=== PATIENT | female | born 1950 | race Caucasian/White ===

== ENCOUNTER 2019-09-20 13:28 | Outpatient (CLI) | payer MEDICARE, SELFPAY ==
--- NOTE | ~2019-09-20 | CT_ITS ---
EXAMINATION: CT knee LT wo con DATE: 09/20/2019 13:58 INDICATION: Left knee pain. TECHNIQUE: Computed tomography (CT) of the left knee was performed without intravenous contrast. Auto mated exposure control and iterative reconstruction technique were employed. The dose-length product was 355.77 mGy-cm. COMPARISON: None FINDINGS: There is a total left knee arthroplasty with patellar resurfacing in near-anatomic alignmen t. There is osteolysis abutting the cement of the tibial component anterolaterally in an area measuri ng 7 x 15 x 4 mm with breech of the anterolateral tibial cortex. There is a small knee joint effusion . IMPRESSION: 1. Total left knee arthroplasty in near-anatomic alignment. 2. 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 3. Small knee joint effusion. Reviewed, dictated and finalized at location A. SPLANT WORKER IMPRESSION: 1. Total left knee arthroplasty in near-anatomic alignment. 2. 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 3. Small knee joint effusion.
== END 2019-09-20 13:29 | disposition home or self-care (01) ==
PROVIDERS: PCP Physician Assistant; Visit Provider Orthopaedic Surgery
DX: Z96.652 Presence of left artificial knee joint (principal); M25.462 Effusion, left knee; M89.562 Osteolysis, left lower leg
CPT/HCPCS: 73700

== ENCOUNTER 2020-04-16 13:50 | Outpatient (CLI) | payer MEDICARE, SELFPAY ==
--- NOTE | ~2020-04-16 | DEXA_ITS ---
Bone Density Report Name: Carline Aj Age: 69 Sex: Female Ethnicity: White Date of : 1950 Indication: postmenopausal; height loss; inflammatory bowel disease; Referring Provider: PHYSICIAN NOT ON STAFF Study: Bone densitometry was performed. Exam Date: April 16, 2020 Accession number: [id number] Bone Density: Region BMD T-score Z-score Classification AP Spine (L1, L3, L4) 1.008 -0.4 1.8 Normal Femoral Neck (Left) 0.765 -0.8 1.1 Normal Total Hip (Left) 0.934 -0.1 1.5 Normal Total Hip Bilateral Avg 0.954 0.1 1.7 Normal Femoral Neck (Right) 0.759 -0.8 1.1 Normal Total Hip (Right) 0.972 0.2 1.8 Normal World Health Organization criteria for BMD impression classify patients as: Normal (T-score at or above -1.0), Osteopenia (T-score between -1.0 and -2.5), or Osteoporosis (T-score at or below -2.5). 10-year Fracture Risk: FRAX not reported because: All T-scores for Spine Total, Hip Total, Femoral Neck at or above -1.0 Clinical Information Provided by Patient: Has used the following medications: Vitamin D Has the following medical conditions: Inflammatory bowel diseases Patient maximum height was 63 Menopause Age: 27 No regular weight bearing exercise Drinks caffeinated beverages Onset of menses at age 9 Number of children 3 Impression: The patient has normal bone mass. Discussion: BONE DENSITY IS ABOVE THE MINIMUM DESIRABLE LEVEL AT ALL SKELETAL SITES TESTED. This patient?s bone mineral density is above the minimum desirable level (T-score -1.0 or better) at all sites measured. The patient should follow a healthful lifestyle (good nutrition with adequate calcium and vitamin D, and appropriate weight-bearing exercise). Follow-Up: Consider repeating this study in 5 years or sooner if there is some new clinical indication. Reported by: [facility] on 04/16/2020 2:20:00 PM. Reviewed, dictated and finalized at location AEvan TRINIDAD
== END 2020-04-16 13:51 | disposition home or self-care (01) ==
LOC: ANHIMG 13:57
PROVIDERS: PCP Physician Assistant
DX: M81.0 Age-related osteoporosis without current pathological fracture (principal)
CPT/HCPCS: 77080

== ENCOUNTER 2020-06-29 08:31 | Outpatient (CLI) | payer MEDICARE, SELFPAY ==
--- NOTE | ~2020-06-29 | US_ITS ---
EXAMINATION: US right upper quadrant EXAM DATE: 06/29/2020 09:55 INDICATION: Diarrhea. TECHNIQUE: Multiple grayscale and Doppler images of the abdomen right upper quadrant were obtained (b y a technologist who performed the scan) and subsequently reviewed. Comparison is made to prior exami nation from 01/17/2018. FINDINGS: The pancreatic head and body are normal in appearance. The pancreatic tail is not visualized. The l iver has normal echogenicity and contour. There are no focal liver lesions identified. There is no evidence of intrahepatic biliary duct dilation. Portal venous flow was seen in the hepatopedal, nor mal direction and has normal Doppler waveform. No right-sided hydronephrosis. Common bile duct measures 3 mm, which is normal. The gallbladder wall is normal in thickness, with ex pected amount of distention. No sonographic evidence of pericholecystic fluid. There is no cholelit hiases. Technologist performing exam reports patient did not demonstrate sonographic Flowers's sign. Please note that this sign is less reliable in patients who have received pain medication. IMPRESSION: 1. Unremarkable abdominal ultrasound exam. Reviewed, dictated and finalized at location A. NUE CYCLE SPECIALIST
--- NOTE | ~2020-06-29 | NM_ITS ---
EXAMINATION: NM hepatobiliary w pharm DATE: 06/29/2020 12:13 INDICATION: Diarrhea COMPARISON: None. TECHNIQUE: 4.7 mCi Tc-99m mebrofenin (Choletec) was administered intravenously. Scintigraphic images of the abdomen were obtained for one hour. 1.8 mcg sincalide (Kinevac) was administered by slow intr avenous infusion, and imaging was continued for 30 minutes. Gallbladder ejection fraction was calcula marnie by the technologist. FINDINGS: There is normal clearance of radiotracer from the blood pool. There is homogeneous tracer uptake by t he liver. Activity progresses to the gallbladder and bowel. There is continued increase in gallbladd er activity from the first 17.5 minutes following sincalide injection. The gallbladder ejection fract ion (GBEF) is <30% between 17.5 minutes and 30 minutes, with 0% GBEF over the 30 minutes following in jection (normal 10-90%, but most patient with gallbladder dysfunction have GBEF < 35% which does over lap with the normal range). IMPRESSION: 1. Decreased gallbladder ejection fraction consistent with gallbladder dysfunction or chronic cholec ystitis in the appropriate clinical setting. Reviewed, dictated and finalized at location A. NSTITCH SEWING MACHINE OPERATOR IMPRESSION: 1. Decreased gallbladder ejection fraction consistent with gallbladder dysfunc tion or chronic cholecystitis in the appropriate clinical setting.
== END 2020-06-29 08:32 | disposition home or self-care (01) ==
PROVIDERS: PCP Physician Assistant; Visit Provider Physician Assistant
DX: R19.7 Diarrhea, unspecified (principal)
CPT/HCPCS: 76705; 78227; A9537; J2805

== ENCOUNTER 2020-07-28 12:52 | Outpatient (CLI) | payer MEDICARE, SELFPAY ==
--- NOTE | 2020-07-28 12:55 | ECG_ITS ---
Measurements Intervals [place] Rate: 50 P: [place]: 0 QRS: -7 QRSD: 91 T: 29 QT: 481 QTc: 439 Interpretive Statements SINUS RHYTHM WITH FIRST DEGREE AV BLOCK CONSIDER INFERIOR INFARCT, AGE INDETERMINATE BORDERLINE T WAVE ABNORMALITY- ANTERIOR LEADS BASELINE ARTIFACT- I, II, III, AVR, AVL ABNORMAL ECG Electronically Signed On 07-28-2020 14:39:42 BRAKE OPERATOR by Kobe Ocampo D.O.
[2020-07-28 13:39] LABS: Basophils Percent Auto 0.4 % (0.2-1.2); Eosinophils Absolute Auto 0.2 K/mm3 (0-0.3); Eosinophils Percent Auto 2.7 % (0-4.4); Hematocrit 37.7 % (37.0-47.0); Hemoglobin 12.3 g/dL (12.0-15.0); Immature Granulocyte Absolute 0.03 K/mm3 (0.00-0.031); Immature Granulocyte Percent A 0.3 % (0-0.5); Lymphocytes Absolute Auto 2.95 K/mm3 (0.9-3.2); Lymphocytes Percent Auto 32.7 % (18.3-44.2); Mean Corpuscular HGB Conc 32.6 g/dl (32-36); Mean Corpuscular Hemoglobin 29.3 pg (26-34); Mean Corpuscular Volume 89.8 fl (80-100); Mean Platelet Volume 9.5 fl (7.4-10.4); Monocytes Absolute Auto 0.8 K/mm3 (0.1-0.6); Monocytes Percent Auto 8.4 % (2.6-8.5); Neutrophils Percent Auto 55.5 % (45.5-73.1); Platelet Count Result 285 k/mm3 (150-375); Red Cell Distribution Width 13.2 % (11.5-14.5)
[2020-07-28 13:51] LABS: Alanine Aminotransferase 17 U/L (4-35); Albumin Level 4.3 g/dL (3.5-5.1); Alkaline Phosphatase 109 U/L (38-126); Amylase 58 U/L (30-110); Anion Gap 8 mmol/L (8-16); Aspartate Amino Transferase 23 U/L (14-36); Bilirubin,Total 0.4 mg/dL (0.2-1.3); Blood Urea Nitrogen 13 mg/dL (7-17); Carbon Dioxide 34 mmol/L (22-30); Chloride 98 mmol/L (98-107); Estimated Glomerular Filt Rate > 60; Glucose 135 mg/dL (65-105); Lipase 169 U/L (23-300); Potassium 4.1 mmol/L (3.4-5.0); Sodium 140 mmol/L (137-145)
== END 2020-07-28 12:53 | disposition home or self-care (01) ==
LOC: ANHSURGERY 12:55
PROVIDERS: PCP Physician Assistant; Visit Provider Surgery
DX: Z01.818 Encounter for other preprocedural examination (principal); E11.9 Type 2 diabetes mellitus without complications; I44.0 Atrioventricular block, first degree
CPT/HCPCS: 36415; 80053; 82150; 82248; 83690; 85025; 93005

== ENCOUNTER 2020-07-31 02:09 | Outpatient (CLI) | payer MEDICARE, SELFPAY ==
[2020-07-31 18:46] LABS: SARS-CoV-2 RNA PCR Negative
== END 2020-07-31 02:10 | disposition home or self-care (01) ==
LOC: ANHCOVIDDT 02:09
PROVIDERS: PCP Physician Assistant; Visit Provider Surgery
DX: Z01.818 Encounter for other preprocedural examination (principal); Z20.828 Contact with and (suspected) exposure to other viral communicable diseases
CPT/HCPCS: 87635; C9803; U0003

== ENCOUNTER 2020-08-03 01:06 | Day surgery (SDC) | payer MEDICARE, SELFPAY ==
[2020-07-24 15:39] VITALS: BMI 33.5
[2020-08-03] VITALS (8 sets, daily range): BP systolic 127–169; BP diastolic 57–77; PULSE 52–77; RESP 12–17; TEMP 36.2–36.7; O2SAT 92–98
--- NOTE | 2020-08-03 08:28 | WPDANESEPPF ---
Anes - Initial Pre Proc Eval Procedure: Operation Date: 08/03/20 12:00 Proposed Procedures p Laparoscopic Cholecystectomy, Possible Intraoperative Cholangiogram, Possible Open - Carlos Cruz MD Date/Time: 08/03/20 08:28 Surgeon: Carlos Cruz MD Pre Op Diagnosis: biliary dyskensia Patient Data Age: 69 Gender: F Height: 1.57 m Weight: 83.18 kg Allergies Allergy/AdvReac Type Severity Reaction Status Date / Time Sulfa (Sulfonamide Allergy Unknown Rash Verified 08/03/20 10:00 Antibiotics) Home Medications Medication Instructions Recorded Confirmed Type amlodipine 5 mg tablet 5 mg PO DAILY 02/03/20 08/03/20 History atorvastatin 40 mg tablet 40 mg PO HS 02/03/20 08/03/20 History carvedilol 25 mg tablet 25 mg PO Q12H 02/03/20 08/03/20 History clonidine HCl 0.2 mg tablet 0.2 mg PO DAILY 02/03/20 08/03/20 History lisinopril 10 mg tablet 10 mg PO DAILY 02/03/20 08/03/20 History trazodone 50 mg tablet 50 mg PO HS PRN 02/03/20 08/03/20 History diclofenac sodium 75 mg 75 mg PO BID 07/20/20 08/03/20 History tablet,delayed release duloxetine 60 mg capsule,delayed 60 mg PO DAILY 07/20/20 08/03/20 History release levothyroxine 125 mcg tablet 125 mcg PO DAILY 07/20/20 08/03/20 History metformin 500 mg tablet 500 mg PO BID 07/20/20 08/03/20 History Patient hx anesthesia problems: none Family hx anesthesia problems: none [facility] Past Medical History Medical History (Updated 08/03/20 @ 08:29 by Louis Crocker DO) Depression Diabetes GERD (gastroesophageal reflux disease) High cholesterol History of heart attack 2017 History of hepatitis B Hypertension Hypothyroidism Surgical History Surgical History History of colon surgery tumor removal from colon History of hand surgery LEDY History of hysterectomy History of knee replacement left knee x2 History of shoulder surgery left shoulder History of thyroid surgery Hx of cataract surgery LEDY Family History Family History Sibling Family history of chronic obstructive pulmonary disease Family history of emphysema Mother , age 35 Multiple sclerosis Social History Social History Smoking status: Never smoker Second hand tobacco smoke exposure: No Alcohol intake: never Substance use: never Living arrangements: alone Spiritual care concerns: No Anes - Eval Final PreProcedure Day of Procedure 08/03/20 08:28 Patient weight: obese Heart: regular rate and rhythm Lungs: clear to auscultation and normal air movement Airway: Mallampati scale class 1 Neurological: alert and oriented Last oral intake: >/= 8 hours ASA classification: III Emergent: no Anesthetic plan: proceed Anesthesia type and monitoring: general ETT and standard monitoring Informed Consent: The patient's anesthetic plan and its attendant risks and benefits were discussed with the patient/family/POA. Questions were solicited and answers provided to the satisfaction of the patient/family/POA.
[2020-08-03] MEDS: ACETAMINOPHEN 500 MG TABLET 1000 MG PO (10:34)
[2020-08-03] MEDS: LACTATED RINGERS 1,000 ML 30 ML IV CONT ×2 (10:34→13:35)
[2020-08-03] MEDS: KETOROLAC 15 MG/ML VIAL (*BKC) IV PUSH (10:35)
--- NOTE | 2020-08-03 11:30 | WPDHPUPDATE1 ---
History and Physical Update Update Date/Time: 08/03/20 11:30 History and Physical has been reviewed, including an updated exam of the patient. There are NO changes in the patient's condition. Risks, benefits, and alternatives have been discussed and questions answered. Patient agrees to proceed with procedure.
--- NOTE | 2020-08-03 11:51 | SUR.PREOP ---
Up to bathroom.
[2020-08-03] MEDS: ceFAZolin 2 GM/D5W 50 ML 2 GM/50 ML BAG IVPB (12:15)
[2020-08-03] MEDS: BUPIVACAINE/EPINEPHRINE 0.25% 10 ML VIAL 30 ML INFILTRATE (12:36)
[2020-08-03 13:42] LABS: Glucose Point of Care 192 (65-105)
--- NOTE | 2020-08-03 13:42 | PM.PROC ---
Procedure Note - Detailed Date of procedure: 08/03/20 Pre-op diagnosis: biliary dyskensia Chronic Cholecystitis with Biliary dyskinesia Post-op diagnosis: same Procedure performed: Laparoscopic Cholecystectomy Description of procedure: Patient was seen preoperatively in the holding area and risks, benefits and alternatives confirmed. Patient was taken to the operating room and general anesthesia was induced. A time out was then preformed with the surgery team confirming patient and site of surgery. The abdomen was prepped and draped in the usual sterile fashion. Incision was made just below the umbilicus with an 11 blade knife. I placed 2 stay sutures of O- Vicryl on either side of the mid-line fascia beneath the umbilicus and was then able to slide in the Lux cannula through the fascial defect into the peritoneum. First under low flow and then under high flow the abdomen was insufflated with carbon dioxide never exceeding a pressure of 14. Three 5 mm trocars were then introduced under direct vision. The following trocars were introduced under direct vision: a 5 mm in the epigastrium and two 5 mm trocars along the right costal margin laterally in the subcostal area. There were no significant adhesions to the gallbladder. There were significant he has is of the omentum to the underside of the abdominal wall at the level of the umbilicus and somewhat to the right of the umbilicus. After placing all the ports we carefully placed a 0 degree 5 mm scope through the upper midline port and using the 2 lateral ports I took down the adhesions near the umbilicus which inhibited us from seen and moving the scope enter now by the umbilicus and also the right mid abdomen. These were omental adhesions and there was hardly any bleeding from these. I then carefully used the L-shaped cautery and the [place] dissector to dissect out the triangle of [place]. I then was able to dissect out both the cystic duct and cystic artery and identify a window of safety. The gall bladder was grasped and the cystic duct and artery were dissected free and clipped with an 5 mm endo-clip wearing apparel presser. The cystic duct and artery were clipped with use of 2 clips on the patient's side 1 on the gallbladder side utilizing a 5 mm endoclip-wearing apparel presser. The cystic duct was then transected. The cystic artery was also transected at this point. The gall bladder was removed using electrocautery and then removed from the abdomen using an endobag. The trocars were removed visualizing hemostasis and the remaining gas evacuated. The large trocar site at the umbilicus was closed with use of the 2 stay sutures of 0 Vicryl mentioned above and also a figure of 8 O-Vicryl suture. The 2 stay sutures mentioned above on either side of the fascia were also tied together to help approximate this midline fascia. Further local anesthetic was placed into each incision for postop pain control. The skin incisions were closed with subcuticular suture of 4-0 Monocryl. Surgical glue then was applied to all the incisions. Patient tolerated the procedure well was taken to the recovery room in good condition. Implants: none Anesthesia: TRACEE Surgeon: Carlos Cruz MD Automotive Fuel Injection Servicer: RYLEY Pisano, OR radiology physician assistant. Estimated blood loss (mL): 20 Drains: No Packing: No Pathology: yes (Gallbladder) Complications: No immediate complications Condition: stable Disposition: PACU Findings: Some adhesions under the umbilicus and along the right anterior abdominal wall. No palpable stones in the gallbladder.
== END 2020-08-03 15:40 | disposition home or self-care (01) ==
PROVIDERS: PCP Physician Assistant; Visit Provider Surgery
PROC: 0FT44ZZ Resection of Gallbladder, Percutaneous Endoscopic Approach (ICD-10-PCS; CPT 47562; principal; 2020-08-03 12:00)
DX: K81.1 Chronic cholecystitis (principal); I10 Essential (primary) hypertension; E78.00 Pure hypercholesterolemia, unspecified; I25.2 Old myocardial infarction; K21.9 Gastro-esophageal reflux disease without esophagitis; F32.9 Major depressive disorder, single episode, unspecified; E11.9 Type 2 diabetes mellitus without complications; Z79.84 Long term (current) use of oral hypoglycemic drugs; Z86.19 Personal history of other infectious and parasitic diseases; E66.9 Obesity, unspecified; Z68.33 Body mass index [BMI] 33.0-33.9, adult
CPT/HCPCS: 47562; 88304; A9270; J0461; J0690; J1100; J1885; J2405; J2704; J2710; J3010; J7120

== ENCOUNTER 2020-09-03 15:55 | Outpatient (CLI) | payer MEDICARE, SELFPAY ==
--- NOTE | ~2020-09-03 | MM_ITS ---
EXAMINATION: MM screening [facility] BI w petros HISTORY: Screening TECHNIQUE: Craniocaudal and mediolateral oblique 3-D tomosynthesis images were obtained and synthetic 2-D images were generated. CAD analysis was submitted and interpreted. COMPARISON: Comparison to multiple prior studies sequentially, with oldest reviewed study dated 10/2017. BREAST PARENCHYMAL COMPOSITION: There are scattered areas of fibroglandular density. FINDINGS: Stable benign-appearing 3 mm mass lower inner quadrant of the right breast. There is no rogelio dence of suspicious mass, calcification, or architectural distortion to suggest malignancy in either breast. There has been no suspicious interval change. IMPRESSION: 1. No mammographic evidence of malignancy. 2. Recommend routine screening mammography in one year. BI-RADS CATEGORY 2 - BENIGN FINDINGS Reviewed, dictated and finalized at location A. MING POOL SERVICER
== END 2020-09-03 15:56 | disposition home or self-care (01) ==
PROVIDERS: PCP Physician Assistant; Visit Provider Physician Assistant
DX: Z12.31 Encounter for screening mammogram for malignant neoplasm of breast (principal)
CPT/HCPCS: 77063; 77067

== ENCOUNTER 2020-09-26 09:51 | Observation (INO) | payer MEDICARE, SELFPAY ==
[2020-09-26] VITALS (24 sets, daily range): BP systolic 133–184; BP diastolic 50–90; PULSE 49–71; RESP 11–22; TEMP 36.2–36.4; O2SAT 96–99; BMI 34.0
--- NOTE | ~2020-09-26 | US_ITS ---
EXAMINATION: US carotid duplex BI DATE: 09/27/2020 08:32 INDICATION: Cerebellar infarcts. Transient ischemic attack. TECHNIQUE: Grayscale, color Doppler, and pulsed Doppler images of the cervical carotid arteries were obtained. The degree of vessel stenosis is placed in one of the following categories: normal, <50%, 5 0-69%, >=70% but less than near-occlusion, near-occlusion, or total occlusion. Note that percent sten osis relative to normal distal artery lumen diameter is indirectly measured from velocity measurement s as described by Simon, et al. Radiology 2003; 229:340-346. COMPARISON: None. FINDINGS: RIGHT: The right common carotid artery (CCA) peak systolic velocity (PSV) is 63 cm/s. The right internal car otid artery (ICA) PSV is 71 cm/s. The right ICA end-diastolic velocity (EDV) is 23 cm/s. The right IC A/CCA PSV ratio is 1.1. Grayscale and color Doppler images yield an estimate of <50% diameter reducti on from plaque in the ICA. There is antegrade flow in the right vertebral artery. LEFT: The left CCA PSV is 64 cm/s. The left ICA PSV is 84 cm/s. The left ICA EDV is 23 cm/s. The left ICA/C CA PSV ratio is 1.3. Grayscale and color Doppler images yield an estimate of <50% diameter reduction from plaque in the ICA. There is antegrade flow in the left vertebral artery. IMPRESSION: 1. <50% stenosis in the right internal carotid artery. 2. <50% stenosis in the left internal carotid artery. Reviewed, dictated and finalized at location A. RY SHEAR WORKER HELPER
--- NOTE | ~2020-09-26 | CT_ITS ---
EXAMINATION: CT brain wo con DATE: 09/26/2020 10:13 INDICATION: Aphasia. TECHNIQUE: Computed tomography (CT) of the head was performed without intravenous contrast. The mA wa s adjusted according to patient size. Iterative reconstruction technique was employed. The dose-lengt h product was 605.33 mGy-cm. COMPARISON: None FINDINGS: There is no intracranial hemorrhage, acute infarction, or abnormal intracranial mass lesion . The ventricles are normal in size. There are likely changes of ocular lens replacement surgeries. T here is mild mucosal thickening in the ethmoid sinuses. The mastoid air cells are normal. IMPRESSION: 1. Normal brain. Reviewed, dictated and finalized at location A. AGENT IMPRESSION: 1. Normal brain.
--- NOTE | ~2020-09-26 | XR_ITS ---
EXAMINATION: XR chest 1V portable DATE: 09/26/2020 10:06 INDICATION: Aphasia. TECHNIQUE: A single frontal view of the chest was obtained. COMPARISON: None. FINDINGS: The chest demonstrates clear lungs without pneumonia, pleural effusion, or pneumothorax. Th e heart size is normal. There is a prominent left paracardial fat pad. IMPRESSION: 1. No acute cardiopulmonary disease. Reviewed, dictated and finalized at location A. ITORY COUNSELOR
--- NOTE | ~2020-09-26 | MR_ITS ---
EXAMINATION: MR brain/brain stem wo/w con DATE: 09/27/2020 07:58 INDICATION: Transient ischemic attack. TECHNIQUE: Magnetic resonance imaging (MRI) of the brain and brainstem was performed without and with 16 mL MultiHance intravenous contrast. Sequences included sagittal and axial T1-weighted FSE, axial diffusion-weighted FS EPI, axial T2*-weighted GRE, axial T2-weighted FLAIR Propeller, and axial T2-we ighted Propeller. Postcontrast sequences included axial and coronal T1-weighted FSE. Apparent diffusi on coefficient (ADC) maps were created. COMPARISON: Head CT 09/26/2020 FINDINGS: There are scattered areas of nonspecific increased T2-weighted signal intensity in the cere bral white matter, which is within normal limits for the patient's age. There are small old infarcts in the cerebellum bilaterally. There is no intracranial hemorrhage, acute infarction, or abnormal int racranial mass lesion. The ventricles are normal in size. There are likely changes of ocular lens rep lacement surgeries. The mastoid air cells are normal. IMPRESSION: 1. Small old infarcts in the cerebellum. Reviewed, dictated and finalized at location A. ER GAS TUNGSTEN ARC
--- NOTE | 2020-09-26 09:59 | ECG_ITS ---
Measurements Intervals [place] Rate: 53 P: 41 MO: 201 QRS: -19 QRSD: 91 T: 16 QT: 450 QTc: 423 Interpretive Statements SINUS BRADYCARDIA BORDERLINE R WAVE PROGRESSION, ANTERIOR LEADS INFERIOR INFARCT, AGE INDETERMINATE BASELINE ARTIFACT- I, III, V4-V6 ABNORMAL ECG Electronically Signed On 09-26-2020 11:05:51 PIANOS [employer] ORGANS SALESPERSON by Kobe Ocampo D.O.
[2020-09-26 10:04] LABS: Glucose Point of Care 159 (65-105)
[2020-09-26 10:28] LABS: Basophils Absolute Auto 0.1 K/mm3 (0.0-0.1); Basophils Percent Auto 0.8 % (0.2-1.2); Eosinophils Absolute Auto 0.1 K/mm3 (0-0.3); Eosinophils Percent Auto 2.3 % (0-4.4); Hematocrit 41.5 % (37.0-47.0); Hemoglobin 13.4 g/dL (12.0-15.0); Immature Granulocyte Absolute 0.01 K/mm3 (0.00-0.031); Immature Granulocyte Percent A 0.2 % (0-0.5); Lymphocytes Absolute Auto 2.08 K/mm3 (0.9-3.2); Lymphocytes Percent Auto 33.9 % (18.3-44.2); Mean Corpuscular HGB Conc 32.3 g/dl (32-36); Mean Corpuscular Hemoglobin 28.8 pg (26-34); Mean Corpuscular Volume 89.2 fl (80-100); Mean Platelet Volume 9.6 fl (7.4-10.4); Monocytes Absolute Auto 0.5 K/mm3 (0.1-0.6); Monocytes Percent Auto 8.1 % (2.6-8.5); Neutrophils Absolute Auto 3.4 K/mm3 (1.3-6.7); Neutrophils Percent Auto 54.7 % (45.5-73.1); Platelet Count Result 263 k/mm3 (150-375); Red Blood Count 4.65 M/mm3 (4.2-5.4); Red Cell Distribution Width 12.8 % (11.5-14.5); White Blood Count 6.1 K/mm3 (4.5-10.0)
[2020-09-26 10:39] LABS: INR 0.9; Prothrombin Time 12.5 Seconds (11.1-14.7)
[2020-09-26 10:40] LABS: Partial Thromboplastin Time 32.2 SECONDS (22.3-36.8)
[2020-09-26 10:41] LABS: Anion Gap 6 mmol/L (8-16); Blood Urea Nitrogen 13 mg/dL (7-17); Carbon Dioxide 31 mmol/L (22-30); Chloride 103 mmol/L (98-107); Estimated CRCL calculation 72 ml/min; Estimated Glomerular Filt Rate > 60; Glucose 156 mg/dL (65-105); Potassium 4.4 mmol/L (3.4-5.0); Sodium 140 mmol/L (137-145)
[2020-09-26 10:53] LABS: Troponin I < 0.012 ng/mL (0.000-0.034)
--- NOTE | 2020-09-26 10:53 | ED.WEAKNESS ---
HPI - Weakness General Chief complaint: Weakness <Jeri Linn PA-C - Last Filed: 09/26/20 12:43> Stated complaint: weakness <JOSHUA Hughes Last Filed: 09/26/20 12:43> Time Seen by Provider: 09/26/20 10:14 <JOSHUA Hughes Last Filed: 09/26/20 12:43> Source: patient <JOSHUA Hughes Last Filed: 09/26/20 12:43> Mode of arrival: EMS <JOSHUA Hughes Last Filed: 09/26/20 12:43> Limitations: no limitations <JOSHUA Hughes Last Filed: 09/26/20 12:43> History of Present Illness HPI Narrative: This is a 69 year old female that presents to the ER for episode of confusion this morning. Reports around 8:30AM she was on the phone. Reports she was being asked questions and could not get out the answers. Reports this lasted for around 8 minutes and then resolved. Now reports she just does not feel right. Denies fever, cough, chest pain, shortness of breath, vision changes, abdominal pain, vomiting, dysuria, weakness, or numbness. <Jeri Linn PA-C - Last Filed: 09/26/20 12:43> Related Data Home medications: Home Medications Medication Instructions Recorded Confirmed amlodipine 5 mg tablet 5 mg PO DAILY 02/03/20 09/26/20 atorvastatin 40 mg tablet 40 mg PO HS 02/03/20 09/26/20 carvedilol 25 mg tablet 25 mg PO Q12H 02/03/20 09/26/20 clonidine HCl 0.2 mg tablet 0.2 mg PO BID 02/03/20 09/26/20 lisinopril 10 mg tablet 10 mg PO DAILY 02/03/20 09/26/20 trazodone 50 mg tablet 50 mg PO HS PRN 02/03/20 09/26/20 duloxetine 60 mg capsule,delayed 60 mg PO DAILY 07/20/20 09/26/20 release levothyroxine 125 mcg tablet 125 mcg PO DAILY 07/20/20 09/26/20 metformin 500 mg tablet 500 mg PO BID 07/20/20 09/26/20 <Jeri Linn PA-C - Last Filed: 09/26/20 12:43> Allergies/Adverse reactions: Allergies Allergy/AdvReac Type Severity Reaction Status Date / Time Sulfa (Sulfonamide Allergy Unknown Rash Verified 09/26/20 09:52 Antibiotics) <Jeri Linn PA-C - Last Filed: 09/26/20 12:43> Review of Systems Review of Systems: Narrative: CONSTITUTIONAL: Denies fever EYES: Denies visual changes CARDIOVASCULAR: Denies chest pain RESPIRATORY: Denies dyspnea. GASTROINTESTINAL: Denies abdominal pain, nausea, vomiting GENITOURINARY: Denies dysuria NEUROLOGIC: Denies headache, numbness, or weakness. <Jeri Linn PA-C - Last Filed: 09/26/20 12:43> All systems reviewed & are unremarkable except as noted in HPI and below <Jeri Linn PA-C - Last Filed: 09/26/20 12:43> [facility] Past Medical History Medical History: Medical History (Updated 09/27/20 @ 10:20 by Magali Magana PA-C) Depression Gastroesophageal reflux disease High cholesterol History of hepatitis B Hypertension Hypothyroidism Non-STEMI (non-ST elevated myocardial infarction) (~2016) In the setting of takotsubo cardiomyopathy. Pre-diabetes Takotsubo cardiomyopathy (~2016) <Jeri Linn PA-C - Last Filed: 09/26/20 12:43> Surgical History Surgical History: Surgical History (Updated 09/26/20 @ 21:48 by Susan Baldwin PA-C) History of arthroscopy of left shoulder History of bilateral cataract extraction History of colon surgery Benign mass removed from colon. History of hand surgery As treatment for basilar thumb arthritis bilaterally. History of hysterectomy History of knee replacement Left knee x2. History of laparoscopic cholecystectomy (~06/2020) History of thyroidectomy As treatment of multinodular goiter. <Jeri Linn PA-C - Last Filed: 09/26/20 12:43> Family History Family History: Family History (Updated 09/26/20 @ 21:49 by Susan Baldwin PA-C) Sibling Heart disease Mother , age 35 Multiple sclerosis Ovarian cancer Son Hodgkin lymphoma <Jeri Linn PA-C - Last Filed: 09/26/20 12:43> Social History Social History: Social History (Updated 09/26/20 @ 21:53 by Susan Lira Sumit
[2020-09-26 11:06] LABS: Add Urine Microscopic? YES; Appearance Urine Clear (Clear); Bacteria Urine Trace /hpf; Bilirubin Urine Negative (Negative); Blood Urine Negative (Negative); Color Urine Yellow (Yellow); Glucose Urine UA Negative (Negative); Ketones Urine Negative (Negative); Leukocyte Esterase Ur 3+ LEU/UL (Negative); Mucus Urine Rare /lpf; Nitrate Urine Negative (Negative); Protein Urine Negative (Negative); RBC Urine 0-2 /hpf (0-2); Squamous Epithelial Cell Urine Occasional /hpf (Few); Urobilinogen Urine Negative mg/dL (<2.0); WBC Urine 31-50 /hpf
[2020-09-26] MEDS: ASPIRIN 325 MG TABLET PO (12:49)
--- NOTE | 2020-09-26 14:29 | PC.NURSE ---
This patient, Carline Aj, was admitted to Medical Room 252-01. Patient/family oriented to hospital policies and general routines including ID bracelet, bed and alarms, visiting hours, pain management, procedures, bathroom and other care routines, personal items, smoking policy, room service/diet, and visiting hours. Information on how to activate the Rapid Response Team has been discussed. Patient/Family are encouraged to report perceived risks to care and to ask questions if they do not understand what they are told or what they should do.
--- NOTE | 2020-09-26 14:30 | PM.IMHP ---
H&P: HPI History of Present Illness Date/Time: 09/26/20 14:30 Chief Complaint: Difficulty speaking for several minutes. Narrative: This is a very pleasant 69-year-old female with hypertension, dyslipidemia, pre diabetes, hypothyroidism, and history of Takotsubo's cardiomyopathy in 2017 who presented to the emergency department earlier today via EMS from home with reports of difficulty speaking for short period of time earlier today. She was in her usual state of health when she woke this morning and at around 08:30, while speaking on the telephone to a friend, she suddenly had difficulty speaking and seemed to be ?babbling? for approximately 8 minutes before complete resolution. She has never had similar symptoms and has not had a recurrence of such. She denies associated auditory and visual changes, vertigo, ataxia, focal weakness, paresthesias, and dysphagia. No known history of cardiac dysrhythmia however perhaps every other month she will have fleeting episodes of fluttering, almost like ?butterflies? in her chest lasting less than a couple of minutes without associated symptoms. She has no known history of stroke, TIA, or carotid artery disease. Review of Systems Review of Systems: Narrative: Twelve systems were reviewed with pertinent positives and negatives as per HPI. No fever, chills, or sweats. No recent cold or flu symptoms. She denies exertional chest pain shortness of breath. No orthopnea, PND, or lower extremity edema. She denies nausea, vomiting, diarrhea. No dysuria, urinary urgency, hesitancy, incontinence, or malodorous urine. Except as documented, all other systems were reviewed and are negative. [facility] Past Medical History Medical History (Updated 09/26/20 @ 21:56 by Susan Baldwin PA-C) Depression Gastroesophageal reflux disease High cholesterol History of hepatitis B Hypertension Hypothyroidism Non-STEMI (non-ST elevated myocardial infarction) (~2016) In the setting of takotsubo cardiomyopathy. Pre-diabetes Takotsubo cardiomyopathy (~2016) Surgical History Surgical History (Updated 09/26/20 @ 21:48 by Susan Baldwin PA-C) History of arthroscopy of left shoulder History of bilateral cataract extraction History of colon surgery Benign mass removed from colon. History of hand surgery As treatment for basilar thumb arthritis bilaterally. History of hysterectomy History of knee replacement Left knee x2. History of laparoscopic cholecystectomy (~06/2020) History of thyroidectomy As treatment of multinodular goiter. Family History Family History (Updated 09/26/20 @ 21:49 by Susan Baldwin PA-C) Sibling Heart disease Mother , age 35 Multiple sclerosis Ovarian cancer Son Hodgkin lymphoma Social History Social History (Updated 09/26/20 @ 21:53 by Susan Baldwin PA-C) Social History: Surrogate decision maker: Mariposa Charles, daughter. Code status: Full code. Smoking status: Never smoker Second hand tobacco smoke exposure: No Alcohol intake: never Substance use: never Additional living arrangements comments: The patient is and lives in her own home in [place]. Additional occupation/education comments: Retired. Gender identity (if verbalized by the patient): Female Sexual Orientation (if Verbalized by the Patient): Straight or Heterosexual Spiritual care concerns: No Meds Home Medications and Allergies Home Medications Medication Instructions Recorded Confirmed Type amlodipine 5 mg tablet 5 mg PO DAILY 02/03/20 09/26/20 History atorvastatin 40 mg tablet 40 mg PO HS 02/03/20 09/26/20 History carvedilol 25 mg tablet 25 mg PO Q12H 02/03/20 09/26/20 History clonidine HCl 0.2 mg tablet 0.2 mg PO BID 02/03/20 09/26/20 History lisinopril 10 mg tablet 10 mg PO DAILY 02/03/20 09/26/20 History trazodone 50 mg tablet 50 mg PO HS PRN 02/03/20 09/26/20 History duloxetine 60 mg capsule,delayed 60 mg PO DAILY 07/20/20 09/26/20 Histo
--- NOTE | 2020-09-26 14:55 | WPDNEURCNPN ---
Assessment and Plan Assessment and plan (1) TIA (transient ischemic attack): Code(s): G45.9 - Transient cerebral ischemic attack, unspecified Status: Acute Additional Plan TIA receiving aspirin Consult date: 09/28/20 Time Seen: 14:55 HPI: Carline Aj is a 69 year old femaleAdmitted to the hospital through the emergency room for the complaints of confusion reportedly she was being asked questions she could not answer for [id number] subsequently completely resolved patient has been taking multiple medication as outlined . Does have ongoing history of diabetes mellitus hyperlipidemia depression hypertension and hypothyroidism in addition to the history of hepatitis B. Evaluation up until now revealed normal CBC normal BM abnormal UA COVID-19 negative , did CT scan of the brain Review of Systems Review of Systems: All systems reviewed & are unremarkable except as noted in HPI and below PMFSH Past Medical History Medical History Depression Gastroesophageal reflux disease High cholesterol History of hepatitis B Hypertension Hypothyroidism Non-STEMI (non-ST elevated myocardial infarction) (~2016) In the setting of takotsubo cardiomyopathy. Pre-diabetes Takotsubo cardiomyopathy (~2016) Surgical History Surgical History History of arthroscopy of left shoulder History of bilateral cataract extraction History of colon surgery Benign mass removed from colon. History of hand surgery As treatment for basilar thumb arthritis bilaterally. History of hysterectomy History of knee replacement Left knee x2. History of laparoscopic cholecystectomy (~06/2020) History of thyroidectomy As treatment of multinodular goiter. Family History Family History Sibling Heart disease Mother , age 35 Multiple sclerosis Ovarian cancer Son Hodgkin lymphoma Social History Social History Social History: Surrogate decision maker: Mariposa Charles, daughter. Code status: Full code. Smoking status: Never smoker Second hand tobacco smoke exposure: No Alcohol intake: never Substance use: never Additional living arrangements comments: The patient is and lives in her own home in [place]. Additional occupation/education comments: Retired. Gender identity (if verbalized by the patient): Female Sexual Orientation (if Verbalized by the Patient): Straight or Heterosexual Spiritual care concerns: No Meds Home Medications and Allergies Home Medications Medication Instructions Recorded Confirmed Type amlodipine 5 mg tablet 5 mg PO DAILY 02/03/20 09/26/20 History atorvastatin 40 mg tablet 40 mg PO HS 02/03/20 09/26/20 History carvedilol 25 mg tablet 25 mg PO Q12H 02/03/20 09/26/20 History clonidine HCl 0.2 mg tablet 0.2 mg PO BID 02/03/20 09/26/20 History lisinopril 10 mg tablet 10 mg PO DAILY 02/03/20 09/26/20 History trazodone 50 mg tablet 50 mg PO HS PRN 02/03/20 09/26/20 History duloxetine 60 mg capsule,delayed 60 mg PO DAILY 07/20/20 09/26/20 History release levothyroxine 125 mcg tablet 125 mcg PO DAILY 07/20/20 09/26/20 History metformin 500 mg tablet 500 mg PO BID 07/20/20 09/26/20 History Allergies Allergy/AdvReac Type Severity Reaction Status Date / Time Sulfa (Sulfonamide Allergy Unknown Rash Verified 09/26/20 09:52 Antibiotics) Vital Signs Vital Signs - 24 hr 09/26/20 09:48 09/26/20 09:54 09/26/20 09:58 Temperature 36.3 C L Pulse Rate 54 L 55 L 54 L Respiratory Rate 20 17 Blood Pressure 184/90 H Pulse Oximetry 99 99 09/26/20 10:00 09/26/20 10:01 09/26/20 10:04 Temperature Pulse Rate 52 L 53 L 57 L Respiratory Rate 15 19 22 H Blood Pressure 171/77 H 171/77 H Pulse Oximetry 99 99 99 09/26/20 10:17 09/26/20 10:39 09/26/20
[2020-09-26] MEDS: ACETAMINOPHEN 325 MG TABLET 650 MG PO (17:42)
[2020-09-26 21:54] LABS: Glucose Point of Care 104 (65-105)
[2020-09-26 22:03] LABS: Glucose Point of Care 137 (65-105)
[2020-09-26] MEDS: carvediloL 25 MG TABLET PO (22:30)
[2020-09-26] MEDS: cloNIDine HCL 0.2 MG TABLET PO (22:30)
[2020-09-26] MEDS: traZODone HCL 50 MG TABLET PO (22:31)
[2020-09-26] MEDS: ATORVASTATIN 40 MG TABLET PO (22:31)
[2020-09-27] VITALS (10 sets, daily range): BP systolic 105–114; BP diastolic 56–69; PULSE 49–86; RESP 16–18; TEMP 36.2–36.8; O2SAT 95–99
[2020-09-27 06:03] LABS: Alanine Aminotransferase 14 U/L (4-35); Albumin Level 3.8 g/dL (3.5-5.1); Alkaline Phosphatase 89 U/L (38-126); Anion Gap 5 mmol/L (8-16); Aspartate Amino Transferase 23 U/L (14-36); Bilirubin,Total 0.4 mg/dL (0.2-1.3); Blood Urea Nitrogen 13 mg/dL (7-17); Calcium 8.7 mg/dL (8.4-10.2); Carbon Dioxide 33 mmol/L (22-30); Chloride 102 mmol/L (98-107); Estimated CRCL calculation 64 ml/min; Estimated Glomerular Filt Rate > 60; Glucose 134 mg/dL (65-105); Magnesium 1.9 mg/dL (1.6-2.3); Sodium 140 mmol/L (137-145)
[2020-09-27] MEDS: LEVOTHYROXINE SODIUM 125 MCG TABLET PO (06:24)
[2020-09-27 06:56] LABS: Thyroid Stimulating Hormone Reflex 0.126 uIU/mL (0.465-4.68)
[2020-09-27 07:14] LABS: Hemoglobin A1C 5.8 % (<5.7)
[2020-09-27] MEDS: metFORMIN HCL 500 MG TABLET PO ×2 (09:01→17:00)
[2020-09-27] MEDS: DULoxetine HCL 60 MG CAPSULE.DR PO (09:01)
[2020-09-27] MEDS: carvediloL 25 MG TABLET PO ×2 (09:02→21:18)
[2020-09-27] MEDS: cloNIDine HCL 0.2 MG TABLET PO ×2 (09:02→17:00)
[2020-09-27] MEDS: lisinopriL 10 MG TABLET PO (09:02)
[2020-09-27] MEDS: amLODIPine BESYLATE 5 MG TABLET PO (09:02)
[2020-09-27] MEDS: ASPIRIN 325 MG TABLET PO (09:02)
[2020-09-27 09:40] LABS: Glucose Point of Care 172 (65-105)
--- NOTE | 2020-09-27 09:52 | ECG_ITS ---
Measurements Intervals [place] Rate: 52 P: 29 NM: 202 QRS: -21 QRSD: 98 T: 11 QT: 470 QTc: 439 Interpretive Statements SINUS BRADYCARDIA BORDERLINE AV CONDUCTION DELAY DELAYED PRECORDIAL R/S TRANSITION INFERIOR INFARCT, AGE INDETERMINATE BORDERLINE T WAVE ABNORMALITY- ANTERIOR LEADS ABNORMAL ECG Electronically Signed On 09-27-2020 11:29:31 FUR REPAIRER by Kobe Ocampo D.O.
--- NOTE | 2020-09-27 10:05 | PM.IMPN ---
Progress Note: A&P Assessment and Plan (1) Dysarthria: Code(s): R47.1 - Dysarthria and anarthria Status: Acute Assessment and Plan: Likely due to TIA due to history of previous stroke and possible arrhythmia -will continue daily aspirin -carotid Dopplers negative for significant disease -will do echo tomorrow morning -will likely need 28 day Holter monitor (2) Hypertension: Code(s): I10 - Essential (primary) hypertension Status: Acute Assessment and Plan: Last blood pressure 105/65 but was much higher on admission 184/90 likely due to stress and possible TIA -at this time, I am going to hold her home medications and do p.r.n. hydralazine although she really got her amlodipine and lisinopril today (3) High cholesterol: Code(s): E78.00 - Pure hypercholesterolemia, unspecified Status: Inactive Assessment and Plan: Continue atorvastatin (4) Pre-diabetes: Code(s): R73.03 - Prediabetes Status: Inactive Assessment and Plan: Patient is aware of this and follows with her primary care physician (5) Hypothyroidism: Code(s): E03.9 - Hypothyroidism, unspecified Status: Inactive Assessment and Plan: TSH low -await T4 and adjust medications as necessary -she has a history of thyroid resection (6) Abnormal urinalysis: Code(s): R82.90 - Unspecified abnormal findings in urine Status: Acute Assessment and Plan: Does not seem suspicious for UTI at this time, no antibiotics indicated at this time (7) TIA (transient ischemic attack): Code(s): G45.9 - Transient cerebral ischemic attack, unspecified Status: Acute Assessment and Plan: As above (8) NSVT (nonsustained ventricular tachycardia): Code(s): I47.2 - Ventricular tachycardia Status: Acute Assessment and Plan: Patient felt these palpitations during my exam but had no pain -will check magnesium stat although is normal yesterday -stat EKG does not show any arrhythmia -continue telemetry -Echo ordered -consult cardiology since the patient has arrhythmia, Need for AFib eval and my need a monitor outpt (due to chronic stroke recent TIA), and has a cardiac history (9) Sinus bradycardia: Code(s): R00.1 - Bradycardia, unspecified Status: Acute Assessment and Plan: Longstanding -patient does not have a history of passing out or weakness -no home medications appear to be the cause Time Spent With Patient Time with patient: 25 - 35 minutes Subjective Date/time seen: 09/27/20 10:05 Interval history: Pt is a 69-year-old female here for dysarthria who was seen today. Patient states she has not had any recurring symptoms. She denies numbness, tingling, weakness, dropping items, problems with gait, or problems with speaking/swallowing. She states that every once in a while she does feel like her heart flutters but does not have any pain. She states she has always had bradycardia and used to see a superintendent building up in [place] but wants to change [facility]. She says this fluttering happens every once in a while and cannot give me any time frames. She has no dizziness, arm pain, or passing out in the past. She did have a catheterization I believe about 4 years ago and was diagnosed with Takotsubo's. She has ever had a stroke in the past and is very surprised by the MRI findings. She does not Take aspirin routinely. She has not had any history of gait and balance or coordination. Patient states she has had her thyroid removed and takes levothyroxine. She just had her TSH checked outpatient but did not get the results yet Review of Systems Review of Systems: All systems reviewed & are unremarkable except as noted in HPI and below Exam Narrative: Exam Narrative: General: Well developed well nourished patient in NAD HEENT: normocephalic Neck: supple Ne
[2020-09-27 12:09] LABS: Glucose Point of Care 112 (65-105)
--- NOTE | 2020-09-27 13:22 | PM.CNCAR ---
Assessment and Plan Additional Plan TIA, MRI with evidence of old stroke, paroxysmal AF, NSVT, plan TTE, start oral anticoagulation Apixaban History of Present Illness History of Present Illness Consult date/time: 09/27/20 13:22 Consult reason: Other (arrhythmia) Reason For Visit: TIA Narrative: patient presented with acute episode of loss of speech that lasted for hours and resolved completely, no precipitating or relieving factors. No prior similar episodes. She was admitted to hospital for TIA work up. This showed small bilateral infarctions and monitor showed NSVT and AF. She has been complaining of fluttering sensation in chest and palpitations intermittently for years but never had this investigated. Review of Systems Review of Systems: All systems reviewed & are unremarkable except as noted in HPI and below PMFSH Past Medical History Medical History (Updated 09/27/20 @ 10:20 by Magali Magana PA-C) Depression Gastroesophageal reflux disease High cholesterol History of hepatitis B Hypertension Hypothyroidism Non-STEMI (non-ST elevated myocardial infarction) (~2016) In the setting of takotsubo cardiomyopathy. Pre-diabetes Takotsubo cardiomyopathy (~2017) Surgical History Surgical History (Updated 09/26/20 @ 21:48 by Susan Baldwin PA-C) History of arthroscopy of left shoulder History of bilateral cataract extraction History of colon surgery Benign mass removed from colon. History of hand surgery As treatment for basilar thumb arthritis bilaterally. History of hysterectomy History of knee replacement Left knee x2. History of laparoscopic cholecystectomy (~06/2020) History of thyroidectomy As treatment of multinodular goiter. Family History Family History (Updated 09/26/20 @ 21:49 by Susan Baldwin PA-C) Sibling Heart disease Mother , age 35 Multiple sclerosis Ovarian cancer Son Hodgkin lymphoma Social History Social History (Updated 09/26/20 @ 21:53 by Susan Baldwin PA-C) Social History: Surrogate decision maker: Mariposa Charles, daughter. Code status: Full code. Smoking status: Never smoker Second hand tobacco smoke exposure: No Alcohol intake: never Substance use: never Additional living arrangements comments: The patient is and lives in her own home in [place]. Additional occupation/education comments: Retired. Gender identity (if verbalized by the patient): Female Sexual Orientation (if Verbalized by the Patient): Straight or Heterosexual Spiritual care concerns: No Meds Home Medications and Allergies Home Medications Medication Instructions Recorded Confirmed Type amlodipine 5 mg tablet 5 mg PO DAILY 02/03/20 09/26/20 History atorvastatin 40 mg tablet 40 mg PO HS 02/03/20 09/26/20 History carvedilol 25 mg tablet 25 mg PO Q12H 02/03/20 09/26/20 History clonidine HCl 0.2 mg tablet 0.2 mg PO BID 02/03/20 09/26/20 History lisinopril 10 mg tablet 10 mg PO DAILY 02/03/20 09/26/20 History trazodone 50 mg tablet 50 mg PO HS PRN 02/03/20 09/26/20 History duloxetine 60 mg capsule,delayed 60 mg PO DAILY 07/20/20 09/26/20 History release levothyroxine 125 mcg tablet 125 mcg PO DAILY 07/20/20 09/26/20 History metformin 500 mg tablet 500 mg PO BID 07/20/20 09/26/20 History Allergies Allergy/AdvReac Type Severity Reaction Status Date / Time Sulfa (Sulfonamide Allergy Unknown Rash Verified 09/26/20 09:52 Antibiotics) Vital Signs Vital Signs - 24 hr 09/26/20 14:41 09/26/20 16:00 09/26/20 20:00 Temperature 36.4 C L Pulse Rate 57 L 56 L 59 L Respiratory Rate 18 Blood Pressure 161/80 H Pulse Oximetry 99 09/26/20 21:41 09/26/20 22:30 09/27/20 00:00 Temperature 36.2 C L Pulse Rate 56 L 71 51 L Respiratory Rate 16 Blood Pressure 142/66 H Pulse Oximetry 96 09/27/20 04:00 09/27/20 05:09 09/27/20 09:02 Temperature 36.8 C Pulse Rate 49 L 60 86 Respiratory Rate 16 Blood Pr
[2020-09-27 13:34] LABS: Free T4 Free Thyroxine Reflex 1.47 ng/dL (0.78-2.19)
[2020-09-27 14:22] LABS: Total Triiodothyronine (T3) 1.31 NG/ML (0.97-1.69)
[2020-09-27 17:22] LABS: Glucose Point of Care 105 (65-105)
[2020-09-27 21:04] LABS: Glucose Point of Care 112 (65-105)
[2020-09-27] MEDS: ATORVASTATIN 40 MG TABLET PO (21:19)
[2020-09-28] VITALS (7 sets, daily range): BP systolic 113–120; BP diastolic 62–63; PULSE 47–62; RESP 16–18; TEMP 36.3–36.9; O2SAT 94–98
--- NOTE | 2020-09-28 06:00 | ECHO_ITS ---
Patient Info Name: Carline Aj Age: 69 years : 1950 Gender: Female Ht: 62 in Wt: 182 lbs BSA: 1.94 m2 HR: 57 bpm BP: 120 / 62 mmHg Heart Rhythm: Sinus Rhythm Technical Quality: Good Exam Date: 09/28/2020 9:53 AM Exam Location: [facility] Pulmonary Patient Status: Outpatient Admit Date: 09/26/2020 Staff Ordering Physician: Jeri Linn PA-C Lighting Designer: Maxi Flowers, LIZ, RT Attending Provider: aMgali Magana PA-C Referring Physician: Kaveh RAMIRES; Exam Type: CA echo doppler color flow Study Info Indications G45.9 - Transient cerebral ischemic attack, unspecified Complete two-dimensional, color flow and Doppler transthoracic echocardiogram is performed. Strain analysis performed. Summary 1. Complete two-dimensional, color flow and Doppler transthoracic echocardiogram is performed. 2. Left ventricular systolic function is normal, estimated at 60-65%. 3. The left ventricular diastolic function is grade I diastolic dysfunction. 4. Left atrial chamber dimension is moderately enlarged. 5. Small amount of pulmonic and tricuspid valve regurgitation. 6. Aortic valve is sclerotic but not stenotic in appearance. Left Ventricle Left ventricular chamber dimension is normal. Left ventricular systolic function is normal, estimated at 60-65%. The left ventricular diastolic function is grade I diastolic dysfunction. Right Ventricle Right ventricular chamber dimension is normal. Left Atria Left atrial chamber dimension is moderately enlarged. Right Atria Right atrial chamber dimension is normal. Aortic Valve The aortic valve is trileaflet. There is mild aortic valve sclerosis. Pulmonic Valve The pulmonic valve is normal. There is mild pulmonic regurgitation. Mitral Valve The mitral valve has normal leaflets. Tricuspid Valve The tricuspid valve leaflets are normal. There is mild tricuspid valve regurgitation. Pericardium/Pleural The pericardium appears normal. Aorta The aortic root size at the sinus of Valsalva is normal. Left Ventricular Outflow Tract Name Value Normal LVOT 2D LVOT Diameter 2.0 cm LVOT Doppler LVOT Peak Gradient 5 mmHg LVOT Mean Gradient 3 mmHg LVOT VTI 28 cm LVOT VTI/AV VTI Ratio 0.7 LVOT Stroke Volume 86 ml LVOT CO 4.6 l/min LVOT CI 2.4 l/min/m2 Mitral Valve Name Value Normal MV Doppler MV Decel Brooks 440 cm/s2 MV PHT 77 ms MV Area (PHT) 2.9 cm2 4.0-5.0 MV Diastolic Function MV E Peak Velocity 117 cm/
[2020-09-28] MEDS: LEVOTHYROXINE SODIUM 125 MCG TABLET PO (06:29)
[2020-09-28] MEDS: metFORMIN HCL 500 MG TABLET PO (07:43)
[2020-09-28] MEDS: cloNIDine HCL 0.2 MG TABLET PO (08:01)
[2020-09-28] MEDS: ASPIRIN 81 MG ENTERIC TABLET PO (08:01)
[2020-09-28] MEDS: DULoxetine HCL 60 MG CAPSULE.DR PO (08:01)
[2020-09-28] MEDS: carvediloL 25 MG TABLET PO (08:02)
[2020-09-28] MEDS: APIXABAN 5 MG TABLET PO (08:02)
[2020-09-28 10:09] LABS: Glucose Point of Care 132 (65-105)
[2020-09-28 12:36] LABS: Glucose Point of Care 143 (65-105)
--- NOTE | 2020-09-28 14:13 | PM.PNCARD ---
Progress Note: A&P Additional Plan 69-year-old woman with: Episode of TIA likely cardioembolic with recognized paroxysmal atrial fib on telemetry. When in sinus rhythm she is tending to be bradycardic with heart rates in the 40s and 50s. She has been appropriately anticoagulated with apixaban. Echocardiogram/Doppler done this morning I have not been upstairs to read this study yet. She is asymptomatic and doing well. I believe cardiac-terrazas she can be discharged to home I will ensure that my office contact her for follow-up in the office downstairs regarding her paroxysmal AFib. Her episodes of AFib are very brief and self-limited and at this point I would not recommend specific antiarrhythmic therapy. Jhonatan Gunter MD [facility] Subjective Date/time seen: Date of service: 09/28/20 14:13 Interval history: Follow-up visit in the 69-year-old woman with: Episode of transient cerebral ischemia marked by expressive aphasia which was self-limited lasted 5-10 minutes. Following admission telemetry shows evidence of brief episodes of paroxysmal atrial fibrillation. She was seen yesterday in appropriately recommended for anticoagulation with apixaban. Exam Const: General: comfortable and no acute distress HENMT: Mouth: Yes moist mucous membranes Eyes: Sclera: sclerae normal Pupils: Equal, round and reactive pupils present Neck: Neck: supple and no JVD Thyroid: thyroid normal Resp: Effort & Inspection: normal respiratory effort Auscultation: clear to auscultation bilaterally Cardio: Rate: regular rate Rhythm: regular rhythm Other: No murmur no gallop GI: GI Palp: Yes Soft to palpation Auscultation: normal bowel sounds Skin: General skin exam: normal color Neuro: Cognition (Neuro): normal cognition Extrem: General: normal to inspection Objective Data Vital Signs Vital Signs: Vital Signs - 24 hr 09/27/20 16:00 09/27/20 20:00 09/27/20 21:18 Temperature Pulse Rate 70 53 L 56 L Respiratory Rate Blood Pressure Pulse Oximetry 09/27/20 22:00 09/28/20 00:00 09/28/20 04:00 Temperature 36.2 C L Pulse Rate 58 L 49 L 55 L Respiratory Rate 18 Blood Pressure 114/56 L Pulse Oximetry 96 09/28/20 06:00 09/28/20 08:00 09/28/20 08:02 Temperature 36.9 C Pulse Rate 60 62 60 Respiratory Rate 16 Blood Pressure 120/62 Pulse Oximetry 94 09/28/20 12:00 Temperature Pulse Rate 50 L Respiratory Rate Blood Pressure Pulse Oximetry Intake/Output Intake/Output: Intake & Output 09/25/20 09/26/20 09/27/20 09/28/20 23:59 23:59 23:59 23:59 Intake Total 450 1460 440 Output Total 400 600 Balance 450 1060 -160 Meds/Results Medications: Active Medications Generic Name Dose Route Start Last Admin Trade Name Freq PRN Reason Stop Dose Admin Acetaminophen 650 mg 09/26/20 16:08 09/26/20 17:42 Acetaminophen 325 Mg Tablet PO 650 mg Q6H PRN Administration Mild Pain (1-3) or Fever Amlodipine Besylate 5 mg 09/27/20 09:00 09/27/20 09:02 Amlodipine Besylate 5 Mg Tablet PO 5 mg DAILY JAIDA Administration Apixaban 5 mg 09/28/20 09:00 09/28/20 08:02 Apixaban 5 Mg Tablet PO 5 mg Q12HR JAIDA Administration Aspirin 81 mg 09/28/20 09:00 09/28/20 08:01 Aspirin 81 Mg Enteric Tablet PO 81 mg QAM JAIDA Administration Atorvastatin Calcium 40 mg 09/26/20 22:10 09/27/20 21:19 Atorvastatin 40 Mg Tablet PO 40 mg HS JAIDA Administration Carvedilol 25 mg 09/26/20 22:10 09/28/20 08:02 Carvedilol 25 Mg Tablet PO 25 mg Q12HR JAIDA Administration Clonidine HCl 0.2 mg 09/26/20 22:10 09/28/20 08:01 Clonidine Hcl 0.2 Mg Tablet PO 0.2 mg BID JAIDA Administration Dextrose 12.5 gm 09/26/20 22:00 Dextrose 50% 25 Gm/50 Ml Syringe IV PUSH PRN PRN Hypoglycemia Protocol Duloxetine HCl 60 mg 09/27/20 09:00 09/28/20 08:01 Duloxetine Hcl 60 Mg Capsule.Dr PO 60 mg DAILY JAIDA Administration Glucagon 1
--- NOTE | 2020-09-28 14:34 | PM.DS ---
DS: Admitting Diagnosis Admitting Diagnosis Admitting Diagnosis: TIA DS: Discharge Diagnosis Discharge Diagnosis (1) Dysarthria: Code(s): R47.1 - Dysarthria and anarthria Status: Acute Assessment and Plan: Likely due to TIA due to history of previous stroke and new onset AFib -will continue daily aspirin and apixaban -carotid Dopplers negative for significant disease -echo pending but she will follow-up with cardiology for these results (2) Hypertension: Code(s): I10 - Essential (primary) hypertension Status: Acute Assessment and Plan: Last blood pressure 113/63 -continue home medications at discharge (3) High cholesterol: Code(s): E78.00 - Pure hypercholesterolemia, unspecified Status: Inactive Assessment and Plan: Continue atorvastatin (4) Pre-diabetes: Code(s): R73.03 - Prediabetes Status: Inactive Assessment and Plan: Patient is aware of this and follows with her primary care physician -continue metformin (5) Hypothyroidism: Code(s): E03.9 - Hypothyroidism, unspecified Status: Inactive Assessment and Plan: TSH low but T4 and T3 high. Follow-up outpatient as she just had this drawn as an outpatient and has an appointment to follow-up with her primary care physician (6) Abnormal urinalysis: Code(s): R82.90 - Unspecified abnormal findings in urine Status: Acute Assessment and Plan: No infection suspected (7) TIA (transient ischemic attack): Code(s): G45.9 - Transient cerebral ischemic attack, unspecified Status: Acute Assessment and Plan: As above (8) NSVT (nonsustained ventricular tachycardia): Code(s): I47.2 - Ventricular tachycardia Status: Acute Assessment and Plan: Noted occasionally on telemetry -magnesium and potassium are normal -cardiology consulted and did not recommend any changes -patient has no pain with these -continue Coreg -follow-up for echo results outpatient (9) Sinus bradycardia: Code(s): R00.1 - Bradycardia, unspecified Status: Acute Assessment and Plan: Longstanding asymptomatic. does not recommend any changes at this time. DS: Summary Hospital Course Hospital Course: Patient is 69-year-old female with history of hypertension, Takotsubo's, pre diabetes and high cholesterol who presented emergency room for dysarthria lasting around 8-10 minutes. The patient states she was talking on the phone and was unable to find the correct words and was slurring her speech. She came to the emergency room for evaluation. Head CT was negative for acute pathology. Lab work was unrevealing. She was admitted to the hospitalist service under observation. She had no further symptoms. MRI revealed old chronic strokes but nothing acute. Carotid u/s showed no significant disease. While she was on telemetry, it was noted that she was in atrial fibrillation for short periods of time as well as nonsustained V-tach. This is likely the cause of her TIA and she was started on Eliquis and 81 mg of aspirin. Cardiology was consulted and did not make any other recommendations and obtained an echo which will be finalized and reviewed with the patient on follow-up outpatient. Overall, the patient had improvement and was ready for discharge. She was educated about the worrisome signs and symptoms to come back to emergency room for was discharged in stable condition. She is to follow-up with cardiology outpatient. Status at Discharge Functional status at discharge: independent ambulation Overall status at discharge: patient is back to baseline Time Spent with Patient Time attestation: Total time spent providing and/or coordinating discharge services: Time spent: Greater than 30 minutes Exam Narrative: Exam Narrative: General: Well developed well nourished patient in NAD HEENT:
== END 2020-09-28 15:25 | disposition home or self-care (01) ==
LOC: ANHED 12:43 → ANH2MED 13:48
PROVIDERS: Physician Assistant; Admitting Provider Internal Medicine; Emergency Provider Emergency Medicine; PCP Physician Assistant; Visit Provider Physician Assistant
DX: G45.9 Transient cerebral ischemic attack, unspecified (principal); R47.1 Dysarthria and anarthria; R82.90 Unspecified abnormal findings in urine; I48.0 Paroxysmal atrial fibrillation; R53.1 Weakness; I47.2 Ventricular tachycardia; R00.1 Bradycardia, unspecified; I10 Essential (primary) hypertension; I25.2 Old myocardial infarction; E89.0 Postprocedural hypothyroidism; E78.00 Pure hypercholesterolemia, unspecified; K21.9 Gastro-esophageal reflux disease without esophagitis; F32.9 Major depressive disorder, single episode, unspecified; R73.03 Prediabetes; E78.5 Hyperlipidemia, unspecified; Z79.84 Long term (current) use of oral hypoglycemic drugs; Z86.19 Personal history of other infectious and parasitic diseases
CPT/HCPCS: 36415; 70450; 70553; 71045; 80048; 80053; 81001; 82948; 83036; 83735; 84439; 84443; 84480; 84484; 85025; 85610; 85730; 87086; 93005; 93306; 93880; 96374; 99285; A9270; A9577; G0378; J0696

== ENCOUNTER 2020-12-22 14:35 | Emergency (ER) | payer MEDICARE, SELFPAY ==
[2020-12-22 14:36] VITALS: BP 177/87; PULSE 64; RESP 14; TEMP 36.9; O2SAT 99
--- NOTE | 2020-12-22 14:45 | ECG_ITS ---
Measurements Intervals [place] Rate: 53 P: 46 FL: 226 QRS: -9 QRSD: 97 T: 34 QT: 454 QTc: 429 Interpretive Statements SINUS BRADYCARDIA WITH SINUS ARRHYTHMIA WITH FIRST DEGREE AV BLOCK INFERIOR INFARCT, AGE INDETERMINATE BORDERLINE ST-T WAVE ABNORMALITY- ANT/HIGH LAT LEADS BASELINE ARTIFACT- II, III, AVR, AVL, AVF, V1 ABNORMAL ECG Electronically Signed On 12-22-2020 14:48:49 CDT by Kobe Ocampo D.O.
[2020-12-22 14:50] VITALS: BP 152/64; PULSE 50
[2020-12-22 14:54] VITALS: BP 140/89; PULSE 50
[2020-12-22 14:56] VITALS: BP 146/83; PULSE 54
[2020-12-22] MEDS: MECLIZINE HCL 25 MG TABLET PO (15:06)
[2020-12-22] MEDS: SODIUM CHLORIDE 0.9% IV 500 ML 999 ML IV CONT (15:06)
[2020-12-22 16:08] LABS: Basophils Percent Auto 0.6 % (0.2-1.2); Eosinophils Absolute Auto 0.2 K/mm3 (0-0.3); Eosinophils Percent Auto 2.9 % (0-4.4); Hematocrit 39.8 % (37.0-47.0); Hemoglobin 12.7 g/dL (12.0-15.0); Immature Granulocyte Absolute 0.02 K/mm3 (0.00-0.031); Immature Granulocyte Percent A 0.3 % (0-0.5); Lymphocytes Absolute Auto 2.32 K/mm3 (0.9-3.2); Lymphocytes Percent Auto 33.5 % (18.3-44.2); Mean Corpuscular HGB Conc 31.9 g/dl (32-36); Mean Corpuscular Volume 90.9 fl (80-100); Mean Platelet Volume 9.2 fl (7.4-10.4); Monocytes Absolute Auto 0.6 K/mm3 (0.1-0.6); Monocytes Percent Auto 9.1 % (2.6-8.5); Neutrophils Absolute Auto 3.7 K/mm3 (1.3-6.7); Neutrophils Percent Auto 53.6 % (45.5-73.1); Platelet Count Result 234 k/mm3 (150-375); Red Blood Count 4.38 M/mm3 (4.2-5.4); Red Cell Distribution Width 13.6 % (11.5-14.5); White Blood Count 6.9 K/mm3 (4.5-10.0)
[2020-12-22 16:20] LABS: Anion Gap 7 mmol/L (8-16); Blood Urea Nitrogen 12 mg/dL (7-17); Calcium 8.8 mg/dL (8.4-10.2); Carbon Dioxide 33 mmol/L (22-30); Chloride 101 mmol/L (98-107); Estimated CRCL calculation 69 ml/min; Estimated Glomerular Filt Rate > 60; Glucose 114 mg/dL (65-105); Potassium 3.9 mmol/L (3.4-5.0); Sodium 141 mmol/L (137-145)
--- NOTE | 2020-12-22 16:29 | ED.DIZZY ---
HPI - Dizziness General Chief Complaint: Dizziness Stated Complaint: DIZZINESS Time Seen by Provider: 12/22/20 14:35 History of Present Illness HPI Narrative: Patient is a 70-year-old female who presents ER with dizziness. Sudden onset this morning. Reports she cannot get her balance in her shower and was falling all over the place. When she look at the ground everything would be spinning. No nausea or vomiting. Symptoms are worse with turning her head and positional changes. No fevers or chills or sweats. Denies focal weakness or numbness in arm or leg. She is without facial droop or slurred speech. Has not had similar symptoms previously. Cannot find alleviating factors. Related Data Home Medications Medication Instructions Recorded Confirmed amlodipine 5 mg tablet 5 mg PO DAILY 02/03/20 09/26/20 atorvastatin 40 mg tablet 40 mg PO HS 02/03/20 09/26/20 carvedilol 25 mg tablet 25 mg PO Q12H 02/03/20 09/26/20 clonidine HCl 0.2 mg tablet 0.2 mg PO BID 02/03/20 09/26/20 lisinopril 10 mg tablet 10 mg PO DAILY 02/03/20 09/26/20 trazodone 50 mg tablet 50 mg PO HS PRN 02/03/20 09/26/20 duloxetine 60 mg capsule,delayed 60 mg PO DAILY 07/20/20 09/26/20 release levothyroxine 125 mcg tablet 125 mcg PO DAILY 07/20/20 09/26/20 metformin 500 mg tablet 500 mg PO BID 07/20/20 09/26/20 Allergies Allergy/AdvReac Type Severity Reaction Status Date / Time Sulfa (Sulfonamide Allergy Unknown Rash Verified 12/22/20 14:45 Antibiotics) Review of Systems Review of Systems: All systems reviewed & are unremarkable except as noted in HPI and below Constitutional: Constitutional: Denies chills, Denies fever(s) and Denies weakness ENT: Denies nasal congestion and Denies sore throat Cardiovascular: Cardiovascular: Denies chest pain, Denies rapid heart rate and Denies radiating jaw, neck or arm pain Neurologic: Reports dizziness, Denies headache(s), Denies focal weakness and Denies numbness PMF Past Medical History Medical History Depression Gastroesophageal reflux disease High cholesterol History of hepatitis B Hypertension Hypothyroidism Non-STEMI (non-ST elevated myocardial infarction) (~2016) In the setting of takotsubo cardiomyopathy. Pre-diabetes Takotsubo cardiomyopathy (~2017) Surgical History Surgical History History of arthroscopy of left shoulder History of bilateral cataract extraction History of colon surgery Benign mass removed from colon. History of hand surgery As treatment for basilar thumb arthritis bilaterally. History of hysterectomy History of knee replacement Left knee x2. History of laparoscopic cholecystectomy (~06/2020) History of thyroidectomy As treatment of multinodular goiter. Family History Family History Sibling Heart disease Mother , age 35 Multiple sclerosis Ovarian cancer Son Hodgkin lymphoma Social History Social History Social History: Surrogate decision maker: Mariposa Charles, daughter. Code status: Full code. Smoking status: Never smoker Second hand tobacco smoke exposure: No Alcohol intake: never Substance use: never Additional living arrangements comments: The patient is and lives in her own home in [place]. Additional occupation/education comments: Retired. Gender identity (if verbalized by the patient): Female Spiritual care concerns: No Exam Narrative: Exam Narrative: GENERAL: Well-appearing, well-nourished, and in no acute distress. HEAD: Normocephalic, atraumatic. EYES: PERRLA and EOMI. ENT: Mucous membranes moist. TMs normal bilaterally. CHEST: Clear to auscultation. No respiratory distress. HEART: Regular rate and rhythm. Normal peripheral pulses. ABDOMEN: Soft, nontender, nondistended. EXTREMITIES: Nor
[2020-12-22 16:35] LABS: Add Urine Microscopic? YES; Appearance Urine Clear (Clear); Bacteria Urine Trace /hpf; Bilirubin Urine Negative (Negative); Blood Urine Negative (Negative); Budding Yeast Urine Present /hpf; Color Urine Yellow (Yellow); Glucose Urine UA Negative (Negative); Ketones Urine Negative (Negative); Leukocyte Esterase Ur 3+ LEU/UL (Negative); Mucus Urine Rare /lpf; Nitrate Urine Negative (Negative); Protein Urine Negative (Negative); RBC Urine 0-2 /hpf (0-2); Transitional Epi Cells Urine Rare /hpf (None Seen); Urobilinogen Urine Negative mg/dL (<2.0); WBC Urine 51-75 /hpf
[2020-12-22 16:59] VITALS: BP 118/75; PULSE 73; RESP 16; O2SAT 100
== END 2020-12-22 17:00 | disposition home or self-care (01) ==
PROVIDERS: Emergency Provider Emergency Medicine; PCP Physician Assistant
DX: R42 Dizziness and giddiness (principal); N39.0 Urinary tract infection, site not specified; F32.9 Major depressive disorder, single episode, unspecified; K21.9 Gastro-esophageal reflux disease without esophagitis; E78.5 Hyperlipidemia, unspecified; I10 Essential (primary) hypertension; E03.9 Hypothyroidism, unspecified; I25.2 Old myocardial infarction
CPT/HCPCS: 36415; 80048; 81001; 85025; 87077; 87086; 87088; 87186; 93005; 99283; A9270; J7040

== ENCOUNTER 2021-04-02 09:20 | Outpatient (CLI) | payer MEDICARE, SELFPAY ==
--- NOTE | ~2021-04-02 | NM_ITS ---
EXAMINATION: NM bone 3 phase DATE: 04/02/2021 13:28 INDICATION: Left total knee arthroplasty TECHNIQUE: 22.7 mCi Tc-99m HDP by intravenous route. Scintigrams of the bilateral knees were obtaine d in angiographic, blood pool, and delayed phases. COMPARISON: CT dated 09/20/2019 FINDINGS: Normal symmetric distribution of soft tissue activity on the angiographic phase images. Photopenic de fect at the left knee corresponding to a total knee arthroplasty. There is mild asymmetric increased uptake on the immediate blood pool phase images at the medial metaphyseal region underlying the tibia l component which significantly increases on the delayed phase images. Normal degree of mild uptake a bout the femoral and patellar components. Mild increased uptake at the superior pole of the right pat pradeep likely related to quadriceps enthesophytes as can be seen at the upper pole of the left patella on the prior CT images. IMPRESSION: 1. Symmetric increased uptake underlying the medial tray of the tibial component of a left total kne e arthroplasty raising suspicion for loosening. Infection or acute fracture of the less likely given the absence of appreciable associated hyperemia on the angiographic phase images. Recommend obtaining left knee radiographs for correlation. Any prior outside imaging for comparison would also be helpfu l to assess for any interval change. Reviewed, dictated and finalized at location A. IMPRESSION: 1. Symmetric increased uptake underlying the medial tray of the tibial compone nt of a left total knee arthroplasty raising suspicion for loosening. Infection or acute fracture of the less likely given the absence of appreciable associat ed hyperemia on the angiographic phase images. Recommend obtaining left knee ra diographs for correlation. Any prior outside imaging for comparison would also be helpful to assess for any interval change.
== END 2021-04-02 09:21 | disposition home or self-care (01) ==
LOC: ANHIMG 09:21
PROVIDERS: PCP Physician Assistant
DX: M25.562 Pain in left knee (principal); Z96.652 Presence of left artificial knee joint
CPT/HCPCS: 78315; A9561

== ENCOUNTER 2021-04-22 07:30 | Outpatient (CLI) | payer MEDICARE, SELFPAY ==
--- NOTE | ~2021-04-22 | CT_ITS ---
EXAMINATION: CT knee LT wo con DATE: 04/22/2021 07:53 INDICATION: Revision left total knee arthroplasty. TECHNIQUE: High resolution computed tomography (CT) of the left knee was performed without intravenou s contrast. Additional sagittal and coronal reconstructions were performed. Automated exposure contro l and iterative reconstruction technique were employed. The dose-length product was 586.98 mGy-cm. COMPARISON: CT dated 09/20/2019 and bone scan dated 04/02/2021 FINDINGS: Since the prior CT there has been interval revision of the tibial component of the left total knee ar throplasty. The femoral and patellar components appear unchanged with no evident periprosthetic lucen cy to suggest loosening or infection. There is small amount of lucency at the bone cement interface u nderlying the medial aspect of the tibial tray which measures approximately 1 mm in thickness, nowher e greater than 2 mm which is within normal limits. There is some residual cement from the prior arthr oplasty at the anterior and medial sides the metaphyseal region. There is a healed periprosthetic fra cture at the posterior and medial metaphyseal regions which accounts for the pattern of increased upt daquan on immediate and delayed but not on the angiographic images on the prior bone scan. Alignment is near-anatomic. No acute fracture. Soft tissues are unremarkable with no knee joint effusion. IMPRESSION: 1. Left total knee arthroplasty with patellar resurfacing and healed periprosthetic fracture at the m etaphyseal region of the tibia along side a revised tibial component which appears to remain well sea marnie. Reviewed, dictated and finalized at location A. IMPRESSION: 1. Left total knee arthroplasty with patellar resurfacing and healed periprosth etic fracture at the metaphyseal region of the tibia along side a revised tibia l component which appears to remain well seated.
== END 2021-04-22 07:31 | disposition home or self-care (01) ==
LOC: ANHIMG 07:33
PROVIDERS: PCP Physician Assistant
DX: Z96.652 Presence of left artificial knee joint (principal)
CPT/HCPCS: 73700

== ENCOUNTER 2021-09-21 13:28 | Emergency (ER) | payer MEDICARE, SELFPAY ==
--- NOTE | ~2021-09-21 | XR_ITS ---
EXAMINATION: XR chest 2V DATE: 09/21/2021 13:59 INDICATION: Left rib pain. Shortness of breath. TECHNIQUE: Frontal and lateral views of the chest were obtained. COMPARISON: Chest single view 09/26/20 FINDINGS: There is mild scarring at the lung apices. No pleural effusion or pneumothorax. The heart s ize is normal. Surgical clips in the right upper quadrant are likely from cholecystectomy. There is m ild chronic anterior wedging of multiple midthoracic vertebral bodies. IMPRESSION: 1. Mild scarring at the lung apices. Reviewed, dictated and finalized at location A. UNT ENGINEER
[2021-09-21 13:42] VITALS: BP 160/69; PULSE 64; RESP 16; TEMP 36.5; O2SAT 98
--- NOTE | 2021-09-21 14:04 | ED.GENADULT ---
HPI - General Adult General Chief complaint: Upper Respiratory Infection Stated complaint: rt flank pain Time Seen by Provider: 09/21/21 14:04 Source: patient, RN notes reviewed and old records reviewed Mode of arrival: ambulatory Limitations: no limitations History of Present Illness HPI narrative: 70 year old female who presents to express care with complaints of pain to her right upper rib area for the past 2-3 weeks associated with cough. Patient denies any fevers chills or sweats or any body aches, reports that she had negative COVID test yesterday. Patient reports that she has been trying to get into her doctor unsuccessfully and stopped by the office today and was told to come to urgent care to get chest x-ray. Patient reports that she has had some shortness of breath with her cough also and pain seems to be worse when she is lying down. Patient denies any sinus congestion or drainage, no sore throat or any ear pain or sinus pain. Patient reports that she had her gall bladder removed last year. Related Data Home Medications Medication Instructions Recorded Confirmed amlodipine 5 mg tablet 5 mg PO DAILY 02/03/20 09/21/21 atorvastatin 40 mg tablet 40 mg PO HS 02/03/20 09/21/21 carvedilol 25 mg tablet 25 mg PO Q12H 02/03/20 09/21/21 clonidine HCl 0.2 mg tablet 0.2 mg PO BID 02/03/20 09/21/21 lisinopril 10 mg tablet 10 mg PO DAILY 02/03/20 09/21/21 trazodone 50 mg tablet 50 mg PO HS PRN 02/03/20 09/21/21 duloxetine 60 mg capsule,delayed 60 mg PO DAILY 07/20/20 09/21/21 release levothyroxine 125 mcg tablet 125 mcg PO DAILY 07/20/20 09/21/21 metformin 500 mg tablet 500 mg PO BID 07/20/20 09/21/21 glimepiride [Amaryl] 1 mg PO DAILY 09/21/21 09/21/21 Allergies Allergy/AdvReac Type Severity Reaction Status Date / Time Sulfa (Sulfonamide Allergy Unknown Rash Verified 09/21/21 13:53 Antibiotics) Review of Systems Review of Systems: CONSTITUTIONAL: Denies fever, chills, or sweats. EYES: Denies visual changes, redness, or discharge. ENT: Denies rhinorrhea, congestion, sore throat, or otalgia. CARDIOVASCULAR: Positive for anterior right rib pain, no palpitations, or edema. RESPIRATORY: Positive for cough reports some dyspnea especially with cough no noted wheezing. GASTROINTESTINAL: Denies abdominal pain, nausea, vomiting, or diarrhea. GENITOURINARY: Denies dysuria or hematuria. SKIN: Denies rash or itching. MUSCULOSKELETAL: Chronic back pain, joint pain, or myalgia. NEUROLOGIC: Denies headache, numbness, or weakness. PSYCHIATRIC: Positive for history of anxiety or depression. All systems reviewed & are unremarkable except as noted in HPI and below PMFSH Past Medical History Medical History Depression Gastroesophageal reflux disease High cholesterol History of hepatitis B Hypertension Hypothyroidism Non-STEMI (non-ST elevated myocardial infarction) (~2016) In the setting of takotsubo cardiomyopathy. Pre-diabetes Takotsubo cardiomyopathy (~2017) Surgical History Surgical History History of arthroscopy of left shoulder History of bilateral cataract extraction History of colon surgery Benign mass removed from colon. History of hand surgery As treatment for basilar thumb arthritis bilaterally. History of hysterectomy History of knee replacement Left knee x2. History of laparoscopic cholecystectomy (~06/2020) History of thyroidectomy As treatment of multinodular goiter. Family History Family History Sibling Heart disease Mother , age 35 Multiple sclerosis Ovarian cancer Son Hodgkin lymphoma Social History Social History Social History: Surrogate decision maker: Mariposa Charles, daughter. Code status: Full code. Smoking status: Never smoker Second hand tobacco smoke exposu
--- NOTE | 2021-09-21 14:50 | PC.NURSE ---
Pt. told me left side rib pain, she told the nurses right and showed them right side pain.
== END 2021-09-21 14:44 | disposition home or self-care (01) ==
PROVIDERS: Emergency Provider Registered Nurse; PCP Physician Assistant
DX: R07.81 Pleurodynia (principal); R05.9 Cough, unspecified; K21.9 Gastro-esophageal reflux disease without esophagitis; E78.00 Pure hypercholesterolemia, unspecified; I25.2 Old myocardial infarction; R73.03 Prediabetes; Z98.42 Cataract extraction status, left eye; Z98.41 Cataract extraction status, right eye; Z96.652 Presence of left artificial knee joint; E89.0 Postprocedural hypothyroidism; F32.A Depression, unspecified
CPT/HCPCS: 71046; 99213; G0463

== ENCOUNTER 2021-10-04 07:49 | Outpatient (CLI) | payer MEDICARE, SELFPAY ==
--- NOTE | ~2021-10-04 | MM_ITS ---
EXAMINATION: MM screening lux BI w petros HISTORY: Screening TECHNIQUE: Craniocaudal and mediolateral oblique 3-D tomosynthesis images were obtained and synthetic 2-D images were generated. CAD analysis was submitted and interpreted. COMPARISON: Comparison to multiple prior studies sequentially, with oldest reviewed study dated 10/2017. BREAST PARENCHYMAL COMPOSITION: There are scattered areas of fibroglandular density. FINDINGS: There is no evidence of suspicious mass, calcification, or architectural distortion to sugg est malignancy in either breast. There has been no suspicious interval change. IMPRESSION: 1. No mammographic evidence of malignancy. 2. Recommend routine screening mammography in one year. BI-RADS Category 1: Negative Reviewed, dictated and finalized at location A. BAG STITCHER
== END 2021-10-04 07:50 | disposition home or self-care (01) ==
LOC: ANHIMG 07:51
PROVIDERS: PCP Physician Assistant; Visit Provider Physician Assistant
DX: Z12.31 Encounter for screening mammogram for malignant neoplasm of breast (principal)
CPT/HCPCS: 77063; 77067

== ENCOUNTER 2021-12-02 10:10 | Emergency (ER) | payer MEDICARE, SELFPAY ==
--- NOTE | 2021-12-02 10:31 | ED.LOWEXIN ---
HPI - Extremity Injury (Lower) General Chief Complaint: Wound/Laceration Stated Complaint: knot on lt leg Time Seen by Provider: 12/02/21 10:31 Source: patient Mode of arrival: ambulatory Limitations: no limitations History of Present Illness HPI Narrative: Ms. Aj is a 71-year-old female patient presenting to the clinic today with complaints of a bruise and not to the left lower extremity. She reports that she noticed a bruise last night. 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 She is currently taking Eliquis for history of stroke and A. fib. She takes the Eliquis religiously as it as directed. States she woke up this morning and noticed a knot to the area of bruising to the posterior left leg. Denies any tenderness or pain. Is concerned about a blood clot. Related Data Home Medications Medication Instructions Recorded Confirmed amlodipine 5 mg tablet 5 mg PO DAILY 02/03/20 09/21/21 atorvastatin 40 mg tablet 40 mg PO HS 02/03/20 09/21/21 carvedilol 25 mg tablet 25 mg PO Q12H 02/03/20 09/21/21 clonidine HCl 0.2 mg tablet 0.2 mg PO BID 02/03/20 09/21/21 lisinopril 10 mg tablet 10 mg PO DAILY 02/03/20 09/21/21 trazodone 50 mg tablet 50 mg PO HS PRN 02/03/20 09/21/21 duloxetine 60 mg capsule,delayed 60 mg PO DAILY 07/20/20 09/21/21 release levothyroxine 125 mcg tablet 125 mcg PO DAILY 07/20/20 09/21/21 metformin 500 mg tablet 500 mg PO BID 07/20/20 09/21/21 glimepiride [Amaryl] 1 mg PO DAILY 09/21/21 09/21/21 Allergies Allergy/AdvReac Type Severity Reaction Status Date / Time Sulfa (Sulfonamide Allergy Unknown Rash Verified 09/28/21 07:58 Antibiotics) Review of Systems Review of Systems: Pertinent positives per HPI. Patient denies any fever, chills, rash, headache, visual changes, dizziness, cough, runny nose, sore throat, shortness of breath, chest pain, palpitations, nausea, vomiting, diarrhea, constipation, abdominal pain, or any urinary issues. PMFSH Past Medical History Medical History (Updated 12/02/21 @ 10:53 by Anderson Serna APRN) Depression Gastroesophageal reflux disease High cholesterol History of hepatitis B Hypertension Hypothyroidism Non-STEMI (non-ST elevated myocardial infarction) (~2016) In the setting of takotsubo cardiomyopathy. Pre-diabetes Takotsubo cardiomyopathy (~2017) Surgical History Surgical History History of arthroscopy of left shoulder History of bilateral cataract extraction History of colon surgery Benign mass removed from colon. History of hand surgery As treatment for basilar thumb arthritis bilaterally. History of hysterectomy History of knee replacement Left knee x2. History of laparoscopic cholecystectomy (~06/2020) History of thyroidectomy As treatment of multinodular goiter. Family History Family History Sibling Heart disease Mother , age 35 Multiple sclerosis Ovarian cancer Son Hodgkin lymphoma Social History Social History Social History: Surrogate decision maker: Mariposa Charles, daughter. Code status: Full code. Smoking status: Never smoker Second hand tobacco smoke exposure: No Alcohol intake: never Substance use: never Additional living arrangements comments: The patient is and lives in her own home in [place]. Additional occupation/education comments: Retired. Gender identity (if verbalized by the patient): Female Sexual Orientation (if Verbalized by the Patient): Straight or Heterosexual Spiritual care concerns: No Comments At the time of my signature, I reviewed and agree with the nursing past medical, surgical, social, and family history. There is no relevant family history pertinent to the patient complaint. Exam Narr
[2021-12-02 10:42] VITALS: BP 140/60; PULSE 53; RESP 18; TEMP 36.3; O2SAT 100
== END 2021-12-02 10:54 | disposition home or self-care (01) ==
PROVIDERS: Emergency Provider Nurse Practitioner Family; PCP Physician Assistant
DX: S80.12XA Contusion of left lower leg, initial encounter (principal); X58.XXXA Exposure to other specified factors, initial encounter; Z79.01 Long term (current) use of anticoagulants; K21.9 Gastro-esophageal reflux disease without esophagitis; E78.00 Pure hypercholesterolemia, unspecified; I10 Essential (primary) hypertension; E03.9 Hypothyroidism, unspecified; I25.2 Old myocardial infarction; R73.03 Prediabetes; Z98.42 Cataract extraction status, left eye; Z98.41 Cataract extraction status, right eye; Z96.652 Presence of left artificial knee joint; F32.A Depression, unspecified
CPT/HCPCS: 99212; G0463

== ENCOUNTER 2022-06-04 10:54 | Emergency (ER) | payer MEDICARE, SELFPAY ==
--- NOTE | 2022-06-04 11:02 | ED.URI ---
HPI - URI/Sore Throat General Chief Complaint: Upper Respiratory Infection Stated Complaint: flu like symptoms Time Seen by Provider: 06/04/22 11:08 Source: patient, RN notes reviewed and old records reviewed Mode of arrival: ambulatory Limitations: no limitations History of Present Illness HPI Narrative: 71 year old female who [facility] with complaints of experiencing chills last night with a scratchy throat, fatigue, nausea with some cough and runny nose.Patient reports that her boyfriend tested positive on Monday for COVID.Patient reports that she has been Flu and Covid vaccinated. Patient has been taking Coricidin brand cold medication for her symptoms, denies any fevers. MD elicited complaint: cough and sore throat Onset (ago): day(s) (last evening) Able to tolerate fluids by mouth: Yes Treatments prior to arrival: other (coricidin) Related Data Home Medications Medication Instructions Recorded Confirmed amlodipine 5 mg tablet 5 mg PO DAILY 02/03/20 06/04/22 atorvastatin 40 mg tablet 40 mg PO HS 02/03/20 06/04/22 carvedilol 25 mg tablet 25 mg PO Q12H 02/03/20 06/04/22 clonidine HCl 0.2 mg tablet 0.2 mg PO BID 02/03/20 06/04/22 (Catapres) lisinopril 10 mg tablet 10 mg PO DAILY 02/03/20 06/04/22 trazodone 50 mg tablet 50 mg PO HS PRN Sleep 02/03/20 06/04/22 duloxetine 60 mg capsule,delayed 60 mg PO DAILY 07/20/20 06/04/22 release (Cymbalta) metformin 500 mg tablet 500 mg PO BID 07/20/20 06/04/22 levothyroxine 112 mcg tablet 112 mcg PO DAILY 06/04/22 06/04/22 sotalol 80 mg tablet 80 mg PO BID 06/04/22 06/04/22 Allergies Allergy/AdvReac Type Severity Reaction Status Date / Time Sulfa (Sulfonamide Allergy Unknown Rash Verified 06/04/22 11:15 Antibiotics) Review of Systems Review of Systems: CONSTITUTIONAL: reports malaise, chills, sweats, no known fever.. EYES: Denies visual changes, redness, or discharge. ENT: Reports rhinorrhea, congestion, sinus pain, otalgia and scratchy throat. CARDIOVASCULAR: Denies chest pain, palpitations, or edema. RESPIRATORY: Reports cough.? Denies dyspnea. GASTROINTESTINAL: Denies abdominal pain, states nausea,no vomiting, diarrhea SKIN: Denies rash or itching. MUSCULOSKELETAL: Denies myalgia. NEUROLOGIC: Denies headache. All systems reviewed & are unremarkable except as noted in HPI and below PMFSH Past Medical History Medical History (Updated 06/04/22 @ 11:30 by Jessica Aragon NP) Depression Gastroesophageal reflux disease High cholesterol History of hepatitis B Hypertension Hypothyroidism Non-STEMI (non-ST elevated myocardial infarction) (~2016) In the setting of takotsubo cardiomyopathy. Pre-diabetes Takotsubo cardiomyopathy (~2017) Surgical History Surgical History History of arthroscopy of left shoulder History of bilateral cataract extraction History of colon surgery Benign mass removed from colon. History of hand surgery As treatment for basilar thumb arthritis bilaterally. History of hysterectomy History of knee replacement Left knee x2. History of laparoscopic cholecystectomy (~06/2020) History of thyroidectomy As treatment of multinodular goiter. Family History Family History Sibling Heart disease Mother , age 35 Multiple sclerosis Ovarian cancer Son Hodgkin lymphoma Social History Social History Social History: Surrogate decision maker: Mariposa Charles, daughter. Code status: Full code. Smoking status: Never smoker Second hand tobacco smoke exposure: No Alcohol intake: never Substance use: never Additional living arrangements comments: The patient is and lives in her own home in [place]. Additional occupation/education comments: Retired. Gender identity (if verbalized by the patient): Female Sexual
[2022-06-04 11:08] VITALS: BP 157/63; PULSE 53; RESP 18; TEMP 36.4; O2SAT 97
== END 2022-06-04 11:50 | disposition home or self-care (01) ==
PROVIDERS: Emergency Provider Registered Nurse; PCP Physician Assistant
DX: U07.1 COVID-19 (principal); K21.9 Gastro-esophageal reflux disease without esophagitis; E78.00 Pure hypercholesterolemia, unspecified; I10 Essential (primary) hypertension; E03.9 Hypothyroidism, unspecified; R73.03 Prediabetes; I25.2 Old myocardial infarction; F32.A Depression, unspecified; Z98.42 Cataract extraction status, left eye; Z98.41 Cataract extraction status, right eye
CPT/HCPCS: 87426; 99213; C9803; G0463

== ENCOUNTER 2022-08-31 14:12 | Outpatient (CLI) | payer MEDICARE, SELFPAY ==
--- NOTE | ~2022-08-31 | XR_ITS ---
EXAM: XR lumbar spine 2-3V DATE: 08/31/2022 14:42 HISTORY: LBP X 2 WKS WITHOUT RADICULOPATHY . COMPARISON: None available. FINDINGS: Cholecystectomy clips. Minimal lumbar scoliosis. 5 nonrib-bearing lumbar-type vertebral bod ies. Pedicles intact. Normal vertebral body alignment. Vertebral body heights preserved. Mild concave endplate deformities as can be seen with osteoporosis. Multilevel disc space narrowing and marginal osteophytosis, severe at L5-S1. Multilevel mild facet hypertrophy and sclerosis. No fracture or dislo cation. IMPRESSION: Osteoporosis. Multilevel degenerative disc disease, severe at L5-S1. Mild multilevel face t arthropathy. Reviewed, dictated and finalized at location K. ANT PRINT OPERATOR IMPRESSION: Osteoporosis. Multilevel degenerative disc disease, severe at L5-S1 . Mild multilevel facet arthropathy.
== END 2022-08-31 14:13 | disposition home or self-care (01) ==
LOC: ANHIMG 14:14
PROVIDERS: PCP Physician Assistant; Visit Provider Physician Assistant
DX: M81.0 Age-related osteoporosis without current pathological fracture (principal); M51.37 Other intervertebral disc degeneration, lumbosacral region
CPT/HCPCS: 72100

== ENCOUNTER 2022-11-10 15:14 | Outpatient (CLI) | payer MEDICARE, SELFPAY ==
--- NOTE | ~2022-11-10 | MM_ITS ---
EXAMINATION: MM screening [facility] BI w petros HISTORY: Screening TECHNIQUE: Craniocaudal and mediolateral oblique 3-D tomosynthesis images were obtained and synthetic 2-D images were generated. CAD analysis was submitted and interpreted. COMPARISON: Comparison to multiple prior studies sequentially, with oldest reviewed study dated 10/2017. BREAST PARENCHYMAL COMPOSITION: There are scattered areas of fibroglandular density. FINDINGS: There is no evidence of suspicious mass, calcification, or architectural distortion to sugg est malignancy in either breast. There has been no suspicious interval change. IMPRESSION: 1. No mammographic evidence of malignancy. 2. Recommend routine screening mammography in one year. BI-RADS Category 1: Negative Reviewed, dictated and finalized at location A.
== END 2022-11-10 15:15 | disposition home or self-care (01) ==
LOC: ANHIMG 15:16
PROVIDERS: PCP Physician Assistant; Visit Provider Physician Assistant
DX: Z12.31 Encounter for screening mammogram for malignant neoplasm of breast (principal)
CPT/HCPCS: 77063; 77067

== ENCOUNTER 2023-01-19 14:46 | Outpatient (CLI) | payer MEDICARE, SELFPAY ==
--- NOTE | ~2023-01-19 | DEXA_ITS ---
Bone Density Report Name: DALIA LOZANO Age: 72 Sex: Female Ethnicity: White Date of : 1950 Indication: postmenopausal; screening for osteoporosis; hysterectomy; Referring Provider: DOMINIK, COLIN Study: Bone densitometry was performed. Exam Date: January 19, 2023 Accession number: [id number] Bone Density: Region BMD T-score Z-score Classification AP Spine(L1, L3, L4) 0.983 -0.6 1.8 Normal Femoral Neck (Left) 0.664 -1.7 0.4 Osteopenia Total Hip (Left) 0.830 -0.9 0.8 Normal Femoral Neck (Right) 0.672 -1.6 0.4 Osteopenia Total Hip (Right) 0.828 -0.9 0.8 Normal Total Hip Mean 0.829 -0.9 0.8 Normal World Health Organization criteria for BMD impression classify patients as: Normal (T-score at or above -1.0), Osteopenia (T-score between -1.0 and -2.5), or Osteoporosis (T-score at or below -2.5). 10-year Fracture Risk(1): Major Osteoporotic Fracture 11% Hip Fracture 2.2% Reported Risk Factors: [place] (), Neck BMD=0.664, BMI=29.1 (1) FRAX(R) Version 3.08. Fracture probability calculated for an untreated patient. Fracture probability may be lower if the patient has received treatment. Previous Exams: Region Exam Age BMD T-score BMD Change BMD Change Date g/cm2 vs Baseline vs Previous AP Spine (L1,L3-L4) 01/19/2023 72 0.983 -0.6 -0.026 (-2.5%) -0.026 (-2.5%) 04/16/2020 69 1.008 -0.4 Total Hip(Left) 01/19/2023 72 0.830 -0.9 -0.104 (-11.1% -0.104 (-11.1% 04/16/2020 69 0.934 -0.1 Total Hip(Right) 01/19/2023 72 0.828 -0.9 -0.144 (-14.9% -0.144 (-14.9% 04/16/2020 69 0.972 0.2 *Denotes significance at 95% confidence level, LSC for AP Spine = 0.022 g/cm2, LSC for Total Hip = 0.027 g/cm2 # Denotes dissimilar scan types or analysis methods Clinical Information Provided by Patient: Has the following medical conditions: Hysterectomy Patient maximum height was 62 Menopause Age: 27 Drinks caffeinated beverages Onset of menses at age 9 Number of children 3 Impression: The patient has low bone mass, based on the Left Femoral Neck T-score. The patient has an estimated ten-year risk of hip fracture of 2.2% and an estimated ten-year risk of major fracture of 11%, based on the WHO FRAX algorithm. No significant bone loss was observed. Discussion: BONE DENSITY IS LOW AT ONE OR MORE SKELETAL SITES. This patient's lowest T-score is low at one or more skeletal sites. It meets the World Health Organi
== END 2023-01-19 14:47 | disposition home or self-care (01) ==
PROVIDERS: PCP Physician Assistant; Visit Provider Physician Assistant
DX: M81.0 Age-related osteoporosis without current pathological fracture (principal); M85.852 Other specified disorders of bone density and structure, left thigh; M85.851 Other specified disorders of bone density and structure, right thigh
CPT/HCPCS: 77080

== ENCOUNTER → 2023-05-16 09:29 | Outpatient (CLI) | payer MEDICARE, SELFPAY ==
--- NOTE | ~2023-05-16 | MR_ITS ---
EXAMINATION: MR lumbar spine wo con DATE: 05/16/2023 10:00 INDICATION: Radiculopathy, lumbar region. TECHNIQUE: Magnetic resonance imaging (MRI) of the lumbar spine was performed without intravenous con trast. Sequences included sagittal T2-weighted FSE, sagittal T2-weighted FS FSE, sagittal T1-weighted FSE, and axial T2-weighted FSE. COMPARISON: Lumbar spine radiographs 08/31/2022 FINDINGS: There is 10 degrees dextroscoliosis of thoracolumbar spine. Vertebral body heights are norm al. There is mildly decreased disc height at L1-L2 and L2-L3, moderately decreased disc height at L3- L4 and L4-L5, and severely decreased disc height at L5-S1 with endplate remodeling. The distal spinal cord signal intensity is normal. The conus medullaris is at L2. The following disc levels are specif ically discussed: L1-L2: The disc is bulging. There is moderate bilateral facet joint osteoarthritis. There is mild lef t neural foraminal stenosis. There is mild central canal stenosis. L2-L3: The disc is bulging and has an annular fissure. There is moderate bilateral facet joint osteoa rthritis. There is mild bilateral neural foraminal stenosis. There is mild central canal stenosis. L3-L4: The disc is bulging with superimposed central extrusion. There is moderate bilateral facet gael nt osteoarthritis. There is mild bilateral neural foraminal stenosis. There is mild central canal baylee nosis. L4-L5: The disc is bulging with superimposed left central extrusion. There is severe bilateral facet joint osteoarthritis. There is mild bilateral neural foraminal stenosis. There is mild central canal stenosis. L5-S1: The disc is bulging and has an annular fissure. There is moderate bilateral facet joint osteoa rthritis. There is moderate bilateral neural foraminal stenosis. There is mild central canal stenosis . IMPRESSION: 1. Severe lumbar spondylosis. Reviewed, dictated and finalized at location A.
== END ==
DX: M47.26 Other spondylosis with radiculopathy, lumbar region (principal)
CPT/HCPCS: 72148

== ENCOUNTER 2024-01-25 19:09 | Emergency (ER) | payer MEDICARE, SELFPAY ==
--- NOTE | ~2024-01-25 | XR_ITS ---
XR chest 2V Ordering provider: Brittanie Ceron MD History: 73 years Female with . chest pain . Comparison: September 21, 2021 FINDINGS: MEDIASTINUM: The cardiac silhouette is not enlarged. LUNGS: No infiltrates, effusions or pneumothorax. OTHER: Degenerative the spine. No free air under the diaphragm. IMPRESSION: No acute cardiopulmonary pathology. Reviewed, dictated and finalized at location A.
--- NOTE | 2024-01-25 19:11 | ECG_ITS ---
[facility] [address] Test Date: 2024-01-25 Pat Name: Carline Aj Department: Room: Gender: F Preparation Center Coordinator: : 1950 Requested By: Brittanie Lira Order Number: [id number] Sundar MD: Jhonatan Gunter M.D. Measurements Intervals [place] Rate: 63 P: 33 [place]: 200 QRS: -18 QRSD: 94 T: 14 QT: 440 QTc: 453 Interpretive Statements SINUS RHYTHM LOW QRS VOLTAGE IN PRECORDIAL LEADS [QRS DEFLECTION < 1.0 mV IN CHEST LEADS] POOR R-WAVE PROGRESSION BORDERLINE ECG No previous ECG available for comparison Electronically Signed On 01-26-2024 09:01:41 CDT by Jhonatan Gunter M.D.
[2024-01-25 19:12] VITALS: BP 176/72; PULSE 68; RESP 16; TEMP 36.7; O2SAT 98
[2024-01-25 19:36] LABS: Basophils Percent Auto 0.5 % (0.2-1.2); Eosinophils Absolute Auto 0.3 K/mm3 (0-0.3); Eosinophils Percent Auto 3.7 % (0-4.4); Hematocrit 38.3 % (37.0-47.0); Hemoglobin 12.7 g/dL (12.0-15.0); Immature Granulocyte Absolute 0.02 K/mm3 (0.00-0.031); Immature Granulocyte Percent A 0.3 % (0-0.5); Lymphocytes Percent Auto 34.2 % (18.3-44.2); Mean Corpuscular HGB Conc 33.2 g/dl (32-36); Mean Corpuscular Hemoglobin 29.4 pg (26-34); Mean Corpuscular Volume 88.7 fl (80-100); Mean Platelet Volume 9.5 fl (7.4-10.4); Monocytes Absolute Auto 0.9 K/mm3 (0.1-0.6); Monocytes Percent Auto 12.4 % (2.6-8.5); Neutrophils Absolute Auto 3.6 K/mm3 (1.3-6.7); Neutrophils Percent Auto 48.9 % (45.5-73.1); Platelet Count Result 280 k/mm3 (150-375); Red Blood Count 4.32 M/mm3 (4.2-5.4); Red Cell Distribution Width 13.2 % (11.5-14.5); White Blood Count 7.3 K/mm3 (4.5-10.0)
[2024-01-25 19:47] LABS: Alanine Aminotransferase 25 U/L (6-35); Albumin Level 4.7 g/dL (3.5-5.1); Alkaline Phosphatase 101 U/L (38-126); Anion Gap 7 mmol/L (4-12); Aspartate Amino Transferase 32 U/L (14-36); Bilirubin,Total 0.5 mg/dL (0.2-1.3); Blood Urea Nitrogen 14 mg/dL (7-17); Calcium 8.9 mg/dL (8.4-10.2); Carbon Dioxide 26 mmol/L (22-30); Chloride 105 mmol/L (98-107); Estimated CRCL calculation 68 ml/min; Estimated Glomerular Filt Rate > 60; Glucose 112 mg/dL (65-110); Lipase 234 U/L (23-300); Potassium 4.7 mmol/L (3.4-5.0); Sodium 138 mmol/L (137-145)
[2024-01-25 19:48] LABS: INR 2.3; Prothrombin Time 25.6 Seconds (11.1-14.7)
[2024-01-25 19:49] LABS: Partial Thromboplastin Time 43.1 Seconds (22.3-36.8)
[2024-01-25 19:57] LABS: Troponin I < 0.012 ng/mL (0.000-0.034)
[2024-01-25 20:31] VITALS: PULSE 57
[2024-01-25 20:32] VITALS: O2SAT 98
[2024-01-25 20:33] VITALS: BP 164/90; PULSE 60; RESP 14; O2SAT 98
--- NOTE | 2024-01-25 21:24 | ED.CHESTPAIN ---
HPI - Chest Pain General Chief Complaint: Chest Pain Stated Complaint: chest pain Time Seen by Provider: 01/25/24 21:04 History of Present Illness HPI narrative: Patient is a 73-year-old female who presents to the emergency department this evening complaining of chest pain which started yesterday evening. Patient states that she has a history of takotsubo cardiomyopathy 7 years ago and when she felt the chest pain he yesterday it felt similar. Patient states that she just wanted to make sure that the pain she is feeling is not from her heart. She does see a cancer genetic counselor regularly, Dr. Gunter and has an upcoming appointment with him within the next 10 days. She is currently denying any sharp stabbing chest pain, any shortness of breath, any nausea or vomiting and denies any additional symptoms or concerns at this time. Related Data Home Medications Medication Instructions Recorded Confirmed amlodipine 5 mg tablet 5 mg PO DAILY 02/03/20 02/02/23 atorvastatin 40 mg tablet 40 mg PO HS 02/03/20 02/02/23 carvedilol 25 mg tablet 25 mg PO Q12H 02/03/20 02/02/23 clonidine HCl 0.2 mg tablet 0.2 mg PO BID 02/03/20 02/02/23 (Catapres) lisinopril 10 mg tablet 10 mg PO DAILY 02/03/20 02/02/23 trazodone 50 mg tablet 50 mg PO HS PRN Sleep 02/03/20 02/02/23 duloxetine 60 mg capsule,delayed 60 mg PO DAILY 07/20/20 02/02/23 release (Cymbalta) metformin 500 mg tablet 500 mg PO BID 07/20/20 02/02/23 levothyroxine 112 mcg tablet 112 mcg PO DAILY 06/04/22 02/02/23 sotalol 80 mg tablet 80 mg PO BID 06/04/22 02/02/23 Allergies Allergy/AdvReac Type Severity Reaction Status Date / Time Sulfa (Sulfonamide Allergy Unknown Rash Verified 01/25/24 20:34 Antibiotics) Review of Systems Review of Systems: All systems are reviewed and are negative unless stated otherwise in the HPI. COUNTS INCLUDE 234 BEDS AT THE [facility] Past Medical History Medical History Depression Diarrhea Gastroesophageal reflux disease High cholesterol History of hepatitis B Hypertension Hypothyroidism Non-STEMI (non-ST elevated myocardial infarction) (~2016) In the setting of takotsubo cardiomyopathy. Pre-diabetes Takotsubo cardiomyopathy (~2017) Surgical History Surgical History History of arthroscopy of left shoulder History of bilateral cataract extraction History of colon surgery Benign mass removed from colon. History of hand surgery As treatment for basilar thumb arthritis bilaterally. History of hysterectomy History of knee replacement Left knee x2. History of laparoscopic cholecystectomy (~06/2020) History of thyroidectomy As treatment of multinodular goiter. Family History Family History Sibling Heart disease Mother , age 35 Multiple sclerosis Ovarian cancer Son Hodgkin lymphoma Social History Social History Social History: Surrogate decision maker: Mariposa Charles, daughter. Code status: Full code. Smoking status: Never smoker Second hand tobacco smoke exposure: No Alcohol intake: never Substance use: never Living arrangements: alone Additional living arrangements comments: The patient is and lives in her own home in [place]. Occupation/Education: retired Additional occupation/education comments: Retired. Gender identity (if verbalized by the patient): Female Sexual Orientation (if Verbalized by the Patient): Straight or Heterosexual Spiritual care concerns: No Exam Narrative: General: Alert, awake, afebrile, in no acute distress. HEENT: PERRL, no rhinorrhea, no post nasal drip, oropharynx clear. Cardiovascular: Regular rate and rhythm, no murmurs, rubs or gallops, no peripheral edema. Respiratory: Clear to auscultation bilaterally, no tachypnea, no wheezing, no rhonchi, no rubs, no resp
--- NOTE | 2024-01-25 21:30 | PC.NURSE ---
No dose of ASA required per EDP Ellollyshbelinda.
--- NOTE | 2024-01-25 21:55 | ECG_ITS ---
[facility] [address] Test Date: 2024-01-25 Pat Name: Carline Aj Department: Room: Gender: F Disbursement Clerk: : 1950 Requested By: Bri Moreira Order Number: [id number] Sundar MD: Jhonatan Gunter M.D. Measurements Intervals [place] Rate: 60 P: 55 [place]: 211 QRS: -15 QRSD: 96 T: 4 QT: 475 QTc: 475 Interpretive Statements SINUS RHYTHM WITH SINUS ARRHYTHMIA AND OCCASIONAL PVC NONSPECIFIC T-WAVE ABNORMALITY ABNORMAL ECG Compared to ECG 01/25/2024 19:20:33 PVC IS NOTED, NO OTHER SIGNIFICANT CHANGE Electronically Signed On 01-26-2024 09:07:04 CDT by Jhonatan Gunter M.D.
[2024-01-25 22:45] LABS: Troponin I < 0.012 ng/mL (0.000-0.034)
[2024-01-25 23:15] VITALS: BP 171/80; PULSE 61; RESP 20; O2SAT 98
== END 2024-01-25 23:15 | disposition home or self-care (01) ==
PROVIDERS: Student in an Organized Health Care Education/Training Program; Emergency Provider Emergency Medicine; PCP Physician Assistant
DX: R07.89 Other chest pain (principal); I25.2 Old myocardial infarction; I10 Essential (primary) hypertension; E89.0 Postprocedural hypothyroidism; E78.00 Pure hypercholesterolemia, unspecified; R73.03 Prediabetes; K21.9 Gastro-esophageal reflux disease without esophagitis; F32.A Depression, unspecified; Z86.19 Personal history of other infectious and parasitic diseases; Z79.899 Other long term (current) drug therapy; Z79.84 Long term (current) use of oral hypoglycemic drugs; Z98.42 Cataract extraction status, left eye; Z98.41 Cataract extraction status, right eye; Z90.710 Acquired absence of both cervix and uterus; Z96.652 Presence of left artificial knee joint; R94.31 Abnormal electrocardiogram [ECG] [EKG]; I49.3 Ventricular premature depolarization
CPT/HCPCS: 36415; 71046; 80053; 83690; 84484; 85025; 85610; 85730; 93005; 99284

== ENCOUNTER 2024-09-04 16:40 | Emergency (ER) | payer MEDICARE, SELFPAY ==
[2024-09-04 16:50] VITALS: BP 142/64; PULSE 71; RESP 16; TEMP 36.8; O2SAT 98
[2024-09-04 17:16] LABS: EDSTREPNEGPOS1 Negative (Negative)
--- NOTE | 2024-09-04 17:46 | ED_ITS ---
HPI - General Adult General Chief complaint: Upper Respiratory Infection Stated complaint: sinus drainage and sore throat Source: patient Mode of arrival: ambulatory Limitations: no limitations History of Present Illness HPI narrative: Patient presents for evaluation of sore throat since yesterday. She also has some postnasal drainage and a mild cough 2/2 postnasal drainage. No fever, chills nausea, vomiting, diarrhea. No recent sick contacts to her knowledge. She called her primary care provider and they told her to take OTC agents. She is on coumadin for a fib. It sounds like her last INR was subtherapeutic. She is taking coricidin for her symptoms. She deos not smoke. Related Data Home Medications ?Medication ?Instructions ?Recorded ?Confirmed ?Last Taken ?Type amlodipine 5 mg tablet 5 mg PO DAILY 02/03/20 02/02/23 12/22/20 History atorvastatin 40 mg tablet 40 mg PO HS 02/03/20 02/02/23 12/22/20 History carvedilol 25 mg tablet 25 mg PO Q12H 02/03/20 02/02/23 12/22/20 History clonidine HCl 0.2 mg tablet 0.2 mg PO BID 02/03/20 02/02/23 12/22/20 History (Catapres) lisinopril 10 mg tablet 10 mg PO DAILY 02/03/20 02/02/23 12/22/20 History trazodone 50 mg tablet 50 mg PO HS PRN Sleep 02/03/20 02/02/23 12/22/20 History duloxetine 60 mg capsule,delayed 60 mg PO DAILY 07/20/20 02/02/23 12/22/20 History release (Cymbalta) metformin 500 mg tablet 500 mg PO BID 07/20/20 02/02/23 12/22/20 History levothyroxine 112 mcg tablet 112 mcg PO DAILY 06/04/22 02/02/23 Unknown History sotalol 80 mg tablet 80 mg PO BID 06/04/22 02/02/23 Unknown History Allergies Allergy/AdvReac Type Severity Reaction Status Date / Time Sulfa (Sulfonamide Allergy Mild Rash Verified 09/04/24 16:47 Antibiotics) Review of Systems Review of Systems: CONSTITUTIONAL: Denies fever, chills, or sweats. EYES: Denies visual changes, redness, or discharge. ENT: Reports postnasal drainage and sore throat. CARDIOVASCULAR: Denies chest pain, palpitations, or edema. RESPIRATORY: Reports mild cough. Denies dyspnea. GASTROINTESTINAL: Denies abdominal pain, nausea, vomiting, or diarrhea. GENITOURINARY: Denies dysuria or hematuria. SKIN: Denies rash or itching. MUSCULOSKELETAL: Denies back pain, joint pain, or myalgia. NEUROLOGIC: Denies headache, numbness, dizziness, or weakness. PSYCHIATRIC: Denies anxiety or depression. [facility] Past Medical History Medical History Diarrhea Takotsubo cardiomyopathy (~2017) Pre-diabetes Non-STEMI (non-ST elevated myocardial infarction) (~2017) In the setting of takotsubo cardiomyopathy. Gastroesophageal reflux disease Depression Hypothyroidism High cholesterol History of hepatitis B Hypertension Surgical History Surgical History History of thyroidectomy As treatment of multinodular goiter. History of bilateral cataract extraction History of laparoscopic cholecystectomy (~06/2020) History of arthroscopy of left shoulder History of hysterectomy History of colon surgery Benign mass removed from colon. History of hand surgery As treatment for basilar thumb arthritis bilaterally. History of knee replacement Left knee x2. Family History Family History Sibling Heart disease Mother , age 35 Multiple sclerosis Ovarian cancer Son Hodgkin lymphoma Social History Social History Social History: Surrogate decision maker: Mariposa Charles, daughter. Code status: Full code. Smoking status: Never smoker Second hand tobacco smoke exposure: No Alcohol intake: never Substance use: never Living arrangements: alone Additional living arrangements comments: The patient is and lives in [facility] own home in [place]. Occupation/Education: retired Additional occupation/education comments: Retired. Gender identity (if verbalized by the patient): Female Sexual Orientation (if Verbalized by the Patient): Straight or Heterosexual Spiritual care concerns: No Exam Narrative: GENERAL: Well-appearing, well-nourished, and in no acute distress. HEAD: Normocephalic, atraumatic. EYES: PERRLA and EOMI. ENT: Nares clear, no rhinorrhea or epistaxis. Mucous membranes moist. Mild posterior pharyngeal erythema. Uvula is midline. Bilateral TMs pearly sharpe nonbulging NECK: Supple. No adenopathy or masses. No carotid bruits or JVD CHEST: Clear to auscultation. No respiratory distress. No wheezes rales or rhonchi HEART: Regular rate and rhythm. No murmur heard. Normal peripheral pulses. ABDOMEN: Soft, nontender, nondistended, normal active bowel sounds. EXTREMITIES: Normal range of motion. No edema. SKIN: Warm, dry, no rash. NEURO: No focal deficits. Alert and oriented x3. PSYCH: Normal mood and affect. Course Course Emergency Course: This is a 73-year-old female who presented for postnasal drainage and sore throat. Strep negative. Will send throat culture. Exam consistent with viral pharyngitis. OTC agents for symptom management. Follow up with primary provider. Go to the ER for worsening symptoms. Pt in agreement with plan of care. Level of Care: Express Care Visit Vital Signs Vital signs: Vital Signs Temperature 36.8 C 09/04/24 16:50 Pulse Rate 71 09/04/24 16:50 Respiratory Rate 16 09/04/24 16:50 Blood Pressure 142/64 H 09/04/24 16:50 Pulse Oximetry 98 09/04/24 16:50 Oxygen Delivery Room Air 09/04/24 16:50 Temperature 36.8 C 09/04/24 16:50 Pulse Rate 71 09/04/24 16:50 Respiratory Rate 16 09/04/24 16:50 Blood Pressure 142/64 H 09/04/24 16:50 Pulse Oximetry 98 09/04/24 16:50 Oxygen Delivery Room Air 09/04/24 16:50 Medical Decision Making Vital Signs Vital Signs: Vital Signs Temperature 36.8 C 09/04/24 16:50 Pulse Rate 71 09/04/24 16:50 Respiratory Rate 16 09/04/24 16:50 Blood Pressure 142/64 H 09/04/24 16:50 Pulse Oximetry 98 09/04/24 16:50 Oxygen Delivery Room Air 09/04/24 16:50 Temperature 36.8 C 09/04/24 16:50 Pulse Rate 71 09/04/24 16:50 Respiratory Rate 16 09/04/24 16:50 Blood Pressure 142/64 H 09/04/24 16:50 Pulse Oximetry 98 09/04/24 16:50 Oxygen Delivery Room Air 09/04/24 16:50 Lab Data Labs: Lab Results 09/04/24 Range/Units 17:14 POC Grp A Strep Screen Negative (Negative) Discharge Plan Discharge Clinical Impression: Pharyngitis Patient Disposition: Home, Self-Care Condition: Stable Instructions: Antibiotic Form, Pharyngitis (ED) Patient Language: Macedonian Prescriptions: No Action sotalol 80 mg Tablet 80 mg PO BID levothyroxine 112 mcg Tablet 112 mcg PO DAILY carvedilol 25 mg tablet 25 mg PO Q12H Rx Instructions: must administer with a meal/food lisinopril 10 mg tablet 10 mg PO DAILY clonidine HCl [Catapres] 0.2 mg tablet 0.2 mg PO BID amlodipine 5 mg tablet 5 mg PO DAILY trazodone 50 mg tablet 50 mg PO HS PRN (Reason: Sleep) atorvastatin 40 mg tablet 40 mg PO HS duloxetine [Cymbalta] 60 mg capsule,delayed release(DR/EC) 60 mg PO DAILY metformin 500 mg tablet 500 mg PO BID aspirin 81 mg Tablet,Delayed Release (Dr/Ec) 81 mg PO QAM Qty: 30 0RF Eliquis 5 mg Tablet 5 mg PO Q12HR Qty: 60 0RF colestipol 1 gram tablet See Rx Instructions .ROUTE .COMPLEX Qty: 60 5RF Dose Instruction: Take 1 tablet by mouth twice daily Rx Instructions: Take 1 tablet by mouth twice daily Follow-up/Referrals: Melisa,JOSHUA Chao [Primary Care Provider] - Stand Alone Forms: Work/School Release IP Time of Disposition: 17:17
== END 2024-09-04 17:18 | disposition home or self-care (01) ==
PROVIDERS: Emergency Provider Nurse Practitioner; PCP Physician Assistant
DX: J02.9 Acute pharyngitis, unspecified (principal); I48.91 Unspecified atrial fibrillation; I10 Essential (primary) hypertension; E78.00 Pure hypercholesterolemia, unspecified; K21.9 Gastro-esophageal reflux disease without esophagitis; E89.0 Postprocedural hypothyroidism; R73.03 Prediabetes; I25.2 Old myocardial infarction; Z98.42 Cataract extraction status, left eye; Z98.41 Cataract extraction status, right eye; Z96.652 Presence of left artificial knee joint; Z79.01 Long term (current) use of anticoagulants
CPT/HCPCS: 87081; 87880; 99213; G0463

== ENCOUNTER 2024-10-09 12:22 | Outpatient (CLI) | payer MEDICARE, SELFPAY ==
--- NOTE | ~2024-10-09 | XR_ITS ---
Clinical Indication: Cough PA and lateral views of the chest: Comparison: 01/25/2024 Findings: The lungs are clear, without evidence of focal consolidation or pleural effusion. Cardiome diastinal silhouette is within normal limits. Bones and soft tissues are unremarkable. Impression: Normal chest. Reviewed, dictated and finalized at location . DING SUPERVISOR Impression: Normal chest.
--- OUTSIDE RECORDS SUMMARY | 2024-10-09 12:26 | XMS_ITS | Encounter Summary ---
Author Organization [facility] - [facility] Address Formerly [facility] [place] [address] Care Team Providers Care Stubber Name Role Phone Angus Hernandez MD Primary Care Provider [phone] [place] Bustamante [facility] Unavailable [phone] Mason Vela MD Unavailable + [phone] Encounter Details Date Type Department Care Team (Late st Contact Info) Description 03/02/2015 Abstract [facility] AT [address] [place] [id number] Hang Hendrix MD [address] [address] Social History Tobacco Use Types Packs/Day Years Used Date Smoking Tobacco: Never Alcohol Use Standard Drinks/Week Comments No 0 (1 standard drink = 0.6 oz pur e alcohol) Comments Unknown Sex and Gender Information Value Date Recorded Sex Assigned at Not on file Legal Sex Female 9:58 PM CDT Gender Identity Not on file Sexual Orientation Not on file Occupation Industry Job Start Date Job End Date Retired Not on file Not on file Not on file documented as of this encounter Plan of Treatment Not on file documented as of this encounter Visit Diagnoses Not on filedocumented in this encounter Care Teams Stubber Relationship Specialty Start Date End Date Angus Hernandez MD PCP - General FAMILY PRACTICE 02/06/17 [place] Bustamante, [facility]- [address] [facility] [address] [place] [address] CARDIOVASCULAR DISEASE 04/06/18 Mason Vela MD [address] [facility] [address] [place] [address] Referring Physician ORTHOPAEDIC SURGERY 04/13/18 documented as of this encounter
--- OUTSIDE RECORDS SUMMARY | 2024-10-09 12:27 | XMS_ITS | Clinical Summary ---
Author Organization [place] [id number] [facility] Address [address] [place] [address] Care Team Providers Care Inorganic Chemistry Professor Name Role Phone Zhanna Vincent Primary Care Pr ovider Jhonatan Gunter MD Unavailable [phone] Alona Ahmadi Unavailable [phone] Allergies Active Allergy Reactions Criticality Noted Date Comments Hydrocodone Bitartrate Nausea only Low 12/13/2018 Hydrocodone-Acetaminophen Nausea only Low 9 Oxycodone Nausea only High 02/11/2020 Propoxyphene Hcl Unknown 12/13/2018 Sulfa (Sulfonamide Antibiotics) Hives Medium 11/20 Medications valACYclovir (VALTREX) 1 gram tablet 0 9 Active lisinopril (PRINIVIL,ZESTR IL) 10 mg tablet Take 1 tablet (10 mg total) by mouth daily 3 9 Active cloNIDine (CATAPRES) 0.1 mg tablet Take 1 tablet (0.1 mg total) by mouth 2 (two) times a day 2 9 Active atorvastatin (LIPITOR) 40 mg tablet Take 1 tablet (40 mg total) by mouth nightly 1 9 Active amLODIPine (NORVASC) 5 mg tablet Take 1 tablet (5 mg total) by mouth daily 1 9 Active metFORMIN (GLUCOPHAGE) 500 mg tablet Take 1 tablet (500 mg total) by mouth 2 (two) times a day with meals 10 07/21/201 9 Active omeprazole (PriLOSEC) 40 mg capsule Take 1 capsule (40 mg total) by mouth daily [address] (CYMBALTA) 60 mg capsule Take 1 capsule (60 mg total) by mouth daily Active Euthyrox 125 mcg tablet Take 1 tablet (125 mcg total) by mouth daily 0 Active meclizine (ANTIVERT) 25 mg tablet Take 1 tablet (25 mg total) by mouth 3 (three) times a day as needed 1 Active multivitamin capsule Take 1 capsule by mouth daily Active levothyroxine (SYNTHROID) 112 mcg tablet 1 tablet DAILY (route: oral) 2 Active multivitamin-mi nerals-lutein (Multivitamin 50 Plus) tablet 1 tablet DAILY (route: oral) 2 Active acetaminophen ER (TYLENOL) 650 mg 8 hr tablet 650 mg NEEDED (route: oral) 2 Active aspirin 81 mg enteric coated tablet 1 tablet DAILY (route: oral) 2 Active sotaloL (BETAPACE) 80 mg tablet TAKE 1 TABLET BY MOUTH 2 TIMES A DAY. 180 tablet 2 4 Active colestipoL (COLESTID) 1 gram tablet Take 1 tablet (1 g total) by mouth 2 (two) times a day Active Klayesta powder APPLY TO THE AFFECTED AREA(S) UNDER BREASTS BY TOPICAL ROUTE 2 TIMES PER DAY 4 Active traZODone (DESYREL) 100 mg tablet Take 1 tablet (100 mg total) by mouth nightly 4 Active HYDROcodone-jose taminophen (NORCO) 5-325 mg per tabletIndicatio ns:Pain Take 1 tablet by mouth every 6 (six) hours as needed for pain (breakthrough pain) 30 tablet 4 Active warfarin (COUMADIN) 4 mg tablet TAKE 4 MG TUES, THURS, SAT AND SUN TAKE 6 MG MON, WED AND FRI OR DIRECTED BY PHYSICIAN 90 tablet 1 4 Active Active Problems Problem Noted Date Diagnosed Date Osteoporosis 09/07/2022 Low back pain 08/30/2022 Streptococcal sore throat 06/06/2022 Irritable bowel syndrome with diarrhea 2 Epistaxis 02/11/2022 Aftercare following left knee joint replacement surgery 12/23/2021 Abnormal urinalysis 12/17/2021 Urinary tract infectious disease 09/30/2021 Right upper quadrant pain 09/26/2021 termite treater helper (current) use of anticoagulants 2021 Type 2 diabetes mellitus wit hout complication, without long-term current use of insulin ([facility]) 08/21/2021 custodial (current) use of oral hypoglycemic gayle gs 08/21/2021 Cerebrovascular disease 08/11/2021 Stress fracture of left tibia 08/11/2021 Paroxysmal atrial fibrillation ([facility]) 021 s/p revision left total knee arthroplasty on 09/16/2020 CAD (coronary artery disease) 02/26/2020 Diabetes 02/26/2020 Pes anserinus bursitis of left knee 04/18/2019 History of total left knee replacement 9 Primary osteoarthritis of right knee 10/22/2018 Hyperlipidemia 07/25/2018 Hypothyroidism 07/25/2018 Mixed anxiety and depressive disorder 07/25/2018 Left-sided low back pain with left-sided sciatic a 06/28/2018 Right-sided low back pain with right-sided sciat ica 06/28/2018 Presence of left artificial knee joint 8 Bradycardia 04/13/2018 Impingement of left ankle joint 12/28/2017 Primary osteoarthritis of left knee 11/23/2017 Dyslipidemia 04/17/2017 Benign essential hypertension 04/17/2017 Takotsubo syndrome 01/10/2017 Degenerative lumbar disc 06/20/2016 Lumbar radicular pain 06/20/2016 Encounters Date Type Department Care Team Description 09/26/2024 Telephone [facility] Cardiology [address] [place] [address] Enrico Deras MD 09/18/2024 Anticoagulation Visit [facility] Cardiology [address] [facility] [address] [place] [address] [place] Mitchell RN 09/04/2024 Anticoagulation Visit [facility] Cardiology [address] [place] [address] Lia Apple RN 07/29/2024 Anticoagulation Visit [facility] Cardiology [address] [place] [address] Lia Apple RN from Last 3 Months Immunizations Immunization Administration Dates Next Due Influenza, Quadrivalent, Spl it, Preservative Free, Intramuscular 04/27/2017,05/20/2016 Pfizer SARS-CoV-2 Monovalent Vaccination (12+ Yrs) PURPLE 10/25/2020,10/01/2020 Pneumococcal Conjugate PCV 13 05/13/2015 Pneumococcal Polysaccharide PPV23 08/21/2017, Tdap 06/28/2021 Surgical History Surgery Date Site/Laterality Comments SHOULDER SURGERY Left KNEE ARTHROPLASTY 08/21/2019 - 08/20/2020 Left tibial revision KNEE ARTHROSCOPY JOINT REPLACEMENT Left x 2 HYSTERECTOMY 1985 TUMOR EXCISION 1992 in abdomen size of a grapefruit THUMB SURGERY bilateral hands in the CHOLECYSTECTOMY 2019 THYROIDECTOMY 1st surgery; right side removed, then removed left side later EYE SURGERY bilat. cataracts removed COLONOSCOPY 2019 ESOPHAGOGASTRODUODENOSCOPY with esophageal dilitation (has had it done x 2) CARDIAC CATHETERIZATION 12/30/2016 Medical History Medical History Date Comments Hypertension Hypercholesteremia Osteoarthritis Asthma GERD (gastroesophageal reflux disease) Hiatal hernia Heart attack (HCC) 2016 History of hepatitis B TIA (transient ischemic attack) x 2 2014 and 10/2020 Vertigo Wears glasses reading Spinal stenosis lower back Depression Wears partial dentures upper karol[place] te Adopted Obesity History of esophageal stricture has been dilated x 2 Broken heart syndrome 12/30/2016 Arrhythmia a fib Infectious viral hepatitis non a , non b Type 2 diabetes mellitus (HCC) Stroke (HCC) 2020 couldn't talk fo und to have a-fib Family History Medical History Relation Name Comments Arthritis Other Cancer Other Diabetes Other Relation Name Status Comments Father Mother Other Social History Tobacco Use Types Packs/Day Years Used Date Smoking Tobacco: Never Smokeless Tobacco: Never Tobacco Cessation:Counseling Given: Not Answered Alcohol Use Standard Drinks/Week Comments Never 0 (1 standard drink = 0.6 oz pur e alcohol) AUDIT-C Answer Date Recorded Q1: How often do you have a drink containing alc ohol? Never 12/23/2021 Q2: How many drinks containi ng alcohol do you have on a typical day when you are drinking? 1 or 2 12/23/2021 Q3: How often do you have six or more drinks on one occasion? Never 12/23/2021 Comments No Sex and Gender Information Value Date Recorded Sex Assigned at Not on file Legal Sex Female 5:29 AM FRONT OFFICE DEVELOPER Gender Identity Not on file Sexual Orientation Not on file Obstetrics History Last Filed Vital Signs Vital Sign Reading Time Taken Comments Blood Pressure 134/70 02/08/2024 1:30 PM CDT Pulse 68 02/08/2024 1:30 PM CDT Temperature 36.7 C (98.1 F) 12/26/2021 11:37 AM CDT Respiratory Rate 16 12/26/2021 11:37 AM CDT Oxygen Saturation 98% 02/08/2024 1:30 PM CDT Inhaled Oxygen Concentration - - Weight 83 kg (183 lb) 02/08/2024 1:30 PM CDT Height 154.9 cm (5' 1 ) 02/08/2024 1:30 PM CDT Body Mass Index 34.58 02/08/2024 1:30 PM CDT Plan of Treatment Health Maintenance Due Date Last Done Comments Albumin Creatinine Ratio, Urine 1948 Colon Cancer Screening-Colonoscopy 1948 Depression Screening 1948 Hepatitis C Screening 1948 Osteoporosis Screening-Bone Density Scan 1948 Dilated Eye Exam 1948 Foot Exam 1948 Hepatitis B Screening 1966 Zoster Vaccine (1 of 2) 1998 Well Visit 65+ 2013 Hemoglobin A1C 06/15/2022 12/14/2021, 10/19, 12/25/2016 eGFR 12/24/2022 12/24/2021, 12/14/2021 Fall Risk Assessment 12/26/2022 12/26/2021 Covid-19 Vaccine (5 - 2023-2 5 season) 2024 11/30/2021, 06/19/2021, 10/25/2020, Additional history exists Influenza Vaccine (#1) 2024 , 04/27/2017, 05/20/2016 Lipid Panel 02/07/2025 02/08/2024, 01/20, 02/15/2022, Additional history exists DTaP/Tdap/Td Vaccine (2 - Td or Tdap) 06/28/2031 06/28/2021 Pneumococcal vaccine 65+ Completed 018, 06/09/2016, 05/13/2015 Medical Devices Implanted Type Area Soft Top Installer Device Identifier Shelf Expiration Date Model / Serial / Lot Knee Components Left: Knee Screws,Wires Bilater al: Hand [employer] Orthoblast Ii Allograft Putty Vial Graft 10cc Bone Demineralized - [id number] - [id number] Implanted:Qty: 1 on 12/23/2021 by Mason Vela MD at [facility] Left: Knee [employer] [id number] 03/17/2022 / [id number] / [id number] [employer] 18mm Femur Tibia Left 6-9 Cd Surface Articular Vivacit-E [id number] - [id number] Implanted:Qty: 1 on 12/23/2021 by Mason Vela MD at [facility] Left: Knee [employer] [id number] 07/09/2025 [id number] / / [id number] Procedures Procedure Name Priority Date/Time Associated Diagnosis Comments PROTIME-INR Routine 09/17/2024 1:26 PM FRONT OFFICE DEVELOPER Paroxysmal atrial fibrillation (CMS/HCC) (HCC) PROTIME-INR Routine 09/03/2024 1:31 PM FRONT OFFICE DEVELOPER Paroxysmal atrial fibrillation (CMS/HCC) (HCC) PROTIME-INR Routine 07/27/2024 7:09 AM FRONT OFFICE DEVELOPER Paroxysmal atrial fibrillation (CMS/HCC) (HCC) POCT LIPID PANEL Routine 02/08/2024 1:32 PM CDT Lipid screening EGFR Routine 12/24/2021 7:07 AM CDT HEMOGLOBIN A1C Routine 12/14/2021 2:28 PM CDT Presence of left artificial knee joint Preop testing Diabetes mellitus of other type without complication, unspecified whether chcf insulin use (HCC) from Last 3 Months or Most Recently Relevant to Health Maintenance Results * (ABNORMAL) Protime-INR (09/17/2024 1:26 PM FRONT OFFICE DEVELOPER) INR 3.4(H) [facility] Comment: Reference Range 0.9-1.1 Moderate-intensity Warfarin Therapy 2.0-3.0 Higher-intensity Warfarin Therapy 3.0-4.0 PT 33.7(H) 9.0 - 11.5 sec [facility] Comment: For additional information, please refer to http://Myrl.Noteleaf/faq/WBW857 (This link is being provided for informational/ educational purposes only.) Blood 09/17/2024 1:26 PM FRONT OFFICE DEVELOPER 09/17/2024 1:27 PM FRONT OFFICE DEVELOPER Jhonatan Gunter MD LAB BLOOD ORDERABLES Fin al Result Performing Organization Address [facility] de Phone Number [employer] INTER[place] [address] [place] [address] * (ABNORMAL) Protime-INR (09/03/2024 1:31 PM FRONT OFFICE DEVELOPER) INR 1.6(H) [facility] Comment: Reference Range 0.9-1.1 Moderate-intensity Warfarin Therapy 2.0-3.0 Higher-intensity Warfarin Therapy 3.0-4.0 PT 16.7(H) 9.0 - 11.5 sec [facility] Comment: For additional information, please refer to http://Myrl.Noteleaf/faq/JDA985 (This link is being provided for informational/ educational purposes only.) Blood 09/03/2024 1:31 PM FRONT OFFICE DEVELOPER 09/03/2024 1:31 PM FRONT OFFICE DEVELOPER Jhonatan Gunter MD LAB BLOOD ORDERABLES Fin al Result Performing Organization Address [facility] Co de Phone Number [facility]ATION[facility] [address] [place] [address] * (ABNORMAL) Protime-INR (07/27/2024 7:09 AM FRONT OFFICE DEVELOPER) INR 1.6(H) [facility] Comment: Reference Range 0.9-1.1 Moderate-intensity Warfarin Therapy 2.0-3.0 Higher-intensity Warfarin Therapy 3.0-4.0 PT 17.1(H) 9.0 - 11.5 sec [facility] Comment: For additional information, please refer to http://education.Noteleaf/faq/RLO788 (This link is being provided for informational/ educational purposes only.) Blood 07/27/2024 7:09 AM FRONT OFFICE DEVELOPER 07/27/2024 7:09 AM FRONT OFFICE DEVELOPER Jhonatan Gunter MD LAB BLOOD ORDERABLES Fin al Result [facility] [address] [place] [address] * POCT lipid panel (02/08/2024 1:32 PM CDT) Capillary blood 02/08/2024 1 :32 PM CDT Jhonatan Gunter MD POINT OF CARE TEST ORDER YVETTE Final Result * eGFR (12/24/2021 7:07 AM CDT) eGFR 78 mL/min/1. 73 m2 GABRIEL Comment: Interpretive Data Reference Interval Normal >/= 90 mL/min/1.73m2 Mildly decreased* 60 - 89 mL/min/1.73m2 Mildly to moderately decreased 45 - 59 mL/min/1.73m2 Moderately to severely decreased 30 - 44 mL/min/1.73m2 Severely decreased 15 - 29 mL/min/1.73m2 Kidney Failure < 15 mL/min/1.73m2 *Relative to young adult level Estimated glomerular filtration rate is determined by the 2020 CKD-EPI equation recommended by the National Kidney Foundation (A Unifying Approach to GFR Estimation: Recommendations of the NKF-ASK Task Force on Reassessing the Inclusion of Race in Diagnosing Kidney Disease, JASN 2020). The CKD-EPI equation should not be used for patients with unstable renal function and has not been validated in children and those over 70. Current interpretive data was last reviewed 2021. Blood 12/24/2021 7:07 AM CDT 12/24/2021 8:09 AM CDT Alona KRAFT LAB BLOOD ORDERABLES Deyanira l Result Performing Organization Address [facility] de Phone Number [place] [id number] [facility] [place] [address] * (ABNORMAL) Hemoglobin A1c (12/14/2021 2:28 PM CDT) Hgb A1C 6.1(H) 4.0 - 5.6 % G[facility] Estimated Average Glucose 128 mg/dL [facility] Comment: The ADA recommends reporting an estimated Average Glucose (eAG) with all Hemoglobin A1c results using the equation derived from a study of 507 normal and diabetic adults. Minority populations were underrepresented and children were not included. (Diabetes Care 31:6124-5817, 2008). The eAG is not equivalent to a fasting glucose. Blood 12/14/2021 2:28 PM CDT 12/14/2021 2:39 PM CDT Narrative [facility] - 12/14/2021 3:02 PM CDT If patient is diabetic Mason Vela MD LAB BLOOD ORDERABLES F inal Result Performing Organization Address [facility] de Phone Number [facility] [address] [facility] [place] [address] from Last 3 Months or Most Recently Relevant to Health Maintenance Insurance HU[employer]NA CHOICE MEDICARE PPO HUMANA MEDICARE HMO AETNA MEDICARE GOLD Advance Directives For more information, please contact: [phone] * Full Code (Latest Code Status on File) Date Activated Date Inactivated Comments 12/23/2021 1:11 PM 12/26/2021 6:22 PM Care Teams Inorganic Chemistry Professor Relationship Specialty Start Date End Date Zhanna Vincent PA PCP - General Physician Gymnastics Coach Or Instructor 10/16/19 Jhonatan Gunter MD [address] [address] Consulting Physician Cardiology 12/02/21 Alona Ahmadi PA [address] [address] Physician Gymnastics Coach Or Instructor Orthopedic Surgery 12/24/21
--- OUTSIDE RECORDS SUMMARY | 2024-10-09 12:27 | XMS_ITS | Encounter Summary ---
Author Organization [facility] Care Team Providers Care Psych Specialist Name Role Phone No, Physician Primary Care Provider [phone] No, Physician Primary Care Provider [phone] Zhanna Vincent Primary Care Pr ovider Jhonatan Gunter MD Unavailable [phone] Alona Ahmadi Unavailable [phone] Encounter Details Date Type Department Care Team (Latest Contact Info) Description 04/18/2018 Orders Only [facility] Provider, MD Priscilla [address] [place] [address] Social History Tobacco Use Types Packs/Day Years Used Date Smoking Tobacco: Never Assessed Comments Unknown Sex and Gender Information Value Date Recorded Sex Assigned at Not on file Legal Sex Female 5:29 AM HOME SERVICE ADVISOR Gender Identity Not on file Sexual Orientation Not on file documented as of this encounter Plan of Treatment Not on file documented as of this encounter Procedures Procedure Name Priority Date/Time Associated Diagnosis Comments PROCEDURE - RESULT 04/18/2018 12 :00 AM CDT documented in this encounter Results * PROCEDURE - RESULT (04/18/2018 12:00 AM CDT) Narrative 04/18/2018 12:00 AM CDT Ordered by an unspecified provider. us Historical Provider Final Res ult documented in this encounter Visit Diagnoses Not on filedocumented in this encounter Care Teams Psych Specialist Relationship Specialty Start Date End Date No, Physician PCP - General 05/01/18 04/17/19 No, Physician PCP - General 04/18/19 10/15/19 Zhanna Vincent PA PCP - General Physician Infection Prevention Coordinator 10/16/19 Jhonatan Gunter MD [address] [place] [address] Consulting Physician Cardiology 12/02/21 Alona Ahmadi PA [address] [address] Physician Infection Prevention Coordinator Orthopedic Surgery 12/24/21 documented as of this encounter
--- OUTSIDE RECORDS SUMMARY | 2024-10-09 12:27 | XMS_ITS | Clinical Summary ---
Author Organization [facility] Address [address] [place] [address] Care Team Providers Care Shell Freezing Machine Operator Name Role Phone Angus Hernandez MD Primary Care Provider [phone] Mariposa Bustamante [facility]- Unavailable [phone] Mason eVla MD Unavailable [phone] Allergies Active Allergy Reactions Criticality Noted Date Comments Atorvastatin Myalgias 01/29/2016 Sulfa Antibiotics Unknown 01/29/2016 Medications aspirin 81 MG tablet Take 1 tablet by mouth daily. 03/02/2015 Active carvedilol 25 MG tablet Take 1 tablet by mouth 2 (two) times daily. 01/09/2013 Active amlodipine 5 MG tablet Take 1 tablet by mouth daily. 3 01/23/2017 Active lisinopril 10 MG tablet Take 1 tablet by mouth daily. 03/09/2017 Active atorvastatin 40 MG tablet Take 40 mg by mouth daily. 3 01/03/2018 Active trazodone 50 MG tablet TK 1 T PO QD HS 1 02/08/2018 Active levothyroxine 137 MCG tablet TK 1 T PO QD 0 03/19/2018 Active oyster shell calcium 500 mg, elemental, 500 MG tablet TK 1 T PO BID 1 03/13/2018 Active diclofenac sodium 75 MG tablet 1 tablet twice daily 04/04/2018 Active B Complex Vitamins (VITAMIN-B COMPLEX OR) Active NON FORMULARY Take 1,000 mg by mouth daily. Active Cholecalciferol (VITAMIN D-3 OR) Take 25 mg by mouth 2 (two) times daily. Active Lysine HCl 1000 MG Tab Take 1,000 mg by mouth daily. Active citalopram 20 MG tablet Take 20 mg by mouth 2 (two) times daily. Active spironolactone 25 MG tablet Take 1 tablet (25 mg total) by mouth daily. 30 tablet 5 04/06/2018 Active cloNIDine 0.1 MG tablet Take 1 tablet (0.1 mg total) by mouth 2 (two) times daily. 60 tablet 04/10/2018 Active Active Problems Problem Noted Date Diagnosed Date Bradycardia 04/13/2018 CAD (coronary artery disease) Takotsubo syndrome Hypertension Diabetes ([facility]/H[facility]/HCC) Hyperlipidemia Hyperthyroidism Family History Medical History Relation Comments Cancer Father Cancer Mother Coronary artery disease Other Family h istory is positive for CAD. Heart Attack Sister OR Sister Relation Status Comments Father Mother Other Sister Social History Tobacco Use Types Packs/Day Years Used Date Smoking Tobacco: Never Smokeless Tobacco: Never Alcohol Use Standard Drinks/Week Comments [...] file Not on file Not on file Last Filed Vital Signs Vital Sign Reading Time Taken Comments Blood Pressure 128/74 04/06/2018 11:09 AM CDT Pulse 47 04/06/2018 10:57 AM CDT Temperature - - Respiratory Rate 16 04/06/2018 10:57 AM CDT Oxygen Saturation - - Inhaled Oxygen Concentration - - Weight 94.3 kg (208 lb) 04/06/2018 10:57 AM CDT Height 154.9 cm (5' 1 ) 04/06/2018 10:57 AM CDT Body Mass Index 39.3 04/06/2018 10:57 AM CDT Plan of Treatment Health Maintenance Due Date Last Done Comments Colorectal Cancer Screening Colonoscopy (10 Years) 1948 Kidney Health Evaluation 1948 PHQ-2 (Physician [place]) 1960 Diabetes: Retinopathy Eye Exam 1966 Hepatitis C 1966 Zoster Vaccines (1 of 2) 1998 Annual Medicare Wellness Visit 2013 Dexa Scan (General) 2013 ASCVD LDL 04/11/2017 04/11/2016, 12/2014, 01/23/2015, Additional history exists Hemoglobin A1C 06/15/2022 12/14/2021, 10/19, 04/11/2016, Additional history exists Lipid Panel 02/15/2023 02/15/2022, 03/22, 01/23/2015, Additional history exists RSV Immunization or 60+ Years (1 - 1-dose 75+ series) 2023 COVID-19 Vaccine ( - season) 2024 10/25/2020, 10/01/2020 Influenza Adult (#1) 2024 04/27/2017, 05/20/2016, 05/14/2015, Additional history exists PHQ-2 (Physician [place]) 08/21/2024 DTaP, Tdap and Td Vaccines (2 - Td or Tdap) 06/28/2031 06/28/2021 Pneumococcal Vaccine: 65+ Years Completed 08/21/2017, 06/09/2016, 05/14/2015, Additional history exists Meningococcal B Vaccine Aged Out No l onger eligible based on patient's age to complete this topic Meningococcal Vaccine Aged Out No heide galilea eligible based on patient's age to complete this topic RSV Immunizations Under 20 Months Aged Out No longer eligible based on patient's age to complete this topic Procedures Procedure Name Priority Date/Time Associated Diagnosis Comments LIPID PANEL Routine 04/11/2016 11:36 AM CDT HEMOGLOBIN, GLYCOSYLATED Routine 04/11/2016 11:36 AM CDT from Last 3 Months or Most Recently Relevant to Health Maintenance Results * (ABNORMAL) HEMOGLOBIN, GLYCOSYLATED (04/11/2016 11:36 AM CDT) HGB A1C 6.9(H) <5.7 % [facility] T O EPIC CONVERSION Comment: ADA GUIDELINES 2010 5.7 TO 6.4% INCREASED RISK OF DIABETES > OR 6.5% CONSISTENT WITH [place]ABETES [place] [address] 04/11/2016 11:3 6 AM CDT 04/11/2016 11:36 AM CDT Narrative [facility] TO EPIC CONVERSION - 04/11/2016 11:36 AM CDT [AUTO]: This test was reviewed. us Angus Hernandez MD LABORATORY Final Result [facility] TO EPIC CONVERSION * (ABNORMAL) LIPID PANEL (04/11/2016 11:36 AM CDT) CHOLESTEROL 242(H) <200 MG/DL [facility] TO EPIC CONVERSION TRIGLYCERIDES 152(H) <150 MG/DL [facility] TO EPIC CONVERSION HDL 46(L) >60 MG/DL [facility] T O EPIC CONVERSION Comment:AN HDL OF >60 IS NO RISK, RISK IS DEFINED <40 LDL (CALCULATED) 166(H) <100 MG/DL [facility] TO EPIC CONVERSION Comment: AN LDL OF <100 IS OPTIMAL, ELEVATED IS DEFINED >130 BY CURRENT GUIDELINES, LDL GOALS ARE DEPENDENT UPON OTHER RISK FACTORS 04/11/2016 11:3 6 AM CDT 04/11/2016 11:36 AM CDT Narrative [facility] TO EPIC CONVERSION - 04/11/2016 11:36 AM CDT [Task Forwarded to 1 Jessica] Labs show decent control. No change to regimen at this time. Would like pt to follow up in Jun for 6 months follow up. Thx. us Angus Hernandez MD LABORATORY Final Result Performing Organization Address City/[facility]/ZIP Co de Phone Number [facility] TO EPIC CONVERSION from Last 3 Months or Most Recently Relevant to Health Maintenance Insurance MEDICARE [employer] Advance Directives Documents on File Type Date Recorded Patient Hotel Engineer Expl anation Advance Directives and Living Will 07/24/2014 12:00 AM ADVANCED DIRECTIVES Advance Directives and Living Will 04/09/2014 12:00 AM ADVANCED DIRECTIVES Advance Directives and Living Will 01/24/2014 12:00 AM ADVANCED DIRECTIVES Advance Directives and Living Will 11/12/2013 12:00 AM ADVANCED DIRECTIVES Care Teams Shell Freezing Machine Operator Relationship Specialty Start Date End Date Angus Hernandez MD PCP - General FAMILY PRACTICE 02/06/17 Mariposa Bustamante, ANP- [address] [facility] [address] [place] [address] CARDIOVASCULAR DISEASE 04/06/18 Mason Vela MD [address] [place] [address] [place] [address] Referring Physician ORTHOPAEDIC SURGERY 04/13/18
--- OUTSIDE RECORDS SUMMARY | 2024-10-09 12:27 | XMS_ITS | Encounter Summary ---
Author Organization [facility] Care Team Providers Care Check Services Clerk Name Role Phone No, Physician Primary Care Provider [phone] No, Physician Primary Care Provider [phone] Zhanna Vincent Primary Care Pr ovider Jhonatan Gunter MD Unavailable [phone] Alona Ahmadi Unavailable [phone] Encounter Details Date Type Department Care Team (Latest Contact Info) Description 12/16/2015 Orders Only [facility] CLINCONV Provider, MD Priscilla [address] [place] [id number] Social History Tobacco Use Types Packs/Day Years Used Date Smoking Tobacco: Never Assessed Comments Unknown Sex and Gender Information Value Date Recorded Sex Assigned at Not on file 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 us Historical Provider Final Res ult documented in this encounter Visit Diagnoses Not on filedocumented in this encounter Care Teams Check Services Clerk Relationship Specialty Start Date End Date No, Physician PCP - General 05/01/18 04/17/19 No, Physician PCP - General 04/18/19 10/15/19 Zhanna Vincent PA PCP - General Physician Surgical Instrument Repair Specialist 10/16/19 Jhonatan Gunter MD [address] [place] [address] Consulting Physician Cardiology 12/02/21 Alona Ahmadi PA [address] [address] Physician Surgical Instrument Repair Specialist Orthopedic Surgery 12/24/21 documented as of this encounter
--- OUTSIDE RECORDS SUMMARY | 2024-10-09 12:27 | XMS_ITS | Encounter Summary ---
Author Organization [facility] Care Team Providers Care Rating Officer Name Role Phone No, Physician Primary Care Provider [phone] No, Physician Primary Care Provider [phone] Zhanna Vincent Primary Care Pr ovider Jhonatan Gunter MD Unavailable [phone] Alona Ahmadi Unavailable [phone] Encounter Details Date Type Department Care Team (Latest Contact Info) Description 09/27/2016 Orders Only [facility] CLINCONV Provider, MD Priscilla [address] [place] [address] Social History Tobacco Use Types Packs/Day Years Used Date Smoking Tobacco: Never Assessed Comments Unknown Sex and Gender Information Value Date Recorded Sex Assigned at Not on file 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 us Historical Provider Final Res ult documented in this encounter Visit Diagnoses Not on filedocumented in this encounter Care Teams Rating Officer Relationship Specialty Start Date End Date No, Physician PCP - General 05/01/18 04/17/19 No, Physician PCP - General 04/18/19 10/15/19 Zhanna Vincent PA PCP - General Physician Night Court Magistrate 10/16/19 Jhonatan Gunter MD [address] [address] Consulting Physician Cardiology 12/02/21 Alona Ahmadi PA [address] [id number] Physician Night [address] Magistrate Orthopedic Surgery 12/24/21 documented as of this encounter
--- OUTSIDE RECORDS SUMMARY | 2024-10-09 12:27 | XMS_ITS | Encounter Summary ---
Author Organization [facility] Address [facility] [place] [address] Care Team Providers Care Surface Water Technician Name Role Phone Angus Hernandez MD Primary Care Provider [phone] Mariposa Bustamante Unavailable [phone] Mason Vela MD Unavailable [phone] Encounter Details Date Type Department Care Team (Late st Contact Info) Description 09/11/2012 Abstract [facility] Conversion , Generic ConversionMD Social History Tobacco Use Types Packs/Day Years [...] on filedocumented in this encounter Care Teams Surface Water Technician Relationship Specialty Start Date End Date Angus Hernandez MD PCP - General FAMILY PRACTICE 02/06/17 Mariposa Bustamante ANP-BC [address] [facility] [address] [place] [address] CARDIOVASCULAR DISEASE 04/06/18 Mason Vela MD [address] [facility] [address] [place] [address] Referring Physician ORTHOPAEDIC SURGERY 04/13/18 documented as of this encounter
--- OUTSIDE RECORDS SUMMARY | 2024-10-09 12:27 | XMS_ITS | Data Portability ---
Author Organization [facility] [place] Herrera Address [address] [facility] [place] [address] Care Team Providers Care Clerk Of Scales Name Role Phone ZHANNA VINCENT Primary Care Provider Unavailab le Assessment No assessment recorded. Plan of Treatment Reminders Order Date Submit Date Provider Last Modified By Organization Details Last Modified Time Details Appointments ANY 15 2024 03:00P M ABENA Shi Not available Not available Not available Lab CBC w/ auto diff 2023 024 LIZ [facility], [address], [place], [address], 09/09/2024 19:06:59 hepatic function panel, serum 2023 024 FINDLAY [facility], [address], [place], [address], 09/09/2024 19:06:53 BMP, serum or plasma 2023 024 LIZ [facility], [address], [place], [address], 09/09/2024 19:06:55 lipid panel, serum 2023 024 LIZ [facility], [address], [place], [address], 09/09/2024 19:06:52 HbA1c (hemoglob in A1c), blood 2023 024 LIZ [facility], [address], [place], [address], 09/09/2024 19:06:58 urinalysi s complete, reflex culture 2023 024 LIZ [facility], [address], [place], [address], 09/09/2024 19:06:56 TSH + free T4, serum 2023 024 [facility], [address] [address], [place], [address], 07/29/2024 09:32:23 T3, free, serum or plasma 2023 024 [email or web address] [employer] [facility], [address], [address], 09/18/2024 16:18:40 CBC w/ auto diff 2023 024 [facility], [address], [address], 02/21/2024 16:28:03 BMP, serum or plasma 2023 024 [employer], [address], [address], 02/21/2024 16:28:03 hepatic function panel, serum 2023 024 [facility]yl[facility], [address], [address], 02/21/2024 16:28:03 lipid panel, serum 2023 024 [facility], [address], [address], 02/21/2024 16:28:03 HbA1c (hemoglob in A1c), blood 2023 024 [email or web address], [address], [address], 02/12/2024 11:59:05 noninvasi ve colorecta l cancer DNA + occult blood screening , QL, stool 2023 024 [employer] (Cologuard Orders Only), [address], [address], [place], [address], 02/21/2024 18:25:57 TSH + free T4, serum 2023 024 [facility]yl[facility], [address], [address], 02/02/2024 09:25:00 T3, free, serum or plasma 2023 024 [facility]yl[facility], [address], [address], 02/21/2024 16:28:03 Referral urologist referral 2023 024 [email or web address] Tushar Carl MD, [address] [place] [address] [address], [place], [address], 09/25/2024 16:49:53 Procedures None recorded. Surgeries None recorded. Imaging None recorded. Medication Orders Ozempic 0.25 mg or 0.5 mg (2 mg/3 mL) subcutane ous pen injector 2023 024 LIZ [id number], [address] [place], [address], 07/31/2024 16:18:27 amlodipin e 10 mg tablet 2023 024 LIZ [id number], [address] [place], [address], 07/31/2024 16:18:29 levothyro xine 137 mcg tablet 2023 024 [email or web address] [id number], [address] [place], [address], 07/31/2024 15:54:51 Patient TargetsNo targets recorded. Patient Instructions Encounter Date Encounter Id Patient Instructions Last Modified By Organization Details Last Modified Time 01/31/2024 [id number] A healthy lifestyle: care instructions Not available 01/31/2024 15:05:40 04/15/2024 [id number] A healthy lifestyle: care instructions Not available 04/15/2024 17:02:00 07/31/2024 [id number] A healthy lifestyle: care instructions Not available 07/31/2024 16:18:24 Reason for Referral Urologist Referral for Overa ctive urinary bladder Referring Physician: Zhanna Vincent, Internal Medicine, Encounter Date: 07/31/2024 Results Created Date Observation Date Name Description Value Unit Range Abnormal Flag Note LastModifiedBy Organization Detail LastModifiedTime 02/17/20 24 02/17/2024 COLOG UARD cologuard result reportable NEGATI VE negati ve normal NEGAT KURT TEST RESUL T. A negat kurt Colog uard resul t indic ates a low likel ihood that a color ectal cance r (CRC) or advan christian adeno ma (americo omato us polyp s with more advan christian pre-m align ant featu res) is prese nt. The chanc e that a perso n with a negat kurt Colog uard test has a color ectal cance r is less than 1 in 1500 (nega tive predi ctive value >99.9 %) or has an advan christian adeno ma is less than 5.3% (nega tive predi ctive value 94.7% ). These data are based on a prosp ectiv e cross -sect ional study of 10,00 0 indiv idual s at [facility] [place] risk for color ectal cance r who were scree michael with both Colog uard and colon oscop y. (Jenny Martini et al, N Engl J Med 2014; 370(1 4):12 86-12 97) The kym l value (refe rence range ) for this assay is negat kurt. COLOG UARD RE-SC REENI NG RECOM MENDA TION: Perio dic color ectal cance r scree katrin is an impor tant part of preve ntive healt hcare for asymp tomat ic indiv idual s at [facility] for color ectal cance r. Follo wing a negat kurt Colog uard resul t, the Ameri can Cance r Socie ty and [place].S[place] Multi -Soci ety Task Force scree katrin guide lines recom mend a Colog uard re-sc reeni ng inter jo of 3 years . Refer ences : Ameri can Cance r Socie ty Guide line for Color ectal Cance r Scree katrin: https ://kimberly w.can cer.o rg/ca ncer/ colon -rect al-ca ncer/ detec tion- diagn osis- stagi ng/ac s-rec ommen datio ns.ht ml.; Shady PURVIS, Nahed monk CR, Ty CHILDRESS, Color ectal Cance r Scree katrin: Recom menda tions for Physi cians and Patie nts from the U.S. Multi -Soci ety Task Force on Color ectal Cance r Scree katrin , Dwayne pickens 2017; 112:1 016-1 030. TEST DESCR IPTIO N: [place] site algor ithmi c mable sis of stool DNA-b iomar kers with hemog lobin immun oassa y. Quant itati ve value s of indiv idual bioma rkers are not repor table and are not assoc iated with indiv idual bioma rker resul t refer ence range s. Colog uard is inten ded for color ectal cance r scree katrin of adult s of eithe r sex, 45 years or older , who are at [facility] for color ectal cance r (CRC) . Colog uard has been appro tera for use by the [place]. FDA. The perfo rmanc e of Colog uard was estab bel d in a cross secti onal study of avera ge-ri sk adult s aged 50-84 . Colog uard perfo rmanc e in patie nts ages 45 to 49 years was estim ated by sub-g sherryp mable sis of near- age group s. Colon oscop ies perfo rmed for a posit kurt resul t may find as the most clini christine signi fican t lesio n: color ectal cance r [4.0% ], advan christian adeno ma (incl uding sessi le natalie marnie polyp s great er than or equal to 1cm diame ter) [20%] or non- advan christian adeno ma [31%] ; or no color ectal neopl jemima [45%] . These estim ates are deriv ed from a prosp ectiv e cross -sect ional scree katrin study of 0 indiv idual s at [facility] risk for color ectal cance r who were scree michael with both Colog uard and colon oscop y. (Jenny Martini et al, N Engl J Med 2014; 370(1 4):12 86-12 97.) Colog uard may produ ce a false negat kurt or false posit kurt resul t (no color ectal cance r or preca ncero us polyp prese nt at colon oscop y follo w up). A negat kurt Colog uard test resul t does not guara ntee the absen ce of CRC or advan christian adeno ma (pre- cance r). The curre nt Colog uard scree katrin inter jo is every 3 years . (Amer ican Cance r Socie ty and U.S. Multi -Soci ety Task Force ). Colog uard perfo rmanc e data in a 0 patie nt pivot al study using colon oscop y as the refer ence metho d can be acces sed at the follo wing locat ion: www.e xactl abs.c om/re zo . Addit ional descr iptio n of the Colog uard test proce ss, warni ngs and preca ution s can be found at www.c sandra mercadod.c om. Not Available [facility] (Cologuard Orders Only) [address], [place], [address], 02/21/2024 18:25:57 09/05/19 25 09/06/2024 LIPID PANEL cholesterol, total 128 mg/dL 100-19 9 Not Available [facility] ([facility]) [address] [facility], [place], [address], 09/09/2024 19:06:52 09/05/19 25 09/06/2024 LIPID PANEL triglyceride s 68 mg/dL 0-149 Not Available [facility] ([facility]) [address] [place], [address], 09/09/2024 19:06:52 09/05/19 25 09/06/2024 LIPID PANEL HDL cholesterol 53 mg/dL >39 Not Available [facility] ([facility]) [address] [place], [address], 09/09/2024 19:06:52 09/05/19 25 09/06/2024 LIPID PANEL VLDL cholesterol phong 14 mg/dL 5-40 Not Available [facility] ([facility]) [address] [place], [address], 09/09/2024 19:06:52 09/05/19 25 09/06/2024 LIPID PANEL LDL chol calc ([facility]) 61 mg/dL 0-99 Not Available [facility] ([facility]) [address] [place], [address], 09/09/2024 19:06:52 09/05/19 25 09/06/2024 HEPAT IC FUNCT ION PANEL (7) protein, total 7.1 g/dL 6.0-8. 5 Not Available [facility] ([facility]) [address] [place], [address], 09/09/2024 19:06:53 09/05/19 25 09/06/2024 HEPAT IC FUNCT ION PANEL (7) albumin 4.3 g/dL 3.8-4. 8 Not Available [facility] ([facility]) [address] [facility] [place], [address], 09/09/2024 19:06:53 09/05/19 25 09/06/2024 HEPAT IC FUNCT ION PANEL (7) bilirubin, total 0.4 mg/dL 0.0-1. 2 Not Available [facility] ([facility]) [address] [facility] [place], [address], 09/09/2024 19:06:53 09/05/19 25 09/06/2024 HEPAT IC FUNCT ION PANEL (7) bilirubin, direct 0.20 mg/dL 0.00-0 .40 Not Available [facility] ([facility]) [address] [place], [address], 09/09/2024 19:06:53 09/05/19 25 09/06/2024 HEPAT IC FUNCT ION PANEL (7) alkaline phosphatase 143 IU/L 44-121 above high normal Not Available [facility] ([facility]) [address] [place], [address], 09/09/2024 19:06:53 09/05/19 25 09/06/2024 HEPAT IC FUNCT ION PANEL (7) AST (SGOT) 20 IU/L 0-40 Not Available [facility] ([facility]) [address] [place], [address], 09/09/2024 19:06:53 09/05/19 25 09/06/2024 HEPAT IC FUNCT ION PANEL (7) ALT (SGPT) 11 IU/L 0-32 Not Available [facility] ([facility]) [address] [place], [address], 09/09/2024 19:06:53 09/05/19 25 09/06/2024 MICRO SCOPI C EXAMI NATIO N WBC 0-5 /hpf 0-5 Not Available [facility] ([facility]) [address] [place], [address], 09/09/2024 19:06:55 09/05/19 25 09/06/2024 MICRO SCOPI C EXAMI NATIO N RBC None seen /hpf 0-2 Not Available [facility] ([facility]) [address] [facility], [place], [address], 09/09/2024 19:06:55 09/05/19 25 09/06/2024 MICRO SCOPI C EXAMI NATIO N epithelial cells (non renal) 0-10 /hpf 0-10 Not Available [facility] ([facility]) [address] [facility], [place], [address], 09/09/2024 19:06:55 09/05/19 25 09/06/2024 MICRO SCOPI C EXAMI NATIO N casts None seen /lpf nonese en Not Available [facility] ([facility]) [address] [facility], [place], [address], 09/09/2024 19:06:55 09/05/19 25 09/06/2024 MICRO SCOPI C EXAMI NATIO N bacteria None seen nonese en/few Not Available [facility] ([facility]) [address] [facility], [place], [address], 09/09/2024 19:06:55 09/05/19 25 09/06/2024 BMP7+ EGFR glucose 101 mg/dL 70-99 above high normal Not Available [facility] ([facility]) [address] [facility], [place], [address], 09/09/2024 19:06:55 09/05/19 25 09/06/2024 BMP7+ EGFR BUN 14 mg/dL 8-27 Not Available [facility] ([facility]) [address] [facility], [place], [address], 09/09/2024 19:06:55 09/05/19 25 09/06/2024 BMP7+ EGFR creatinine 1.00 mg/dL 0.57-1 .00 Not Available [facility] ([facility]) [address] [facility] [place], [address], 09/09/2024 19:06:55 09/05/19 25 09/06/2024 BMP7+ EGFR eGFR 59 mL/mi n/1.7 3 >59 below low normal Not Available [facility] ([facility]) [address] [facility], [place], [address], 09/09/2024 19:06:55 09/05/19 25 09/06/2024 BMP7+ EGFR sodium 140 mmol/ L 134-14 4 Not Available [facility] ([facility]) [address] [facility] [place], [address], 09/09/2024 19:06:55 09/05/19 25 09/06/2024 BMP7+ EGFR potassium 4.3 mmol/ L 3.5-5. 2 Not Available [facility] ([facility]) [address] [facility] [place], [address], 09/09/2024 19:06:55 09/05/19 25 09/06/2024 BMP7+ EGFR chloride 99 mmol/ L 96-106 Not Available [facility] ([facility]) [address] [facility] [place], [address], 09/09/2024 19:06:55 09/05/1909/06/2024 BMP7+ EGFR carbon dioxide, total 24 mmol/ L 20-29 Not Available [facility] ([facility]) [address] [facility] [place], [address], 09/09/2024 19:06:55 09/05/1909/06/2024 UA/M W/RFL X CULTU RE, COMP specific gravity 1.017 1.005- 1.030 Not Available [facility] ([facility]) [address] [place], [address], 09/09/2024 19:06:56 09/05/19 25 09/06/2024 UA/M W/RFL X CULTU RE, COMP pH 6.0 5.0-7. 5 Not Available [facility] ([facility]) [address] [facility], [place], [address], 09/09/2024 19:06:56 09/05/19 25 09/06/2024 UA/M W/RFL X CULTU RE, COMP urine-color YELLOW yellow Not Available [facility] ([facility]) [address] [place], [address], 09/09/2024 19:06:56 09/05/19 25 09/06/2024 UA/M W/RFL X CULTU RE, COMP appearance CLEAR clear Not Available [facility] ([facility]) [address] [place], [address], 09/09/2024 19:06:56 09/05/19 25 09/06/2024 UA/M W/RFL X CULTU RE, COMP WBC esterase 2+ negati ve abnormal Not Available [facility] ([facility]) [address] [place], [address], 09/09/2024 19:06:56 09/05/19 25 09/06/2024 UA/M W/RFL X CULTU RE, COMP protein TRACE negati ve/tra ce Not Available [facility] ([facility]) [address] [place], [address], 09/09/2024 19:06:56 09/05/19 25 09/06/2024 UA/M W/RFL X CULTU RE, COMP glucose NEGATI VE negati ve Not Available [facility] ([facility]) [address] [place], [address], 09/09/2024 19:06:56 09/05/19 25 09/06/2024 UA/M W/RFL X CULTU RE, COMP ketones NEGATI VE negati ve Not Available [facility] ([facility]) [address] [facility], [place], [address], 09/09/2024 19:06:56 09/05/19 25 09/06/2024 UA/M W/RFL X CULTU RE, COMP occult blood NEGATI VE negati ve Not Available [facility] ([facility]) [address] [facility], [place], [address], 09/09/2024 19:06:56 09/05/19 25 09/06/2024 UA/M W/RFL X CULTU RE, COMP bilirubin NEGATI VE negati ve Not Available [facility] ([facility]) [address] [facility], [place], [address], 09/09/2024 19:06:56 09/05/19 25 09/06/2024 UA/M W/RFL X CULTU RE, COMP urobilinogen ,semi-qn 0.2 mg/dL 0.2-1. 0 Not Available [facility] ([facility]) [address] [place], [address], 09/09/2024 19:06:56 09/05/19 25 09/06/2024 UA/M W/RFL X CULTU RE, COMP nitrite, urine NEGATI VE negati ve Not Available [facility] ([facility]) [address] [place], [address], 09/09/2024 19:06:56 09/05/19 25 09/06/2024 UA/M W/RFL X CULTU RE, COMP microscopic examination SEE BELOW: Micro scopi c was indic ated and was perfo rmed. Not Available [facility] ([facility]) [address] [facility], [place], [address], 09/09/2024 19:06:56 09/05/19 25 09/06/2024 UA/M W/RFL X CULTU RE, COMP urinalysis reflex COMMEN T This speci men has refle xed to a Urine Cultu re. Not Available [facility] ([facility]) [address] [facility], [place], [address], 09/09/2024 19:06:56 09/05/19 25 09/06/2024 HEMOG LOBIN A1C hemoglobin A1C 6.4 % 4.8-5. 6 above high normal Predi abete s: 5.7 - 6.4 Diabe liz: >6.4 Glyce jillian contr ol for adult s with diabe liz: <7.0 Not Available [facility] ([facility]) [address] [facility], [place], [address], 09/09/2024 19:06:58 09/05/19 25 09/06/2024 CBC WITH DIFFE RENTI AL/PL ATELE T WBC 16.4 x10e3 /uL 3.4-10 .8 above high normal Not Available [facility] ([facility]) [address] [place], [address], 09/09/2024 19:06:59 09/05/19 25 09/06/2024 CBC WITH DIFFE RENTI AL/PL ATELE T RBC 4.48 x10e6 /uL 3.77-5 .28 Not Available [facility] ([facility]) [address] [place], [address], 09/09/2024 19:06:59 09/05/19 25 09/06/2024 CBC WITH DIFFE RENTI AL/PL ATELE T hemoglobin 12.4 g/dL 11.1-1 5.9 Not Available [facility] ([facility]) [address] [place], [address], 09/09/2024 19:06:59 09/05/19 25 09/06/2024 CBC WITH DIFFE RENTI AL/PL ATELE T hematocrit 39.7 % 34.0-4 6.6 Not Available [facility] ([facility]) [address] [place], [address], 09/09/2024 19:06:59 09/05/19 25 09/06/2024 CBC WITH DIFFE RENTI AL/PL ATELE T MCV 89 fL 79-97 Not Available [facility] ([facility]) [address] [facility], [place], [address], 09/09/2024 19:06:59 09/05/19 25 09/06/2024 CBC WITH DIFFE RENTI AL/PL ATELE T MCH 27.7 pg 26.6-3 3.0 Not Available [facility] ([facility]) [address] [facility], [place], [address], 09/09/2024 19:06:59 09/05/19 25 09/06/2024 CBC WITH DIFFE RENTI AL/PL ATELE T MCHC 31.2 g/dL 31.5-3 5.7 below low normal Not Available [facility] ([facility]) [address] [facility], [place], [address], 09/09/2024 19:06:59 09/05/19 25 09/06/2024 CBC WITH DIFFE RENTI AL/PL ATELE T RDW 13.9 % 11.7-1 5.4 Not Available [facility] ([facility]) [address] [facility], [place], [address], 09/09/2024 19:06:59 09/05/19 25 09/06/2024 CBC WITH DIFFE RENTI AL/PL ATELE T platelets 307 x10e3 /uL 150-45 0 Not Available [facility] ([facility]) [address] [facility], [place], [address], 09/09/2024 19:06:59 09/05/19 25 09/06/2024 CBC WITH DIFFE RENTI AL/PL ATELE T neutrophils 69 % notest ab. Not Available [facility] ([facility]) [address] [facility], [place], [address], 09/09/2024 19:06:59 09/05/19 25 09/06/2024 CBC WITH DIFFE RENTI AL/PL ATELE T lymphs 18 % notest ab. Not Available [facility] ([facility]) [address] [facility], [place], [address], 09/09/2024 19:06:59 09/05/19 25 09/06/2024 CBC WITH DIFFE RENTI AL/PL ATELE T monocytes 12 % notest ab. Not Available [facility] ([facility]) [address] [facility], [place], [address], 09/09/2024 19:06:59 09/05/19 25 09/06/2024 CBC WITH DIFFE RENTI AL/PL ATELE T eos 1 % notest ab. Not Available [facility] ([facility]) [address] [facility], [place], [address], 09/09/2024 19:06:59 09/05/19 25 09/06/2024 CBC WITH DIFFE RENTI AL/PL ATELE T basos 0 % notest ab. Not Available [facility] ([facility]) [address] [facility], [place], [address], 09/09/2024 19:06:59 09/05/19 25 09/06/2024 CBC WITH DIFFE RENTI AL/PL ATELE T neutrophils (absolute) 11.3 x10e3 /uL 1.4-7. 0 above high normal Not Available [facility] ([facility]) [address] [facility], [place], [address], 09/09/2024 19:06:59 09/05/19 25 09/06/2024 CBC WITH DIFFE RENTI AL/PL ATELE T lymphs (absolute) 2.9 x10e3 /uL 0.7-3. 1 Not Available [facility] ([facility]) [address] [place], [address], 09/09/2024 19:06:59 09/05/19 25 09/06/2024 CBC WITH DIFFE RENTI AL/PL ATELE T monocytes(ab solute) 2.0 x10e3 /uL 0.1-0. 9 above high normal Not Available [facility] ([facility]) [address] [facility], [place], [address], 09/09/2024 19:06:59 09/05/19 25 09/06/2024 CBC WITH DIFFE RENTI AL/PL ATELE T eos (absolute) 0.2 x10e3 /uL 0.0-0. 4 Not Available [facility] ([facility]) [address] [facility], [place], [address], 09/09/2024 19:06:59 09/05/19 25 09/06/2024 CBC WITH DIFFE RENTI AL/PL ATELE T baso (absolute) 0.0 x10e3 /uL 0.0-0. 2 Not Available [facility] ([facility]) [address] [facility], [place], [address], 09/09/2024 19:06:59 09/05/19 25 09/06/2024 CBC WITH DIFFE RENTI AL/PL ATELE T immature granulocytes 0 % notest ab. Not Available [facility] ([facility]) [address] [place], [address], 09/09/2024 19:06:59 09/05/19 25 09/06/2024 CBC WITH DIFFE RENTI AL/PL ATELE T immature grans (abs) 0.0 x10e3 /uL 0.0-0. 1 Not Available [facility] ([facility]) [address] [place], [address], 09/09/2024 19:06:59 09/05/19 25 09/09/2024 URINE CULTU RE, COMPR EHENS KURT urine culture,comp rehensive Final report Not Available [facility] ([facility]) [address] [place], [address], 09/09/2024 19:07:00 09/05/19 25 09/09/2024 URINE CULTU RE, COMPR EHENS KURT result 1 Commen t No growt h in 36 - 48 hours . Not Available [facility] ([facility]) [address] [facility], [place], [address], 09/09/2024 19:07:00 10/08/19 25 10/08/2024 influ jalen virus A + B + SARS- CoV-2 (COVI D19) Ag panel , rapid IA, upper respi rator y speci men Flu A negati ve Not Available In-Office Order Internal Use Only DO Not Attach Compendium DO Not Attach Compendium, Do Not Delete/merge, [id number] 10/08/2024 15:14:32 10/08/19 25 10/08/2024 influ jalen virus A + B + SARS- CoV-2 (COVI D19) Ag panel , rapid IA, upper respi rator y speci men Flu B negati ve Not Available In-Office Order Internal Use Only DO Not Attach Compendium DO Not Attach Compendium, Do Not Delete/merge, [id number] 10/08/2024 15:14:32 10/08/19 25 10/08/2024 influ jalen virus A + B + SARS- CoV-2 (COVI D19) Ag panel , rapid IA, upper respi rator y speci men Rapid SARS CoV 2 Ag, QL IA, respiratory specimen negati ve Not Available In-Office Order Internal Use Only DO Not Attach Compendium DO Not Attach Compendium, Do Not Delete/merge, [id number] 10/08/2024 15:14:32 01/26/20 24 01/25/2024 XR, chest No observ ation record ed. [address], [address], 01/31/2024 14:54:16 01/26/20 24 01/25/2024 XR, chest No observ ation record ed. [address], [place], [address], 01/31/2024 14:54:29 02/01/20 24 05/16/2023 MRI, lumba r spine , w/o contr ast No observ ation record ed. BARCODE Not Available 2023 15:11:29 Result Notes None recorded. Problems Name Problem SNOMED Code Status Onset Date Resolution Date Notes Provider Name and Address Organization Details Recorded Time Long-term drug therapy Active 2023 ABENA Shi Attn: Jammie chase,[address] [facility], [place], [address], [place] [facility] 4 15:05:28 Obesity 418164322 Active 2023 ABENA Shi Attn: Jammie stone,[address] [facility], [place], [address], [place] [facility] 4 15:05:28 Body mass index 30+ - obesity 404255105 Active 2023 ABENA Shi Attn: Jammie chase,[address] [facility], [place], [address], [place] [facility] 4 15:05:29 History of transient ischemic attack 362166825 Active 2023 ABENA Shi Attn: Jammie stone,[address] [place], [address], [place] [facility] 4 15:05:30 Hypothyroidism 69216017 Active 2023 ABENA Shi Attn: Jammie stone,[address] [facility], [place], [address], [place] [facility] 4 15:05:31 Benign essential hypertension 6727575 Active 2023 ABENA Shi Attn: Jammie stone,[address] [facility], [place], [address], [place] - [facility] 4 15:05:33 Hyperlipidemia [id number] Active 2023 ABENA Shi Attn: Jammie stone,[address] [place], [address], [place] - [facility] 4 15:05:34 Atrial fibrillation [id number] Active 2023 ABENA Shi Attn: Jammie stone,[address] [facility], [place], [address], [place] - [facility] 4 15:05:35 Well controlled type 2 diabetes mellitus 066178375 Active 2023 ABENA Shi Attn: Jammie stone,[address] [facility], [place], [address], [place] [facility] 4 15:05:37 Lumbar spondylosis 246196592 Active 2023 ABENA Shi Attn: Shannenrick stone,[address] [facility], [place], [address], [place] [facility] 4 15:13:20 Gastroesophage al reflux disease without esophagitis 400879112 Active 2023 ABENA Shi Attn: Shannenrick stone,[address] [facility], [place], [address], [place] [facility] 4 10:18:18 Chronic insomnia 628896078 Active 2023 ABENA Shi Attn: Shannenrick stone,[address] [facility], [place], [address], [place] [facility] 4 10:19:17 Overactive urinary bladder 228609476 Active 2023 ABENA Shi Attn: Shannenrick stone,[address] [facility], [place], [address], [place] [facility] 4 20:06:56 Problem Notes None recorded. Procedures Surgical History Date Name Laterality Status Provider Name and Address Organization Details Recorded Time hysterectomy completed Marcio Salazar [place] [facility] 01/31/2024 15:19:14 Imaging Results Imaging Date Name Status LastModified by Organiz ation Details LastModified Time 01/25/2024 XR, chest completed [email or web address] [address], [place], [address], 01/31/2024 14:54:16 01/25/2024 XR, chest completed [email or web address] [facility] [address], [place], [address], 01/31/2024 14:54:29 05/16/2023 MRI, lumbar spine, w/o contrast completed [facility] Information not available 02/01/2024 15:11:29 Procedure Notes None recorded. Medical Equipment None Reported. Allergies Allergen ID Allergen Name Allergen Category Reaction Reaction Severity Criticality Documentation Date Start Date Code Code System Note Provider Name and Address Organization Details Recorded Time 152413 Substance with sulfonami de structure and antibacte rial mechanism of action (substanc e) medicatio n Not available Not available Not available 01/31/2024 24618 8003 SNOMED Not Available Not Available Not Available Medications Name Sig Start Date Stop Date Status Note LastModified by Organization Details LastModified Time amoxicillin 500 mg capsule TAKE 1 CAPSULE BY MOUTH EVERY 8 HOURS 10/08 completed Not Available Not Available Not Available atorvastati n 40 mg tablet Take 1 tablet every day by oral route for 90 days. active Not Available Not Available No t Available metformin 500 mg tablet TAKE 1 TABLET BY MOUTH TWICE A DAY active Not Available Not Available No t Available levothyroxi ne 137 mcg tablet TAKE 1 TABLET BY MOUTH EVERY DAY active Not Available Not Available No t Available clonidine HCl 0.1 mg tablet TAKE 1 TABLET BY MOUTH TWICE A DAY active Not Available Not Available No t Available doxycycline hyclate 100 mg capsule Take 1 capsule twice a day by oral route with meal(s). 2024 active Not Available Not Available Not Avai lable hydrocodone 5 mg-acetamin ophen 325 mg tablet TAKE 1 TABLET BY MOUTH EVERY 6 (SIX) HOURS NEEDED FOR PAIN (BREAKTHR OUGH PAIN) 07/31 completed Not Available Not Available Not Available sotalol 80 mg tablet TAKE 1 TABLET BY MOUTH 2 TIMES A DAY. active Not Available Not Available No t Available Medrol ([facility]) 4 mg tablets in a dose pack take as directed starting 10-09-242024 active Not Available Not Available Not Avai lable Zithromax Z-[facility] 250 mg tablet TAKE 2 TABLETS (500 MG) BY ORAL ROUTE ONCE DAILY FOR 1 DAY THEN 1 TABLET (250 MG) BY ORAL ROUTE ONCE DAILY FOR 4 DAYS 2024 active Not Available Not Available Not Avai lable amlodipine 5 mg tablet Take 1 tablet every day by oral route for 90 days. 08/18 completed Not Available Not Available Not Available omeprazole 40 mg capsule,del ayed release TAKE 1 CAPSULE BY MOUTH EVERY DAY active Not Available Not Available No t Available warfarin 4 mg tablet TAKE 4 MG TU, TH, SAT AND SUN TAKE 6 MG MON, WED AND FRI OR DIRECTED BY PHYSICIAN active Not Available Not Available No t Available trazodone 100 mg tablet TAKE 1 TABLET BY MOUTH EVERYDAY AT BEDTIME active Not Available Not Available No t Available amlodipine 10 mg tablet Take 1 tablet every day by oral route. active Not Available Not Available No t Available levothyroxi ne 125 mcg tablet TAKE 1 TABLET BY MOUTH ONCE DAILY IN MORNING. NEW DOSE AND DISCONTIN UE 112MCG DOSE 04/15 completed Not Available Not Available Not Available cefuroxime axetil 500 mg tablet TAKE 1 TABLET BY MOUTH EVERY 12 HOURS 10/08 completed Not Available Not Available Not Available colestipol 1 gram tablet TAKE 1 TABLET BY MOUTH TWICE DAILY active Not Available Not Available No t Available amoxicillin 875 mg-potassiu m clavulanate 125 mg tablet TAKE 1 TABLET BY MOUTH EVERY 12 HOURS 01/30 completed Not Available Not Available Not Available amlodipine 02/21 completed BP Not Available Not Available Not Available Ozempic 0.25 mg or 0.5 mg (2 mg/3 mL) subcutaneou s pen injector WEEK 1-4: INJECT 0.25 MG UNDER THE SKIN ONCE WEEKLY WEEK 5+: INJECT 0.5MG ONCE WEEKLY active Not Available Not Available No t Available Klayesta 100,000 unit/gram topical powder APPLY TO THE AFFECTED AREA(S) UNDER BREASTS BY TOPICAL ROUTE 2 TIMES PER DAY active Not Available Not Available No t Available Vitals Date Recorded Body height Respiratory rate Body mass index (BMI) Body weight Oxygen saturation Oxygen saturation in Arterial blood by Pulse oximetry Heart rate Systolic blood pressure Diastolic blood pressure Provider Name and Address Organization Details Last Updated DateTime 157.48 cm 20 /min 33.4 kg/m2 75724.3 3 g 98 % 98 % 65 /min 138 mm[Hg] 82 mm[Hg] Marcio Salazar MA [facility] 4 14:43:20 Date Recorded Systolic blood pressure Diastolic blood pressure Provider Name and Address Organization Details Last Updated DateTime 01/31/2024 120 mm[Hg] 80 mm[Hg] ABENA Shi Attn: Accounting,[address] [place], [address], [facility] 01/31/2024 15:13:29 Date Recorded Body height Body mass index (BMI) Body weight Oxygen saturation Oxygen saturation in Arterial blood by Pulse oximetry Heart rate Systolic blood pressure Diastolic blood pressure Provider Name and Address Organization Details Last Updated DateTime 4 157.48 cm 33.5 kg/m2 87309.4 g 97 % 97 % 61 /min 136 mm[Hg] 80 mm[Hg] Loy Rajan MA [facility] 4 16:22:05 Date Recorded Body height Body mass index (BMI) Body weight Respiratory rate Oxygen saturation Oxygen saturation in Arterial blood by Pulse oximetry Heart rate Systolic blood pressure Diastolic blood pressure Provider Name and Address Organization Details Last Updated DateTime 4 157.48 cm 33.7 kg/m2 34984 g 20 /min 97 % 97 % 69 /min 150 mm[Hg] 82 mm[Hg] Marcio Salazar MA [facility] 4 15:57:39 Date Recorded Systolic blood pressure Diastolic blood pressure Provider Name and Address Organization Details Last Updated DateTime 07/31/2024 150 mm[Hg] 90 mm[Hg] ABENA Shi Attn: Accounting,[address] [place], [address], [facility] 07/31/2024 16:18:46 Date Recorded Body height Body mass index (BMI) Body weight Respiratory rate Heart rate Systolic blood pressure Diastolic blood pressure Provider Name and Address Organization Details Last Updated DateTime 5 157.48 cm 30.9 kg/m2 45594.1 1 g 20 /min 52 /min 148 mm[Hg] 87 mm[Hg] Marcio Salazar MA [facility] 14:54:12 Date Recorded Oxygen saturation Oxygen saturation in Arterial blood by Pulse oximetry Body temperature Provider Name and Address Organization Details Last Updated DateTime 10/08/2024 99 % 99 % 97.7 [degF] ABENA Shi Attn: Accounting ,[address] [facility], [place], [address] , [facility] 10/08/2024 15:13:44 Social History Question Answer Notes LastModified by Organizat ion Details LastModified Time Tobacco Smoking Status Never Smoker Marcio Salazar MA null, [facility] 01/31/2024 14:40:04 Do You Have An Advance Directive? No Information not available 01/31/2024 What Is Your Level Of Alcohol Consumption? None Information not available 01/31/2024 Are You Blind Or Do You Have Difficulty Seeing? No Information not available 01/31/2024 What Is Your Level Of Caffeine Consumption? Occasional SODA/1-2 A DAY Information not available 01/31/2024 In The 14 Days Before Symptom Onset, Have You Had Close Contact With A Laboratory-confir med COVID-19 While That Case Was Ill? No Information not available 01/30/2024 In The 14 Days Before Symptom Onset, Have You Had Close Contact With A Person Who Is Under Investigation For COVID-19 While That Person Was Ill? No Information not available 01/30/2024 Have You Been To An Area Known To Be High Risk For COVID-19? No Information not available 01/30/2024 Are You Deaf Or Do You Have Serious Difficulty Hearing? No Information not available 01/31/2024 What Type Of Diet Are You Following? REGULAR Information not available 01/31/2024 Are There Any Guns Present In Your Home? No Information not available 01/31/2024 What Was The Date Of Your Most Recent Tobacco Screening? 10/08/2024 Information not available 10/08/2024 Do You Use Your Seat Belt Or Car Seat Routinely? Yes Information not available 01/31/2024 Do You Have Smoke And Carbon Monoxide Detectors In Your Home? Yes Information not available 01/30/2024 Do You Use Any Illicit Or Recreational Drugs? No Information not available 01/31/2024 Do You Use Sunscreen Routinely? No Information not available 01/31/2024 Has Tobacco Cessation Counseling Been Provided? Yes Information not available 01/30/2024 On What Date Was Tobacco Cessation Counseling Provided? 10/08/2024 Information not available 10/08/2024 Do You Or Have You Ever Used Any Other Forms Of Tobacco Or Nicotine? No Information not available 01/31/2024 Sex: Female Functional Status Question Answer Note LastModified by Organizat ion Details LastModified Time Are you able to care for yourself? Yes Information not available 01/30/2024 What is your exercise level? Moderate 2x a week Information not available 01/31/2024 Mental Status None recorded. Family History Relationship Description Onset Age of this Age Resolved Age Notes LastModified by Organization Details LastModified Time Mother Malignant tumor of ovary [email or web address] Not available 2023 15:19:35 Medical History Condition Response Coronary Artery Disease N Other N Atrial Fibrillation Y High Blood Pressure N Kidney or Bladder Problems N Thyroid Problems Y GI Problems N Depression Y COPD N Blood Clots N Skin Problems N Anemia N Heart Attack (OK) Y Anxiety Disorder N Diabetes N Muscle, Joint, or Bone Problems N Seizures/Epilepsy N Acid Reflux (GERD) Y Cancer N Stroke Y Asthma N Allergies N High Cholesterol N Hepatitis Y Liver Disease N Headaches N Heart Failure N Osteoporosis N Gynecological History Statement/Question Response Menses Monthly N Obstetrics History GPAL:G 0 P 0 0 0 0 Immunizations Vaccine Type Date Status Note Provider Nam e and Address Organization Details Recorded Time Influenza, high-dose, quadrivalent, PF 0 completed Marcio [place] [facility] 07/30/2024 15:07:31 Influenza, high-dose, quadrivalent, PF 1 completed aMrcio Sal[place] [facility] 07/30/2024 15:07:31 Influenza, high-dose, quadrivalent, PF 2 completed Marcio [place] [facility] 07/30/2024 15:07:31 COVID-19, mRNA, LNP-S, PF, 30 mcg/0.3 mL dose 1 completed Marcio [place] [facility] 07/30/2024 15:07:31 COVID-19, mRNA, LNP-S, PF, 30 mcg/0.3 mL dose 1 completed [place]io [place] [facility] 07/30/2024 15:07:31 COVID-19, mRNA, LNP-S, PF, 30 mcg/0.3 mL dose 1 completed JEREMÍAS Pool[place] [facility] 07/30/2024 15:07:31 COVID-19, mRNA, LNP-S, PF, 30 mcg/0.3 mL dose, elia-sucrose 2 completed JEREM[place]AS [place] [facility] 07/30/2024 15:07:31 COVID-19, mRNA, LNP-S, bivalent, PF, 30 mcg/0.3 mL dose 2 completed JEREM[place]AS [place] [facility] 07/30/2024 15:07:31 pneumococcal polysaccharide PPV23 6 completed Marcio [place] [facility] 07/30/2024 15:07:31 Pneumococcal conjugate PCV 13 5 completed JEREMÍAS Pool[place] [facility] 07/30/2024 15:07:31 Influenza, high-dose, trivalent, PF 9 completed [place]io [place] [facility] 07/30/2024 15:07:31 Influenza, high-dose, trivalent, PF 5 completed [place]io [place] [facility] 07/30/2024 15:07:31 Influenza, high-dose, trivalent, PF 8 completed JEREM[place]AS [place] [facility] 07/30/2024 15:07:31 Influenza, split virus, quadrivalent, PF 7 completed Brinicolas Martin[place] [facility] 07/30/2024 15:07:31 Influenza, split virus, quadrivalent, PF 3 completed Brinicolas Martin JEREMÍAS [place] [facility] 07/30/2024 15:07:31 Influenza, split virus, quadrivalent, PF 6 completed Marcio Salazar [place] [facility] 07/30/2024 15:07:31 Past Encounters Encounter ID Performer Location Encounter Start Date Encounter Closed Date Diagnosis/Indication Diagnosis SNOMED-CT Code Diagnosis ICD10 Code Diagnosis Note [id number] ABENA Shi [facility] [employer] [address] [place] [address] 01/31/2024 14:17:55 01/31/2024 15:48:52 Body mass index 30+ - obesity 621972814 Z68.33 discussed healthy diet, exercise, controllin g carbohydra liz and added sugars in the diet Obesity 522774165 E66.8 Well contr olled type 2 diabetes mellitus 669242047 E11.9 pt is stable on metformin 500mg bid . due for a1c lab. Hyperlipidemia 93702534 E78.5 stable on atorvastat in 40mg daily. due for fasting lipids. Benign ess ential hypertension 3664261 I10 stable on amlodipine 5mg daily Hypothyroidism 45184781 E03.9 on thyroid supplement and due for updated TFT panel to determine dosing History of transient ischemic attack 740467404 Z86.73 hx noted. Atrial fibrillation 4943 6004 I48.91 pt is taking sotalol and warfarin as directed and managed by cardiology Long-term drug therapy 943569938 Z79.899 check routine bmp , lft and bmp Screening for malignant neoplasm of colon 317208120 Z12.11 pt opts for cologuard screening Lumbar spondylosis 86476 0009 M47.896 hx noted Gastroesop hageal reflux disease without esophagitis 780651912 K21.9 stable on PPI therapy. Chronic insomnia 7740383 04 F51.04 stable on trazodone 100mg qhs. [id number] ABENA Shi [facility] [employer] [address] [place] [address] 04/15/2024 16:15:08 04/15/2024 17:06:04 Obesity 623111958 E66.8 Well contr olled type 2 diabetes mellitus 611581207 E11.9 pt is stable on metformin 500mg bid and A1c is stable at 6.3% Atrial fibrillation 4943 6004 I48.91 pt is taking sotalol and warfarin as directed and managed by cardiology Hyperlipidemia 17555661 E78.5 stable on atorvastat in 40mg daily. Lipid panel is very stable Benign ess ential hypertension 9706197 I10 stable on amlodipine 5mg daily. Blood pressure is 136/80 today Hypothyroidism 06512690 E03.9 We will restart levothyrox ine 137 mcg daily dosing and patient has to repeat TSH, T4 and T3 on May 21 to evaluate for stability of higher dose. We discussed we may have to do alternatio n of 137 and 125 mcg depending on how much her T4 has increased. Currently her T4 free is 1.2 and TSH is 0.47 History of transient ischemic attack 700303354 Z86.73 hx noted. Body mass index 30+ - obesity 344119514 Z68.33 BMI is 33.5. We discussed healthy diet, exercise, controllin g carbohydra liz and added sugars in the diet Long-term drug therapy 592899976 Z79.944 [id number] ABENA Shi [facility] [place] [address] [place] [address] 07/31/2024 15:47:25 07/31/2024 17:02:09 Body mass index 30+ - obesity 162645448 Z68.33 BMI is 33.7 We discussed healthy diet, exercise, controllin g carbohydra liz and added sugars in the diet. Ozempic therapy may help facilitate some weight loss Obesity 029015164 E66.9 discussed healthy diet, exercise, controllin g carbohydra liz and added sugars in the diet Hypothyroidism 14881753 E03.9 Patient is running a low TSH with a T4 that is normal. She is tolerating her current dosing without difficulty or without any symptoms of hyperthyro idism. We will continue dosing of levothyrox ine 137 mcg daily Well contr olled type 2 diabetes mellitus 035530051 E11.9 pt is stable on metformin 500mg bid and A1c is stable at 6.3%. Patient would like to treat her diabetes using medication s that can also help facilitate weight loss. We will start Ozempic titration course as directed and then check a repeat A1c currently to get a baseline Atrial fibrillation 4943 6004 I48.91 pt is taking sotalol and warfarin as directed and managed by cardiology Hyperlipidemia 54649947 E78.5 stable on atorvastat in 40mg daily. Lipid panel is very stable Benign ess ential hypertension 1843962 I10 Blood pressure is elevated today 150/90, boost amlodipine to 10 mg daily History of transient ischemic attack 346312144 Z86.73 hx noted. Long-term drug therapy 291847587 Z79.899 CBC, BMP and liver function labs do Overactive urinary bladder 389391147 N32.81 Patient has chronic overactive bladder refer to Urology and check urine with culture [id number] ABENA Shi [facility] [place] [address] [place] [address] 10/08/2024 14:33:37 10/08/2024 15:19:03 Body mass index 30+ - obesity 172648342 Z68.33 Obesity 056772685 E66.9 Upper resp iratory infection 69567812 J06.9 Cough 30789741 R05.9 Benign ess ential hypertension 6638391 I10 Blood pressure is elevated today , a lot of coughing during appt. Health Concerns Section Related Observation LastModified by Organization Detai ls LastModified Time None Recorded Concern Status LastModified by Organization Details LastModified Time None Recorded Advance Directives Directive N: Payers Encounter Date Sequence Insurance Name Policy Number Policy Tran Covered Member ID Tran Member ID Guarantor Name 01/31/2024 1 [employer] - [employer] (MEDICARE REPLACEMENT/ ADVANTAGE - HMO) [id number] Carline Aj [id number] Carline Aj 04/15/2024 1 [employer] - [employer] (MEDICARE REPLACEMENT/ ADVANTAGE - HMO) [id number] Carline Aj [id number] Carline Aj 07/31/2024 1 [employer] - [employer] (MEDICARE REPLACEMENT/ ADVANTAGE - HMO) [id number] Carline Aj [id number] Carline Aj Notes Date Note Type Note Provider Name and Address Organization Details Recorded Time 4 text/html Atrial FibrillationReported bypatient.Notes:pt is taking warfarin and sotalol and follows with dr. muñoz. sees him every year.DiabetesReported bypatient.Notes:stable on metformin 500mg bid.HypertensionReported bypatient.Notes:pt is stable on amlodipine 5mg daily.ThyroidReported bypatient.Notes:stable on levothyroxine 125mcg daily. due for TFTs. Hx TIA x 2Lumbar spondylosis is severe. ABENA Shi Attn: Accounting,[address] [facility], [place], [address], [facility] 02/22/2024 10:20:16 4 text/html Atrial FibrillationReported bypatient.Notes:pt is taking warfarin and sotalol and follows with dr. muñoz. sees him every year.DiabetesReported bypatient.Notes:stable on metformin 500mg bid.HypertensionReported bypatient.Notes:pt is stable on amlodipine 5mg daily.ObesityReported bypatient.Notes:Patient reports that she has gained 30-40 lb in the last year or so since her thyroid dose was decreased. She feels awful with no energy and wants to return back to previous dosing.ThyroidReported bypatient.Notes:stable on levothyroxine 125mcg daily. due for TFTs. Hx TIA x 2Lumbar spondylosis is severe. ABENA Shi Attn: Accounting,[address] [facility], [place], [address], [facility] 04/21/2024 20:42:53 4 text/html Atrial FibrillationReported bypatient.Notes:pt is taking warfarin and sotalol and follows with dr. muñoz. sees him every year.DiabetesReported bypatient.Notes:stable on metformin 500mg bid.HypertensionReported bypatient.Notes:pt is stable on amlodipine 5mg daily.ThyroidReported bypatient.Notes:stable on levothyroxine 137mcg daily Hx TIA x 2Lumbar spondylosis is severe. ABENA Shi Attn: Accounting,[address] [facility], [place], [address], [facility] 08/18/2024 20:07:37 OBGyn Episode No OBEpisode recorded.
--- OUTSIDE RECORDS SUMMARY | 2024-10-09 12:27 | XMS_ITS | Encounter Summary ---
Author Organization [facility] Facility Care Team Providers Care Floral Arranger Name Role Phone No, Physician Primary Care Provider [phone] No, Physician Primary Care Provider [phone] Zhanna Vincent Primary Care Pr ovider Jhonatan Gunter MD Unavailable [phone] Alona Ahmadi Unavailable [phone] Encounter Details Date Type Department Care Team (Latest Contact Info) Description 03/22/2018 Orders Only [facility] Provider, MD Priscilla [address] [place] [address] Social History Tobacco Use Types Packs/Day Years Used Date Smoking Tobacco: Never Assessed Comments Unknown Sex and Gender Information Value Date Recorded Sex Assigned at Not on file 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 us Historical Provider Final Res ult documented in this encounter Visit Diagnoses Not on filedocumented in this encounter Care Teams Floral Arranger Relationship Specialty Start Date End Date No, Physician PCP - General 05/01/18 04/17/19 No, Physician PCP - General 04/18/19 10/15/19 Zhanna Vincent PA PCP - General Physician Mental Tester 10/16/19 Jhonatan Gunter MD [address] [place] [address] Consulting Physician Cardiology 12/02/21 Alona Ahmadi PA [address] [address] Physician Mental Tester Orthopedic Surgery 12/24/21 documented as of this encounter
--- OUTSIDE RECORDS SUMMARY | 2024-10-09 12:27 | XMS_ITS | Encounter Summary ---
Author Organization [facility] Facility Care Team Providers Care Digital Sales Planner Name Role Phone No, Physician Primary Care Provider [phone], Physician Primary Care Provider [phone] Zhanna Vincent Primary Care Pr ovider Jhonatan Gunter MD Unavailable [phone] Alona Ahmadi Unavailable [phone] Encounter Details Date Type Department Care Team (Latest Contact Info) Description 01/10/2017 Orders Only [facility] Provider, MD Priscilla [address] [place] [address] Social History Tobacco Use Types Packs/Day Years Used Date Smoking Tobacco: Never Assessed Comments Unknown Sex and Gender Information Value Date Recorded Sex Assigned at Not on file 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 Historical Provider [facility] Final Result documented in this encounter Visit Diagnoses Not on filedocumented in this encounter Care Teams Digital Sales Planner Relationship Specialty Start Date End Date No, Physician PCP - General 05/01/18 04/17/19 No, Physician PCP - General 04/18/19 10/15/19 Zhanna Vincent PA PCP - General Physician Railroad Car Loader 10/16/19 Jhonatan Gunter MD [address] [place] [address] Consulting Physician Cardiology 12/02/21 Alona Ahmadi PA [address] [place] [address] Physician Railroad Car Loader Orthopedic Surgery 12/24/21 documented as of this encounter
--- OUTSIDE RECORDS SUMMARY | 2024-10-09 12:27 | XMS_ITS | Encounter Summary ---
Author Organization [facility] Address [facility] [place] [address] Care Team Providers Care Underwriting Support Specialist Name Role Phone Angus Hernandez MD Primary Care Provider Mariposa Bustamante [facility] Unavailable [phone] Mason Vela MD Unavailable [phone] Encounter Details Date Type Department Care Team (Late st Contact Info) Description 12/24/2015 Abstract [facility] Clinics Conversion Angus Hernandez MD [address] [address] Social History Tobacco Use Types Packs/Day Years Used Date Smoking Tobacco: Never Comments Unknown Sex and Gender Information Value Date Recorded Sex Assigned at Not on file Legal Sex Female 9:58 PM CDT Gender Identity Not on file Sexual Orientation Not on file documented as of this encounter Miscellaneous Notes * Letter - Angus Hernandez MD - 12/24/2015 12:00 AM CDT 01-13-2016 Carline Aj [address] [place] [address] Dear Carline, During your recent visit to [facility], Angus Hernandez MD, recommended a referral to a specialist. Dr. Means's office have made several attempts to contact you with no response. If you are still interested in setting up an appointment with Dr. Means, Organizational Effectiveness Consultant, please contact their office directly at [phone]. If we do not hear back from you within 10 days from the date of this letter we will assume you do not wish to pursue the appointment with the specialist and close the request . Respectfully yours, Referral Department [facility] ERY SUPERVISOR documented in this encounter Plan of Treatment Not on file documented as of this encounter Visit Diagnoses Not on filedocumented in this encounter Care Teams Underwriting Support Specialist Relationship Specialty Start Date End Date Angus Hernandez MD PCP - General FAMILY PRACTICE 02/06/17 Mariposa Bustamante, ANP- [address] [facility] [address] [place] [address] CARDIOVASCULAR DISEASE 04/06/18 Mason Vela MD [address] [facility] [address] [place] [address] Referring Physician ORTHOPAEDIC SURGERY 04/13/18 documented as of this encounter
--- OUTSIDE RECORDS SUMMARY | 2024-10-09 12:27 | XMS_ITS | Encounter Summary ---
Author Organization [facility] Care Team Providers Care Cna Per Diem Name Role Phone No, Physician Primary Care Provider [phone] No, Physician Primary Care Provider [phone] Zhanna Vincent Primary Care Pr ovider Jhonatan Gunter MD Unavailable [phone] Alona Ahmadi Unavailable [phone] Encounter Details Date Type Department Care Team (Latest Contact Info) Description 10/22/2018 Orders Only [facility] CLINCONV Provider, MD Priscilla [address] [place] [address] Social History Tobacco Use Types Packs/Day Years Used Date Smoking Tobacco: Never Assessed Comments Unknown Sex and Gender Information Value Date Recorded Sex Assigned at Not on file 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 us Historical Provider Final Res ult documented in this encounter Visit Diagnoses Not on filedocumented in this encounter Care Teams Cna Per Diem Relationship Specialty Start Date End Date No, Physician PCP - General 05/01/18 04/17/19 No, Physician PCP - General 04/18/19 10/15/19 Zhanna Vincent PA PCP - General Physician Data Processing Operator 10/16/19 Jhonatan Gunter MD [address] [address] Consulting Physician Cardiology 12/02/21 Alona Ahmadi PA [address] [id number] Physician Data Processing Operator Orthopedic Surgery 12/24/21 documented as of this encounter
--- OUTSIDE RECORDS SUMMARY | 2024-10-09 12:27 | XMS_ITS | Encounter Summary ---
Author Organization [facility] Facility Care Team Providers Care Boil[employer]aker [employer] Name Role Phone No, Physician Primary Care Provider [phone] No, Physician Primary Care Provider Zhanna Vincent Primary Care Pr ovider Jhonatan Gunter MD Unavailable [phone] Alona Ahmadi Unavailable [phone] Encounter Details Date Type Department Care Team (Latest Contact Info) Description 04/16/2018 Orders Only [facility] CLINCONV Provider, MD Priscilla [address] [place] [address] Social History Tobacco Use Types Packs/Day Years Used Date Smoking Tobacco: Never Assessed Comments Unknown Sex and Gender Information Value Date Recorded Sex Assigned at Not on file 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 us Historical Provider Final Res ult documented in this encounter Visit Diagnoses Not on filedocumented in this encounter Care Teams [employer] Relationship Specialty Start Date End Date No, Physician PCP - General 05/01/18 04/17/19 No, Physician PCP - General 04/18/19 10/15/19 Zhanna Vincent PA PCP - General Physician Supervisor Plating And Point Assembly 10/16/19 Jhonatan Gunter MD [address] [place] [address] Consulting Physician Cardiology 12/02/21 Alona Ahmadi PA [address] [address] Physician Supervisor Plating And Point Assembly Orthopedic Surgery 12/24/21 documented as of this encounter
--- OUTSIDE RECORDS SUMMARY | 2024-10-09 12:27 | XMS_ITS | Encounter Summary ---
Author Organization [facility] Address [facility] [place] [address] Care Team Providers Care Administrative Specialist Name Role Phone Angus Hernandez MD Primary Care Provider [phone] Mariposa Bustamante Unavailable [phone] Mason eVla MD Unavailable [phone] Encounter Details Date Type Department Care Team (Late st Contact Info) Description 08/29/2016 Abstract [facility] Clinics Conversion , Generic ConversionMD Social History [...] on filedocumented in this encounter Care Teams Administrative Specialist Relationship Specialty Start Date End Date Angus Hernandez MD PCP - General FAMILY PRACTICE 02/06/17 Mariposa Bustamante ANP-BC [address] [place] [address] [address] [place] [address] CARDIOVASCULAR DISEASE 04/06/18 Mason Vela MD [address] [place] [address] [address] [place] [address] Referring Physician ORTHOPAEDIC SURGERY 04/13/18 documented as of this encounter
--- OUTSIDE RECORDS SUMMARY | 2024-10-09 12:27 | XMS_ITS | Encounter Summary ---
Author Organization [facility] Address [facility] [place] [address] Care Team Providers Care Infrastructure Manager Name Role Phone Angus Hernandez MD Primary Care Provider [phone] Mariposa Bustamante [facility] Unavailable [phone] Mason Vela MD Unavailable [phone] Encounter Details Date Type Department Care Team (Late st Contact Info) Description 12/04/2017 Abstract [facility] Clinics Conversion Angus Hernandez MD [address] [address] Social History Tobacco Use Types [...] * Letter - Angus Hernandez MD - 12/04/2017 12:00 AM CDT 05 December 2017 Carline Aj [address] [place] [address] Dear Carline Aj, Thank you for the trust you have placed in [facility] as your health care team. You are a valued patient at our office and we hope you are well. We are concerned about your health and noticed that you did not keep your last scheduled appointment on 12/04/2017. If your appointment has not been rescheduled, please call the office at to reschedule your appointment as soon as possible. As you are aware, we are dedicated to caring for the whole patient, not just treating an illness. When we schedule appointments, we set aside time and professional resources to meet the individual needs of our patients, including time for one-on-one consultation. When a patient does not come to an appointment or cancels the appointment without sufficient notice, our health care team is not able to take time needed to care for another patient. Cancelling within at least 24 hours of your appointment allows us to prepare our schedule for other patients who need timely care. Please be aware, per our organization's no-show policy, if at least 24 hours' notice is not given two times in one year, the practice will impose a $25 no- show fee. We understand there are occasions when a patient must miss an appointment due to unforeseen circumstances. In this event, please call our office and cancel your appointment as soon as you are able. This allows our staff to schedule another patient in need of care. We are committed to providing you the best care possible. We hope to hear from you soon. Sincerely, [facility] cc: Patient's Medical Record CLERK documented in this encounter Plan of Treatment Not on file documented as of this encounter Visit Diagnoses Not on filedocumented in this encounter Care Teams Infrastructure Manager Relationship Specialty Start Date End Date Angus Hernandez MD PCP - General FAMILY PRACTICE 02/06/17 Mariposa Bustamante ANP- [address] [facility] [address] [place] [address] CARDIOVASCULAR DISEASE 04/06/18 Mason Vela MD [address] [facility] [address] [place] [address] Referring Physician ORTHOPAEDIC SURGERY 04/13/18 documented as of this encounter
--- OUTSIDE RECORDS SUMMARY | 2024-10-09 12:27 | XMS_ITS | Data Portability ---
Author Organization [facility] [employer], Main Office Address [address] [place] [address] Assessment No assessment recorded. Plan of Treatment Reminders Order Date Submit Date Provider Last Modified By Organization Details Last Modified Time Details Appointments None recorded. Lab HbA1c (hemoglobi n A1c), blood 2022 023 [employer] [facility], [address], [address], [place], [address], 3 05:38:17 microalbum in/creatin ine, mass ratio, urine 2022 023 [employer] [facility], [address], [address], [place], [address], 3 17:27:10 CBC w/ auto diff 2022 023 [employer] [facility], [address], [address], [place], [address], 3 05:38:22 BMP, serum or plasma 2022 023 [employer] [facility], [address], [place], [address], 3 05:38:16 hepatic function panel, serum 2022 023 [employer] [facility] [address], [place], [address], 3 05:38:18 lipid panel, serum 2022 023 [employer] [facility], [address], [place], [address], 3 05:38:15 T4, free, serum 2022 023 [employer] [facility], [address], [place], [address], 3 05:38:20 TSH, serum or plasma 2022 023 [employer] [facility], [address], [place], [address], 3 05:38:19 T3, free, serum or plasma 2022 023 [employer] [facility], [address], [place], [address], 3 05:38:21 Referral None recorded. Procedures None recorded. Surgeries None recorded. Imaging None recorded. Medication Orders None recorded. Patient TargetsNo targets recorded. Patient InstructionsNo instructions recorded. Reason for Referral None Reported. Results Created Date Observation Date Name Description Value Unit Range Abnormal Flag Note LastModifiedBy Organization Detail LastModifiedTime 09/28/19 22 09/29/2021 URINA LYSIS , COMPL ETE color dark yellow yellow normal Not Available [address], [address], 09/29/2021 16:02:43 09/28/19 22 09/29/2021 URINA LYSIS , COMPL ETE appearance clear clear normal Not Available [address], [address], 09/29/2021 16:02:43 09/28/19 22 09/29/2021 URINA LYSIS , COMPL ETE specific gravity 1.015 1.001- 1.035 normal Not Available [address], [address], 09/29/2021 16:02:43 09/28/19 22 09/29/2021 URINA LYSIS , COMPL ETE pH 5.5 5.0-8. 0 normal Not Available [address], [address], 09/29/2021 16:02:43 09/28/19 22 09/29/2021 URINA LYSIS , COMPL ETE glucose negati ve negati ve normal Not Available [address], [address], 09/29/2021 16:02:43 09/28/19 22 09/29/2021 URINA LYSIS , COMPL ETE bilirubin negati ve negati ve normal Not Available [address], [address], 09/29/2021 16:02:43 09/28/19 22 09/29/2021 URINA LYSIS , COMPL ETE ketones negati ve negati ve normal Not Available [address], [address], 09/29/2021 16:02:43 09/28/19 22 09/29/2021 URINA LYSIS , COMPL ETE occult blood negati ve negati ve normal Not Available [address], [address], 09/29/2021 16:02:43 09/28/19 22 09/29/2021 URINA LYSIS , COMPL ETE protein negati ve negati ve normal Not Available [address], [address], 09/29/2021 16:02:43 09/28/19 22 09/29/2021 URINA LYSIS , COMPL ETE nitrite negati ve negati ve normal Not Available [address], [address], 09/29/2021 16:02:43 09/28/19 22 09/29/2021 URINA LYSIS , COMPL ETE leukocyte esterase 3+ negati ve abnormal Not Available [facility] [address], [place], [address], 09/29/2021 16:02:43 09/28/19 22 09/29/2021 URINA LYSIS , COMPL ETE WBC 10-20 /hpf < or = 5 abnormal Not Available [address], [address], 09/29/2021 16:02:43 09/28/19 22 09/29/2021 URINA LYSIS , COMPL ETE RBC 0-2 /hpf < or = 2 normal Not Available [address], [address], 09/29/2021 16:02:43 09/28/19 22 09/29/2021 URINA LYSIS , COMPL ETE squamous epithelial cells 6-10 /hpf < or = 5 abnormal Not Available [address], [address], 09/29/2021 16:02:43 09/28/19 22 09/29/2021 URINA LYSIS , COMPL ETE bacteria none seen /hpf none seen normal Not Available [address], [address], 09/29/2021 16:02:43 09/28/19 22 09/29/2021 URINA LYSIS , COMPL ETE hyaline cast none seen /lpf none seen normal Not Available [address], [address], 09/29/2021 16:02:43 09/28/19 22 09/29/2021 CBC (INCL UDES DIFF/ PLT) white blood cell count 12.8 thous and/u L 3.8-10 .8 high Not Available [address], [address], 09/29/2021 16:02:42 09/28/19 22 09/29/2021 CBC (INCL UDES DIFF/ PLT) red blood cell count 4.95 connie on/uL 3.80-5 .10 normal Not Available [address], [address], 09/29/2021 16:02:42 09/28/19 22 09/29/2021 CBC (INCL UDES DIFF/ PLT) hemoglobin 13.8 g/dL 11.7-1 5.5 normal Not Available [address], [address], 09/29/2021 16:02:42 09/28/19 22 09/29/2021 CBC (INCL UDES DIFF/ PLT) hematocrit 43.6 % 35.0-4 5.0 normal Not Available [address], [address], 09/29/2021 16:02:42 09/28/19 22 09/29/2021 CBC (INCL UDES DIFF/ PLT) MCV 88.1 fL 80.0-1 00.0 normal Not Available [address], [address], 09/29/2021 16:02:42 09/28/19 22 09/29/2021 CBC (INCL UDES DIFF/ PLT) MCH 27.9 pg 27.0-3 3.0 normal Not Available [address], [address], 09/29/2021 16:02:42 09/28/19 22 09/29/2021 CBC (INCL UDES DIFF/ PLT) MCHC 31.7 g/dL 32.0-3 6.0 low Not Available [address], [address], 09/29/2021 16:02:42 09/28/19 22 09/29/2021 CBC (INCL UDES DIFF/ PLT) RDW 13.3 % 11.0-1 5.0 normal Not Available [address], [place], [address], 09/29/2021 16:02:42 09/28/19 22 09/29/2021 CBC (INCL UDES DIFF/ PLT) platelet count 368 thous and/u L 140-40 0 normal Not Available [address], [address], 09/29/2021 16:02:42 09/28/19 22 09/29/2021 CBC (INCL UDES DIFF/ PLT) MPV 10.4 fL 7.5-12 .5 normal Not Available [facility] [address], [address], 09/29/2021 16:02:42 09/28/19 22 09/29/2021 CBC (INCL UDES DIFF/ PLT) absolute neutrophils 6925 cells /uL 1500-7 800 normal Not Available [address], [address], 09/29/2021 16:02:42 09/28/19 22 09/29/2021 CBC (INCL UDES DIFF/ PLT) absolute lymphocytes 4378 cells /uL 850-39 00 high Not Available [address], [address], 09/29/2021 16:02:42 09/28/19 22 09/29/2021 CBC (INCL UDES DIFF/ PLT) absolute monocytes 1229 cells /uL 200-95 0 high Not Available [address], [address], 09/29/2021 16:02:42 09/28/19 22 09/29/2021 CBC (INCL UDES DIFF/ PLT) absolute eosinophils 230 cells /uL 15-500 normal Not Available [employer] [address], [address], 09/29/2021 16:02:42 09/28/19 22 09/29/2021 CBC (INCL UDES DIFF/ PLT) absolute basophils 38 cells /uL 0-200 normal Not Available [address], [address], 09/29/2021 16:02:42 09/28/19 22 09/29/2021 CBC (INCL UDES DIFF/ PLT) neutrophils 54.1 % normal Not Available [address], [address], 09/29/2021 16:02:42 09/28/19 22 09/29/2021 CBC (INCL UDES DIFF/ PLT) lymphocytes 34.2 % normal Not Available [address], [address], 09/29/2021 16:02:42 09/28/19 22 09/29/2021 CBC (INCL UDES DIFF/ PLT) monocytes 9.6 % normal Not Available [address], [address], 09/29/2021 16:02:42 09/28/19 22 09/29/2021 CBC (INCL UDES DIFF/ PLT) eosinophils 1.8 % normal Not Available [address], [address], 09/29/2021 16:02:42 09/28/19 22 09/29/2021 CBC (INCL UDES DIFF/ PLT) basophils 0.3 % normal Not Available [address], [address], 09/29/2021 16:02:42 09/28/19 22 09/29/2021 HEPAT IC FUNCT ION PANEL protein, total 7.3 g/dL 6.1-8. 1 normal Not Available [address], [address], 09/29/2021 16:02:41 09/28/19 22 09/29/2021 HEPAT IC FUNCT ION PANEL albumin 4.3 g/dL 3.6-5. 1 normal Not Available [address] [address] [place], [address], 09/29/2021 16:02:41 09/28/19 22 09/29/2021 HEPAT IC FUNCT ION PANEL globulin 3.0 g/dL_ (calc ) 1.9-3. 7 normal Not Available [address] [address] [place], [address], 09/29/2021 16:02:41 09/28/19 22 09/29/2021 HEPAT IC FUNCT ION PANEL albumin/glob ulin ratio 1.4 (calc ) 1.0-2. 5 normal Not Available [address], [address], 09/29/2021 16:02:41 09/28/19 22 09/29/2021 HEPAT IC FUNCT ION PANEL bilirubin, total 0.5 mg/dL 0.2-1. 2 normal Not Available [address], [address], 09/29/2021 16:02:41 09/28/19 22 09/29/2021 HEPAT IC FUNCT ION PANEL bilirubin, direct 0.1 mg/dL < or = 0.2 normal Not Available [address], [address], 09/29/2021 16:02:41 09/28/19 22 09/29/2021 HEPAT IC FUNCT ION PANEL bilirubin, indirect 0.4 mg/dL _(phong c) 0.2-1. 2 normal Not Available [address], [address], 09/29/2021 16:02:41 09/28/19 22 09/29/2021 HEPAT IC FUNCT ION PANEL alkaline phosphatase 99 U/L 37-153 normal Not Available [address] [address] [place], [address], 09/29/2021 16:02:41 09/28/19 22 09/29/2021 HEPAT IC FUNCT ION PANEL AST 12 U/L 10-35 normal Not Available [facility] [place] [address] [address] [place], [address], 09/29/2021 16:02:41 09/28/19 22 09/29/2021 HEPAT IC FUNCT ION PANEL ALT 13 U/L 6-29 normal Not Available [facility] [address] [address] [place], [address], 09/29/2021 16:02:41 09/28/19 22 09/29/2021 HEMOG LOBIN A1C hemoglobin A1C 6.3 %_of_ total _HGB <5.7 high Not Available [address], [address], 09/29/2021 16:02:41 09/28/19 22 09/29/2021 BASIC METAB OLIC PANEL creatinine 0.77 mg/dL 0.60-0 .93 normal For patie nts >49 years of age, the refer ence limit for Creat inine is appro ximat belkys 13% highe r for peopl e ident ified as Afric an-Am wan n. Not Available [address] [address] [place], [address], 09/29/2021 16:02:41 09/28/19 22 09/29/2021 BASIC METAB OLIC PANEL glucose 116 mg/dL 65-99 high Fasti ng refer ence inter jo For someo ne witho ut known diabe liz, a gluco se value betwe en 100 and 125 mg/dL is consi stent with predi abete s and shoul d be confi rmed with a follo w-up test. Not Available [address] [address] [place], [address], 09/29/2021 16:02:41 09/28/19 22 09/29/2021 BASIC METAB OLIC PANEL urea nitrogen (BUN) 22 mg/dL 7-25 normal Not Available [address], [address], 09/29/2021 16:02:41 09/28/19 22 09/29/2021 BASIC METAB OLIC PANEL eGFR non-afr. mauritian 77 mL/mi n/1.7 3m2 > or = 60 normal Not Available [address], [address], 09/29/2021 16:02:41 09/28/19 22 09/29/2021 BASIC METAB OLIC PANEL eGFR 89 mL/mi n/1.7 3m2 > or = 60 normal Not Available [address], [address], 09/29/2021 16:02:41 09/28/19 22 09/29/2021 BASIC METAB OLIC PANEL BUN/creatini ne ratio not applic able (calc ) 6-22 Not Available [address], [address], 09/29/2021 16:02:41 09/28/19 22 09/29/2021 BASIC METAB OLIC PANEL sodium 141 mmol/ L 135-14 6 normal Not Available [address], [address], 09/29/2021 16:02:41 09/28/19 22 09/29/2021 BASIC METAB OLIC PANEL potassium 4.0 mmol/ L 3.5-5. 3 normal Not Available [address], [address], 09/29/2021 16:02:41 09/28/19 22 09/29/2021 BASIC METAB OLIC PANEL chloride 100 mmol/ L 98-110 normal Not Available [address], [address], 09/29/2021 16:02:41 02/08/20 22 09/29/2021 BASIC METAB OLIC PANEL carbon dioxide 33 mmol/ L 20-32 high Not Available [address], [address], 09/29/2021 16:02:41 09/28/19 22 09/29/2021 BASIC METAB OLIC PANEL calcium 9.3 mg/dL 8.6-10 .4 normal Not Available [address], [address], 09/29/2021 16:02:41 09/28/19 22 09/29/2021 LIPID PANEL WITH RATIO S cholesterol, total 166 mg/dL <200 normal Not Available [address], [address], 09/29/2021 16:02:40 09/28/19 22 09/29/2021 LIPID PANEL WITH RATIO S HDL cholesterol 56 mg/dL > or = 50 normal Not Available [address], [address], 09/29/2021 16:02:40 09/28/19 22 09/29/2021 LIPID PANEL WITH RATIO S triglyceride s 181 mg/dL <150 high Not Available [address], [address], 09/29/2021 16:02:40 09/28/19 22 09/29/2021 LIPID PANEL WITH RATIO S LDL-choleste rol 82 mg/dL _(phong c) normal Refer ence range : <100 Darshan able range <100 mg/dL for prima ry preve ntion ; <70 mg/dL for patie nts with CHD or diabe tic patie nts with > or = 2 CHD risk facto rs. LDL-C is now calcu lated using the Fatou n-Hop kins calcu rika n, which is a valid ated novel metho d chris gutierrez r accur acy than the Fried alan equat ion in the estim ation of LDL-C . Fatou n SS et al. MYRON. 2013; 310(1 9): 2061- 2068 (http ://ed ucati on.Thomas marroquiniLumen. com/f aq/FA Q164) Not Available [address], [address], 09/29/2021 16:02:40 09/28/19 22 09/29/2021 LIPID PANEL WITH RATIO S chol/HDLC ratio 3.0 (calc ) <5.0 normal Not Available [address], [address], 09/29/2021 16:02:40 09/28/19 22 09/29/2021 LIPID PANEL WITH RATIO S LDL/HDL ratio 1.5 (calc ) Below avera ge Risk: <2.34 [place] ge Risk: 2.35- 4.12 Moder ate Risk: 4.13- 5.56 High Risk: >5.57 Not Available [address], [place], [address], 09/29/2021 16:02:40 09/28/19 22 09/29/2021 LIPID PANEL WITH RATIO S non HDL cholesterol 110 mg/dL _(phong c) <130 normal For patie nts with diabe liz plus 1 major ASCVD risk facto r, treat ing to a non-H DL-C goal of <100 mg/dL (LDL- C of <70 mg/dL ) is consi alfonso bray c tamekao n. Not Available [address], [address], 09/29/2021 16:02:40 09/28/19 22 09/29/2021 TSH+F REE T4 TSH 0.19 mIU/L 0.40-4 .50 low Not Available [address], [address], 09/29/2021 16:02:40 09/28/19 22 09/29/2021 TSH+F REE T4 T4, free 2.0 NG/dL 0.8-1. 8 high Not Available [address], [address], 09/29/2021 16:02:40 09/28/19 22 09/29/2021 ALBUM IN, RANDO M URINE W/CRE ATINI NE creatinine, random urine 90 mg/dL 20-275 normal Not Available [address], [address], 09/29/2021 16:02:39 09/28/19 22 09/29/2021 ALBUM IN, RANDO M URINE W/CRE ATINI NE albumin, urine 0.5 mg/dL see note: normal Refer ence Range : Refer ence Range Not estab lishe d Not Available [address], [address], 09/29/2021 16:02:39 09/28/19 22 09/29/2021 ALBUM IN, RANDO M URINE W/CRE ATINI NE albumin/crea tinine ratio, random urine 6 mcg/m g_cre at <30 normal The ADA defin es abnor malit ies in album in excre tion as follo ws: Album inuri a Categ ory Resul t (mcg/ mg creat inine ) Laurie l to Mildl y incre ased <30 Moder ately incre ased 30-29 9 Sever belkys incre ased > OR = 300 The ADA recom mends that at least two of three speci mens colle cted withi n a 3-6 month perio d be abnor mal befor e consi michael g a patie nt to be withi n a diagn ostic categ ory. Not Available [address], [address], 09/29/2021 16:02:39 12/23/19 22 12/23/2021 T3, FREE T3, free 2.8 pg/mL 2.3-4. 2 normal Not Available [address] [place], [address], 12/23/2021 02:01:24 12/23/19 22 12/23/2021 TSH+F REE T4 TSH 9.37 mIU/L 0.40-4 .50 high Not Available [address], [address], 12/23/2021 02:01:24 12/23/19 22 12/23/2021 TSH+F REE T4 T4, free 1.1 NG/dL 0.8-1. 8 normal Not Available [address], [address], 12/23/2021 02:01:24 06/21/20 22 06/22/2022 CBC (INCL UDES DIFF/ PLT) white blood cell count 7.5 thous and/u L 3.8-10 .8 normal Not Available [address], [address], 06/22/2022 06:08:00 06/21/20 22 06/22/2022 CBC (INCL UDES DIFF/ PLT) red blood cell count 4.29 connie on/uL 3.80-5 .10 normal Not Available [address], [address], 06/22/2022 06:08:00 06/21/20 22 06/22/2022 CBC (INCL UDES DIFF/ PLT) hemoglobin 11.9 g/dL 11.7-1 5.5 normal Not Available [address], [address], 06/22/2022 06:08:00 06/21/20 22 06/22/2022 CBC (INCL UDES DIFF/ PLT) hematocrit 37.9 % 35.0-4 5.0 normal Not Available [address], [address], 06/22/2022 06:08:00 06/21/20 22 06/22/2022 CBC (INCL UDES DIFF/ PLT) MCV 88.3 fL 80.0-1 00.0 normal Not Available [address], [address], 06/22/2022 06:08:00 06/21/20 22 06/22/2022 CBC (INCL UDES DIFF/ PLT) MCH 27.7 pg 27.0-3 3.0 normal Not Available [address], [address], 06/22/2022 06:08:00 06/21/20 22 06/22/2022 CBC (INCL UDES DIFF/ PLT) MCHC 31.4 g/dL 32.0-3 6.0 low Not Available [address], [address], 06/22/2022 06:08:00 06/21/20 22 06/22/2022 CBC (INCL UDES DIFF/ PLT) RDW 14.2 % 11.0-1 5.0 normal Not Available [address], [address], 06/22/2022 06:08:00 06/21/20 22 06/22/2022 CBC (INCL UDES DIFF/ PLT) platelet count 312 thous and/u L 140-40 0 normal Not Available [address], [address], 06/22/2022 06:08:00 06/21/20 22 06/22/2022 CBC (INCL UDES DIFF/ PLT) MPV 11.2 fL 7.5-12 .5 normal Not Available [address], [address], 06/22/2022 06:08:00 06/21/20 22 06/22/2022 CBC (INCL UDES DIFF/ PLT) absolute neutrophils 4620 cells /uL 1500-7 800 normal Not Available [facility] [address], [place], [address], 06/22/2022 06:08:00 06/21/20 22 06/22/2022 CBC (INCL UDES DIFF/ PLT) absolute lymphocytes 2055 cells /uL 850-39 00 normal Not Available [address], [address], 06/22/2022 06:08:00 06/21/20 22 06/22/2022 CBC (INCL UDES DIFF/ PLT) absolute monocytes 675 cells /uL 200-95 0 normal Not Available [address], [address], 06/22/2022 06:08:00 06/21/20 22 06/22/2022 CBC (INCL UDES DIFF/ PLT) absolute eosinophils 98 cells /uL 15-500 normal Not Available [address], [address], 06/22/2022 06:08:00 06/21/20 22 06/22/2022 CBC (INCL UDES DIFF/ PLT) absolute basophils 53 cells /uL 0-200 normal Not Available [address], [address], 06/22/2022 06:08:00 06/21/20 22 06/22/2022 CBC (INCL UDES DIFF/ PLT) neutrophils 61.6 % normal Not Available [address], [address], 06/22/2022 06:08:00 06/21/20 22 06/22/2022 CBC (INCL UDES DIFF/ PLT) lymphocytes 27.4 % normal Not Available [address], [address], 06/22/2022 06:08:00 06/21/20 22 06/22/2022 CBC (INCL UDES DIFF/ PLT) monocytes 9.0 % normal Not Available [address], [address], 06/22/2022 06:08:00 06/21/20 22 06/22/2022 CBC (INCL UDES DIFF/ PLT) eosinophils 1.3 % normal Not Available [address], [address], 06/22/2022 06:08:00 06/21/20 22 06/22/2022 CBC (INCL UDES DIFF/ PLT) basophils 0.7 % normal Not Available [address], [address], 06/22/2022 06:08:00 06/21/20 22 06/22/2022 HEPAT IC FUNCT ION PANEL protein, total 6.5 g/dL 6.1-8. 1 normal Not Available [address], [address], 06/22/2022 06:07:59 06/21/20 22 06/22/2022 HEPAT IC FUNCT ION PANEL albumin 4.2 g/dL 3.6-5. 1 normal Not Available [address], [address], 06/22/2022 06:07:59 06/21/20 22 06/22/2022 HEPAT IC FUNCT ION PANEL globulin 2.3 g/dL_ (calc ) 1.9-3. 7 normal Not Available [address], [address], 06/22/2022 06:07:59 06/21/20 22 06/22/2022 HEPAT IC FUNCT ION PANEL albumin/glob ulin ratio 1.8 (calc ) 1.0-2. 5 normal Not Available [address], [address], 06/22/2022 06:07:59 06/21/20 22 06/22/2022 HEPAT IC FUNCT ION PANEL bilirubin, total 0.4 mg/dL 0.2-1. 2 normal Not Available [address], [address], 06/22/2022 06:07:59 06/21/20 22 06/22/2022 HEPAT IC FUNCT ION PANEL bilirubin, direct 0.1 mg/dL < or = 0.2 normal Not Available [address] [address] [place], [address], 06/22/2022 06:07:59 06/21/2006/22/2022 HEPAT IC FUNCT ION PANEL bilirubin, indirect 0.3 mg/dL _(phong c) 0.2-1. 2 normal Not Available [address] [address] [place], [address], 06/22/2022 06:07:59 06/21/20 22 06/22/2022 HEPAT IC FUNCT ION PANEL alkaline phosphatase 94 U/L 37-153 normal Not Available [facility] [employer] [place] [address] [place], [address], 06/22/2022 06:07:59 06/21/20 22 06/22/2022 HEPAT IC FUNCT ION PANEL AST 16 U/L 10-35 normal Not Available [address], [address], 06/22/2022 06:07:59 06/21/2006/22/2022 HEPAT IC FUNCT ION PANEL ALT 13 U/L 6-29 normal Not Available [address], [address], 06/22/2022 06:07:59 06/21/20 22 06/22/2022 HEMOG LOBIN A1C hemoglobin A1C 6.0 %_of_ total _HGB <5.7 high For someo ne witho ut known diabe liz, a hemog lobin A1c value betwe en 5.7% and 6.4% is consi stent with predi abete s and shoul d be confi rmed with a follo w-up test. For someo ne with known diabe liz, a value <7% indic ates that their diabe liz is well contr olled . A1c targe ts shoul d be indiv idual ized based on durat ion of diabe liz, age, comor bid condi tions , and other consi derat ions. This assay resul t is consi stent with an incre ased risk of diabe liz. Curre ntly, no conse nsus exist s regjess jin use of hemog lobin A1c for diagn osis of diabe liz for child sheng. Not Available [employer] [address], [address], 06/22/2022 06:07:58 06/21/20 22 06/22/2022 BASIC METAB OLIC PANEL urea nitrogen (BUN) 7 mg/dL 7-25 normal Not Available [employer] [address], [address], 06/22/2022 06:07:58 06/21/2006/22/2022 BASIC METAB OLIC PANEL glucose 110 mg/dL 65-99 high Fasti ng refer ence inter jo For someo ne witho ut known diabe liz, a gluco se value betwe en 100 and 125 mg/dL is consi stent with predi abete s and shoul d be confi rmed with a follo w-up test. Not Available [facility] [address] [address] [place], [address], 06/22/2022 06:07:58 06/21/2006/22/2022 BASIC METAB OLIC PANEL creatinine 0.74 mg/dL 0.60-1 .00 normal Not Available [facility] [address], [address], 06/22/2022 06:07:58 06/21/2006/22/2022 BASIC METAB OLIC PANEL eGFR 85 mL/mi n/1.7 3m2 > or = 60 normal The eGFR is based on the CKD-E PI 2020 equat ion. To calcu late the new eGFR from a previ ous Creat inine or Cysta mikki mueller, go to https ://kimberly mendez.alden hurtado/ama garica s/ kdoqi /gfr% 5Fcal culat or Not Available [address] [address] [place], [address], 06/22/2022 06:07:58 06/21/20 22 06/22/2022 BASIC METAB OLIC PANEL BUN/creatini ne ratio not applic able (calc ) 6-22 Not Available [address], [address], 06/22/2022 06:07:58 06/21/20 22 06/22/2022 BASIC METAB OLIC PANEL sodium 140 mmol/ L 135-14 6 normal Not Available [address], [address], 06/22/2022 06:07:58 06/21/20 22 06/22/2022 BASIC METAB OLIC PANEL potassium 3.8 mmol/ L 3.5-5. 3 normal Not Available [address] [address] [place], [address], 06/22/2022 06:07:58 06/21/20 22 06/22/2022 BASIC METAB OLIC PANEL chloride 104 mmol/ L 98-110 normal Not Available [address], [address], 06/22/2022 06:07:58 06/21/20 22 06/22/2022 BASIC METAB OLIC PANEL carbon dioxide 29 mmol/ L 20-32 normal Not Available [address] [address] [place], [address], 06/22/2022 06:07:58 06/21/20 22 06/22/2022 BASIC METAB OLIC PANEL calcium 8.9 mg/dL 8.6-10 .4 normal Not Available [address] [address] [place], [address], 06/22/2022 06:07:58 06/21/20 22 06/22/2022 LIPID PANEL WITH RATIO S cholesterol, total 115 mg/dL <200 normal Not Available [address] [address] [place], [address], 06/22/2022 06:07:57 06/21/20 22 06/22/2022 LIPID PANEL WITH RATIO S HDL cholesterol 40 mg/dL > or = 50 low Not Available [address], [address], 06/22/2022 06:07:57 06/21/20 22 06/22/2022 LIPID PANEL WITH RATIO S triglyceride s 131 mg/dL <150 normal Not Available [address], [address], 06/22/2022 06:07:57 06/21/2006/22/2022 LIPID PANEL WITH RATIO S LDL-choleste rol 54 mg/dL _(phong c) normal Refer ence range : <100 Darshan able range <100 mg/dL for prima ry preve ntion ; <70 mg/dL for patie nts with CHD or diabe tic patie nts with > or = 2 CHD risk facto rs. LDL-C is now calcu lated using the Fatou n-Hop kins calcu rika n, which is a valid ated novel venkato d chris sheppard accur acy than the Fried alan equat ion in the estim ation of LDL-C . Fatou ellison SS et al. MYRON. 2013; 310(1 9): 2061- 2068 (http ://ed ucati on.Qu sierraDi lopezos tics. com/f aq/FA Q164) Not Available [facility] [address] [address] [place], [address], 06/22/2022 06:07:57 06/21/2006/22/2022 LIPID PANEL WITH RATIO S chol/HDLC ratio 2.9 (calc ) <5.0 normal Not Available [address], [address], 06/22/2022 06:07:57 06/21/20 22 06/22/2022 LIPID PANEL WITH RATIO S LDL/HDL ratio 1.4 (calc ) Below avera ge Risk: <2.34 [place] ge Risk: 2.35- 4.12 Moder ate Risk: 4.13- 5.56 High Risk: >5.57 Not Available [address], [address], 06/22/2022 06:07:57 06/21/20 22 06/22/2022 LIPID PANEL WITH RATIO S non HDL cholesterol 75 mg/dL _(phong c) <130 normal For patie nts with diabe liz plus 1 major ASCVD risk facto r, treat ing to a non-H DL-C goal of <100 mg/dL (LDL- C of <70 mg/dL ) is consi sergiod a holli peuti c optio n. Not Available [address], [address], 06/22/2022 06:07:57 06/21/20 22 06/22/2022 TSH+F REE T4 TSH 0.09 mIU/L 0.40-4 .50 low Not Available [address], [address], 06/22/2022 06:07:57 06/21/20 22 06/22/2022 TSH+F REE T4 T4, free 1.7 NG/dL 0.8-1. 8 normal Not Available [address], [address], 06/22/2022 06:07:57 07/25/20 23 07/26/2023 LIPID PANEL WITH RATIO S cholesterol, total 217 mg/dL <200 high Not Available [address] [address] [place], [address], 07/26/2023 05:38:14 07/25/20 23 07/26/2023 LIPID PANEL WITH RATIO S HDL cholesterol 58 mg/dL > or = 50 normal Not Available [facility] [address] [address] [place], [address], 07/26/2023 05:38:14 07/25/20 23 07/26/2023 LIPID PANEL WITH RATIO S triglyceride s 100 mg/dL <150 normal Not Available [facility] [place] [address] [place], [address], 07/26/2023 05:38:14 07/25/20 23 07/26/2023 LIPID PANEL WITH RATIO S LDL-choleste rol 138 mg/dL _(phong c) high Refer ence range : <100 Darshan able range <100 mg/dL for prima ry preve ntion ; <70 mg/dL for patie nts with CHD or diabe tic patie nts with > or = 2 CHD risk facto rs. LDL-C is now calcu lated using the Fatou n-Hop kins merricku rika n, which is a valid ated novel key edge than the Fried alan equat ion in the estim ation of LDL-C . Fatou ellison SS et al. MYRON. 2013; 310(1 9): 2061- 2068 (http ://ed ucati on.Qu Jose J cunhas. com/f aq/FA Q164) Not Available [facility] [address] [address] [address], [place], [address], 07/26/2023 05:38:14 07/25/20 23 07/26/2023 LIPID PANEL WITH RATIO S chol/HDLC ratio 3.7 (calc ) <5.0 normal Not Available [facility] [place] [address] [place], [address], 07/26/2023 05:38:14 07/25/20 23 07/26/2023 LIPID PANEL WITH RATIO S LDL/HDL ratio 2.4 (calc ) Below avera ge Risk: <2.34 [place] ge Risk: 2.35- 4.12 Moder ate Risk: 4.13- 5.56 High Risk: >5.57 Not Available [facility] [place] [address] [place], [address], 07/26/2023 05:38:14 07/25/20 23 07/26/2023 LIPID PANEL WITH RATIO S non HDL cholesterol 159 mg/dL _(phong c) <130 high For patie nts with diabe liz plus 1 major ASCVD risk facto r, treat ing to a non-H DL-C goal of <100 mg/dL (LDL- C of <70 mg/dL ) is consi dered a thera peuti c optio n. Not Available [facility] [place] [address] [place], [address], 07/26/2023 05:38:14 07/25/2007/26/2023 BASIC METAB OLIC PANEL glucose 113 mg/dL 65-99 high Fasti ng refer ence inter jo For someo ne witho ut known diabe liz, a gluco se value betwe en 100 and 125 mg/dL is consi stent with predi abete s and shoul d be confi rmed with a follo w-up test. Not Available [facility] [place] [address] [place], [address], 07/26/2023 05:38:16 07/25/2007/26/2023 BASIC METAB OLIC PANEL urea nitrogen (BUN) 21 mg/dL 7-25 normal Not Available [facility] [place] [address] [place], [address], 07/26/2023 05:38:16 07/25/2007/26/2023 BASIC METAB OLIC PANEL creatinine 0.71 mg/dL 0.60-1 .00 normal Not Available [facility] [place] [address] [place], [address], 07/26/2023 05:38:16 07/25/20 23 07/26/2023 BASIC METAB OLIC PANEL eGFR 89 mL/mi n/1.7 3m2 > or = 60 normal Not Available [address], [address], 07/26/2023 05:38:16 07/25/20 23 07/26/2023 BASIC METAB OLIC PANEL BUN/creatini ne ratio SEE NOTE: (calc ) 6-22 Not Repor marnie: BUN and Creat inine are withi n refer ence range . Not Available [address], [address], 07/26/2023 05:38:16 07/25/20 23 07/26/2023 BASIC METAB OLIC PANEL sodium 139 mmol/ L 135-14 6 normal Not Available [address], [address], 07/26/2023 05:38:16 07/25/20 23 07/26/2023 BASIC METAB OLIC PANEL potassium 4.2 mmol/ L 3.5-5. 3 normal Not Available [address], [address], 07/26/2023 05:38:16 07/25/20 23 07/26/2023 BASIC METAB OLIC PANEL chloride 102 mmol/ L 98-110 normal Not Available [address], [address], 07/26/2023 05:38:16 07/25/20 23 07/26/2023 BASIC METAB OLIC PANEL carbon dioxide 31 mmol/ L 20-32 normal Not Available [address], [address], 07/26/2023 05:38:16 07/25/20 23 07/26/2023 BASIC METAB OLIC PANEL calcium 8.7 mg/dL 8.6-10 .4 normal Not Available [address] [place], [address], 07/26/2023 05:38:16 07/25/2007/26/2023 HEMOG LOBIN A1C hemoglobin A1C 5.9 %_of_ total _HGB <5.7 high For someo ne witho ut known diabe liz, a hemog lobin A1c value betwe en 5.7% and 6.4% is consi stent with predi abete s and shoul d be confi rmed with a follo w-up test. For someo ne with known diabe liz, a value <7% indic ates that their diabe liz is well contr olled . A1c targe ts shoul d be indiv idual ized based on durat ion of diabe liz, age, comor bid condi tions , and other consi derat ions. This assay resul t is consi stent with an incre ased risk of diabe liz. Curre ntly, no conse nsus exist s regar ding use of hemog lobin A1c for diagn osis of diabe liz for child sheng. Not Available [facility] [place] [address] [place], [address], 07/26/2023 05:38:17 07/25/2007/26/2023 HEPAT IC FUNCT ION PANEL protein, total 6.6 g/dL 6.1-8. 1 normal Not Available [facility] [address], [address], 07/26/2023 05:38:18 07/25/20 23 07/26/2023 HEPAT IC FUNCT ION PANEL albumin 4.0 g/dL 3.6-5. 1 normal Not Available [facility] [address] [place], [address], 07/26/2023 05:38:18 07/25/20 23 07/26/2023 HEPAT IC FUNCT ION PANEL globulin 2.6 g/dL_ (calc ) 1.9-3. 7 normal Not Available [facility] [address] [place], [address], 07/26/2023 05:38:18 07/25/20 23 07/26/2023 HEPAT IC FUNCT ION PANEL albumin/glob ulin ratio 1.5 (calc ) 1.0-2. 5 normal Not Available [address], [address], 07/26/2023 05:38:18 07/25/20 23 07/26/2023 HEPAT IC FUNCT ION PANEL bilirubin, total 0.4 mg/dL 0.2-1. 2 normal Not Available [address], [address], 07/26/2023 05:38:18 07/25/20 23 07/26/2023 HEPAT IC FUNCT ION PANEL bilirubin, direct 0.1 mg/dL < or = 0.2 normal Not Available [address], [address], 07/26/2023 05:38:18 07/25/20 23 07/26/2023 HEPAT IC FUNCT ION PANEL bilirubin, indirect 0.3 mg/dL _(phong c) 0.2-1. 2 normal Not Available [address], [address], 07/26/2023 05:38:18 07/25/20 23 07/26/2023 HEPAT IC FUNCT ION PANEL alkaline phosphatase 101 U/L 37-153 normal Not Available [place] [address] [place], [address], 07/26/2023 05:38:18 07/25/20 23 07/26/2023 HEPAT IC FUNCT ION PANEL AST 13 U/L 10-35 normal Not Available [address], [address], 07/26/2023 05:38:18 07/25/20 23 07/26/2023 HEPAT IC FUNCT ION PANEL ALT 9 U/L 6-29 normal Not Available [address], [address], 07/26/2023 05:38:18 07/25/20 23 07/26/2023 TSH TSH 35.91 mIU/L 0.40-4 .50 high Not Available [address], [address], 07/26/2023 05:38:19 07/25/20 23 07/26/2023 T4, FREE T4, free 0.7 NG/dL 0.8-1. 8 low Not Available [facility] [address], [address], 07/26/2023 05:38:20 07/25/20 23 07/26/2023 T3, FREE T3, free 1.9 pg/mL 2.3-4. 2 low Not Available [address], [address], 07/26/2023 05:38:21 07/25/20 23 07/26/2023 CBC (INCL UDES DIFF/ PLT) white blood cell count 5.8 thous and/u L 3.8-10 .8 normal Not Available [address], [address], 07/26/2023 05:38:22 07/25/20 23 07/26/2023 CBC (INCL UDES DIFF/ PLT) red blood cell count 4.33 connie on/uL 3.80-5 .10 normal Not Available [address], [address], 07/26/2023 05:38:22 07/25/20 23 07/26/2023 CBC (INCL UDES DIFF/ PLT) hemoglobin 12.9 g/dL 11.7-1 5.5 normal Not Available [facility] [address], [address], 07/26/2023 05:38:22 07/25/20 23 07/26/2023 CBC (INCL UDES DIFF/ PLT) hematocrit 38.9 % 35.0-4 5.0 normal Not Available [address], [address], 07/26/2023 05:38:22 07/25/20 23 07/26/2023 CBC (INCL UDES DIFF/ PLT) MCV 89.8 fL 80.0-1 00.0 normal Not Available [address], [address], 07/26/2023 05:38:22 07/25/20 23 07/26/2023 CBC (INCL UDES DIFF/ PLT) MCH 29.8 pg 27.0-3 3.0 normal Not Available [address], [address], 07/26/2023 05:38:22 07/25/20 23 07/26/2023 CBC (INCL UDES DIFF/ PLT) MCHC 33.2 g/dL 32.0-3 6.0 normal Not Available [address], [address], 07/26/2023 05:38:22 07/25/20 23 07/26/2023 CBC (INCL UDES DIFF/ PLT) RDW 12.2 % 11.0-1 5.0 normal Not Available [address], [address], 07/26/2023 05:38:22 07/25/20 23 07/26/2023 CBC (INCL UDES DIFF/ PLT) platelet count 270 thous and/u L 140-40 0 normal Not Available [address], [address], 07/26/2023 05:38:22 07/25/20 23 07/26/2023 CBC (INCL UDES DIFF/ PLT) MPV 10.2 fL 7.5-12 .5 normal Not Available [address], [address], 07/26/2023 05:38:22 07/25/20 23 07/26/2023 CBC (INCL UDES DIFF/ PLT) absolute neutrophils 2755 cells /uL 1500-7 800 normal Not Available [address], [address], 07/26/2023 05:38:22 07/25/20 23 07/26/2023 CBC (INCL UDES DIFF/ PLT) absolute lymphocytes 2268 cells /uL 850-39 00 normal Not Available [address], [address], 07/26/2023 05:38:22 07/25/20 23 07/26/2023 CBC (INCL UDES DIFF/ PLT) absolute monocytes 487 cells /uL 200-95 0 normal Not Available [address], [address], 07/26/2023 05:38:22 07/25/20 23 07/26/2023 CBC (INCL UDES DIFF/ PLT) absolute eosinophils 238 cells /uL 15-500 normal Not Available [address], [address], 07/26/2023 05:38:22 07/25/20 23 07/26/2023 CBC (INCL UDES DIFF/ PLT) absolute basophils 52 cells /uL 0-200 normal Not Available [facility] [address], [address], 07/26/2023 05:38:22 07/25/20 23 07/26/2023 CBC (INCL UDES DIFF/ PLT) neutrophils 47.5 % normal Not Available [address], [address], 07/26/2023 05:38:22 07/25/20 23 07/26/2023 CBC (INCL UDES DIFF/ PLT) lymphocytes 39.1 % normal Not Available [address], [address], 07/26/2023 05:38:22 07/25/20 23 07/26/2023 CBC (INCL UDES DIFF/ PLT) monocytes 8.4 % normal Not Available [address], [address], 07/26/2023 05:38:22 07/25/20 23 07/26/2023 CBC (INCL UDES DIFF/ PLT) eosinophils 4.1 % normal Not Available [address], [address], 07/26/2023 05:38:22 07/25/20 23 07/26/2023 CBC (INCL UDES DIFF/ PLT) basophils 0.9 % normal Not Available [address], [address], 07/26/2023 05:38:22 07/25/20 23 07/26/2023 ALBUM IN, RANDO M URINE W/CRE ATINI NE creatinine, random urine 57 mg/dL 20-275 normal Not Available [address], [address], 07/26/2023 17:27:10 07/25/20 23 07/26/2023 ALBUM IN, RANDO M URINE W/CRE ATINI NE albumin, urine 1.4 mg/dL see note: normal Refer ence Range : Refer ence Range Not estab lishe d Not Available [address], [address], 07/26/2023 17:27:10 07/25/20 23 07/26/2023 ALBUM IN, RANDO M URINE W/CRE ATINI NE albumin/crea tinine ratio, random urine 25 mcg/m g_cre at <30 normal The ADA defin es abnor malit ies in album in excre tion as follo ws: Album inuri a Categ ory Resul t (mcg/ mg creat inine ) Laurie l to Mildl y incre ased <30 Moder ately incre ased 30-29 9 Sever belkys incre ased > OR = 300 The ADA recom mends that at least two of three speci mens colle cted withi n a 3-6 month perio d be abnor mal befor e consi michael g a patie nt to be withi n a diagn ostic categ ory. Not Available [facility] [address] [place], [address], 07/26/2023 17:27:10 09/24/19 22 09/21/2021 XR, chest , 2 view No observ ation record ed. [id number] Not Available 10/19/2022 01:16:54 10/04/19 22 10/04/2021 MAMMO , scree katrin, digit al, bilat eral No observ ation record ed. [id number] [facility] (Im[facility]) [address] [place] [address], [phone], 10/19/2022 01:16:54 02/29/20 22 02/15/2022 cardi ac monit or No observ ation record ed. [id number] Not Available 10/19/2022 01:16:54 09/01/19 23 08/31/2022 XR, lumbo sacra l spine , 2 or 3 view No observ ation record ed. [id number] [facility] (Imaging) [address] [place] [address], [phone], 10/19/2022 01:16:54 11/12/19 23 11/10/2022 MAMMO , scree katrin, digit al, bilat eral No observ ation record ed. [email or web address] Not Available 2022 12:05:49 02/03/20 23 01/19/2023 DEXA No observ ation record ed. [email or web address] [address], [address], 06/01/2023 12:05:48 Result Notes None recorded. Problems Name Problem SNOMED Code Status Onset Date Resolution Date Notes Provider Name and Address Organization Details Recorded Time Irritable bowel syndrome 01307641 Active 2021 Not Available [facility] 3 01:10:59 Stress fracture of left tibia 3168902577433 9108 Active 2020 Not Available [facility] 3 01:10:59 Benign essential hypertensi on 1277178 Active 2021 Not Available [facility] 3 01:10:59 Abnormal urinalysis 156021973 Active 2021 Not Available [facility] 3 01:10:59 Irritable bowel syndrome with diarrhea 642770563 Active 2021 Not Available [facility] 3 01:10:59 Mixed anxiety and depressive disorder 097151292 Active 2017 Not Available [facility] 3 01:10:59 Osteoarthr itis of knee 118947148 Active 2020 Not Available [facility] 3 01:10:59 Bleeding from nose 887040375 Active 2021 Not Available [facility] 3 01:11:00 Low back pain 356818573 Active 2022 Not Available [facility] 3 01:11:00 Right upper quadrant pain 942990740 Active 2021 Not Available [facility] 3 01:11:00 Hypothyroi dism 72133775 Active 2017 Not Available [facility] 3 01:11:00 Streptococ phong sore throat 38888106 Active 2021 Not Available [facility] 3 01:11:00 Type 2 diabetes mellitus 32657575 Active 2019 Not Available [facility] 3 01:11:00 Atrial fibrillati on 86828847 Active 2020 Not Available [facility] 3 01:11:00 Hyperlipid emia 22046247 Active 2017 Not Available [facility] 3 01:11:00 Essential hypertensi on 43915281 Active 2017 Not Available [facility] 3 01:11:00 Cerebrovas cular disease 83874332 Active 2020 Not Available [facility] 3 01:11:00 Osteoporos is 36465832 Active 2022 Not Available [facility] 3 01:11:00 Urinary tract infectious disease 02280033 Active 2021 Not Available [facility] 3 01:11:00 Well controlled type 2 diabetes mellitus 239841564 Active 2022 [facility] [address], [place], [address] , Status Overload 3 12:25:05 Acute pharyngiti s 583691166 Active 2022 [facility] [address], [place], [address] , Status Overload 3 09:37:20 Problem Notes None recorded. Procedures Surgical History Date Name Laterality Status Provider Name and Address Organization Details Recorded Time 08/03/20 20 cholecystectomy completed Not Available [facility] 10/19/2022 01:06:21 04/16/20 20 Most Recent Bone Density completed Not Available [facility] 10/19/2022 01:06:19 02/11/20 20 total knee replacement completed Not Available [facility] 10/19/2022 01:06:21 08/21/19 19 Cataract Surgery completed Not Available [facility] 10/19/2022 01:06:21 02/19/20 18 thyroidectomy completed Not Available [facility] 10/19/2022 01:06:21 10/22/19 16 Colonoscopy completed Not Available [facility] 10/19/2022 01:06:21 08/21/19 00 Thyroid Surgery completed Not Available [facility] 10/19/2022 01:06:21 08/21/19 00 Orthopedic Surgery completed Not Available [facility] 10/19/2022 01:06:21 BAR CAPTAIN Surgery completed Not Available [facility] 10/19/2022 01:06:21 other completed Not Available [facility] 10/19/2022 01:06:21 Knee Surgery completed Not Available [facility] 10/19/2022 01:06:21 Imaging Results Imaging Date Name Status LastModified by Organiz ation Details LastModified Time 08/31/2022 XR, lumbosacral spine, 2 or 3 view completed [id number] [facility] ([facility]) [address] [place] [address] [place] [address], [phone], 10/19/2022 01:16:54 09/21/2021 XR, chest, 2 view completed [id number] Information not available 10/19/2022 01:16:54 10/04/2021 MAMMO, screening, digital, bilateral completed [id number] [facility] (Im[facility]) [address] [place] [address] [address] [facility], [place], [address], 10/19/2022 01:16:54 02/15/2022 manager monitoring completed [id number] Information not available 10/19/2022 01:16:54 11/10/2022 MAMMO, screening, digital, bilateral completed [email or web address] Information not available 06/01/2023 12:05:49 01/19/2023 DEXA completed [email or web address] [address] [facility], [place], [address], 06/01/2023 12:05:48 Procedure Notes None recorded. Medical Equipment None Reported. Allergies Allergen ID Allergen Name Allergen Category Reaction Reaction Severity Criticality Documentation Date Start Date Code Code System Note Provider Name and Address Organization Details Recorded Time 1841 Substance with sulfonami de structure and antibacte rial mechanism of action (substanc e) medicatio n rash Not available Not available 10/19/2022 37304 [id number] SNOMED Not Available [facility] 01:16:24 Medications Name Sig Start Date Stop Date Status Note LastModified by Organization Details LastModified Time amoxicillin 500 mg capsule TK 4 CS PO 1 HOUR BEFORE DENTAL PROCEDURE . 11/27 completed Not Available Not Available Not Available atorvastati n 40 mg tablet TAKE 1 TABLET EVERY DAY active Not Available Not Available No t Available metformin 500 mg tablet TAKE 1 TABLET BY MOUTH TWICE DAILY WITH MEALS 2022 active Not Available Not Available Not Avai lable bupropion HCl SR 150 mg tablet,12 hr sustained-r elease TK 1 T PO D IN THE AFTERNOON 03/22 completed Not Available Not Available Not Available levothyroxi ne 137 mcg tablet Take 1 tablet twice a day by oral route for 30 days. 05/02 completed Not Available Not Available Not Available carvedilol 25 mg tablet TAKE 1 TABLET TWICE DAILY 2022 active Not Available Not Available Not Avai lable clonidine HCl 0.1 mg tablet TAKE 1 TABLET TWICE DAILY 2022 active Not Available Not Available Not Avai lable carvedilol 12.5 mg tablet 12/07 completed Not Available Not Available Not Available trazodone 50 mg tablet TK 1 T PO QD HS 03/22 completed Not Available Not Available Not Available cetirizine 10 mg tablet TK 1 T PO ONCE D PRN 03/22 completed Not Available Not Available Not Available azithromyci n 250 mg tablet TK 2 TS PO ON DAY 1, THEN TK 1 T PO D FOR 4 DAYS 07/22 completed Not Available Not Available Not Available valacyclovi r 1 gram tablet TK 1 T PO Q 8 H FOR 7 DAYS 12/18 completed Not Available Not Available Not Available sotalol 80 mg tablet TAKE 1 TABLET BY MOUTH TWICE DAILY active Not Available Not Available No t Available metronidazo le 500 mg tablet Take 1 tablet every 8 hours by oral route. 05/02 completed Not Available Not Available Not Available amlodipine 5 mg tablet TAKE 1 TABLET EVERY DAY 2022 active Not Available Not Available Not Avai lable ciprofloxac in 500 mg tablet TAKE 1 TABLET BY MOUTH EVERY 12 HOURS 01/04 completed Not Available Not Available Not Available peg-electro lyte solution 420 gram oral solution 05/02 completed Not Available Not Available Not Available omeprazole 40 mg capsule,del ayed release TAKE 1 CAPSULE EVERY DAY active Not Available Not Available No t Available aspirin 81 mg tablet,anshu yed release TAKE 1 TABLET BY MOUTH ONCE DAILY IN THE MORNING active Not Available Not Available No t Available tramadol 50 mg tablet TAKE 1 TO 2 TABLETS BY MOUTH EVERY 6 HOURS NEEDED FOR PAIN 08/10 completed Not Available Not Available Not Available spironolact one 25 mg tablet 07/26 completed Not Available Not Available Not Available warfarin 4 mg tablet TAKE 1 TABLET BY MOUTH EVERY DAY active Not Available Not Available No t Available glimepiride 1 mg tablet TAKE 1 TABLET BY MOUTH ONCE DAILY AT DINNER active Not Available Not Available No t Available ketorolac 0.5 % eye drops 12/18 completed Not Available Not Available Not Available oxycodone-a cetaminophe n 5 mg-325 mg tablet 03/22 completed Not Available Not Available Not Available clonidine HCl 0.2 mg tablet Take 1 tablet twice a day by oral route for 30 days. 12/13 completed Not Available Not Available Not Available pravastatin 80 mg tablet TK 1 T PO ONCE A DAY HS 01/03 completed Not Available Not Available Not Available prednisolon e acetate 1 % eye drops,suspe nsion 12/18 completed Not Available Not Available Not Available Euthyrox 125 mcg tablet TAKE 1 TABLET BY MOUTH ONCE DAILY in morning. New dose and discontin ue 112mcg dose 2023 active Not Available Not Available Not Avai lable temazepam 15 mg capsule TK ONE C PO QD HS 07/26 completed Not Available Not Available Not Available Euthyrox 112 mcg tablet TAKE 1 TABLET EVERY DAY ( DISCONTIN UE 125MCG DOSE ) 09/08 completed Not Available Not Available Not Available trazodone 100 mg tablet TAKE 1 TABLET AT BEDTIME 2022 active Not Available Not Available Not Avai lable lorazepam 2 mg tablet 12/07 completed Not Available Not Available Not Available meclizine 25 mg tablet TAKE 1 TABLET BY MOUTH THREE TIMES DAILY NEEDED FOR DIZZINESS active Not Available Not Available No t Available cephalexin 500 mg capsule TAKE 1 CAPSULE BY MOUTH EVERY 12 HOURS 08/10 completed Not Available Not Available Not Available trazodone 150 mg tablet Take 1 tablet every day by oral route at bedtime. 06/01 completed Not Available Not Available Not Available lisinopril 10 mg tablet TAKE 1 TABLET EVERY DAY active Not Available Not Available No t Available polymyxin B sulfate 10,000 unit-trimet hoprim 1 mg/mL eye drops 12/18 completed Not Available Not Available Not Available nitroglycer in 0.4 mg sublingual tablet 12/07 completed Not Available Not Available Not Available methimazole 5 mg tablet TK 1 T PO TID 03/22 completed Not Available Not Available Not Available omeprazole 20 mg capsule,del ayed release Take 1 capsule every day by oral route. 05/02 completed Not Available Not Available Not Available diclofenac sodium 75 mg tablet,anshu yed release TAKE 1 TABLET BY MOUTH TWICE DAILY active Not Available Not Available No t Available hydroxyzine HCl 25 mg tablet 12/11 completed Not Available Not Available Not Available lisinopril 5 mg tablet 12/07 completed Not Available Not Available Not Available mupirocin 2 % topical ointment APPLY A SMALL AMOUNT intranasa lly BY TOPICAL ROUTE 3 TIMES PER DAY active Not Available Not Available No t Available lorazepam 1 mg tablet 12/11 completed Not Available Not Available Not Available ibuprofen 600 mg tablet 05/02 completed Not Available Not Available Not Available methylpredn isolone 4 mg tablets in a dose pack TAKE 1 TABLET BY MOUTH DAILY DIRECTED ON PACKAGE 12/24 completed Not Available Not Available Not Available methimazole 10 mg tablet 12/07 completed Not Available Not Available Not Available fluticasone propionate 50 mcg/actuati on nasal spray,suspe nsion 12/11 completed Not Available Not Available Not Available colestipol 1 gram tablet TAKE 1 TABLET BY MOUTH TWICE DAILY active Not Available Not Available No t Available amoxicillin 875 mg-potassiu m clavulanate 125 mg tablet TAKE 1 TABLET BY MOUTH EVERY 12 HOURS 09/07 completed Not Available Not Available Not Available Oyster Shell Calcium-500 500 mg (as carbonate 1,250 mg) tablet TK 1 T PO BID 09/04 completed Not Available Not Available Not Available escitalopra m 20 mg tablet TK 1 T PO ONCE A DAY PRN 05/02 completed Not Available Not Available Not Available metformin ER 750 mg tablet,exte nded release 24 hr Take 1 tablet every day by oral route. 12/11 completed Not Available Not Available Not Available nitrofurant oin monohydrate /macrocryst als 100 mg capsule TAKE 1 CAPSULE BY MOUTH EVERY 12 HOURS UNTIL ALL TAKEN 12/24 completed Not Available Not Available Not Available duloxetine 30 mg capsule,del ayed release Take 1 capsule every day by oral route. 10/03 completed Not Available Not Available Not Available duloxetine 60 mg capsule,del ayed release TAKE 1 CAPSULE EVERY DAY active Not Available Not Available No t Available Lunesta 3 mg tablet Take 1 tablet every day by oral route. 02/12 completed Not Available Not Available Not Available B Complex takes one daily 2017 active Not Available Not Available Not Avai lable omeprazole 20 mg tablet,anshu yed release Take 2 tablets by oral route. 04/02 completed Not Available Not Available Not Available Eliquis 5 mg tablet TAKE 1 TABLET BY MOUTH EVERY 12 HOURS 06/01 completed Not Available Not Available Not Available Eliquis 2.5 mg tablet 07/26 completed Not Available Not Available Not Available Fluzone High-Dose 2019-20 (PF) 180 mcg/0.5 mL intramuscul ar syringe PHARMACIS T ADMINISTE RED IMMUNIZAT ION ADMINISTE RED AT TIME OF DISPENSIN G 10/02 completed Not Available Not Available Not Available Vitals Date Recorded Body mass index (BMI) Body mass index (BMI) Body mass index (BMI) Body mass index (BMI) Body height Body height Body height Body height Oxygen saturation Oxygen saturation in Arterial blood by Pulse oximetry Oxygen saturation Oxygen saturation in Arterial blood by Pulse oximetry Oxygen saturation Oxygen saturation in Arterial blood by Pulse oximetry Oxygen saturation Oxygen saturation in Arterial blood by Pulse oximetry Heart rate Heart rate Heart rate Heart rate Respiratory rate Respiratory rate Body temperature Body temperature Body temperature Body weight Body weight Body weight Body weight Systolic blood pressure Diastolic blood pressure Systolic blood pressure Diastolic blood pressure Systolic blood pressure Diastolic blood pressure Systolic blood pressure Diastolic blood pressure Provider Name and Address Organization Details Last Updated DateTime 3 33.8 kg/m2 31.9 kg/m2 28.5 kg/m2 27.6 kg/m2 157.48 cm 157.48 cm 157.48 cm 157.48 cm 96 % 96 % 96 % 96 % 99 % 99 % 99 % 99 % 64 /min 50 /min 50 /min 55 /min 15.98 /min 16 /min 96.9 [degF] 97.6 [degF] 98.8 [degF] 08270.1 5 g 44274.8 7 g 50543.4 1 g 73717.4 5 g 130 mm[Hg] 80 mm[Hg] 128 mm[Hg] 68 mm[Hg] 140 mm[Hg] 80 mm[Hg] 124 mm[Hg] 80 mm[Hg] Not Available [facility] 3 01:09:45 Date Recorded Body height Body weight Body temperature Heart rate Oxygen saturation Oxygen saturation in Arterial blood by Pulse oximetry Systolic blood pressure Diastolic blood pressure Provider Name and Address Organization Details Last Updated DateTime 3 157.48 cm 71041.5 2 g 97.8 [degF] 55 /min 97 % 97 % 138 mm[Hg] 70 mm[Hg] Clarisa Wheeler RN Status Overload 3 11:58:40 Date Recorded Body mass index (BMI) Provider Name and Address Organization Details Last Updated DateTime 06/01/2023 30.7 kg/m2 ABENA Shi [address] [facility], [facility] [address], [place], [address], Status Overload 06/01/2023 12:05:39 Social History Question Answer Notes LastModified by Organizat ion Details LastModified Time Tobacco Smoking Status Never Smoker Not Available [facility] 10/19/2022 01:05:52 What Is Your Level Of Alcohol Consumption? None [id number] Information not available 10/19/2022 What Is Your Level Of Caffeine Consumption? Occasional [id number] Information not available 10/19/2022 How Much Tobacco Do You Chew? None MIGRATION.[id number] Information not available 10/19/2022 In The 14 Days Before Symptom Onset, Have You Had Close Contact With A Laboratory-confir med COVID-19 While That Case Was Ill? No [id number] Information not available 10/19/2022 In The 14 Days Before Symptom Onset, Have You Had Close Contact With A Person Who Is Under Investigation For COVID-19 While That Person Was Ill? No [id number] Information not available 10/19/2022 What Type Of Diet Are You Following? REGULAR [id number].[id number] Information not available 10/19/2022 Which Illicit Or Recreational Drugs Have You Used? None [id number].[id number] Information not available 10/19/2022 Do You Or Have You Ever Used E-cigarettes Or Vape? Never Used Electronic Cigarettes MIGRATION.[id number] Information not available 10/19/2022 Have There Been Any Changes To Your Family Or Social Situation? No MIGRATION.[id number] 8112 Information not available 10/19/2022 Are There Any Guns Present In Your Home? No MIGRATION.[id number] 7017 Information not available 10/19/2022 Do You Use Insect Repellent Routinely? No MIGRATION.[id number] 2558 Information not available 10/19/2022 What Was The Date Of Your Most Recent Tobacco Screening? 10/27/2020 MIGRATION.[id number] Information not available 10/19/2022 What Is Your Relationship Status? MIGRATION.[id number] 4789 Information not available 10/19/2022 Do You Use Your Seat Belt Or Car Seat Routinely? Yes MIGRATION.[id number] 8589 Information not available 10/19/2022 Do You Have Smoke And Carbon Monoxide Detectors In Your Home? Yes MIGRATION.949552 9618 Information not available 10/19/2022 Do You Or Have You Ever Used Smokeless Tobacco? Never Used Smokeless Tobacco MIGRATION.198477 9969 Information not available 10/19/2022 How Much Tobacco Do You Smoke? No MIGRATION.712417 0668 Information not available 10/19/2022 Do You Use Any Illicit Or Recreational Drugs? No MIGRATION.924014 7952 Information not available 10/19/2022 Do You Use Sunscreen Routinely? Yes MIGRATION.[id number] 0801 Information not available 10/19/2022 How Many Years Have You Smoked Tobacco? 0 MIGRATION.044264 1976 Information not available 10/19/2022 Have You Recently Traveled Abroad? No MIGRATION.428615 7887 Information not available 10/19/2022 Do You Have Any Dietary Restrictions? No MIGRATION.610226 5318 Information not available 10/19/2022 Do You Or Have You Ever Used Any Other Forms Of Tobacco Or Nicotine? No MIGRATION.096614 0012 Information not available 10/19/2022 Sex: Unknown Functional Status Question Answer Note LastModified by Organizat ion Details LastModified Time Do you have difficulty doing errands alone? No [email or web address] Information not available 05/24/2023 Are you able to care for yourself? Yes [id number].[id number] 26 Information not available 10/19/2022 Do you have difficulty dressing or bathing? No [email or web address] Information not available 05/24/2023 What is your exercise level? Occasional MIGRATION.[id number] 26 Information not available 10/19/2022 Mental Status None recorded. Family History Relationship Description Onset Age of this Age Resolved Age Notes LastModified by Organization Details LastModified Time Mother Multiple sclerosis [id number] Not available 10/19/2022 01:06:26 Father Malignant neoplastic disease [id number] Not available 10/19/2022 01:06:26 Notes:pt was adopted, she do esnt know much Medical History Condition Response BLINDNESS N NERVE DISEASE N RHEUMATIC FEVER N BLADDER PROBLEMS N KIDNEY STONES N OTHER # 1 N POLIO N LUNG DISEASE/DISORDER N RADIATION / CHEMOTHERAPY N COPD N Other # 2 N BLOOD DISEASES N SURGERY N EAR OR HEARING PROBLEMS N MUMPS N BOWEL PROBLEMS N DEPRESSION (INCLUDING POST ) Y STROKE/TIA N ULCERS N BENIGN PROSTATIC HYPERPLASIA N MEASLES N MYOCARDIAL INFARCTION N OBESITY N GERD/NAUSEA N ANEURYSM N URINARY/BLADDER/KIDNEY PROBLEMS N INPATIENT PSYCH CARE N CORONARY ARTERY DISEASE (CAD) N ADDICTION CONCERNS N Impotence N ENDOMETRIOSIS N USE OF BLOOD THINNERS N SKIN PROBLEMS N GASTROINTESTINAL DISORDER N PERIPHERAL VASCULAR DISEASE N MUSCLE,JOINT OR BONE PROBLEMS N GASTROINTESTINAL BLEEDING N BLOOD CLOTS N ASTHMA N CATARACTS N ERECTILE DYSFUNCTION N VARICOSITIES N GI PROBLEMS N Low Testosterone N INFERTILITY N AIDS/HIV N LIVER DISEASE N MALE HYPOGONADISM N HYPERTENSION Y Deficiency N ANXIETY DISORDER Y BLOOD TRANSFUSION N ANEMIA/BLOOD DISORDER N CHRONIC EAR INFECTIONS N BRONCHITIS N TUBERCULOSIS N GLAUCOMA N FOOT PROBLEM N DIVERTICULITIS N SLEEP APNEA N CHICKENPOX N INFECTIOUS DISEASE N PROSTATE N HEART ARRHYTHMIA N INSOMNIA N HIGH CHOLESTEROL / HYPERLIPIDEMIA N EYE PROBLEMS Y HYPERTHYROIDISM N NEUROLOGICAL PROBLEMS N EDEMA N CHRONIC PAIN SYNDROME N HYPOTHYROIDISM N CAROTID BLOCKAGE N CONSTIPATION N BACK / NECK PROBLEMS Y HAVE YOU BEEN HOSPITALIZED OR SEEN IN [facility] ER IN THE PAST YEAR ? N ATHEROSCLEROSIS N BREAST PROBLEMS N DIALYSIS N ECZEMA N OSTEOPOROSIS N ARTHRITIS N NO SIGNIFICANT PAST MEDICAL HISTORY N APPENDICITIS N DIABETES, TYPE Y BAD TEETH N ENT N HEARTBURN / REFLUX N AUTISM SPECTRUM DISORDER (ASD) N HEPATITIS / LIVER DISEASE N PULMONARY DISEASE N GOUT N SLEEP DISORDER N ALZHEIMER'S DISEASE N Brain Problems N DEMENTIA N HERPES N SEIZURES/EPILEPSY N HEADACHES/MIGRAINES N VASCULAR DISEASE N PACEMAKER N Blood Disorder N DIZZINESS N HEART DISEASE/HEART PROBLEMS N KIDNEY DISEASE N MULTIPLE SCLEROSIS N CANCER: SPECIFY N CARDIAC ARRHYTHMIA N ANESTHESIA COMPLICATIONS N ATRIAL FIBRILLATION N Gall Stones N PULMONARY EMBOLISM N AUTOIMMUNE DISEASE N Gynecological History Statement/Question Response Date of Last Pap 08/21/2010 Date of Last Mammogram 09/03/2020 Most Recent Bone Density 04/16/2020 Obstetrics History GPAL:G 0 P 0 0 0 0 Immunizations Vaccine Type Date Status Note Provider Nam e and Address Organization Details Recorded Time influenza, unspecified formulation 9 completed Not Available [facility] 10/19/2022 01:16:18 pneumococcal polysaccharide PPV23 8 completed Not Available [facility] 10/19/2022 01:16:19 Tdap completed Not Available [facility] 10/19/2022 01:16:19 Past Encounters Encounter ID Performer Location Encounter Start Date Encounter Closed Date Diagnosis/Indication Diagnosis SNOMED-CT Code Diagnosis ICD10 Code Diagnosis Note [id number] [facility] [address] [place] [address] 10/27/2020 00:00:00 11/15/2020 12:47:17 [id number] [facility] [place] [address] [place] [address] 03/02/2021 00:00:00 03/19/2021 09:44:28 [id number] [facility] [place] [address] [place] [address] 06/28/2021 00:00:00 06/28/2021 19:09:35 [id number] [facility] [place] [address] [place] [address] 08/10/2021 00:00:00 08/20/2021 13:38:46 [id number] [facility] [place] [address] [place] [address] 02/11/2022 00:00:00 02/13/2022 13:06:35 [id number] [facility] [place] [address] [place] [address] 07/22/2022 00:00:00 08/19/2022 16:48:22 [id number] [facility] [place] [address] [place] [address] 08/31/2022 00:00:00 09/19/2022 21:39:[id number] [facility] [place] [address] [place] [address] 06/01/2023 11:47:35 06/01/2023 12:31:56 Cerebrovascular disease 88349019 I67.9 stable on statin therapy and bp medication s. Atrial fibrillation 4943 6004 I48.91 on anticoagul ant. followed by cardiology routinely. rate and rhythm controlled . Well contr olled type 2 diabetes mellitus 955057053 E11.9 stable on metformin 500mg bid. due for a1c and albumin labs Benign ess ential hypertension 2078322 I10 stable on medication s Hyperlipidemia 17970863 E78.5 on statin therapy. due for fasting lipids Hypothyroidism 29844821 E03.9 stable on thyroid medication . due for TFTs Long-term current use of anticoagulant 962134818 Z79.01 followed by cardiology Long-term drug therapy 658863267 Z79.899 routine labs due Health Concerns Section Related Observation LastModified by Organization Detai ls LastModified Time None Recorded Concern Status LastModified by Organization Details LastModified Time None Recorded Advance Directives Directive None Recorded Payers Encounter Date Sequence Insurance Name Policy Number Policy Tran Covered Member ID Tran Member ID Guarantor Name 06/01/2023 1 [employer] (O) Carline Aj [id number] Carline Aj Notes Date Note Type Note Provider Name and Address Organization Details Recorded Time 021 text/ht ml Anxiety/DepressionReported bypatient.Quality:doesnt matter. Severity:denies suicidal ideations; able to maintain relationships; does not interfere with activities of daily living Duration:symptoms lasting over 2 weeks Onset/Timing:still present Context:no major life stressors Modifying Factors:medications as directed Associated Symptoms:denies homicidal ideations; no significant weight gain; no significant weight loss; no visual/auditory hallucinations; no delusions; no shortness of breath; mood good; no anxiety; no crying spells; no panic; no isolation; sleeping well; appetite good; energy good; no apathy; maintaining functionalityDiabetesReported bypatient.Duration:chronic Control:usually well controlled; treated with diet and oral medications Compliance:compliant with medications; compliant with follow-up visits;noncompliant with diet;noncompliant with home glucose monitoring Self Care:not monitoring home glucose Context:seeing eye doctor regularly; checking feet regularly; taking aspirin daily Associated Symptoms:no weight gain; no weight loss; no dizziness; no sweats; no headaches; no confusion; no increased thirst; no increased appetite; no increased urination; no blurred vision; no numbness of feet; no calluses on feet; no fatigue; no blurred vision; no paresthesias Chronic Complications:hypertension: Yes; hyperlipidemia: YesHyperlipidemiaReported bypatient.Duration:chronic Control:usually well controlled Current Therapy:currently taking: (atorvastatin 40mg) Compliance:compliant; exercises;noncompliant with diet Complications:no coronary artery disease; no peripheral artery disease; no cardiovascular disease Risk Factors:diabetes;hypertensionHyperte nsionReported bypatient.Duration:has noted for years Onset/Timing:better Alleviating Factors:medication Self Care:not under emotional stress Associated Symptoms:no shortness of breath; no fatigue; no palpitations; no decline in exercise capacity; no snoring Not Available [facility] 08/20/2021 13:38:46 022 text/ht ml Anxiety/DepressionReported bypatient.Severity:denies suicidal ideations; able to maintain relationships; does not interfere with activities of daily living Context:family problems Modifying Factors:medications as directed Associated Symptoms:denies homicidal ideations; no significant weight gain; no significant weight loss; no visual/auditory hallucinations; no delusions; no shortness of breath; mood good; no anxiety; no crying spells; no panic; no isolation; sleeping well; appetite good; energy good; no apathy; maintaining functionalityAtrial FibrillationReported bypatient.Quality:fluttering Duration:lasts minutes Onset/Timing:nocturnally Alleviating Factors:medication Aggravating Factors:worse at night Associated Symptoms:no dyspnea; no fatigue; no associated dizziness;palpitations CHADS(2) Score:hypertension treated or untreated (1 point);diabetes mellitus (1 point);stroke/TIA (2 points);CHADS(2) score is:4 [id number] Score:diabetes mellitus (1 point);stroke/TIA/thrombo-embolism (2 points);age 65-74 years (1 point);female sex (1 point);[id number]-IJXb score total: 5DiabetesReported bypatient.Control:usually well controlled; improved since last visit; normal range of home blood sugars (in the low 100s) Compliance:compliant with medications; compliant with follow-up visits; compliant with diet; compliant with home glucose monitoring Self Care:not monitoring home glucose Context:seeing eye doctor regularly; checking feet regularly Associated Symptoms:no weight gain; no weight loss; no dizziness; no sweats; no headaches; no confusion; no increased thirst; no increased appetite; no increased urination; no blurred vision; no numbness of feet; no calluses on feet; no fatigue; no blurred vision; no paresthesiasHyperlipidemiaReported bypatient.Duration:chronic Control:usually well controlled; improving; at goal Compliance:compliant; compliant with diet; exercises Complications:no coronary artery disease; no peripheral artery disease; no cardiovascular disease Risk Factors:diabetes;hypertensionHyperte nsionReported bypatient.Duration:has noted for years Onset/Timing:better Alleviating Factors:medication Self Care:not under emotional stress Associated Symptoms:no shortness of breath; no fatigue; no decline in exercise capacity; no snoring;palpitationsHypothyroidismRe ported bypatient.Severity:moderate Onset/Timing:better Context/Risk:normal thyroid levels; no history of head or neck radiation during childhood; no history of thyroid disease; no history of hypothyroidism; no history of hyperthyroidism; no excess iron exposure Modifying Factors:medication Exercisegets exercise Associated Symptoms:no cold intolerance; no heat intolerance; no weight loss; no weight gain; no double vision; no dry eyes; no hoarseness; no difficulty swallowing; no neck masses; no deepening of the voice; no fast heart rate; no increased blood pressure; no palpitations; no chest pain; no chest tightess or pressure; no constipation; no diarrhea; no vomiting; no decreased appetite; no loose stools; no irregular menstrual periods; no excessive sweating; no joint pain; no numbness; no tingling of the hands or feet; no dry skin; no tremor; no nervousness; no anxiety; no depression; no fatigue; no sleep difficulties; no skin changes;hair changes(hair is falling out) Not Available [facility] 02/13/2022 13:06:35 022 text/ht ml Anxiety/DepressionReported bypatient.Severity:denies suicidal ideations; able to maintain relationships; does not interfere with activities of daily living Context:family problems Modifying Factors:medications as directed Associated Symptoms:denies homicidal ideations; no significant weight gain; no significant weight loss; no visual/auditory hallucinations; no delusions; no shortness of breath; mood good; no anxiety; no crying spells; no panic; no isolation; sleeping well; appetite good; energy good; no apathy; maintaining functionality Atrial FibrillationReported bypatient.Quality:fluttering Duration:lasts minutes Onset/Timing:nocturnally Alleviating Factors:medication Aggravating Factors:worse at night Associated Symptoms:no dyspnea; no fatigue; no associated dizziness;palpitations CHADS(2) Score:hypertension treated or untreated (1 point);diabetes mellitus (1 point);stroke/TIA (2 points);CHADS(2) score is:4 [id number] Score:diabetes mellitus (1 point);stroke/TIA/thrombo-embolism (2 points);age 65-74 years (1 point);female sex (1 point);[id number] score total: 5DiabetesReported bypatient.Control:usually well controlled; improved since last visit; normal range of home blood sugars (in the low 100s) Compliance:compliant with medications; compliant with follow-up visits; compliant with diet; compliant with home glucose monitoring Self Care:not monitoring home glucose Context:seeing eye doctor regularly; checking feet regularly Associated Symptoms:no weight gain; no weight loss; no dizziness; no sweats; no headaches; no confusion; no increased thirst; no increased appetite; no increased urination; no blurred vision; no numbness of feet; no calluses on feet; no fatigue; no blurred vision; no paresthesiasHyperlipidemiaReported bypatient.Duration:chronic Control:usually well controlled; improving; at goal Compliance:compliant; compliant with diet; exercises Complications:no coronary artery disease; no peripheral artery disease; no cardiovascular disease Risk Factors:diabetes;hypertensionHyperte nsionReported bypatient.Duration:has noted for years Onset/Timing:better Alleviating Factors:medication Self Care:not under emotional stress Associated Symptoms:no shortness of breath; no fatigue; no decline in exercise capacity; no snoring;palpitationsHypothyroidismRe ported bypatient.Severity:moderate Onset/Timing:better Context/Risk:normal thyroid levels; no history of head or neck radiation during childhood; no history of thyroid disease; no history of hypothyroidism; no history of hyperthyroidism; no excess iron exposure Modifying Factors:medication Exercisegets exercise Associated Symptoms:no cold intolerance; no heat intolerance; no weight loss; no weight gain; no double vision; no dry eyes; no hoarseness; no difficulty swallowing; no neck masses; no deepening of the voice; no fast heart rate; no increased blood pressure; no palpitations; no chest pain; no chest tightess or pressure; no constipation; no diarrhea; no vomiting; no decreased appetite; no loose stools; no irregular menstrual periods; no excessive sweating; no joint pain; no numbness; no tingling of the hands or feet; no dry skin; no tremor; no nervousness; no anxiety; no depression; no fatigue; no sleep difficulties; no skin changes;hair changes(hair is falling out) Not Available [facility] 08/19/2022 16:48:22 023 text/ht ml Anxiety/DepressionReported bypatient.Severity:denies suicidal ideations; able to maintain relationships; does not interfere with activities of daily living Context:no major life stressors Associated Symptoms:denies homicidal ideations; no significant weight gain; no significant weight loss; no visual/auditory hallucinations; no delusions; no shortness of breathDiabetesReported bypatient.Duration:chronic Control:usually well controlled; improved since last visit Compliance:compliant with medications; compliant with follow-up visits; compliant with diet; compliant with home glucose monitoring; had eye doctor visit in last year; had dietitian visit in last year; wears a medic alert bracelet or necklace; rapid-acting carbohydrate kept in car Self Care:monitoring glucose Context:normal range of home blood sugars (in the low 100s); seeing eye doctor regularly; checking feet regularly Associated Symptoms:no weight gain; no weight loss; no dizziness; no sweats; no headaches; no confusion; no increased thirst; no increased appetite; no increased urination; no blurred vision; no numbness of feet; no calluses on feet; no coronary artery disease; no kidney disease; no peripheral vascular disease; no diabetic retinopathy; no diabetic neuropathyHyperlipidemiaReported bypatient.Duration:chronic Control:usually well controlled; improving; at goal Compliance:compliant; compliant with diet; exercises Complications:no coronary artery disease; no peripheral artery disease; no cardiovascular diseaseHypertensionReported bypatient.Onset/Timing:better Associated Symptoms:no shortness of breath; no fatigue; no palpitations; no decline in exercise capacity; no snoringHypothyroidismReported bypatient.Onset/Timing:better Context/Risk:normal thyroid levels; no history of head or neck radiation during childhood; no history of thyroid disease; no history of hypothyroidism; no history of hyperthyroidism; no excess iron exposure;history of hypothyroidism;female gender Exercisegets exercise Associated Symptoms:no cold intolerance; no heat intolerance; no weight loss; no weight gain; no double vision; no dry eyes; no hoarseness; no difficulty swallowing; no neck masses; no deepening of the voice; no fast heart rate; no increased blood pressure; no palpitations; no chest pain; no chest tightess or pressure; no constipation; no diarrhea; no vomiting; no decreased appetite; no loose stools; no irregular menstrual periods; no excessive sweating; no joint pain; no numbness; no tingling of the hands or feet; no dry skin; no tremor; no nervousness; no anxiety; no depression; no fatigue; no sleep difficulties; no skin changes; no hair changes hx of TIA's, stable no acute changes. ABENA Shi [address] [facility], [facility] [address], [place], [address], [place] [employer] 06/20/2023 23:48:10 OBGyn Episode No OBEpisode recorded.
--- OUTSIDE RECORDS SUMMARY | 2024-10-09 12:27 | XMS_ITS | Encounter Summary ---
Author Organization [facility] Facility Care Team Providers Care Machine Stamper Name Role Phone No, Physician Primary Care Provider [phone] No, Physician Primary Care Provider [phone] Zhanna Vincent Primary Care Pr ovider Jhonatan Gunter MD Unavailable [phone] Alona Ahmadi Unavailable [phone] Encounter Details Date Type Department Care Team (Latest Contact Info) Description 12/24/2016 Orders Only [facility] CLINCONV ProviderPriscilla MD [address] [place], [place] [id number] Social History Tobacco Use Types Packs/Day Years Used Date Smoking Tobacco: Never Assessed Comments Unknown Sex and Gender Information Value Date Recorded Sex Assigned at Not on file Legal 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 Gender Identity Not on file Sexual Orientation Not on file documented as of this encounter Plan of Treatment Not on file documented as of this encounter Procedures Procedure Name Priority Date/Time Associated Diagnosis Comments CARDIOLOGY REPORT 07/28/2017 12: 00 AM EYEGLASS FRAMES INSPECTOR CARDIOLOGY REPORT 01/05/2017 12: 00 AM CDT CARDIOLOGY REPORT 01/05/2017 12: 00 AM CDT CARDIOLOGY REPORT 01/05/2017 12: 00 AM CDT CARDIOLOGY REPORT 01/05/2017 12: 00 AM CDT documented in this encounter Results * CARDIOLOGY REPORT (07/28/2017 12:00 AM EYEGLASS FRAMES INSPECTOR) Anatomical Region Laterality Modality Other Narrative 07/28/2017 12:00 AM EYEGLASS FRAMES INSPECTOR Ordered by an unspecified provider. [facility] Provider MD CV CARDIAC SERVICES PROCE DURES Final Result * CARDIOLOGY REPORT (01/05/2017 12:00 AM CDT) Anatomical Region Laterality Modality Other Narrative 01/05/2017 12:00 AM CDT Ordered by an unspecified provider. [facility] Provider MD CV CARDIAC SERVICES PROCE DURES Final Result * CARDIOLOGY REPORT (01/05/2017 12:00 AM CDT) Anatomical Region Laterality Modality Other Narrative 01/05/2017 12:00 AM CDT Ordered by an unspecified provider. [facility] Provider MD CV CARDIAC SERVICES PROCE DURES Final Result * CARDIOLOGY REPORT (01/05/2017 12:00 AM CDT) Anatomical Region Laterality Modality Other Narrative 01/05/2017 12:00 AM CDT Ordered by an unspecified provider. [facility] Provider MD CV CARDIAC SERVICES PROCE DURES Final Result * CARDIOLOGY REPORT (01/05/2017 12:00 AM CDT) Anatomical Region Laterality Modality Other Narrative 01/05/2017 12:00 AM CDT Ordered by an unspecified provider. [facility] Provider MD CV CARDIAC SERVICES PROCE DURES Final Result documented in this encounter Visit Diagnoses Not on filedocumented in this encounter Care Teams Machine Stamper Relationship Specialty Start Date End Date No, Physician PCP - General 05/01/18 04/17/19 No, Physician PCP - General 04/18/19 10/15/19 Zhanna Vincent PA PCP - General Physician Court Clerk 10/16/19 Jhonatan Gunter MD [address] [place] [address] Consulting Physician Cardiology 12/02/21 Alona Ahmadi PA [address] [facility] [address] [place] [address] Orthopedic Surgery 12/24/21 documented as of this encounter
--- OUTSIDE RECORDS SUMMARY | 2024-10-09 12:27 | XMS_ITS | Referral Summary ---
Author Organization [facility] [address] [facility] Address [address] [place] [address] Care Team Providers Care Still Operator Whiskey Name Role Phone Brendarobinson Zhanna KRAFT Primary Care Pr ovider Jhonatan Gunter MD Unavailable [phone] Alona Ahmadi Unavailable [phone] Encounters Date Type Department Care Team Description 09/26/2024 Telephone [facility] Cardiology [address] [facility] [address] [place] [address] Enrico Deras MD 09/18/2024 Anticoagulation Visit [facility] Cardiology [address] [place] [phone] Mariposa Mitchell RN 09/04/2024 Anticoagulation Visit [facility] Cardiology [address] [place] [address] [address] [place] [phone] Lia Apple, RN 07/29/2024 Anticoagulation Visit [facility] Cardiology [address] [place] [address] [address] [place] [phone] Lia Apple, RN from Last 3 Months Allergies Active Allergy Reactions Criticality Noted Date [...] (two) times a day with meals 10 9 Active omeprazole (PriLOSEC) 40 mg capsule [...] 4 mg tablet TAKE 4 MG TUES, TH, SAT AND SUN TAKE 6 MG [...] disease 09/30/2021 Right upper quadrant pain 09/26/2021 terminal superintendent (current) use of anticoagulants 2021 Type 2 diabetes mellitus wit hout complication, without long-term current use of insulin ([facility]) 08/21/2021 alf (current) use of oral hypoglycemic gayle gs 08/21/2021 Cerebrovascular disease 08/11/2021 Stress fracture of left tibia 08/11/2021 Paroxysmal atrial fibrillation ([facility]) 021 s/p revision left total knee arthroplasty [...] lumbar disc 06/20/2016 Lumbar radicular pain 06/20/2016 Immunizations Immunization Administration Dates Next Due Influenza, Quadrivalent, Spl it, Preservative Free, Intramuscular 04/27/2017,05/20/2016 Pfizer SARS-CoV-2 Monovalent Vaccination (12+ Yrs) PURPLE 10/25/2020,10/01/2020 Pneumococcal Conjugate PCV 13 05/13/2015 Pneumococcal Polysaccharide PPV23 08/21/2017, Tdap 06/28/2021 Social History Tobacco Use Types Packs/Day Years [...] on file Legal Sex Female 5:29 AM DEBT COLLECTION SPECIALIST Gender Identity Not on file Sexual Orientation Not on file Last Filed Vital Signs [...] 02/08/2024 1:30 PM CDT Plan of Treatment Not on file Medical Devices Implanted Type Area Health Care Recruiter Device Identifier Shelf Expiration Date Model / Serial / Lot Knee Components Left: Knee Screws,Wires Bilater al: Hand [employer] Orthoblast Ii Allograft Putty Vial Graft 10cc Bone Demineralized - [id number] - [id number] Implanted:Qty: 1 on 12/23/2021 by Mason Vela MD at [facility] Left: Knee [employer] [id number] 03/17/2022 / [id number] / [id number] [employer] 18mm Femur Tibia Left 6-9 Cd Surface Articular Vivacit-E [id number] - [id number] Implanted:Qty: 1 on 12/23/2021 by Mason Vela MD at [facility] Left: Knee [employer] [id number] 07/09/2025 [id number] / / [id number] Procedures Procedure Name Priority Date/Time Associated Diagnosis Comments PROTIME-INR Routine 09/17/2024 1:26 PM DEBT COLLECTION SPECIALIST Paroxysmal atrial fibrillation (CMS/HCC) (HCC) PROTIME-INR Routine 09/03/2024 1:31 PM DEBT COLLECTION SPECIALIST Paroxysmal atrial fibrillation (CMS/HCC) (HCC) PROTIME-INR Routine 07/27/2024 7:09 AM DEBT COLLECTION SPECIALIST Paroxysmal atrial fibrillation (CMS/HCC) (HCC) POCT LIPID PANEL Routine 02/08/2024 1:32 PM CDT Lipid screening EGFR Routine 12/24/2021 7:07 AM CDT HEMOGLOBIN A1C Routine 12/14/2021 2:28 PM CDT Presence of left artificial knee joint Preop testing Diabetes mellitus of other type without complication, unspecified whether terminal superintendent insulin use (HCC) from Last 3 Months or Most Recently Relevant to Health Maintenance Results * (ABNORMAL) Protime-INR (09/17/2024 1:26 PM DEBT COLLECTION SPECIALIST) INR 3.4(H) [facility] Comment: Reference Range 0.9-1.1 Moderate-intensity Warfarin Therapy 2.0-3.0 Higher-intensity Warfarin Therapy 3.0-4.0 PT 33.7(H) 9.0 - 11.5 sec [facility] Comment: For additional information, please refer to http://[employer] Display/faq/JJA295 (This link is being provided for informational/ educational purposes only.) Blood 09/17/2024 1:26 PM DEBT COLLECTION SPECIALIST 09/17/2024 1:27 PM DEBT COLLECTION SPECIALIST Jhonatan Gunter MD LAB BLOOD ORDERABLES Fin al Result Performing Organization Address [facility] de Phone Number [facility] [address] [place] [address] * (ABNORMAL) Protime-INR (09/03/2024 1:31 PM DEBT COLLECTION SPECIALIST) INR 1.6(H) [facility] Comment: Reference Range 0.9-1.1 Moderate-intensity Warfarin Therapy 2.0-3.0 Higher-intensity Warfarin Therapy 3.0-4.0 PT 16.7(H) 9.0 - 11.5 sec [facility] Comment: For additional information, please refer to http://[employer] Display/faq/TBU239 (This link is being provided for informational/ educational purposes only.) Blood 09/03/2024 1:31 PM DEBT COLLECTION SPECIALIST 09/03/2024 1:31 PM DEBT COLLECTION SPECIALIST Jhonatan Gunter MD LAB BLOOD ORDERABLES Fin al Result Performing Organization Address [facility] de Phone Number [facility] [address] [place] [address] * (ABNORMAL) Protime-INR (07/27/2024 7:09 AM DEBT COLLECTION SPECIALIST) INR 1.6(H) [facility] Comment: Reference Range 0.9-1.1 Moderate-intensity Warfarin Therapy 2.0-3.0 Higher-intensity Warfarin Therapy 3.0-4.0 PT 17.1(H) 9.0 - 11.5 sec [facility] Comment: For additional information, please refer to http://education.[employer] Display/faq/TIU492 (This link is being provided for informational/ educational purposes only.) Blood 07/27/2024 7:09 AM DEBT COLLECTION SPECIALIST 07/27/2024 7:09 AM DEBT COLLECTION SPECIALIST Jhonatan Gunter MD LAB BLOOD ORDERABLES Fin al Result [facility] [address] [place] [address] * POCT lipid panel (02/08/2024 1:32 PM CDT) Capillary blood 02/08/2024 1 :32 PM CDT Jhonatan Gunter MD POINT OF CARE TEST ORDER YVETTE Final Result * eGFR (12/24/2021 7:07 AM CDT) Pathologist [facility] eGFR 78 mL/min/1. 73 m2 GABRIEL Comment: [...] ORDERABLES Deyanira l Result Performing Organization Address [facility] Co de Phone Number [facility] [address] [facility] [place] [address] * (ABNORMAL) Hemoglobin A1c (12/14/2021 2:28 PM CDT) Hgb A1C 6.1(H) 4.0 - 5.6 % GABRIEL Estimated Average Glucose 128 mg/dL GABRIEL Comment: The ADA recommends reporting an estimated Average Glucose (eAG) with all Hemoglobin A1c results using the equation derived from a study of 507 normal and diabetic adults. Minority populations were underrepresented and children were not included. (Diabetes Care 31:4573-6992, 2008). The eAG is not equivalent to a fasting glucose. Blood 12/14/2021 2:28 PM CDT 12/14/2021 2:39 PM CDT Narrative GABRIEL - 12/14/2021 3:02 PM CDT If patient is diabetic Mason Vela MD LAB BLOOD ORDERABLES F inal Result Performing Organization Address [facility] Co de Phone Number [facility] [address] [facility] [place] [address] from Last 3 Months or Most Recently Relevant to Health Maintenance Insurance HUMANA CHOICE MEDICARE PPO HUMANA MEDICARE HMO AETNA MEDICARE GOLD Advance Directives For more information, please contact: [phone] * Full Code (Latest Code Status on File) Date Activated Date Inactivated Comments 12/23/2021 1:11 PM 12/26/2021 6:22 PM Care Teams Still Operator Whiskey Relationship Specialty Start Date End Date Zhanna Vincent PA PCP - General Physician Fruit And Vegetable Packer 10/16/19 Jhonatan Gunter MD [address] [place] [address] Consulting Physician Cardiology 12/02/21 Alona Ahmadi PA [address] [address] Physician Fruit And Vegetable Packer Orthopedic Surgery 12/24/21
--- OUTSIDE RECORDS SUMMARY | 2024-10-09 12:27 | XMS_ITS | Encounter Summary ---
Author Organization [facility] Address [address] [place] [address] Care Team Providers Care Rewind Operator Name Role Phone Angus Hernandez MD Primary Care Provider [phone] Mariposa Bustamante Unavailable [phone] Mason Vela MD Unavailable [phone] Encounter Details Date Type Department Care Team (Late st Contact Info) Description 11/07/2017 Abstract [facility] Conversion , Generic Conversion, Social History Tobacco Use Types Packs/Day Years [...] on filedocumented in this encounter Care Teams Rewind Operator Relationship Specialty Start Date End Date Angus Hernandez MD PCP - General FAMILY PRACTICE 02/06/17 Mariposa Bustamante ANP-BC [address] [facility] [address] [place] [phone] CARDIOVASCULAR DISEASE 04/06/18 Mason Vela MD [address] [facility] [address] [place] [address] Referring Physician ORTHOPAEDIC SURGERY 04/13/18 documented as of this encounter
--- OUTSIDE RECORDS SUMMARY | 2024-10-09 12:27 | XMS_ITS | Encounter Summary ---
Author Organization [facility] Facility Care Team Providers Care Inspector Firearms Name Role Phone No, Physician Primary Care Provider [phone] No, Physician Primary Care Provider [phone] Zhanna Vincent Primary Care Pr ovider Jhonatan Gunter MD Unavailable [phone] Alona Ahmadi Unavailable [phone] Encounter Details Date Type Department Care Team (Latest Contact Info) Description 12/25/2016 Orders Only [facility] CLINCONV Provider, MD Priscilla [address] [place], [place] [id number] Social History Tobacco Use Types Packs/Day Years Used Date Smoking Tobacco: Never Assessed Comments Unknown Sex and Gender Information Value Date Recorded Sex Assigned at Not on file Legal Sex Female 5:29 AM PROMOTIONS MANAGER Gender Identity Not on file Sexual Orientation Not on file documented as of this encounter Plan of Treatment Not on file documented as of this encounter Procedures Procedure Name Priority Date/Time Associated Diagnosis Comments CARDIOLOGY REPORT 07/28/2017 12: 00 AM PROMOTIONS MANAGER CARDIOLOGY REPORT 01/05/2017 12: 00 AM CDT documented in this encounter Results * CARDIOLOGY REPORT (07/28/2017 12:00 AM PROMOTIONS MANAGER) Anatomical Region Laterality Modality Other Narrative 07/28/2017 12:00 AM PROMOTIONS MANAGER Ordered by an unspecified provider. Historical Provider CV CARDIAC SERVICES ALKA CALDWELL Final Result * CARDIOLOGY REPORT (01/05/2017 12:00 AM CDT) Anatomical Region Laterality Modality Other Narrative 01/05/2017 12:00 AM CDT Ordered by an unspecified provider. us Historical Provider CV CARDIAC SERVICES ALKA CALDWELL Final Result documented in this encounter Visit Diagnoses Not on filedocumented in this encounter Care Teams Inspector Firearms Relationship Specialty Start Date End Date No, Physician PCP - General 05/01/18 04/17/19 No, Physician PCP - General 04/18/19 10/15/19 Zhanna Vincent PA PCP - General Physician Upkeep Worker 10/16/19 Jhonatan Gunter MD [address] [address] Consulting Physician Cardiology 12/02/21 Alona Ahmadi PA [address] [address] Physician Upkeep Worker Orthopedic Surgery 12/24/21 documented as of this encounter
--- OUTSIDE RECORDS SUMMARY | 2024-10-09 12:27 | XMS_ITS | Encounter Summary ---
Author Organization [facility] Facility Care Team Providers Care Apartment Property Manager Name Role Phone No, Physician Primary Care Provider [phone] No, Physician Primary Care Provider [phone] Zhanna Vincent Primary Care Pr ovider Jhonatan Gunter MD Unavailable [phone] Alona Ahmadi Unavailable [phone] Encounter Details Date Type Department Care Team (Latest Contact Info) Description 07/28/2017 Orders Only [facility] CLINCONV Provider, MD Priscilla [address] [place], [place] [id number] Social History Tobacco Use Types Packs/Day Years Used Date Smoking Tobacco: Never Assessed Comments Unknown Sex and Gender Information Value Date Recorded Sex Assigned at Not on file Legal Sex Female 5:29 AM LAND AGENT Gender Identity Not on file Sexual Orientation Not on file documented as of this encounter Plan of Treatment Not on file documented as of this encounter Procedures Procedure Name Priority Date/Time Associated Diagnosis Comments CARDIOLOGY REPORT 07/28/2017 12: 00 AM LAND AGENT documented in this encounter Results * CARDIOLOGY REPORT (07/28/2017 12:00 AM LAND AGENT) Anatomical Region Laterality Modality Other Narrative 07/28/2017 12:00 AM LAND AGENT Ordered by an unspecified provider. us Historical Provider CV CARDIAC SERVICES ALKA CALDWELL Final Result documented in this encounter Visit Diagnoses Not on filedocumented in this encounter Care Teams Apartment Property Manager Relationship Specialty Start Date End Date No, Physician PCP - General 05/01/18 04/17/19 No, Physician PCP - General 04/18/19 10/15/19 Zhanna Vincent PA PCP - General Physician Garbage Pick Up Worker 10/16/19 Jhonatan Gunter MD [address] [place] [address] Consulting Physician Cardiology 12/02/21 Alona Ahmadi PA [address] [address] Physician Garbage Pick Up Worker Orthopedic Surgery 12/24/21 documented as of this encounter
== END 2024-10-09 12:23 | disposition home or self-care (01) ==
PROVIDERS: PCP Internal Medicine; Visit Provider Physician Assistant
DX: R05.9 Cough, unspecified (principal)
CPT/HCPCS: 71046

== ENCOUNTER 2025-01-20 10:50 | Outpatient (CLI) | payer MEDICARE, SELFPAY ==
--- OUTSIDE RECORDS SUMMARY | 2025-01-20 11:25 | XMS_ITS | Data Portability ---
Author Organization [facility], Main Office Address [address] [place] [address] Assessment No assessment recorded. Plan of Treatment Reminders Order Date Submit Date Provider Last Modified By Organization Details Last Modified Time Details Appointments None recorded. Lab HbA1c (hemoglobi n A1c), blood 2022 023 [facility], [address], [address], [place], [address], 3 05:38:17 microalbum in/creatin ine, mass ratio, urine 2022 023 [facility], [address], [address], [place], [address], 3 17:27:10 CBC w/ auto diff 2022 023 [facility], [address], [address], [place], [address], 3 05:38:22 BMP, serum or plasma 2022 023 [facility], [address], [place], [address], 3 05:38:16 hepatic function panel, serum 2022 [address] [facility] [address], [place], [address], 3 05:38:18 lipid panel, serum 2022 023 [facility], [address], [place], [address], 3 05:38:15 T4, free, serum 2022 023 [facility], [address], [place], [address], 3 05:38:20 TSH, serum or plasma 2022 023 [facility], [address], [place], [address], 3 05:38:19 T3, free, serum or plasma 2022 023 [facility], [address], [place], [address], 3 05:38:21 Referral None recorded. Procedures None recorded. Surgeries None recorded. Imaging None recorded. Medication Orders None recorded. Patient TargetsNo targets recorded. Patient InstructionsNo instructions recorded. Reason for Referral None Reported. Results Created Date Observation Date Name Description Value Unit Range Abnormal Flag Note LastModifiedBy Organization Detail LastModifiedTime 09/28/19 22 09/29/2021 URINA LYSIS , COMPL ETE color dark yellow yellow normal Not Available [address], [address], 09/29/2021 16:02:43 09/28/19 22 09/29/2021 URINA LYSIS , COMPL ETE appearance clear clear normal Not Available [address], [address], 09/29/2021 16:02:43 09/28/19 22 09/29/2021 URINA LYSIS , COMPL ETE specific gravity 1.015 1.001- 1.035 normal Not Available [address], [address], 09/29/2021 16:02:43 09/28/19 22 09/29/2021 URINA LYSIS , COMPL ETE pH 5.5 5.0-8. 0 normal Not Available [address], [address], 09/29/2021 16:02:43 09/28/19 22 09/29/2021 URINA LYSIS , COMPL ETE glucose negati ve negati ve normal Not Available [address], [address], 09/29/2021 16:02:43 09/28/19 22 09/29/2021 URINA LYSIS , COMPL ETE bilirubin negati ve negati ve normal Not Available [address], [address], 09/29/2021 16:02:43 09/28/19 22 09/29/2021 URINA LYSIS , COMPL ETE ketones negati ve negati ve normal Not Available [address], [address], 09/29/2021 16:02:43 09/28/19 22 09/29/2021 URINA LYSIS , COMPL ETE occult blood negati ve negati ve normal Not Available [address], [address], 09/29/2021 16:02:43 09/28/19 22 09/29/2021 URINA LYSIS , COMPL ETE protein negati ve negati ve normal Not Available [address], [address], 09/29/2021 16:02:43 09/28/19 22 09/29/2021 URINA LYSIS , COMPL ETE nitrite negati ve negati ve normal Not Available [address], [address], 09/29/2021 16:02:43 09/28/19 22 09/29/2021 URINA LYSIS , COMPL ETE leukocyte esterase 3+ negati ve abnormal Not Available [facility]. [place] [address] [address], [place], [address], 09/29/2021 16:02:43 09/28/19 22 09/29/2021 URINA LYSIS , COMPL ETE WBC 10-20 /hpf < or = 5 abnormal Not Available [address], [address], 09/29/2021 16:02:43 09/28/19 22 09/29/2021 URINA LYSIS , COMPL ETE RBC 0-2 /hpf < or = 2 normal Not Available [address], [address], 09/29/2021 16:02:43 09/28/19 22 09/29/2021 URINA LYSIS , COMPL ETE squamous epithelial cells 6-10 /hpf < or = 5 abnormal Not Available [address], [address], 09/29/2021 16:02:43 09/28/19 22 09/29/2021 URINA LYSIS , COMPL ETE bacteria none seen /hpf none seen normal Not Available [address], [address], 09/29/2021 16:02:43 09/28/19 22 09/29/2021 URINA LYSIS , COMPL ETE hyaline cast none seen /lpf none seen normal Not Available [address], [address], 09/29/2021 16:02:43 09/28/19 22 09/29/2021 CBC (INCL UDES DIFF/ PLT) white blood cell count 12.8 thous and/u L 3.8-10 .8 high Not Available [address], [address], 09/29/2021 16:02:42 09/28/19 22 09/29/2021 CBC (INCL UDES DIFF/ PLT) red blood cell count 4.95 connie on/uL 3.80-5 .10 normal Not Available [address], [address], 09/29/2021 16:02:42 09/28/19 22 09/29/2021 CBC (INCL UDES DIFF/ PLT) hemoglobin 13.8 g/dL 11.7-1 5.5 normal Not Available [address], [address], 09/29/2021 16:02:42 09/28/19 22 09/29/2021 CBC (INCL UDES DIFF/ PLT) hematocrit 43.6 % 35.0-4 5.0 normal Not Available [address], [address], 09/29/2021 16:02:42 09/28/19 22 09/29/2021 CBC (INCL UDES DIFF/ PLT) MCV 88.1 fL 80.0-1 00.0 normal Not Available [address], [address], 09/29/2021 16:02:42 09/28/19 22 09/29/2021 CBC (INCL UDES DIFF/ PLT) MCH 27.9 pg 27.0-3 3.0 normal Not Available [address], [address], 09/29/2021 16:02:42 09/28/19 22 09/29/2021 CBC (INCL UDES DIFF/ PLT) MCHC 31.7 g/dL 32.0-3 6.0 low Not Available [address], [address], 09/29/2021 16:02:42 09/28/19 22 09/29/2021 CBC (INCL UDES DIFF/ PLT) RDW 13.3 % 11.0-1 5.0 normal Not Available [address], [place], [address], 09/29/2021 16:02:42 09/28/19 22 09/29/2021 CBC (INCL UDES DIFF/ PLT) platelet count 368 thous and/u L 140-40 0 normal Not Available [address], [address], 09/29/2021 16:02:42 09/28/19 22 09/29/2021 CBC (INCL UDES DIFF/ PLT) MPV 10.4 fL 7.5-12 .5 normal Not Available [facility] [address], [address], 09/29/2021 16:02:42 09/28/19 22 09/29/2021 CBC (INCL UDES DIFF/ PLT) absolute neutrophils 6925 cells /uL 1500-7 800 normal Not Available [address], [address], 09/29/2021 16:02:42 09/28/19 22 09/29/2021 CBC (INCL UDES DIFF/ PLT) absolute lymphocytes 4378 cells /uL 850-39 00 high Not Available [address], [address], 09/29/2021 16:02:42 09/28/19 22 09/29/2021 CBC (INCL UDES DIFF/ PLT) absolute monocytes 1229 cells /uL 200-95 0 high Not Available [address], [address], 09/29/2021 16:02:42 09/28/19 22 09/29/2021 CBC (INCL UDES DIFF/ PLT) absolute eosinophils 230 cells /uL 15-500 normal Not Available [employer] [address], [address], 09/29/2021 16:02:42 09/28/19 22 09/29/2021 CBC (INCL UDES DIFF/ PLT) absolute basophils 38 cells /uL 0-200 normal Not Available [address], [address], 09/29/2021 16:02:42 09/28/19 22 09/29/2021 CBC (INCL UDES DIFF/ PLT) neutrophils 54.1 % normal Not Available [address], [address], 09/29/2021 16:02:42 09/28/19 22 09/29/2021 CBC (INCL UDES DIFF/ PLT) lymphocytes 34.2 % normal Not Available [address], [address], 09/29/2021 16:02:42 09/28/19 22 09/29/2021 CBC (INCL UDES DIFF/ PLT) monocytes 9.6 % normal Not Available [address], [address], 09/29/2021 16:02:42 09/28/19 22 09/29/2021 CBC (INCL UDES DIFF/ PLT) eosinophils 1.8 % normal Not Available [address], [address], 09/29/2021 16:02:42 09/28/19 22 09/29/2021 CBC (INCL UDES DIFF/ PLT) basophils 0.3 % normal Not Available [address], [address], 09/29/2021 16:02:42 09/28/19 22 09/29/2021 HEPAT IC FUNCT ION PANEL protein, total 7.3 g/dL 6.1-8. 1 normal Not Available [address], [address], 09/29/2021 16:02:41 09/28/19 22 09/29/2021 HEPAT IC FUNCT ION PANEL albumin 4.3 g/dL 3.6-5. 1 normal Not Available [address] [address] [place], [address], 09/29/2021 16:02:41 09/28/19 22 09/29/2021 HEPAT IC FUNCT ION PANEL globulin 3.0 g/dL_ (calc ) 1.9-3. 7 normal Not Available [address] [address] [place], [address], 09/29/2021 16:02:41 09/28/19 22 09/29/2021 HEPAT IC FUNCT ION PANEL albumin/glob ulin ratio 1.4 (calc ) 1.0-2. 5 normal Not Available [address], [address], 09/29/2021 16:02:41 09/28/19 22 09/29/2021 HEPAT IC FUNCT ION PANEL bilirubin, total 0.5 mg/dL 0.2-1. 2 normal Not Available [address], [address], 09/29/2021 16:02:41 09/28/19 22 09/29/2021 HEPAT IC FUNCT ION PANEL bilirubin, direct 0.1 mg/dL < or = 0.2 normal Not Available [address], [address], 09/29/2021 16:02:41 09/28/19 22 09/29/2021 HEPAT IC FUNCT ION PANEL bilirubin, indirect 0.4 mg/dL _(phong c) 0.2-1. 2 normal Not Available [address], [address], 09/29/2021 16:02:41 09/28/19 22 09/29/2021 HEPAT IC FUNCT ION PANEL alkaline phosphatase 99 U/L 37-153 normal Not Available [place] [address] [place], [address], 09/29/2021 16:02:41 09/28/19 22 09/29/2021 HEPAT IC FUNCT ION PANEL AST 12 U/L 10-35 normal Not Available [facility] [place] [address] [place], [address], 09/29/2021 16:02:41 09/28/19 22 09/29/2021 HEPAT IC FUNCT ION PANEL ALT 13 U/L 6-29 normal Not Available [facility] [place] [address] [place], [address], 09/29/2021 16:02:41 09/28/19 22 09/29/2021 HEMOG LOBIN A1C hemoglobin A1C 6.3 %_of_ total _HGB <5.7 high Not Available [address], [address], 09/29/2021 16:02:41 09/28/19 22 09/29/2021 BASIC METAB OLIC PANEL creatinine 0.77 mg/dL 0.60-0 .93 normal For patie nts >49 years of age, the refer ence limit for Creat inine is appro ximat belkys 13% highe r for peopl e ident ified as Afric an-Am wan n. Not Available [address] [address] [place], [address], 09/29/2021 16:02:41 09/28/19 22 09/29/2021 BASIC METAB OLIC PANEL glucose 116 mg/dL 65-99 high Fasti ng refer ence inter jo For someo ne witho ut known diabe liz, a gluco se value betwe en 100 and 125 mg/dL is consi stent with predi abete s and shoul d be confi rmed with a follo w-up test. Not Available [address] [address] [place], [address], 09/29/2021 16:02:41 09/28/19 22 09/29/2021 BASIC METAB OLIC PANEL urea nitrogen (BUN) 22 mg/dL 7-25 normal Not Available [address], [address], 09/29/2021 16:02:41 09/28/19 22 09/29/2021 BASIC METAB OLIC PANEL eGFR non-afr. irish 77 mL/mi n/1.7 3m2 > or = 60 normal Not Available [address], [address], 09/29/2021 16:02:41 09/28/19 22 09/29/2021 BASIC METAB OLIC PANEL eGFR 89 mL/mi n/1.7 3m2 > or = 60 normal Not Available [address], [address], 09/29/2021 16:02:41 09/28/19 22 09/29/2021 BASIC METAB OLIC PANEL BUN/creatini ne ratio not applic able (calc ) 6-22 Not Available [address], [address], 09/29/2021 16:02:41 09/28/19 22 09/29/2021 BASIC METAB OLIC PANEL sodium 141 mmol/ L 135-14 6 normal Not Available [address], [address], 09/29/2021 16:02:41 09/28/19 22 09/29/2021 BASIC METAB OLIC PANEL potassium 4.0 mmol/ L 3.5-5. 3 normal Not Available [address], [address], 09/29/2021 16:02:41 09/28/19 22 09/29/2021 BASIC METAB OLIC PANEL chloride 100 mmol/ L 98-110 normal Not Available [address], [address], 09/29/2021 16:02:41 02/08/20 22 09/29/2021 BASIC METAB OLIC PANEL carbon dioxide 33 mmol/ L 20-32 high Not Available [address], [address], 09/29/2021 16:02:41 09/28/19 22 09/29/2021 BASIC METAB OLIC PANEL calcium 9.3 mg/dL 8.6-10 .4 normal Not Available [address], [address], 09/29/2021 16:02:41 09/28/19 22 09/29/2021 LIPID PANEL WITH RATIO S cholesterol, total 166 mg/dL <200 normal Not Available [address], [address], 09/29/2021 16:02:40 09/28/19 22 09/29/2021 LIPID PANEL WITH RATIO S HDL cholesterol 56 mg/dL > or = 50 normal Not Available [address], [address], 09/29/2021 16:02:40 09/28/19 22 09/29/2021 LIPID PANEL WITH RATIO S triglyceride s 181 mg/dL <150 high Not Available [address], [address], 09/29/2021 16:02:40 09/28/19 22 09/29/2021 LIPID PANEL [...] 9): 2061- 2068 (http ://ed ucati on.Thomas marroquinTAPQUAD. com/f aq/FA Q164) Not Available [address], [address], 09/29/2021 16:02:40 09/28/19 22 09/29/2021 LIPID PANEL WITH RATIO S chol/HDLC ratio 3.0 (calc ) <5.0 normal Not Available [address], [address], 09/29/2021 16:02:40 09/28/19 22 09/29/2021 LIPID PANEL WITH RATIO S LDL/HDL ratio 1.5 (calc ) Below avera ge Risk: <2.34 [place] ge Risk: 2.35- 4.12 Moder ate Risk: 4.13- 5.56 High Risk: >5.57 Not Available [address], [place], [address], 09/29/2021 16:02:40 09/28/19 22 09/29/2021 LIPID PANEL WITH RATIO S non HDL cholesterol 110 mg/dL _(phong c) <130 normal For patie nts with diabe liz plus 1 major ASCVD risk facto r, treat ing to a non-H DL-C goal of <100 mg/dL (LDL- C of <70 mg/dL ) is consi alfonso bray c tamekao n. Not Available [address], [address], 09/29/2021 16:02:40 09/28/19 22 09/29/2021 TSH+F REE T4 TSH 0.19 mIU/L 0.40-4 .50 low Not Available [address], [address], 09/29/2021 16:02:40 09/28/19 22 09/29/2021 TSH+F REE T4 T4, free 2.0 NG/dL 0.8-1. 8 high Not Available [address], [address], 09/29/2021 16:02:40 09/28/19 22 09/29/2021 ALBUM IN, RANDO M URINE W/CRE ATINI NE creatinine, random urine 90 mg/dL 20-275 normal Not Available [address], [address], 09/29/2021 16:02:39 09/28/19 22 09/29/2021 ALBUM IN, RANDO M URINE W/CRE ATINI NE albumin, urine 0.5 mg/dL see note: normal Refer ence Range : Refer ence Range Not estab lishe d Not Available [address], [address], 09/29/2021 16:02:39 09/28/19 22 09/29/2021 ALBUM IN, [...] a diagn ostic categ ory. Not Available [address], [address], 09/29/2021 16:02:39 12/23/19 22 12/23/2021 T3, FREE T3, free 2.8 pg/mL 2.3-4. 2 normal Not Available [address] [place], [address], 12/23/2021 02:01:24 12/23/19 22 12/23/2021 TSH+F REE T4 TSH 9.37 mIU/L 0.40-4 .50 high Not Available [address], [address], 12/23/2021 02:01:24 12/23/19 22 12/23/2021 TSH+F REE T4 T4, free 1.1 NG/dL 0.8-1. 8 normal Not Available [address], [address], 12/23/2021 02:01:24 06/21/20 22 06/22/2022 CBC (INCL UDES DIFF/ PLT) white blood cell count 7.5 thous and/u L 3.8-10 .8 normal Not Available [address], [address], 06/22/2022 06:08:00 06/21/20 22 06/22/2022 CBC (INCL UDES DIFF/ PLT) red blood cell count 4.29 connie on/uL 3.80-5 .10 normal Not Available [address], [address], 06/22/2022 06:08:00 06/21/20 22 06/22/2022 CBC (INCL UDES DIFF/ PLT) hemoglobin 11.9 g/dL 11.7-1 5.5 normal Not Available [address], [address], 06/22/2022 06:08:00 06/21/20 22 06/22/2022 CBC (INCL UDES DIFF/ PLT) hematocrit 37.9 % 35.0-4 5.0 normal Not Available [address], [address], 06/22/2022 06:08:00 06/21/20 22 06/22/2022 CBC (INCL UDES DIFF/ PLT) MCV 88.3 fL 80.0-1 00.0 normal Not Available [address], [address], 06/22/2022 06:08:00 06/21/20 22 06/22/2022 CBC (INCL UDES DIFF/ PLT) MCH 27.7 pg 27.0-3 3.0 normal Not Available [address], [address], 06/22/2022 06:08:00 06/21/20 22 06/22/2022 CBC (INCL UDES DIFF/ PLT) MCHC 31.4 g/dL 32.0-3 6.0 low Not Available [address], [address], 06/22/2022 06:08:00 06/21/20 22 06/22/2022 CBC (INCL UDES DIFF/ PLT) RDW 14.2 % 11.0-1 5.0 normal Not Available [address], [address], 06/22/2022 06:08:00 06/21/20 22 06/22/2022 CBC (INCL UDES DIFF/ PLT) platelet count 312 thous and/u L 140-40 0 normal Not Available [address], [address], 06/22/2022 06:08:00 06/21/20 22 06/22/2022 CBC (INCL UDES DIFF/ PLT) MPV 11.2 fL 7.5-12 .5 normal Not Available [address], [address], 06/22/2022 06:08:00 06/21/20 22 06/22/2022 CBC (INCL UDES DIFF/ PLT) absolute neutrophils 4620 cells /uL 1500-7 800 normal Not Available [facility] [address] [address], [place], [address], 06/22/2022 06:08:00 06/21/20 22 06/22/2022 CBC (INCL UDES DIFF/ PLT) absolute lymphocytes 2055 cells /uL 850-39 00 normal Not Available [address], [address], 06/22/2022 06:08:00 06/21/20 22 06/22/2022 CBC (INCL UDES DIFF/ PLT) absolute monocytes 675 cells /uL 200-95 0 normal Not Available [address], [address], 06/22/2022 06:08:00 06/21/20 22 06/22/2022 CBC (INCL UDES DIFF/ PLT) absolute eosinophils 98 cells /uL 15-500 normal Not Available [address], [address], 06/22/2022 06:08:00 06/21/20 22 06/22/2022 CBC (INCL UDES DIFF/ PLT) absolute basophils 53 cells /uL 0-200 normal Not Available [address], [address], 06/22/2022 06:08:00 06/21/20 22 06/22/2022 CBC (INCL UDES DIFF/ PLT) neutrophils 61.6 % normal Not Available [address], [address], 06/22/2022 06:08:00 06/21/20 22 06/22/2022 CBC (INCL UDES DIFF/ PLT) lymphocytes 27.4 % normal Not Available [address], [address], 06/22/2022 06:08:00 06/21/20 22 06/22/2022 CBC (INCL UDES DIFF/ PLT) monocytes 9.0 % normal Not Available [address], [address], 06/22/2022 06:08:00 06/21/20 22 06/22/2022 CBC (INCL UDES DIFF/ PLT) eosinophils 1.3 % normal Not Available [address], [address], 06/22/2022 06:08:00 06/21/20 22 06/22/2022 CBC (INCL UDES DIFF/ PLT) basophils 0.7 % normal Not Available [address], [address], 06/22/2022 06:08:00 06/21/20 22 06/22/2022 HEPAT IC FUNCT ION PANEL protein, total 6.5 g/dL 6.1-8. 1 normal Not Available [address], [address], 06/22/2022 06:07:59 06/21/20 22 06/22/2022 HEPAT IC FUNCT ION PANEL albumin 4.2 g/dL 3.6-5. 1 normal Not Available [address], [address], 06/22/2022 06:07:59 06/21/20 22 06/22/2022 HEPAT IC FUNCT ION PANEL globulin 2.3 g/dL_ (calc ) 1.9-3. 7 normal Not Available [address], [address], 06/22/2022 06:07:59 06/21/20 22 06/22/2022 HEPAT IC FUNCT ION PANEL albumin/glob ulin ratio 1.8 (calc ) 1.0-2. 5 normal Not Available [address], [address], 06/22/2022 06:07:59 06/21/20 22 06/22/2022 HEPAT IC FUNCT ION PANEL bilirubin, total 0.4 mg/dL 0.2-1. 2 normal Not Available [address], [address], 06/22/2022 06:07:59 06/21/20 22 06/22/2022 HEPAT IC FUNCT ION PANEL bilirubin, direct 0.1 mg/dL < or = 0.2 normal Not Available [address] [address] [place], [address], 06/22/2022 06:07:59 06/21/2006/22/2022 HEPAT IC FUNCT ION PANEL bilirubin, indirect 0.3 mg/dL _(phong c) 0.2-1. 2 normal Not Available [address] [address] [place], [address], 06/22/2022 06:07:59 06/21/20 22 06/22/2022 HEPAT IC FUNCT ION PANEL alkaline phosphatase 94 U/L 37-153 normal Not Available [facility] [employer] [place] [address] [place], [address], 06/22/2022 06:07:59 06/21/20 22 06/22/2022 HEPAT IC FUNCT ION PANEL AST 16 U/L 10-35 normal Not Available [address], [address], 06/22/2022 06:07:59 06/21/2006/22/2022 HEPAT IC FUNCT ION PANEL ALT 13 U/L 6-29 normal Not Available [address], [address], 06/22/2022 06:07:59 06/21/20 22 06/22/2022 HEMOG LOBIN [...] diabe liz for child sheng. Not Available [facility] [address], [address], 06/22/2022 06:07:58 06/21/20 22 06/22/2022 BASIC METAB OLIC PANEL urea nitrogen (BUN) 7 mg/dL 7-25 normal Not Available [facility] [address], [address], 06/22/2022 06:07:58 06/21/2006/22/2022 BASIC METAB OLIC PANEL glucose 110 mg/dL 65-99 high Fasti ng refer ence inter jo For someo ne witho ut known diabe liz, a gluco se value betwe en 100 and 125 mg/dL is consi stent with predi abete s and shoul d be confi rmed with a follo w-up test. Not Available [facility] [place] [address] [place], [address], 06/22/2022 06:07:58 06/21/2006/22/2022 BASIC METAB OLIC PANEL creatinine 0.74 mg/dL 0.60-1 .00 normal Not Available [facility] [address], [address], 06/22/2022 06:07:58 06/21/2006/22/2022 BASIC METAB OLIC PANEL eGFR 85 mL/mi n/1.7 3m2 > or = 60 normal The eGFR is based on the CKD-E PI 2020 equat ion. To calcu late the new eGFR from a previ ous Creat inine or Cysta mikki mueller, go to https ://kimberly mendez.alden hurtado/ama garcia s/ kdoqi /gfr% 5Fcal culat or Not Available [address] [address] [place], [address], 06/22/2022 06:07:58 06/21/20 22 06/22/2022 BASIC METAB OLIC PANEL BUN/creatini ne ratio not applic able (calc ) 6-22 Not Available [address], [address], 06/22/2022 06:07:58 06/21/20 22 06/22/2022 BASIC METAB OLIC PANEL sodium 140 mmol/ L 135-14 6 normal Not Available [address], [address], 06/22/2022 06:07:58 06/21/20 22 06/22/2022 BASIC METAB OLIC PANEL potassium 3.8 mmol/ L 3.5-5. 3 normal Not Available [address] [address] [place], [address], 06/22/2022 06:07:58 06/21/20 22 06/22/2022 BASIC METAB OLIC PANEL chloride 104 mmol/ L 98-110 normal Not Available [address], [address], 06/22/2022 06:07:58 06/21/20 22 06/22/2022 BASIC METAB OLIC PANEL carbon dioxide 29 mmol/ L 20-32 normal Not Available [address] [address] [place], [address], 06/22/2022 06:07:58 06/21/20 22 06/22/2022 BASIC METAB OLIC PANEL calcium 8.9 mg/dL 8.6-10 .4 normal Not Available [address] [address] [place], [address], 06/22/2022 06:07:58 06/21/20 22 06/22/2022 LIPID PANEL WITH RATIO S cholesterol, total 115 mg/dL <200 normal Not Available [address] [address] [place], [address], 06/22/2022 06:07:57 06/21/20 22 06/22/2022 LIPID PANEL WITH RATIO S HDL cholesterol 40 mg/dL > or = 50 low Not Available [address], [address], 06/22/2022 06:07:57 06/21/20 22 06/22/2022 LIPID PANEL WITH RATIO S triglyceride s 131 mg/dL <150 normal Not Available [address], [address], 06/22/2022 06:07:57 06/21/2006/22/2022 LIPID PANEL WITH RATIO [...] lopezos tics. com/f aq/FA Q164) Not Available [facility] [place] [address] [place], [address], 06/22/2022 06:07:57 06/21/2006/22/2022 LIPID PANEL WITH RATIO S chol/HDLC ratio 2.9 (calc ) <5.0 normal Not Available [address], [address], 06/22/2022 06:07:57 06/21/20 22 06/22/2022 LIPID PANEL WITH RATIO S LDL/HDL ratio 1.4 (calc ) Below avera ge Risk: <2.34 [place] ge Risk: 2.35- 4.12 Moder ate Risk: 4.13- 5.56 High Risk: >5.57 Not Available [address], [address], 06/22/2022 06:07:57 06/21/20 22 06/22/2022 LIPID PANEL WITH RATIO S non HDL cholesterol 75 mg/dL _(phong c) <130 normal For patie nts with diabe liz plus 1 major ASCVD risk facto r, treat ing to a non-H DL-C goal of <100 mg/dL (LDL- C of <70 mg/dL ) is consi sergiod a holli peuti c optio n. Not Available [address], [address], 06/22/2022 06:07:57 06/21/20 22 06/22/2022 TSH+F REE T4 TSH 0.09 mIU/L 0.40-4 .50 low Not Available [address], [address], 06/22/2022 06:07:57 06/21/20 22 06/22/2022 TSH+F REE T4 T4, free 1.7 NG/dL 0.8-1. 8 normal Not Available [address], [address], 06/22/2022 06:07:57 07/25/20 23 07/26/2023 LIPID PANEL WITH RATIO S cholesterol, total 217 mg/dL <200 high Not Available [address] [address] [place], [address], 07/26/2023 05:38:14 07/25/20 23 07/26/2023 LIPID PANEL WITH RATIO S HDL cholesterol 58 mg/dL > or = 50 normal Not Available [facility] [address] [address] [place], [address], 07/26/2023 05:38:14 07/25/20 23 07/26/2023 LIPID PANEL WITH RATIO S triglyceride s 100 mg/dL <150 normal Not Available [facility] [address] [address] [place], [address], 07/26/2023 05:38:14 07/25/20 23 07/26/2023 LIPID PANEL [...] lated using the Fatou n-Hop kins merricku riak n, which is a valid ated novel key edge than the Fried alan equat ion in the estim ation of LDL-C . Fatou ellison SS et al. MYRON. 2013; 310(1 9): 2061- 2068 (http ://ed ucati on.Qu Jose J cunhas. com/f aq/FA Q164) Not Available [facility] [address] [address] [address], [place], [address], 07/26/2023 05:38:14 07/25/20 23 07/26/2023 LIPID PANEL WITH RATIO S chol/HDLC ratio 3.7 (calc ) <5.0 normal Not Available [facility] [address] [address] [place], [address], 07/26/2023 05:38:14 07/25/20 23 07/26/2023 LIPID PANEL WITH RATIO S LDL/HDL ratio 2.4 (calc ) Below avera ge Risk: <2.34 [place] ge Risk: 2.35- 4.12 Moder ate Risk: 4.13- 5.56 High Risk: >5.57 Not Available [facility] [address] [address] [place], [address], 07/26/2023 05:38:14 07/25/20 23 07/26/2023 LIPID PANEL WITH RATIO S non HDL cholesterol 159 mg/dL _(phong c) <130 high For patie nts with diabe liz plus 1 major ASCVD risk facto r, treat ing to a non-H DL-C goal of <100 mg/dL (LDL- C of <70 mg/dL ) is consi dered a thera peuti c optio n. Not Available [facility] [address] [address] [place], [address], 07/26/2023 05:38:14 07/25/2007/26/2023 BASIC METAB OLIC PANEL glucose 113 mg/dL 65-99 high Fasti ng refer ence inter jo For someo ne witho ut known diabe liz, a gluco se value betwe en 100 and 125 mg/dL is consi stent with predi abete s and shoul d be confi rmed with a follo w-up test. Not Available [facility] [address] [place] [address] [place], [address], 07/26/2023 05:38:16 07/25/2007/26/2023 BASIC METAB OLIC PANEL urea nitrogen (BUN) 21 mg/dL 7-25 normal Not Available [facility] [facility] [place] [address] [place], [address], 07/26/2023 05:38:16 07/25/2007/26/2023 BASIC METAB OLIC PANEL creatinine 0.71 mg/dL 0.60-1 .00 normal Not Available [facility] [place] [address] [place], [address], 07/26/2023 05:38:16 07/25/20 23 07/26/2023 BASIC METAB OLIC PANEL eGFR 89 mL/mi n/1.7 3m2 > or = 60 normal Not Available [address], [address], 07/26/2023 05:38:16 07/25/20 23 07/26/2023 BASIC METAB OLIC PANEL BUN/creatini ne ratio SEE NOTE: (calc ) 6-22 Not Repor marnie: BUN and Creat inine are withi n refer ence range . Not Available [address], [address], 07/26/2023 05:38:16 07/25/20 23 07/26/2023 BASIC METAB OLIC PANEL sodium 139 mmol/ L 135-14 6 normal Not Available [address], [address], 07/26/2023 05:38:16 07/25/20 23 07/26/2023 BASIC METAB OLIC PANEL potassium 4.2 mmol/ L 3.5-5. 3 normal Not Available [address], [address], 07/26/2023 05:38:16 07/25/20 23 07/26/2023 BASIC METAB OLIC PANEL chloride 102 mmol/ L 98-110 normal Not Available [address], [address], 07/26/2023 05:38:16 07/25/20 23 07/26/2023 BASIC METAB OLIC PANEL carbon dioxide 31 mmol/ L 20-32 normal Not Available [address], [address], 07/26/2023 05:38:16 07/25/20 23 07/26/2023 BASIC METAB OLIC PANEL calcium 8.7 mg/dL 8.6-10 .4 normal Not Available [address] [place], [address], 07/26/2023 05:38:16 07/25/2007/26/2023 HEMOG LOBIN A1C hemoglobin [...] diabe liz for child sheng. Not Available [facility] [place] [address] [place], [address], 07/26/2023 05:38:17 07/25/2007/26/2023 HEPAT IC FUNCT ION PANEL protein, total 6.6 g/dL 6.1-8. 1 normal Not Available [facility] [address], [address], 07/26/2023 05:38:18 07/25/20 23 07/26/2023 HEPAT IC FUNCT ION PANEL albumin 4.0 g/dL 3.6-5. 1 normal Not Available [facility] [address] [place], [address], 07/26/2023 05:38:18 07/25/20 23 07/26/2023 HEPAT IC FUNCT ION PANEL globulin 2.6 g/dL_ (calc ) 1.9-3. 7 normal Not Available [facility] [address] [place], [address], 07/26/2023 05:38:18 07/25/20 23 07/26/2023 HEPAT IC FUNCT ION PANEL albumin/glob ulin ratio 1.5 (calc ) 1.0-2. 5 normal Not Available [address], [address], 07/26/2023 05:38:18 07/25/20 23 07/26/2023 HEPAT IC FUNCT ION PANEL bilirubin, total 0.4 mg/dL 0.2-1. 2 normal Not Available [address], [address], 07/26/2023 05:38:18 07/25/20 23 07/26/2023 HEPAT IC FUNCT ION PANEL bilirubin, direct 0.1 mg/dL < or = 0.2 normal Not Available [address], [address], 07/26/2023 05:38:18 07/25/20 23 07/26/2023 HEPAT IC FUNCT ION PANEL bilirubin, indirect 0.3 mg/dL _(phong c) 0.2-1. 2 normal Not Available [address], [address], 07/26/2023 05:38:18 07/25/20 23 07/26/2023 HEPAT IC FUNCT ION PANEL alkaline phosphatase 101 U/L 37-153 normal Not Available [place] [address] [place], [address], 07/26/2023 05:38:18 07/25/20 23 07/26/2023 HEPAT IC FUNCT ION PANEL AST 13 U/L 10-35 normal Not Available [address], [address], 07/26/2023 05:38:18 07/25/20 23 07/26/2023 HEPAT IC FUNCT ION PANEL ALT 9 U/L 6-29 normal Not Available [address], [address], 07/26/2023 05:38:18 07/25/20 23 07/26/2023 TSH TSH 35.91 mIU/L 0.40-4 .50 high Not Available [address], [address], 07/26/2023 05:38:19 07/25/20 23 07/26/2023 T4, FREE T4, free 0.7 NG/dL 0.8-1. 8 low Not Available [facility] [address], [address], 07/26/2023 05:38:20 07/25/20 23 07/26/2023 T3, FREE T3, free 1.9 pg/mL 2.3-4. 2 low Not Available [address], [address], 07/26/2023 05:38:21 07/25/20 23 07/26/2023 CBC (INCL UDES DIFF/ PLT) white blood cell count 5.8 thous and/u L 3.8-10 .8 normal Not Available [address], [address], 07/26/2023 05:38:22 07/25/20 23 07/26/2023 CBC (INCL UDES DIFF/ PLT) red blood cell count 4.33 connie on/uL 3.80-5 .10 normal Not Available [address], [address], 07/26/2023 05:38:22 07/25/20 23 07/26/2023 CBC (INCL UDES DIFF/ PLT) hemoglobin 12.9 g/dL 11.7-1 5.5 normal Not Available [facility] [address], [address], 07/26/2023 05:38:22 07/25/20 23 07/26/2023 CBC (INCL UDES DIFF/ PLT) hematocrit 38.9 % 35.0-4 5.0 normal Not Available [address], [address], 07/26/2023 05:38:22 07/25/20 23 07/26/2023 CBC (INCL UDES DIFF/ PLT) MCV 89.8 fL 80.0-1 00.0 normal Not Available [address], [address], 07/26/2023 05:38:22 07/25/20 23 07/26/2023 CBC (INCL UDES DIFF/ PLT) MCH 29.8 pg 27.0-3 3.0 normal Not Available [address], [address], 07/26/2023 05:38:22 07/25/20 23 07/26/2023 CBC (INCL UDES DIFF/ PLT) MCHC 33.2 g/dL 32.0-3 6.0 normal Not Available [address], [address], 07/26/2023 05:38:22 07/25/20 23 07/26/2023 CBC (INCL UDES DIFF/ PLT) RDW 12.2 % 11.0-1 5.0 normal Not Available [address], [address], 07/26/2023 05:38:22 07/25/20 23 07/26/2023 CBC (INCL UDES DIFF/ PLT) platelet count 270 thous and/u L 140-40 0 normal Not Available [address], [address], 07/26/2023 05:38:22 07/25/20 23 07/26/2023 CBC (INCL UDES DIFF/ PLT) MPV 10.2 fL 7.5-12 .5 normal Not Available [address], [address], 07/26/2023 05:38:22 07/25/20 23 07/26/2023 CBC (INCL UDES DIFF/ PLT) absolute neutrophils 2755 cells /uL 1500-7 800 normal Not Available [address], [address], 07/26/2023 05:38:22 07/25/20 23 07/26/2023 CBC (INCL UDES DIFF/ PLT) absolute lymphocytes 2268 cells /uL 850-39 00 normal Not Available [address], [address], 07/26/2023 05:38:22 07/25/20 23 07/26/2023 CBC (INCL UDES DIFF/ PLT) absolute monocytes 487 cells /uL 200-95 0 normal Not Available [address], [address], 07/26/2023 05:38:22 07/25/20 23 07/26/2023 CBC (INCL UDES DIFF/ PLT) absolute eosinophils 238 cells /uL 15-500 normal Not Available [address], [address], 07/26/2023 05:38:22 07/25/20 23 07/26/2023 CBC (INCL UDES DIFF/ PLT) absolute basophils 52 cells /uL 0-200 normal Not Available [facility] [address], [address], 07/26/2023 05:38:22 07/25/20 23 07/26/2023 CBC (INCL UDES DIFF/ PLT) neutrophils 47.5 % normal Not Available [address], [address], 07/26/2023 05:38:22 07/25/20 23 07/26/2023 CBC (INCL UDES DIFF/ PLT) lymphocytes 39.1 % normal Not Available [address], [address], 07/26/2023 05:38:22 07/25/20 23 07/26/2023 CBC (INCL UDES DIFF/ PLT) monocytes 8.4 % normal Not Available [address], [address], 07/26/2023 05:38:22 07/25/20 23 07/26/2023 CBC (INCL UDES DIFF/ PLT) eosinophils 4.1 % normal Not Available [address], [address], 07/26/2023 05:38:22 07/25/20 23 07/26/2023 CBC (INCL UDES DIFF/ PLT) basophils 0.9 % normal Not Available [address], [address], 07/26/2023 05:38:22 07/25/20 23 07/26/2023 ALBUM IN, RANDO M URINE W/CRE ATINI NE creatinine, random urine 57 mg/dL 20-275 normal Not Available [address], [address], 07/26/2023 17:27:10 07/25/20 23 07/26/2023 ALBUM IN, RANDO M URINE W/CRE ATINI NE albumin, urine 1.4 mg/dL see note: normal Refer ence Range : Refer ence Range Not estab lishe d Not Available [address], [address], 07/26/2023 17:27:10 07/25/20 23 07/26/2023 ALBUM IN, [...] Moder ately incre ased 30-29 9 Sever belyks incre ased > OR = 300 The ADA recom mends that at least two of three speci mens colle cted withi n a 3-6 month perio d be abnor mal befor e consi michael g a patie nt to be withi n a diagn ostic categ ory. Not Available [facility] [address] [place], [address], 07/26/2023 17:27:10 09/24/19 22 09/21/2021 XR, chest , 2 view No observ ation record ed. [id number] Not Available 10/19/2022 01:16:54 10/04/19 22 10/04/2021 MAMMO , scree katrin, digit al, bilat eral No observ ation record ed. [id number] [facility] (Imaging) [address] [place] [address], [phone], 10/19/2022 01:16:54 02/29/20 22 02/15/2022 cardi ac monit or No observ ation record ed. [id number] Not Available 10/19/2022 01:16:54 09/01/19 23 08/31/2022 XR, lumbo sacra l spine , 2 or 3 view No observ ation record ed. [id number] [facility] (Imaging) [address] [place] [address], [phone], 10/19/2022 01:16:54 11/12/19 23 11/10/2022 MAMMO , scree katrin, digit al, bilat eral No observ ation record ed. [email or web address] Not Available 2022 12:05:49 02/03/20 23 01/19/2023 DEXA No observ ation record ed. [email or web address] [address], [address], 06/01/2023 12:05:48 Result Notes None recorded. Problems Name Problem SNOMED Code Status Onset Date Resolution Date Notes Provider Name and Address Organization Details Recorded Time Irritable bowel syndrome 65340853 Active 2021 Not Available [facility] 01:10:59 Stress fracture of left tibia 4589063381180 9108 Active 2020 Not Available [facility] 3 01:10:59 Benign essential hypertensi on 7042823 Active 2021 Not Available [facility] 3 01:10:59 Abnormal urinalysis 521189792 Active 2021 Not Available [facility] 3 01:10:59 Irritable bowel syndrome with diarrhea 850505896 Active 2021 Not Available [facility] 3 01:10:59 Mixed anxiety and depressive disorder 350527015 Active 2017 Not Available [facility] 3 01:10:59 Osteoarthr itis of knee 159811432 Active 2020 Not Available [facility] 3 01:10:59 Bleeding from nose 155608377 Active 2021 Not Available [facility] 3 01:11:00 Low back pain 659904867 Active 2022 Not Available [facility] 3 01:11:00 Right upper quadrant pain 841070066 Active 2021 Not Available [facility] 3 01:11:00 Hypothyroi dism 94754779 Active 2017 Not Available [facility] 3 01:11:00 Streptococ phong sore throat 97810696 Active 2021 Not Available [facility] 3 01:11:00 Type 2 diabetes mellitus 24633101 Active 2019 Not Available [facility] 3 01:11:00 Atrial fibrillati on 69958102 Active 2020 Not Available [facility] 3 01:11:00 Hyperlipid emia 54189619 Active 2017 Not Available [facility] 3 01:11:00 Essential hypertensi on 43628207 Active 2017 Not Available [facility] 3 01:11:00 Cerebrovas cular disease 28024196 Active 2020 Not Available [facility] 3 01:11:00 Osteoporos is 82783945 Active 2022 Not Available [facility] 3 01:11:00 Urinary tract infectious disease 80648834 Active 2021 Not Available [facility] 3 01:11:00 Well controlled type 2 diabetes mellitus 436860061 Active 2022 ABENA Shi [address] [employer], [place], [address] , [facility] 3 12:25:05 Acute pharyngiti s 929729925 Active 2022 ABENA Shi [address] [employer], [place], [address] , [facility] 3 09:37:20 Problem Notes None recorded. Procedures Surgical History Date Name Laterality Status Provider Name and Address Organization Details Recorded Time 08/03/20 20 cholecystectomy completed Not Available [facility] 10/19/2022 01:06:21 04/16/20 20 Most Recent Bone Density completed Not Available [facility] 10/19/2022 01:06:19 02/11/20 20 total knee replacement completed Not Available [facility] 10/19/2022 01:06:21 08/21/19 19 Cataract Surgery completed Not Available [facility] 10/19/2022 01:06:21 02/19/20 18 thyroidectomy completed Not Available [facility] 10/19/2022 01:06:21 10/22/19 16 Colonoscopy completed Not Available [facility] 10/19/2022 01:06:21 08/21/19 00 Thyroid Surgery completed Not Available [facility] 10/19/2022 01:06:21 08/21/19 00 Orthopedic Surgery completed Not Available [facility] 10/19/2022 01:06:21 [employer] Surgery completed Not Available [facility] 10/19/2022 01:06:21 other completed Not Available [facility] 10/19/2022 01:06:21 Knee Surgery completed Not Available [facility] 10/19/2022 01:06:21 Imaging Results None recorded. Procedure Notes None recorded. Medical Equipment None Reported. Allergies Allergen ID Allergen Name Allergen Category Reaction Reaction Severity Criticality Documentation Date Start Date Code Code System Note Provider Name and Address Organization Details Recorded Time 1841 Substance with sulfonami de structure and antibacte rial mechanism of action (substanc e) medicatio n rash Not available Not available 10/19/2022 49277 8003 SNOMED Not Available [facility] 01:16:24 Medications Name Sig Start Date Stop [...] Date Recorded Body mass index (BMI) Body height Oxygen saturation Oxygen saturation in Arterial blood by Pulse oximetry Heart rate Body temperature Body weight Systolic blood pressure Diastolic blood pressure Provider Name and Address Organization Details Last Updated DateTime 3 27.6 kg/m2 157.48 cm 99 % 99 % 55 /min 98.8 [degF] 03580.4 5 g 124 mm[Hg] 80 mm[Hg] Not Available [facility] 3 01:09:45 Date Recorded Body mass index (BMI) Body height Oxygen saturation Oxygen saturation in Arterial blood by Pulse oximetry Heart rate Respiratory rate Body temperature Body weight Systolic blood pressure Diastolic blood pressure Provider Name and Address Organization Details Last Updated DateTime 2 31.9 kg/m2 157.48 cm 96 % 96 % 50 /min 16 /min 97.6 [degF] 01453.8 7 g 128 mm[Hg] 68 mm[Hg] Not Available [facility] 3 01:09:45 Date Recorded Body mass index (BMI) Provider Name and Address Organization Details Last Updated DateTime 06/01/2023 30.7 kg/m2 ABENA Shi [address] [facility], [facility] [address], [place], [address], [facility] 06/01/2023 12:05:39 Date Recorded Body height Body weight Body temperature Heart rate Oxygen saturation Oxygen saturation in Arterial blood by Pulse oximetry Systolic blood pressure Diastolic blood pressure Provider Name and Address Organization Details Last Updated DateTime 3 157.48 cm 47086.5 2 g 97.8 [degF] 55 /min 97 % 97 % 138 mm[Hg] 70 mm[Hg] Clarisa Wheeler RN [place] [employer] [facility] 3 11:58:40 Date Recorded Body mass index (BMI) Body height Oxygen saturation Oxygen saturation in Arterial blood by Pulse oximetry Heart rate Body weight Systolic blood pressure Diastolic blood pressure Provider Name and Address Organization Details Last Updated DateTime 2 28.5 kg/m2 157.48 cm 99 % 99 % 50 /min 38633.4 1 g 140 mm[Hg] 80 mm[Hg] Not Available [facility] 3 01:09:45 Date Recorded Body mass index (BMI) Body height Oxygen saturation Oxygen saturation in Arterial blood by Pulse oximetry Heart rate Respiratory rate Body temperature Body weight Systolic blood pressure Diastolic blood pressure Provider Name and Address Organization Details Last Updated DateTime 1 33.8 kg/m2 157.48 cm 96 % 96 % 64 /min 15.98 /min 96.9 [degF] 86011.1 5 g 130 mm[Hg] 80 mm[Hg] Not Available [facility] 01:09:45 Social History Question Answer Notes LastModified by Organizat ion Details LastModified Time Tobacco Smoking Status Never Smoker Not Available [facility] 10/19/2022 01:05:52 What Is Your Level Of Caffeine Consumption? Occasional [id number] Information not available 10/19/2022 How Much Tobacco Do You Chew? None [id number].[id number] Information not available 10/19/2022 In The 14 Days Before Symptom Onset, Have You Had Close Contact With A Laboratory-confirm ed COVID-19 While That Case Was Ill? No [id number] Information not available 10/19/2022 In The 14 Days Before Symptom Onset, Have You Had Close Contact With A Person Who Is Under Investigation For COVID-19 While That Person Was Ill? No [id number] 4870 Information not available 10/19/2022 What Type Of Diet Are You Following? REGULAR [id number].[id number] 0317 Information not available 10/19/2022 Which Illicit Or Recreational Drugs Have You Used? None [id number].[id number] Information not available 10/19/2022 Have There Been Any Changes To Your Family Or Social Situation? No MIGRATION.[id number] 7032 Information not available 10/19/2022 Are There Any Guns Present In Your Home? No MIGRATION.[id number] 1617 Information not available 10/19/2022 Do You Use Insect Repellent Routinely? No [id number].[id number] Information not available 10/19/2022 What Was The Date Of Your Most Recent Tobacco Screening? 10/27/2020 [id number] 6680 Information not available 10/19/2022 What Is Your Relationship Status? [id number].[id number] 5218 Information not available 10/19/2022 Do You Use Your Seat Belt Or Car Seat Routinely? Yes MIGRATION.[id number] 5861 Information not available 10/19/2022 Do You Have Smoke And Carbon Monoxide Detectors In Your Home? Yes [id number].497143 9410 Information not available 10/19/2022 How Much Tobacco Do You Smoke? No MIGRATION.[id number] 2819 Information not available 10/19/2022 Do You Use Sunscreen Routinely? Yes MIGRATION.915339 1132 Information not available 10/19/2022 How Many Years Have You Smoked Tobacco? 0 MIGRATION.364371 4442 Information not available 10/19/2022 Have You Recently Traveled Abroad? No MIGRATION.[id number] 0853 Information not available 10/19/2022 Do You Have Any Dietary Restrictions? No MIGRATION.730435 9747 Information not available 10/19/2022 Sex: Unknown Functional Status Question Answer Note LastModified by Organizat ion Details LastModified Time Do you use any illicit or recreational drugs? No MIGRATION.[id number] 7585 Information not available 10/19/2022 Do you or have you ever used any other forms of tobacco or nicotine? No MIGRATION.423122 3169 Information not available 10/19/2022 What is your level of alcohol consumption? None MIGRATION.536774 5862 Information not available 10/19/2022 Do you or have you ever used smokeless tobacco? Never used smokeless tobacco MIGRATION.899641 2128 Information not available 10/19/2022 Do you have difficulty doing errands alone? No [email or web address] Information not available 05/24/2023 Are you able to care for yourself? Yes MIGRATION.685458 7169 Information not available 10/19/2022 Do you have difficulty dressing or bathing? No [email or web address] Information not available 05/24/2023 Do you or have you ever used e-cigarettes or vape? Never used electronic cigarettes MIGRATION.[id number] 0596 Information not available 10/19/2022 What is your exercise level? Occasional MIGRATION.136655 4708 Information not available 10/19/2022 Mental Status None recorded. Family History Relationship Description Onset Age of this Age Resolved Age Notes LastModified by Organization Details LastModified Time Mother Multiple sclerosis [id number] Not available 10/19/2022 01:06:26 Father Malignant neoplastic disease [id number] Not available 10/19/2022 01:06:26 Notes:pt was adopted, she do esnt know much Medical History Condition Response NERVE DISEASE N BLINDNESS N RHEUMATIC FEVER N KIDNEY STONES N BLADDER PROBLEMS N OTHER # 1 N POLIO N [...] ARTERY DISEASE (CAD) N ADDICTION CONCERNS N ENDOMETRIOSIS N Impotence N USE OF BLOOD THINNERS N SKIN [...] APNEA N CHICKENPOX N INFECTIOUS DISEASE N HEART ARRHYTHMIA N PROSTATE N INSOMNIA N HIGH CHOLESTEROL / HYPERLIPIDEMIA N HYPERTHYROIDISM N EYE PROBLEMS Y NEUROLOGICAL PROBLEMS N EDEMA N CHRONIC PAIN SYNDROME N HYPOTHYROIDISM N CAROTID BLOCKAGE N CONSTIPATION N BACK / NECK PROBLEMS Y HAVE YOU BEEN HOSPITALIZED OR SEEN IN [facility] IN THE PAST YEAR ? N [...] N ALZHEIMER'S DISEASE N Brain Problems N HERPES N DEMENTIA N HEADACHES/MIGRAINES N SEIZURES/EPILEPSY N VASCULAR DISEASE N PACEMAKER N Blood Disorder N DIZZINESS N HEART DISEASE/HEART PROBLEMS N KIDNEY DISEASE N MULTIPLE SCLEROSIS N CARDIAC ARRHYTHMIA N CANCER: SPECIFY N ANESTHESIA COMPLICATIONS N ATRIAL FIBRILLATION N [...] influenza, unspecified formulation 9 completed Not Available [facility] 10/19/2022 01:16:18 pneumococcal polysaccharide PPV23 8 completed Not Available [facility] 10/19/2022 01:16:19 Tdap 1 completed Not Available [facility] 10/19/2022 01:16:19 Past Encounters Encounter ID Performer Location Encounter Start Date Encounter Closed Date Diagnosis/Indication Diagnosis SNOMED-CT Code Diagnosis ICD10 Code Diagnosis Note [id number] ABENA Shi [facility] [address] [place] [address] 10/27/2020 00:00:00 11/15/2020 12:47:17 [id number] ABENA Shi [facility] [address] [place] [address] 03/02/2021 00:00:00 03/19/2021 09:44:28 [id number] ABENA Shi [facility] [address] [place] [address] 06/28/2021 00:00:00 06/28/2021 19:09:35 [id number] ABENA Shi [facility] [address] [place] [address] 08/10/2021 00:00:00 08/20/2021 13:38:46 [id number] Jhonatan Rueda MD [facility] [address] [place] [address] 02/11/2022 00:00:00 02/13/2022 13:06:35 [id number] ABENA Shi [facility] [address] [place] [address] 07/22/2022 00:00:00 08/19/2022 16:48:22 [id number] ABENA Shi [facility] [address] [place] [address] 08/31/2022 00:00:00 09/19/2022 21:39:23 [id number] ABENA Shi [facility] [address] [place] [address] 06/01/2023 11:47:35 06/01/2023 12:31:56 Cerebrovascular disease 54825379 I67.9 stable on statin therapy and bp medication s. Atrial fibrillation 4943 6004 I48.91 on anticoagul ant. followed by cardiology routinely. rate and rhythm controlled . Well contr olled type 2 diabetes mellitus 605226578 E11.9 stable on metformin 500mg bid. due for a1c and albumin labs Benign ess ential hypertension 0737780 I10 stable on medication s Hyperlipidemia 96620267 E78.5 on statin therapy. due for fasting lipids Hypothyroidism 59809504 E03.9 stable on thyroid medication . due for TFTs Long-term current use of anticoagulant 289669731 Z79.01 followed by cardiology Long-term drug therapy 181230689 Z79.899 routine labs due Health Concerns Section Related Observation LastModified by Organization Detai ls LastModified Time None Recorded Concern Status LastModified by Organization Details LastModified Time None Recorded Advance Directives Directive None Recorded Payers Encounter Date Sequence Insurance Name Policy Number Policy Tran Covered Member ID Tran Member ID Guarantor Name 06/01/2023 1 [employer] (O) Carline Aj [id number] Carline Aj Notes Date Note Type Note [...] in exercise capacity; no snoring Not Available [facility] 08/20/2021 13:38:46 022 text/ht ml Anxiety/DepressionReported [...] mellitus (1 point);stroke/TIA (2 points);CHADS(2) score is:4 [id number] Score:diabetes mellitus (1 point);stroke/TIA/thrombo-embolism (2 points);age 65-74 years (1 point);female sex (1 point);[id number] score total: 5DiabetesReported bypatient.Control:usually well controlled; improved [...] changes;hair changes(hair is falling out) Not Available [facility] [employer] [facility] 02/13/2022 13:06:35 022 text/ht ml Anxiety/DepressionReported [...] mellitus (1 point);stroke/TIA (2 points);CHADS(2) score is:4 [id number] Score:diabetes mellitus (1 point);stroke/TIA/thrombo-embolism (2 points);age 65-74 years (1 point);female sex (1 point);[id number] score total: 5DiabetesReported bypatient.Control:usually well controlled; improved [...] changes;hair changes(hair is falling out) Not Available [facility] 08/19/2022 16:48:22 023 text/ht ml Anxiety/DepressionReported bypatient.Severity:denies [...] stable no acute changes. ABENA Shi [address] [facility], [facility] [address], [address], [place] - [facility] 06/20/2023 23:48:10 OBGyn Episode No OBEpisode recorded.
--- OUTSIDE RECORDS SUMMARY | 2025-01-20 11:25 | XMS_ITS | Encounter Summary ---
Author Organization [facility] Facility Care Team Providers Care Director Electrical Engineering Name Role Phone No, Physician Primary Care Provider [phone] No, Physician Primary Care Provider [phone] Zhanna Vincent Primary Care Pr ovider Jhonatan Gunter MD Unavailable [phone] Alona Ahmadi Unavailable [phone] Encounter Details Date Type Department Care Team (Latest Contact Info) Description 09/27/2016 Orders Only [facility] Provider, MD Priscilla [address] [place] [id number] Social History Tobacco Use Types Packs/Day Years Used Date Smoking Tobacco: Never Assessed Comments Unknown Sex and Gender Information Value Date Recorded Sex Assigned at Not on file 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 us Historical Provider Final Res ult documented in this encounter Visit Diagnoses Not on filedocumented in this encounter Care Teams Director Electrical Engineering Relationship Specialty Start Date End Date No, Physician PCP - General 05/01/18 04/17/19 No, Physician PCP - General 04/18/19 10/15/19 Zhanna Vincent PA PCP - General Physician Coil Tester 10/16/19 Jhonatan Gunter MD [address] [address] Consulting Physician Cardiology 12/02/21 Alona Ahmadi PA [address] [phone] Physician Coil Tester Orthopedic Surgery 12/24/21 documented as of this encounter
--- OUTSIDE RECORDS SUMMARY | 2025-01-20 11:25 | XMS_ITS | Encounter Summary ---
Author Organization [facility] Facility Care Team Providers Care Proc Tech Name Role Phone No, Physician Primary Care Provider [phone] No, Physician Primary Care Provider [phone] Zhanna Vincent Primary Care Pr ovider Jhonatan Gunter MD Unavailable [phone] Alona Ahmadi Unavailable [phone] Encounter Details Date Type Department Care Team (Latest Contact Info) Description 12/16/2015 Orders Only [facility] Provider, MD Priscilla [address] [place] [address] Social History Tobacco Use Types Packs/Day Years Used Date Smoking Tobacco: Never Assessed Comments Unknown Sex and Gender Information Value Date Recorded Sex Assigned at Not on file 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
--- OUTSIDE RECORDS SUMMARY | 2025-01-20 11:25 | XMS_ITS | Data Portability ---
Author Organization [facility] Herrera Address [address] [facility] [place] [address] Care Team Providers Care Customer Assistance Representative Name Role Phone ZHANNA VINCENT Primary Care Provider Unavailab le Assessment No assessment recorded. Plan of Treatment Reminders Order Date Submit Date Provider Last Modified By Organization Details Last Modified Time Details Appointments ANY 15 2024 01:30P M ABENA Shi Not available Not available Not available Lab CBC w/ auto diff 2024 025 rust [facility], [address], [place], [address], 12/12/2024 16:45:59 hepatic function panel, serum 2024 025 rust [facility], [address], [place], [address], 12/12/2024 16:45:53 BMP, serum or plasma 2024 025 rust [facility], [address], [place], [address], 12/12/2024 16:45:34 lipid panel, serum 2024 025 rust [facility], [address], [place], [address], 12/12/2024 16:45:17 HbA1c (hemoglob in A1c), blood 2024 025 [facility], [address], [place], [address], 12/12/2024 16:45:43 microalbu min, urine 2024 025 [facility], [address], [place], [address], 12/12/2024 16:44:40 TSH + free T4, serum 2024 025 [facility], [address], [place], [address], 12/09/2024 01:33:49 influenza virus A + B + SARS-CoV- 2 (COVID19) Ag panel, rapid IA, upper respirato ry specimen 2024 025 [email or web address] In-Office Order, Internal Use Only DO Not Attach Compendium DO Not Attach Compendium, Do Not Delete/merge, [id number] 10/08/2024 15:14:43 CBC w/ auto diff 2023 024 [facility], [address], [place], [address], 09/09/2024 19:06:59 hepatic function panel, serum 2023 024 [facility], [address], [place], [address], 09/09/2024 19:06:53 BMP, serum or plasma [address] [facility], [address], [place], [address], 09/09/2024 19:06:55 lipid panel, serum 2023 024 [facility], [address], [place], [address], 09/09/2024 19:06:52 HbA1c (hemoglob in A1c), blood 2023 024 [facility], [address], [place], [address], 09/09/2024 19:06:58 urinalysi s complete, reflex culture 2023 024 [facility], [address], [place], [address], 09/09/2024 19:06:56 TSH + free T4, serum 2023 024 [employer] [facility], [address], [address], 07/29/2024 09:32:23 T3, free, serum or plasma 2023 024 [employer] [facility], [address], [address], 09/18/2024 16:18:40 CBC w/ auto diff 2023 024 [employer] [facility], [address], [address], 02/21/2024 16:28:03 BMP, serum or plasma 2023 024 [employer] [facility], [address], [address], 02/21/2024 16:28:03 hepatic function panel, serum 2023 024 [employer] [facility], [address], [address], 02/21/2024 16:28:03 lipid panel, serum 2023 024 [employer] [facility], [address], [address], 02/21/2024 16:28:03 HbA1c (hemoglob in A1c), blood 2023 024 [facility] [employer] [facility], [address] [facility] [address], [place], [address], 02/12/2024 11:59:05 noninvasi ve colorecta l cancer DNA + occult blood screening , QL, stool 2023 024 [employer] (Cologuard Orders Only), [address], [place], [address], 02/21/2024 18:25:57 TSH + free T4, serum 2023 024 [employer] [facility], [address] [address], [place], [address], 02/02/2024 09:25:00 T3, free, serum or plasma 2023 024 [employer] [facility], [address] [address], [place], [address], 02/21/2024 16:28:[address] referral [address] (Audiology), [address] [facility] [address], [place], [address], 01/08/2025 16:10:26 urologist referral 2023 024 [place] [address] Tushar Carl MD, [address], [address], [place], [address], 12/27/2024 12:48:11 Procedures None recorded. Surgeries None recorded. Imaging MAMMO, screening , digital, bilateral 2024 025 [facility] (Mammography) , [address], [place], [address], 11/27/2024 16:45:23 XR, chest, 2 view [address] (Imaging), [address], [place], [address], 10/09/2024 17:53:30 Medication Orders Ozempic 1 mg/dose (4 mg/3 mL) subcutane ous pen injector [address] [facility], [address] [place] [address], [address], 11/27/2024 16:19:55 Medrol ([facility]) 4 mg tablets in a dose pack [address] [facility], [address] [place] [address], [address], 11/27/2024 16:11:17 Zithromax Z-[facility] 250 mg tablet [address] [facility], [address] [place] [address], [address], 11/27/2024 15:54:26 doxycycli ne hyclate 100 [address] capsule [address] [facility], [address] [place] [address], [address], 11/27/2024 15:54:32 Ozempic 0.25 mg or 0.5 mg (2 mg/3 mL) subcutane ous pen injector [address] [facility], [address] [place] [address], [address], 11/27/2024 16:09:23 amlodipin e 10 mg tablet [address] [facility], [address] [place] [address], [address], 07/31/2024 16:18:29 levothyro xine 137 mcg tablet 2023 024 [email or web address] [id number], [address] [place], [address], 12/09/2024 01:34:00 Patient TargetsNo targets recorded. Patient Instructions Encounter Date Encounter Id Patient Instructions Last Modified By Organization Details Last Modified Time 01/31/2024 [id number] A healthy lifestyle: care instructions Not available 01/31/2024 15:05:40 04/15/2024 [id number] A healthy lifestyle: care instructions Not available 04/15/2024 17:02:00 07/31/2024 [id number] A healthy lifestyle: care instructions Not available 07/31/2024 16:18:24 10/08/2024 [id number] A healthy lifestyle: care instructions Not available 10/08/2024 15:13:13 11/27/2024 [id number] A healthy lifestyle: care instructions Not available 11/27/2024 16:19:52 Reason for Referral Urologist Referral for Overa ctive urinary bladder Referring Physician: Zhanna Vincent, Internal Medicine, Encounter Date: 07/31/2024 Binding Stitcher Referral for Dec reased hearing Referring Physician: Zhanna Vincent, Internal Medicine, Encounter Date: 11/27/2024 Results Created Date Observation Date Name Description [...] of 10,00 0 indiv idual s at [place] ge risk for color ectal cance r who were scree michael with both Colog uard and colon oscop y. (Jenny Servin. et al, N Engl J Med 2014; 370(1 4):12 86-12 97) The kym l value (refe rence range ) for this assay is negat kurt. COLOG UARD RE-SC REENI NG RECOM MENDA TION: Perio dic color ectal cance r scree katrin is an impor tant part of preve ntive healt hcare for asymp tomat ic indiv idual s at [place] ge risk for color ectal cance r. Follo wing [...] ectal Cance r Scree katrin: https ://kimberly samayoa.can cer.o rg/ca ncer/ colon -rect al-ca ncer/ detec tion- diagn osis- stagi ng/ac s-rec ommen datio ns.ht ml.; Shady PURVIS, Nahed HOGAN, Ty CHILDRESS, Color ectal Cance r Scree katrin: Recom menda tions for Physi cians and Patie nts from the [place]. Multi -Soci ety Task Force on Color ectal Cance r Scree katrin , Am Florentin santana y 2017; 112:1 016-1 030. TEST DESCR IPTIO N: [place] site algor ithmi c mable sis of stool DNA-b iolesli de la torre with hemog lobin immun oassa y. Quant itati ve value s of indiv idual bioma rkers are not repor table and are not assoc iated with indiv idual bioma rker resul t refer ence range s. Colog uard is inten ded for color ectal cance r scree katrin of adult s of eithe r sex, 45 years or older , who are at [facility] for color ectal cance r ([facility]) . Colog uard has been appro tera for use by the [place]. FDA. The perfo rmanc e of Colog uard was estab lishe d in a cross secti onal study of [facility] adult s aged 50-84 . Colog uard perfo rmanc e in patie nts ages 45 to 49 years was estim ated by sub-g roup mable sis of near- age group s. Colon oscop ies perfo rmed for a posit kurt resul t may find as the most clini christine signi domi t lesaishwarya n: color ectal cance r [4.0% ], [...] study of 0 indiv idual s at [facility] for color ectal cance r who were [...] uard perfo rmanc e data in a 10,00 0 patie nt pivot al study using colon oscop y as the refer ence metho d can be acces sed at the follo wing locat ion: www.e xactl abs.c om/re zo . Addit ional descr iptio n of the Colog uard test proce ss, warni ngs and preca ution s can be found at www.c jasonu geovanny.c om. Not Available [facility] (Cologuard Orders Only) [address], [place], [address], 02/21/2024 18:25:57 09/05/19 25 09/06/2024 LIPID PANEL cholesterol, total 128 mg/dL 100-19 9 Not Available [facility] ([facility]) [address] [place], [address], 09/09/2024 19:06:52 09/05/19 25 09/06/2024 LIPID PANEL triglyceride s 68 mg/dL 0-149 Not Available [facility] ([facility]) [address] [place], [address], 09/09/2024 19:06:52 09/05/19 25 09/06/2024 LIPID PANEL HDL cholesterol 53 mg/dL >39 Not Available [facility] ([facility]) [address] [facility], [place], [address], 09/09/2024 19:06:52 09/05/19 25 09/06/2024 LIPID PANEL VLDL cholesterol phong 14 mg/dL 5-40 Not Available [facility] ([facility]) [address] [place], [address], 09/09/2024 19:06:52 09/05/19 25 09/06/2024 LIPID PANEL LDL chol calc ([facility]) 61 mg/dL 0-99 Not Available [facility] ([facility]) [address] [place], [address], 09/09/2024 19:06:52 09/05/19 25 09/06/2024 HEPAT IC FUNCT ION PANEL (7) protein, total 7.1 g/dL 6.0-8. 5 Not Available [facility] ([facility]) [address] [facility] [place], [address], 09/09/2024 19:06:53 09/05/19 25 09/06/2024 HEPAT IC FUNCT ION PANEL (7) albumin 4.3 g/dL 3.8-4. 8 Not Available [facility] ([facility]) [address] [facility] [place], [address], 09/09/2024 19:06:53 09/05/19 25 09/06/2024 HEPAT IC FUNCT ION PANEL (7) bilirubin, total 0.4 mg/dL 0.0-1. 2 Not Available [facility] ([facility]) [address] [facility] [place], [address], 09/09/2024 19:06:53 09/05/19 25 09/06/2024 HEPAT IC FUNCT ION PANEL (7) bilirubin, direct 0.20 mg/dL 0.00-0 .40 Not Available [facility] ([facility]) [address] [place], [address], 09/09/2024 19:06:53 09/05/19 25 09/06/2024 HEPAT IC FUNCT ION PANEL (7) alkaline phosphatase 143 IU/L 44-121 above high normal Not Available [facility] ([facility]) [address] [place], [address], 09/09/2024 19:06:53 09/05/19 25 09/06/2024 HEPAT IC FUNCT ION PANEL (7) AST (SGOT) 20 IU/L 0-40 Not Available [facility] ([facility]) [address] [place], [address], 09/09/2024 19:06:53 09/05/19 25 09/06/2024 HEPAT IC FUNCT ION PANEL (7) ALT (SGPT) 11 IU/L 0-32 Not Available [facility] ([facility]) [address] [facility], [place], [address], 09/09/2024 19:06:53 09/05/19 25 09/06/2024 MICRO SCOPI C EXAMI NATIO N WBC 0-5 /hpf 0-5 Not Available [facility] ([facility]) [address] [facility], [place], [address], 09/09/2024 19:06:55 09/05/19 25 09/06/2024 MICRO SCOPI C EXAMI NATIO N RBC None seen /hpf 0-2 Not Available [facility] ([facility]) [address] [facility], [place], [address], 09/09/2024 19:06:55 09/05/19 25 09/06/2024 MICRO SCOPI C EXAMI NATIO N epithelial cells (non renal) 0-10 /hpf 0-10 Not Available [facility] ([facility]) [address] [facility], [place], [address], 09/09/2024 19:06:55 09/05/19 25 09/06/2024 MICRO SCOPI C EXAMI NATIO N casts None seen /lpf nonese en Not Available [facility] ([facility]) [address] [facility], [place], [address], 09/09/2024 19:06:55 09/05/19 25 09/06/2024 MICRO SCOPI C EXAMI NATIO N bacteria None seen nonese en/few Not Available [facility] ([facility]) [address] [facility], [place], [address], 09/09/2024 19:06:55 09/05/19 25 09/06/2024 BMP7+ EGFR glucose 101 mg/dL 70-99 above high normal Not Available [facility] ([facility]) [address] [place], [address], 09/09/2024 19:06:55 09/05/19 25 09/06/2024 BMP7+ EGFR BUN 14 mg/dL 8-27 Not Available [facility] ([facility]) [address] [facility] [place], [address], 09/09/2024 19:06:55 09/05/19 25 09/06/2024 BMP7+ EGFR creatinine 1.00 mg/dL 0.57-1 .00 Not Available [facility] ([facility]) [address] [facility] [place], [address], 09/09/2024 19:06:55 09/05/19 25 09/06/2024 BMP7+ EGFR eGFR 59 mL/mi n/1.7 3 >59 below low normal Not Available [facility] ([facility]) [address] [place], [address], 09/09/2024 19:06:55 09/05/19 25 09/06/2024 BMP7+ EGFR sodium 140 mmol/ L 134-14 4 Not Available [facility] ([facility]) [address] [place], [address], 09/09/2024 19:06:55 09/05/19 25 09/06/2024 BMP7+ EGFR potassium 4.3 mmol/ L 3.5-5. 2 Not Available [facility] ([facility]) [address] [place], [address], 09/09/2024 19:06:55 09/05/19 25 09/06/2024 BMP7+ EGFR chloride 99 mmol/ L 96-106 Not Available [facility] ([facility]) [address] [place], [address], 09/09/2024 19:06:55 09/05/19 25 09/06/2024 BMP7+ EGFR carbon dioxide, total 24 mmol/ L 20- Not Available [facility] ([facility]) [address] [facility], [place], [address], 09/09/2024 19:06:55 09/05/19 25 09/06/2024 UA/M W/RFL X CULTU RE, COMP specific gravity 1.017 1.005- 1.030 Not Available [facility] ([facility]) [address] [facility], [place], [address], 09/09/2024 19:06:56 09/05/19 25 09/06/2024 UA/M W/RFL X CULTU RE, COMP pH 6.0 5.0-7. 5 Not Available [facility] ([facility]) [address] [facility], [place], [address], 09/09/2024 19:06:56 09/05/19 25 09/06/2024 UA/M W/RFL X CULTU RE, COMP urine-color YELLOW yellow Not Available [facility] ([facility]) [address] [facility], [place], [address], 09/09/2024 19:06:56 09/05/19 25 09/06/2024 UA/M W/RFL X CULTU RE, COMP appearance CLEAR clear Not Available [facility] ([facility]) [address] [facility], [place], [address], 09/09/2024 19:06:56 09/05/19 25 09/06/2024 UA/M W/RFL X CULTU RE, COMP WBC esterase 2+ negati ve abnormal Not Available [facility] ([facility]) [address] [facility], [place], [address], 09/09/2024 19:06:56 09/05/19 25 09/06/2024 UA/M W/RFL X CULTU RE, COMP protein TRACE negati ve/tra ce Not Available [facility] ([facility]) [address] [facility], [place], [address], 09/09/2024 19:06:56 09/05/19 25 09/06/2024 UA/M W/RFL X CULTU RE, COMP glucose NEGATI VE negati ve Not Available [facility] ([facility]) [address] [place], [address], 09/09/2024 19:06:56 09/05/19 25 09/06/2024 UA/M W/RFL X CULTU RE, COMP ketones NEGATI VE negati ve Not Available [facility] ([facility]) [address] [place], [address], 09/09/2024 19:06:56 09/05/19 25 09/06/2024 UA/M W/RFL X CULTU RE, COMP occult blood NEGATI VE negati ve Not Available [facility] ([facility]) [address] [place], [address], 09/09/2024 19:06:56 09/05/19 25 09/06/2024 UA/M W/RFL X CULTU RE, COMP bilirubin NEGATI VE negati ve Not Available [facility] ([facility]) [address] [place], [address], 09/09/2024 19:06:56 09/05/19 25 09/06/2024 UA/M W/RFL X CULTU RE, COMP urobilinogen ,semi-qn 0.2 mg/dL 0.2-1. 0 Not Available [facility] ([facility]) [address] [place], [address], 09/09/2024 19:06:56 09/05/19 25 09/06/2024 UA/M W/RFL X CULTU RE, COMP nitrite, urine NEGATI VE negati ve Not Available [facility] ([facility]) [address] [place], [address], 09/09/2024 19:06:56 09/05/19 25 09/06/2024 UA/M W/RFL X CULTU RE, COMP microscopic examination SEE BELOW: Micro scopi c was indic ated and was perfo rmed. Not Available [facility] ([facility]) [address] [place], [address], 09/09/2024 19:06:56 09/05/19 25 09/06/2024 UA/M W/RFL X CULTU RE, COMP urinalysis reflex COMMEN T This speci men has refle xed to a Urine Cultu re. Not Available [facility] ([facility]) [address] [facility], [place], [address], 09/09/2024 19:06:56 09/05/19 25 09/06/2024 HEMOG LOBIN A1C hemoglobin A1C 6.4 % 4.8-5. 6 above high normal Predi abete s: 5.7 - 6.4 Diabe liz: >6.4 Glyce jillian contr ol for adult s with diabe liz: <7.0 Not Available [facility] ([facility]) [address] [place], [address], 09/09/2024 19:06:58 09/05/19 25 09/06/2024 CBC WITH DIFFE RENTI AL/PL ATELE T WBC 16.4 x10e3 /uL 3.4-10 .8 above high normal Not Available [facility] ([facility]) [address] [place], [address], 09/09/2024 19:06:59 09/05/19 25 09/06/2024 CBC WITH DIFFE RENTI AL/PL ATELE T RBC 4.48 x10e6 /uL 3.77-5 .28 Not Available [facility] ([facility]) [address] [place], [address], 09/09/2024 19:06:59 09/05/19 25 09/06/2024 CBC WITH DIFFE RENTI AL/PL ATELE T hemoglobin 12.4 g/dL 11.1-1 5.9 Not Available [facility] ([facility]) [address] [facility], [place], [address], 09/09/2024 19:06:59 09/05/19 25 09/06/2024 CBC WITH DIFFE RENTI AL/PL ATELE T hematocrit 39.7 % 34.0-4 6.6 Not Available [facility] ([facility]) [address] [facility], [place], [address], 09/09/2024 19:06:59 09/05/19 25 09/06/2024 CBC WITH DIFFE RENTI AL/PL ATELE T MCV 89 fL 79-97 Not Available [facility] ([facility]) [address] [facility], [place], [address], 09/09/2024 19:06:59 09/05/19 25 09/06/2024 CBC WITH DIFFE RENTI AL/PL ATELE T MCH 27.7 pg 26.6-3 3.0 Not Available [facility] ([facility]) [address] [place], [address], 09/09/2024 19:06:59 09/05/19 25 09/06/2024 CBC WITH DIFFE RENTI AL/PL ATELE T MCHC 31.2 g/dL 31.5-3 5.7 below low normal Not Available [facility] ([facility]) [address] [place], [address], 09/09/2024 19:06:59 09/05/19 25 09/06/2024 CBC WITH DIFFE RENTI AL/PL ATELE T RDW 13.9 % 11.7-1 5.4 Not Available [facility] ([facility]) [address] [facility], [place], [address], 09/09/2024 19:06:59 09/05/19 25 09/06/2024 CBC WITH DIFFE RENTI AL/PL ATELE T platelets 307 x10e3 /uL 150-45 0 Not Available [facility] ([facility]) [address] [facility], [place], [address], 09/09/2024 19:06:59 09/05/19 25 09/06/2024 CBC WITH DIFFE RENTI AL/PL ATELE T neutrophils 69 % notest ab. Not Available [facility] ([facility]) [address] [facility], [place], [address], 09/09/2024 19:06:59 09/05/19 25 09/06/2024 CBC WITH DIFFE RENTI AL/PL ATELE T lymphs 18 % notest ab. Not Available [facility] ([facility]) [address] [facility], [place], [address], 09/09/2024 19:06:59 09/05/19 25 09/06/2024 CBC WITH DIFFE RENTI AL/PL ATELE T monocytes 12 % notest ab. Not Available [facility] ([facility]) [address] [facility], [place], [address], 09/09/2024 19:06:59 09/05/19 25 09/06/2024 CBC WITH DIFFE RENTI AL/PL ATELE T eos 1 % notest ab. Not Available [facility] ([facility]) [address] [facility], [place], [address], 09/09/2024 19:06:59 09/05/19 25 09/06/2024 CBC WITH DIFFE RENTI AL/PL ATELE T basos 0 % notest ab. Not Available [facility] ([facility]) [address] [facility], [place], [address], 09/09/2024 19:06:59 09/05/19 25 09/06/2024 CBC WITH DIFFE RENTI AL/PL ATELE T neutrophils (absolute) 11.3 x10e3 /uL 1.4-7. 0 above high normal Not Available [facility] ([facility]) [address] [facility], [place], [address], 09/09/2024 19:06:59 09/05/19 25 09/06/2024 CBC WITH DIFFE RENTI AL/PL ATELE T lymphs (absolute) 2.9 x10e3 /uL 0.7-3. 1 Not Available [facility] ([facility]) [address] [facility], [place], [address], 09/09/2024 19:06:59 09/05/19 25 09/06/2024 CBC WITH DIFFE RENTI AL/PL ATELE T monocytes(ab solute) 2.0 x10e3 /uL 0.1-0. 9 above high normal Not Available [facility] ([facility]) [address] [place], [address], 09/09/2024 19:06:59 09/05/19 25 09/06/2024 CBC WITH DIFFE RENTI AL/PL ATELE T eos (absolute) 0.2 x10e3 /uL 0.0-0. 4 Not Available [facility] ([facility]) [address] [place], [address], 09/09/2024 19:06:59 09/05/19 25 09/06/2024 CBC WITH DIFFE RENTI AL/PL ATELE T baso (absolute) 0.0 x10e3 /uL 0.0-0. 2 Not Available [facility] ([facility]) [address] [facility], [place], [address], 09/09/2024 19:06:59 09/05/19 25 09/06/2024 CBC WITH DIFFE RENTI AL/PL ATELE T immature granulocytes 0 % notest ab. Not Available [facility] ([facility]) [address] [place], [address], 09/09/2024 19:06:59 09/05/19 25 09/06/2024 CBC WITH DIFFE RENTI AL/PL ATELE T immature grans (abs) 0.0 x10e3 /uL 0.0-0. 1 Not Available [facility] ([facility]) [address] [facility], [place], [address], 09/09/2024 19:06:59 09/05/19 25 09/09/2024 URINE CULTU RE, COMPR EHENS KURT urine culture,comp rehensive Final report Not Available [facility] ([facility]) [address] [facility], [place], [address], 09/09/2024 19:07:00 09/05/19 25 09/09/2024 URINE CULTU RE, COMPR EHENS KURT result 1 Commen t No growt h in 36 - 48 hours . Not Available [facility] ([facility]) [address] [facility], [place], [address], 09/09/2024 19:07:00 10/08/19 25 10/08/2024 influ jalen virus A + B + SARS- CoV-2 (COVI D19) Ag panel , rapid IA, upper respi rator y speci men Flu A negati ve Not Available In-Office Order Internal Use Only DO Not Attach Compendium DO Not Attach Compendium, Do Not Delete/merge, 10/08/2024 15:14:32 10/08/19 25 10/08/2024 influ jalen virus A + B + SARS- CoV-2 (COVI D19) Ag panel , rapid IA, upper respi rator y speci men Flu B negati ve Not Available In-Office Order Internal Use Only DO Not Attach Compendium DO Not Attach Compendium, Do Not Delete/merge, [id number] 10/08/2024 15:14:32 10/08/19 25 10/08/2024 influ jalen virus A + B + SARS- CoV-2 (COVI D19) Ag panel , rapid IA, upper respi rator y speci men Rapid SARS CoV 2 Ag, QL IA, respiratory specimen negati ve Not Available In-Office Order Internal Use Only DO Not Attach Compendium DO Not Attach Compendium, Do Not Delete/merge, 10/08/2024 15:14:32 01/26/20 24 01/25/2024 XR, chest No observ ation record ed. [place] [id number] [facility] [address], [place], [address], 01/31/2024 14:54:16 01/26/20 24 01/25/2024 XR, chest No observ ation record ed. [place] [id number] [facility] [address], [place], [address], 01/31/2024 14:54:29 02/01/20 24 05/16/2023 MRI, lumba r spine , w/o contr ast No observ ation record ed. BARCODE Not Available 2023 15:11:29 10/09/19 25 10/09/2024 XR, chest , 2 view No observ ation record ed. [email or web address] [place] [id number] [facility] [address], [place], [address], 10/16/2024 10:26:29 Result Notes None recorded. Problems Name Problem SNOMED Code Status Onset Date Resolution Date Notes Provider Name and Address Organization Details Recorded Time Long-term drug therapy Active 2023 ABENA Shi Attn: Jammie stone,[address] [place], [address], [facility] - [facility] 4 15:05:28 Obesity 408312117 Active 2023 ABENA Shi Attn: Jammie stone,[address] [place], [address], [place] - [facility] 4 15:05:28 Body mass index 30+ - obesity 030344906 Active 2023 ABENA Shi Attn: Jammie stone,[address] [place], [address], [place] 4 15:05:29 History of transient ischemic attack 223926284 Active 2023 ABENA Shi Attn: Jammie stone,[address] [place], [address], [place] [facility] 4 15:05:30 Hypothyroidism 88299871 Active 2023 ABENA Shi Attn: Jammie stone,[address] [place], [address], [place] [facility] 4 15:05:31 Benign essential hypertension 2341775 Active 2023 ABENA Shi Attn: Jammie stone,[address] [place], [place], [address] [place] [address] 2, [place] [facility] 4 15:05:33 Hyperlipidemia 96945148 Active 2023 ABENA Shi Attn: Jammie stone,[address] [place], [place], [address] [place] [address] 2, [place] [facility] 4 15:05:34 Atrial fibrillation 94837715 Active 2023 ABENA Shi Attn: Jammie stone,[address] [place], [place], [address] [place] [address] 2, [place] [facility] 4 15:05:35 Well controlled type 2 diabetes mellitus 514696392 Active 2023 ABENA Shi Attn: Jammie stone,[address] [place], [address], [place] [facility] 4 15:05:37 Lumbar spondylosis 783407110 Active 2023 ABENA Shi Attn: Jammie stone,[address] [place], [address], [place] [facility] 4 15:13:20 Gastroesophage al reflux disease without esophagitis 785697818 Active 2023 ABENA Shi Attn: Jammie stone,[address] [place], [place], [address] [place] [address] 2, [place] [facility] 4 10:18:18 Chronic insomnia 276216441 Active 2023 ABENA Shi Attn: Jammie stone,[address] [place], [address], [facility] - [facility] 4 10:19:17 Overactive urinary bladder 383158167 Active 2023 ABENA Shi Attn: Jammie stone,[address] [facility], [place], [address], [facility] - [facility] 4 20:06:56 Decreased hearing 360777284 Active 2024 ABENA Shi Attn: Jammie stone,[address] [facility], [place], [address], [facility] - [facility] 5 12:54:51 Problem Notes None recorded. Procedures Surgical History Date Name Laterality Status Provider Name and Address Organization Details Recorded Time hysterectomy completed Marcio Salazar [place] 01/31/2024 15:19:14 Imaging Results None recorded. Procedure Notes None recorded. Medical Equipment None Reported. Allergies Allergen ID Allergen Name Allergen Category Reaction Reaction Severity Criticality Documentation Date Start Date Code Code System Note Provider Name and Address Organization Details Recorded Time 700900 Substance with sulfonami de structure and antibacte rial mechanism of action (substanc e) medicatio n Not available Not available Not available 01/31/2024 03828 8003 SNOMED Marcio Salazar [place] null, [place] - [place] 4 14:36:37 Medications Name Sig Start Date Stop Date Status Note LastModified by Organization Details LastModified Time amoxicillin 500 mg capsule TAKE 1 CAPSULE BY MOUTH EVERY 8 HOURS 10/08 completed Not Available Not Available Not Available atorvastati n 40 mg tablet TAKE 1 TABLET BY MOUTH EVERY DAY 2024 active Not Available Not Available Not Avai lable metformin 500 mg tablet TAKE 1 TABLET BY MOUTH TWICE A DAY 2024 active Not Available Not Available Not Avai lable levothyroxi ne 137 mcg tablet TAKE 1 TABLET BY MOUTH EVERY DAY active Not Available Not Available No t Available clonidine HCl 0.1 mg tablet TAKE 1 TABLET BY MOUTH TWICE A DAY active Not Available Not Available No t Available doxycycline hyclate 100 mg capsule TAKE 1 CAPSULE TWICE A DAY BY ORAL ROUTE WITH MEAL(S). 11/27 completed Not Available Not Available Not Available azithromyci n 250 mg tablet TAKE 2 TABLETS BY MOUTH TODAY, THEN TAKE 1 TABLET DAILY FOR 4 DAYS DIRECTED 11/27 completed Not Available Not Available Not Available hydrocodone 5 mg-acetamin ophen 325 mg tablet TAKE 1 TABLET BY MOUTH EVERY 6 (SIX) HOURS NEEDED FOR PAIN (BREAKTHR OUGH PAIN) 07/31 completed Not Available Not Available Not Available sotalol 80 mg tablet TAKE 1 TABLET BY MOUTH 2 TIMES A DAY. active Not Available Not Available No t Available amlodipine 5 mg tablet Take 1 tablet every day by oral route for 90 days. 08/18 completed Not Available Not Available Not Available omeprazole 40 mg capsule,del ayed release TAKE 1 CAPSULE BY MOUTH EVERY DAY active Not Available Not Available No t Available warfarin 4 mg tablet TAKE 4 MG TU, , MON AND SUN TAKE 6 MG MON, WED AND FRI OR DIRECTED BY PHYSICIAN active Not Available Not Available No t Available trazodone 100 mg tablet TAKE 1 TABLET BY MOUTH EVERYDAY AT BEDTIME 2024 active Not Available Not Available Not Avai lable amlodipine 10 mg tablet TAKE 1 TABLET BY MOUTH [...] mg tablets in a dose pack TAKE 6 TABLETS ON DAY 1 DIRECTED ON PACKAGE AND DECREASE BY 1 TAB EACH DAY FOR A TOTAL OF 6 DAYS 11/27 completed Not Available Not Available Not Available colestipol 1 gram tablet TAKE 1 TABLET BY MOUTH TWICE DAILY active Not Available Not Available No t Available amoxicillin 875 mg-potassiu m clavulanate 125 mg tablet TAKE 1 TABLET BY MOUTH EVERY 12 HOURS 01/30 completed Not Available Not Available Not Available amlodipine 02/21 completed BP Not Available Not Available Not Available Ozempic 1 mg/dose (4 mg/3 mL) subcutaneou s pen injector INJECT 1 MG SUBCUTANE OUSLY EVERY WEEK active Not Available Not Available No t Available Ozempic 0.25 mg or 0.5 mg (2 mg/3 mL) subcutaneou s pen injector WEEK 1-4: INJECT 0.25 MG UNDER THE SKIN ONCE WEEKLY WEEK 5+: INJECT 0.5MG ONCE WEEKLY 11/27 completed Not Available Not Available Not Available Klayesta 100,000 unit/gram topical powder APPLY TO THE AFFECTED AREA(S) UNDER BREASTS BY TOPICAL ROUTE 2 TIMES PER DAY active Not Available Not Available No t Available Vitals Date Recorded Oxygen saturation Oxygen saturation in Arterial blood by Pulse oximetry Body temperature Provider Name and Address Organization Details Last Updated DateTime 10/08/2024 99 % 99 % 97.7 [degF] ABENA Shi Attn: Accounting ,[address] [place], [address] , [facility] 10/08/2024 15:13:44 Date Recorded Body height Body mass index (BMI) Body weight Respiratory rate Heart rate Systolic blood pressure Diastolic blood pressure Provider Name and Address Organization Details Last Updated DateTime 5 157.48 cm 30.9 kg/m2 42913.1 1 g 20 /min 52 /min 148 mm[Hg] 87 mm[Hg] Marcio Salazar MA [facility] 14:54:12 Date Recorded Respiratory rate Systolic blood pressure Diastolic blood pressure Provider Name and Address Organization Details Last Updated DateTime 11/27/2024 18 /min 142 mm[Hg] 80 mm[Hg] ABENA Shi Attn: Accounting, [address] [place], [address], [facility] 11/27/2024 16:18:18 Date Recorded Body height Body mass index (BMI) Body weight Heart rate Oxygen saturation Oxygen saturation in Arterial blood by Pulse oximetry Systolic blood pressure Diastolic blood pressure Provider Name and Address Organization Details Last Updated DateTime 157.48 cm 31.3 kg/m2 02176.0 1 g 72 /min 98 % 98 % 140 mm[Hg] 90 mm[Hg] Cielo Galindo [place] 15:57:54 Date Recorded Systolic blood pressure Diastolic blood pressure Provider Name and Address Organization Details Last Updated DateTime 01/31/2024 120 mm[Hg] 80 mm[Hg] ABENA Shi Attn: Accounting,[address] [place], [address], [facility] 01/31/2024 15:13:29 Date Recorded Body height Respiratory rate Body mass index (BMI) Body weight Oxygen saturation Oxygen saturation in Arterial blood by Pulse oximetry Heart rate Systolic blood pressure Diastolic blood pressure Provider Name and Address Organization Details Last Updated DateTime 4 157.48 cm 20 /min 33.4 kg/m2 57304.3 3 g 98 % 98 % 65 /min 138 mm[Hg] 82 mm[Hg] Marcio Salazar MA [facility] 14:43:20 Date Recorded Body height Body mass index (BMI) Body weight Oxygen saturation Oxygen saturation in Arterial blood by Pulse oximetry Heart rate Systolic blood pressure Diastolic blood pressure Provider Name and Address Organization Details Last Updated DateTime 4 157.48 cm 33.5 kg/m2 81486.4 g 97 % 97 % 61 /min 136 mm[Hg] 80 mm[Hg] Loy Rajan MA [facility] 16:22:05 Date Recorded Systolic blood pressure Diastolic blood pressure Provider Name and Address Organization Details Last Updated DateTime 07/31/2024 150 mm[Hg] 90 mm[Hg] ABENA Shi Attn: Accounting,[address] [place], [address], [facility] 07/31/2024 16:18:46 Date Recorded Body height Body mass index (BMI) Body weight Respiratory rate Oxygen saturation Oxygen saturation in Arterial blood by Pulse oximetry Heart rate Systolic blood pressure Diastolic blood pressure Provider Name and Address Organization Details Last Updated DateTime 4 157.48 cm 33.7 kg/m2 82047 g 20 /min 97 % 97 % 69 /min 150 mm[Hg] 82 mm[Hg] Marcio Salazar MA [facility] 15:57:39 Social History Question Answer Notes LastModified by Organizat ion Details LastModified Time Tobacco Smoking Status Never Smoker Marcio Salazar MA null, [facility] 01/31/2024 14:40:04 Do You Have An Advance Directive? No Information not available 01/31/2024 Are You Blind [...] Date Of Your Most Recent Tobacco Screening? 11/27/2024 Information not available 11/27/2024 What Is Your Relationship Status? Information not available 11/27/2024 Do You Use Your Seat Belt Or Car Seat Routinely? Yes Information not available 01/31/2024 Do You Have Smoke And Carbon Monoxide Detectors In Your Home? Yes Information not available 01/30/2024 Do You Use Sunscreen Routinely? No Information not available 01/31/2024 Has Tobacco Cessation Counseling Been Provided? Yes Information not available 01/30/2024 On What Date Was Tobacco Cessation Counseling Provided? 11/27/2024 Information not available 11/27/2024 Sex: Female Functional Status Question Answer Note LastModified by Organizat ion Details LastModified Time Do you use any illicit or recreational drugs? No Information not available 01/31/2024 Do you or have you ever used any other forms of tobacco or nicotine? No Information not available 01/31/2024 What is your level of alcohol consumption? None Information not available 01/31/2024 Are you currently employed? Yes Information not available 11/27/2024 Are you able to care for yourself? Yes Information not available 01/30/2024 What is your exercise level? Moderate 2x a week Information not available 01/31/2024 Mental Status None recorded. Family History Relationship Description Onset Age of this Age Resolved Age Notes LastModified by Organization Details LastModified Time Mother Malignant neoplasm of ovary [email or web address] Not available 2023 15:19:35 Medical History Condition Response Coronary Artery Disease N Other N Atrial Fibrillation Y High Blood Pressure N Kidney or Bladder Problems N Thyroid Problems Y GI Problems N Depression Y COPD N Blood Clots N Skin Problems N Anemia N Heart Attack (AK) Y Anxiety Disorder N Diabetes N Muscle, [...] Time Influenza, high-dose, quadrivalent, PF 0 completed JEREMÍAS [place], [place] [facility] 07/30/2024 15:07:31 Influenza, high-dose, quadrivalent, PF 1 completed Marcio Salazar [place], [place] [...] 07/30/2024 15:07:31 pneumococcal polysaccharide PPV23 6 completed [place] [facility] 07/30/2024 15:07:31 Pneumococcal conjugate PCV 13 5 completed [place] [facility] 07/30/2024 15:07:31 Influenza, high-dose, trivalent, PF 9 completed [place] [facility] 07/30/2024 15:07:31 Influenza, high-dose, trivalent, PF 5 completed Marcio [place] [facility] 07/30/2024 15:07:31 Influenza, high-dose, trivalent, PF 8 completed Marcio [place] [facility] 07/30/2024 15:07:31 Influenza, split virus, quadrivalent, PF 7 completed [place] [facility] 07/30/2024 15:07:31 Influenza, split virus, quadrivalent, PF 3 completed Marcio [place] [facility] 07/30/2024 15:07:31 Influenza, split virus, quadrivalent, PF 6 completed [place] [facility] 07/30/2024 15:07:31 Past Encounters Encounter ID Performer Location Encounter Start Date Encounter Closed Date Diagnosis/Indication Diagnosis SNOMED-CT Code Diagnosis ICD10 Code Diagnosis Note [id number] Jhonatan Rueda MD [facility] [employer] [address] [place] [address] 01/31/2024 14:17:55 01/31/2024 15:48:52 Body mass index 30+ - obesity 399282385 Z68.33 discussed healthy diet, exercise, controllin g carbohydra liz and added sugars in the diet Obesity 057210299 E66.8 Well contr olled type 2 diabetes mellitus 819553717 E11.9 pt is stable on metformin 500mg bid . due for a1c lab. Hyperlipidemia 78923365 E78.5 stable on atorvastat in 40mg daily. due for fasting lipids. Benign ess ential hypertension 8483459 I10 stable on amlodipine 5mg daily Hypothyroidism 72575782 E03.9 on thyroid supplement and due for updated TFT panel to determine dosing History of transient ischemic attack 114734474 Z86.73 hx noted. Atrial fibrillation 4943 6004 I48.91 pt is taking sotalol and warfarin as directed and managed by cardiology Long-term drug therapy 779196545 Z79.899 check routine bmp , lft and bmp Screening for malignant neoplasm of colon 934667027 Z12.11 pt opts for cologuard screening Lumbar spondylosis 49734 0009 M47.896 hx noted Gastroesop hageal reflux disease without esophagitis 483316747 K21.9 stable on PPI therapy. Chronic insomnia 6640917 04 F51.04 stable on trazodone 100mg qhs. [id number] Jhonatan Rueda MD [facility] [employer] [address] [place] [address] 04/15/2024 16:15:08 04/15/2024 17:06:04 Obesity 121625461 E66.8 Well contr olled type 2 diabetes mellitus 767207025 E11.9 pt is stable on metformin 500mg bid and A1c is stable at 6.3% Atrial fibrillation 4943 6004 I48.91 pt is taking sotalol and warfarin as directed and managed by cardiology Hyperlipidemia 48838263 E78.5 stable on atorvastat in 40mg daily. Lipid panel is very stable Benign ess ential hypertension 2442801 I10 stable on amlodipine 5mg daily. Blood pressure is 136/80 today Hypothyroidism 84774455 E03.9 We will restart levothyrox ine 137 [...] is 0.47 History of transient ischemic attack 196519608 Z86.73 hx noted. Body mass index 30+ - obesity 813302106 Z68.33 BMI is 33.5. We discussed healthy diet, exercise, controllin g carbohydra liz and added sugars in the diet Long-term drug therapy 774588146 Z79.294 [id number] Jhonatan Rueda MD [facility] [employer] [facility] [address] [facility] [address] [place] [address] 07/31/2024 15:47:25 07/31/2024 17:02:09 Body mass index 30+ - obesity 481028345 Z68.33 BMI is 33.7 We discussed healthy diet, exercise, controllin g carbohydra liz and added sugars in the diet. Ozempic therapy may help facilitate some weight loss Obesity 079451625 E66.9 discussed healthy diet, exercise, controllin g carbohydra liz and added sugars in the diet Hypothyroidism 01421347 E03.9 Patient is running a low TSH with a T4 that is normal. She is tolerating her current dosing without difficulty or without any symptoms of hyperthyro idism. We will continue dosing of levothyrox ine 137 mcg daily Well contr olled type 2 diabetes mellitus 310144012 E11.9 pt is stable on metformin 500mg [...] as directed and managed by cardiology Hyperlipidemia 42342037 E78.5 stable on atorvastat in 40mg daily. Lipid panel is very stable Benign ess ential hypertension 7169467 I10 Blood pressure is elevated today 150/90, boost amlodipine to 10 mg daily History of transient ischemic attack 020192880 Z86.73 hx noted. Long-term drug therapy 402667554 Z79.899 CBC, BMP and liver function labs do Overactive urinary bladder 868907659 N32.81 Patient has chronic overactive bladder refer to Urology and check urine with culture [id number] Jhonatan Rueda MD [facility] [employer] [address] [place] [address] 10/08/2024 14:33:37 10/08/2024 15:19:03 Body mass index 30+ - obesity 231946496 Z68.33 BMI is 30.9 Obesity 833832400 E66.9 Upper resp iratory infection 93925332 J06.9 Start Z-D[facility] therapy and doxycyclin e 100 mg twice daily for 7 days. Broad-spec trum antibiotic coverage as the patient has recently had influenza is at high-risk for walking pneumonia. Cough 85780298 R05.9 Refer for chest x-ray. Start Medrol Dosepak. COVID and influenza negative today Benign ess ential hypertension 7836181 I10 Blood pressure is elevated today , a lot of coughing during appt. [id number] Jhonatan Rueda MD [facility] [employer] [address] [place] [address] 11/27/2024 15:49:55 11/27/2024 16:36:58 Well controlled type 2 diabetes mellitus 021165209 E11.9 A1c is 6.4% on August 2024 labs. Due for updated labs including A1c and microalbum in urine. Patient wants to increase her Ozempic will boost to 1 mg weekly dosing Hypothyroidism 88374702 E03.9 Stable on levothyrox ine 137 mcg daily. Due for updated thyroid panel Atrial fibrillation 4943 6004 I48.91 pt is taking sotalol and warfarin as directed and managed by cardiology but getting watchman procedure in january. Hyperlipidemia 95437103 E78.5 stable on atorvastat in 40mg daily. Lipid panel is very stable. Repeat fasting lipids Benign ess ential hypertension 9883003 I10 Blood pressure is overall stable 142/80 on exam today. Currently taking clonidine 0.1 mg twice daily and amlodipine 10 mg daily History of transient ischemic attack 899573028 Z86.73 hx noted. Body mass index 30+ - obesity 823569750 Z68.31 BMI is 31.3 Obesity 811403386 E66.9 discussed healthy diet, exercise, controllin g carbohydra liz and added sugars in the diet Long-term drug therapy 424600342 Z79.899 Routine CBC liver function and metabolic panel ordered Decreased hearing 530608 001 H91.90 Refer to audiology for decreased hearing and formal evaluation Screening mammography 24 295072 Z12.31 Annual mammogram due Health Concerns Section Related Observation LastModified by Organization Detai ls LastModified Time None Recorded Concern Status LastModified by Organization Details LastModified Time None Recorded Advance Directives Directive N: Payers Encounter Date Sequence Insurance Name Policy Number Policy Tran Covered Member ID Tran Member ID Guarantor Name 01/31/2024 1 [employer] - [employer] (MEDICARE REPLACEMENT/ ADVANTAGE - HMO) [id number] Carline Aj [id number] Carline Aj 04/15/2024 1 [employer] - [employer] (MEDICARE REPLACEMENT/ ADVANTAGE - HMO) [id number] Carline Aj [id number] Carline Aj 07/31/2024 1 [employer] - [employer] (MEDICARE REPLACEMENT/ ADVANTAGE - HMO) [id number] Carline Aj [id number] Carline Aj 10/08/2024 1 [employer] - [employer] (MEDICARE REPLACEMENT/ ADVANTAGE - HMO) [id number] Carline Aj [id number] Craline Aj 11/27/2024 1 [employer] - [employer] (MEDICARE REPLACEMENT/ ADVANTAGE - HMO) [id number] Carline jA [id number] Carline Aj Notes Date Note Type Note [...] is severe. ABENA Shi Attn: Accounting,[address] [facility], [place], [address], [facility] 02/22/2024 10:20:16 4 text/html Atrial FibrillationReported bypatient.Notes:pt [...] is severe. ABENA Shi Attn: Accounting,[address] [facility], [place], [address], [facility] 04/21/2024 20:42:53 4 text/html Atrial FibrillationReported bypatient.Notes:pt is taking warfarin and sotalol and follows with dr. muñoz. sees him every year.DiabetesReported bypatient.Notes:stable on metformin 500mg bid.HypertensionReported bypatient.Notes:pt is stable on amlodipine 5mg daily.ThyroidReported bypatient.Notes:stable on levothyroxine 137mcg daily Hx TIA x 2Lumbar spondylosis is severe. ABENA Shi Attn: Accounting,[address] [facility], [place], [address], [facility] 08/18/2024 20:07:37 5 text/html Upper Respiratory SymptomsReported bypatient.Location:head; chest Quality:productive cough;colored phlegm;congested Severity:moderate Duration:symptoms lasting over 2 weeks Onset/Timing:sudden Context:no sick contacts Modifying Factors:OTC medication Associated Symptoms:green sputum;yellow sputum;fatigue;fever ABENA Shi Attn: Accounting,[address], [place], [address], [facility] 10/20/2024 22:18:33 5 text/html Atrial FibrillationReported bypatient.Notes:pt is taking warfarin and sotalol and follows with dr. muñoz. sees him every year.DiabetesReported bypatient.Notes:stable on metformin 500mg bid. A1c in August was 6.4%HypertensionReported bypatient.Notes:pt is stable on amlodipine 5mg daily.ThyroidReported bypatient.Notes:stable on levothyroxine 137mcg daily Hx TIA x 2Lumbar spondylosis is severe. ABENA Shi Attn: Accounting,[address] , [place], [address], [facility] 12/21/2024 12:55:25 OBGyn Episode No OBEpisode recorded.
--- OUTSIDE RECORDS SUMMARY | 2025-01-20 11:25 | XMS_ITS | Encounter Summary ---
Author Organization [facility] Facility Care Team Providers Care Global Analytics Head Name Role Phone No, Physician Primary Care Provider No, Physician Primary Care Provider Zhanna Vincent Primary Care Pr ovider Jhonatan Gunter MD Unavailable [phone] Alona Ahmadi Unavailable [phone] Encounter Details Date Type Department Care Team (Latest Contact Info) Description 12/24/2016 Orders Only [facility] ProviderPriscilla MD [address] [place], [place] [id number] Social History Tobacco Use Types Packs/Day Years Used Date Smoking Tobacco: Never Assessed Comments Unknown Sex and Gender Information Value Date Recorded Sex Assigned at Not on file Legal Sex Female 5:29 AM RECRUITING INTERNSHIP Gender Identity Not on file Sexual Orientation Not on file documented as of this encounter Plan of Treatment Not on file documented as of this encounter Procedures Procedure Name Priority Date/Time Associated Diagnosis Comments CARDIOLOGY REPORT 07/28/2017 12: 00 AM RECRUITING INTERNSHIP CARDIOLOGY REPORT 01/05/2017 12: 00 AM CDT CARDIOLOGY REPORT 01/05/2017 12: 00 AM CDT CARDIOLOGY REPORT 01/05/2017 12: 00 AM CDT CARDIOLOGY REPORT 01/05/2017 12: 00 AM CDT documented in this encounter Results * CARDIOLOGY REPORT (07/28/2017 12:00 AM RECRUITING INTERNSHIP) Anatomical Region Laterality Modality Other Narrative 07/28/2017 12:00 AM RECRUITING INTERNSHIP Ordered by an unspecified provider. [facility] Provider MD CV CARDIAC SERVICES PROCE DURES Final Result * CARDIOLOGY REPORT (01/05/2017 12:00 AM CDT) Anatomical Region Laterality Modality Other Narrative 01/05/2017 12:00 AM CDT Ordered by an unspecified provider. [facility] Provider MD CV CARDIAC SERVICES PROCE DURES Final Result * CARDIOLOGY REPORT (01/05/2017 12:00 AM CDT) Anatomical Region Laterality Modality Other Narrative 01/05/2017 12:00 AM CDT Ordered by an unspecified provider. [facility] Provider MD CV CARDIAC SERVICES PROCE DURES Final Result * CARDIOLOGY REPORT (01/05/2017 12:00 AM CDT) Anatomical Region Laterality Modality Other Narrative 01/05/2017 12:00 AM CDT Ordered by an unspecified provider. [facility] Provider MD CV CARDIAC SERVICES PROCE DURES Final Result * CARDIOLOGY REPORT (01/05/2017 12:00 AM CDT) Anatomical Region Laterality Modality Other Narrative 01/05/2017 12:00 AM CDT Ordered by an unspecified provider. [facility] Provider MD CV CARDIAC SERVICES PROCE DURES Final Result documented in this encounter Visit Diagnoses Not on filedocumented in this encounter Care Teams Global Analytics Head Relationship Specialty Start Date End Date No, Physician PCP - General 05/01/18 04/17/19 No, Physician PCP - General 04/18/19 10/15/19 Zhanna Vincent PA PCP - General Physician Etl Architect 10/16/19 Jhonatan Gunter MD [address] [place] [address] Consulting Physician Cardiology 12/02/21 Alona Ahmadi PA [address] [facility] [address] [place] [address] Physician Etl Architect Orthopedic Surgery 12/24/21 documented as of this encounter
--- OUTSIDE RECORDS SUMMARY | 2025-01-20 11:26 | XMS_ITS | Encounter Summary ---
Author Organization [facility] Facility Care Team Providers Care Knotting Machine Operator Name Role Phone No, Physician Primary Care Provider [phone] No, Physician Primary Care Provider [phone] Zhanna Vincent Primary Care Pr ovider Jhonatan Gunter MD Unavailable [phone] Alona Ahmadi Unavailable [phone] Encounter Details Date Type Department Care Team (Latest Contact Info) Description 07/28/2017 Orders Only [facility]INCON[facility] Provider, MD Priscilla [address] [place], [place] [id number] Social History Tobacco Use Types Packs/Day Years Used Date Smoking Tobacco: Never Assessed Comments Unknown Sex and Gender Information Value Date Recorded Sex Assigned at Not on file Legal Sex Female 5:29 AM RESEARCH PHLEBOTOMIST Gender Identity Not on file Sexual Orientation Not on file documented as of this encounter Plan of Treatment Not on file documented as of this encounter Procedures Procedure Name Priority Date/Time Associated Diagnosis Comments CARDIOLOGY REPORT 07/28/2017 12: 00 AM RESEARCH PHLEBOTOMIST documented in this encounter Results * CARDIOLOGY REPORT (07/28/2017 12:00 AM RESEARCH PHLEBOTOMIST) Anatomical Region Laterality Modality Other Narrative 07/28/2017 12:00 AM RESEARCH PHLEBOTOMIST Ordered by an unspecified provider. us Historical Provider CV CARDIAC SERVICES ALKA CALDWELL Final Result documented in this encounter Visit Diagnoses Not on filedocumented in this encounter Care Teams Knotting Machine Operator Relationship Specialty Start Date End Date No, Physician PCP - General 05/01/18 04/17/19 No, Physician PCP - General 04/18/19 10/15/19 Zhanna Vincent PA PCP - General Physician Drafter Geological 10/16/19 Jhonatan Gunter MD [address] [place] [address] Consulting Physician Cardiology 12/02/21 Alona Ahmadi PA [address] [address] Physician Drafter Geological Orthopedic Surgery 12/24/21 documented as of this encounter
--- OUTSIDE RECORDS SUMMARY | 2025-01-20 11:26 | XMS_ITS | Encounter Summary ---
Author Organization [facility] Facility Care Team Providers Care Film Producer Name Role Phone No, Physician Primary Care Provider [phone] No, Physician Primary Care Provider [phone] Zhanna Vincent Primary Care Pr ovider Jhonatan Gunter MD Unavailable [phone] Alona Ahmadi Unavailable [phone] Encounter Details Date Type Department Care Team (Latest Contact Info) Description 01/10/2017 Orders Only [facility] Provider, MD Priscilla [address] [place] [address] Social History Tobacco Use Types Packs/Day Years Used Date Smoking Tobacco: Never Assessed Comments Unknown Sex and Gender Information Value Date Recorded Sex Assigned at Not on file Legal Sex Female 5:29 AM TURNTABLE ENGINEER Gender Identity Not on file Sexual Orientation [...] on filedocumented in this encounter Care Teams Film Producer Relationship Specialty Start Date End Date No, Physician PCP - General 05/01/18 04/17/19 No, Physician PCP - General 04/18/19 10/15/19 Zhanna Vincent PA PCP - General Physician Electric Sign Assembler 10/16/19 Jhonatan Gunter MD [address] [place] [address] Consulting Physician Cardiology 12/02/21 Alona Ahmadi PA [address] [place] [address] Physician Electric Sign Assembler Orthopedic Surgery 12/24/21 documented as of this encounter
--- OUTSIDE RECORDS SUMMARY | 2025-01-20 11:26 | XMS_ITS | Encounter Summary ---
Author Organization [facility] Facility Care Team Providers Care Hat And Cap Opener Name Role Phone No, Physician Primary Care Provider [phone] No, Physician Primary Care Provider [phone] Zhanna Vincent Primary Care Pr ovider Jhonatan Gunter MD Unavailable [phone] Alona Ahmadi Unavailable [phone] Encounter Details Date Type Department Care Team (Latest Contact Info) Description 04/18/2018 Orders Only [facility] Provider, MD Priscilla [address] [place] [address] Social History Tobacco Use Types Packs/Day Years Used Date Smoking Tobacco: Never Assessed Comments Unknown Sex and Gender Information Value Date Recorded Sex Assigned at Not on file 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
--- OUTSIDE RECORDS SUMMARY | 2025-01-20 11:26 | XMS_ITS | Encounter Summary ---
Author Organization [facility] Facility Care Team Providers Care Member Of The Legislative Assembly Name Role Phone No, Physician Primary Care Provider [phone] No, Physician Primary Care Provider [phone] Zhanna Vincent Primary Care Pr ovider Jhonatan Gunter MD Unavailable [phone] Alona Ahmadi Unavailable [phone] Encounter Details Date Type Department Care Team (Latest Contact Info) Description 03/22/2018 Orders Only [facility]CON[facility] Provider, MD Priscilla [address] [place] [address] Social History Tobacco Use Types Packs/Day Years Used Date Smoking Tobacco: Never Assessed Comments Unknown Sex and Gender Information Value Date Recorded Sex Assigned at Not on file 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 Gender Identity Not on file Sexual Orientation [...] on filedocumented in this encounter Care Teams Member Of The Legislative Assembly Relationship Specialty Start Date End Date No, Physician PCP - General 05/01/18 04/17/19 No, Physician PCP - General 04/18/19 10/15/19 Zhanna Vincent PA PCP - General Physician Land Development Project Manager 10/16/19 Jhonatan Gunter MD [address] [place] [address] Consulting Physician Cardiology 12/02/21 Alona Ahmadi PA [address] [address] Physician Land Development Project Manager Orthopedic Surgery 12/24/21 documented as of this encounter
--- OUTSIDE RECORDS SUMMARY | 2025-01-20 11:26 | XMS_ITS | Encounter Summary ---
Author Organization [facility] Facility Care Team Providers Care Double Head Machine Operator Name Role Phone No, Physician Primary Care Provider [phone] No, Physician Primary Care Provider [phone] Zhanna Vincent Primary Care Pr ovider Jhonatan Gunter MD Unavailable [phone] Alona Ahmadi Unavailable [phone] Encounter Details Date Type Department Care Team (Latest Contact Info) Description 04/16/2018 Orders Only [facility]CON[facility] Provider, MD Priscilla [address] [place] [address] Social History Tobacco Use Types Packs/Day Years Used Date Smoking Tobacco: Never Assessed Comments Unknown Sex and Gender Information Value Date Recorded Sex Assigned at Not on file 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 Gender Identity Not on file Sexual Orientation [...] on filedocumented in this encounter Care Teams Double Head Machine Operator Relationship Specialty Start Date End Date No, Physician PCP - General 05/01/18 04/17/19 No, Physician PCP - General 04/18/19 10/15/19 Zhanna Vincent PA PCP - General Physician Solutions Sales Executive 10/16/19 Jhonatan Gunter MD [address] [place] [address] Consulting Physician Cardiology 12/02/21 Alona Ahmadi PA [address] [address] Physician Solutions Sales Executive Orthopedic Surgery 12/24/21 documented as of this encounter
--- OUTSIDE RECORDS SUMMARY | 2025-01-20 11:26 | XMS_ITS | Encounter Summary ---
Author Organization [facility] Facility Care Team Providers Care Director Translational Name Role Phone No, Physician Primary Care Provider [phone] No, Physician Primary Care Provider [phone] Zhanna Vincent Primary Care Pr ovider Jhonatan Gunter MD Unavailable [phone] Alona Ahmadi Unavailable [phone] Encounter Details Date Type Department Care Team (Latest Contact Info) Description 12/25/2016 Orders Only [facility]CON[facility] Provider, MD Priscilla [address] [place], [place] [id number] Social History Tobacco Use Types Packs/Day Years Used Date Smoking Tobacco: Never Assessed Comments Unknown Sex and Gender Information Value Date Recorded Sex Assigned at Not on file Legal Sex Female 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 Historical Provider CV CARDIAC SERVICES ALKA CALDWELL Final Result * CARDIOLOGY REPORT (01/05/2017 12:00 AM CDT) Anatomical Region Laterality Modality Other Narrative 01/05/2017 12:00 AM CDT Ordered by an unspecified provider. us Historical Provider CV CARDIAC SERVICES ALKA CALDWELL Final Result documented in this encounter Visit Diagnoses Not on filedocumented in this encounter Care Teams Director Translational Relationship Specialty Start Date End Date No, Physician PCP - General 05/01/18 04/17/19 No, Physician PCP - General 04/18/19 10/15/19 Zhanna Vincnet PA PCP - General Physician Reporting Manager 10/16/19 Jhonatan Gunter MD [address] [address] Consulting Physician Cardiology 12/02/21 Alona Ahmadi PA [address] [address] Physician Reporting Manager Orthopedic Surgery 12/24/21 documented as of this encounter
--- OUTSIDE RECORDS SUMMARY | 2025-01-20 11:26 | XMS_ITS | Clinical Summary ---
Author Organization [facility] [id number] Address [address] [place] [address] Care Team Providers Care Substance Addiction Coordinator Name Role Phone Zhanna Vincent Primary Care Pr ovider Jhonatan Gunter MD Unavailable [phone] Alona Ahmadi Unavailable [phone] Allergies Active Allergy Reactions Criticality Noted Date Comments Hydrocodone Bitartrate Nausea only Low 12/13/2018 Hydrocodone-Acetaminophen Nausea only Low 9 Oxycodone Nausea only High 02/11/2020 Propoxyphene Hcl Unknown 12/13/2018 Sulfa (Sulfonamide Antibiotics) Hives Medium 11/20 Medications valACYclovir (VALTREX) 1 gram tablet 0 12/02/19 19 Active lisinopril (PRINIVIL,ZEST RIL) 10 mg tablet Take 1 tablet (10 mg total) by mouth daily 3 12/01/19 19 Active cloNIDine (CATAPRES) 0.1 mg tablet Take 1 tablet (0.1 mg total) by mouth 2 (two) times a day 2 11/10/19 19 Active atorvastatin (LIPITOR) 40 mg tablet Take 1 tablet (40 mg total) by mouth nightly 1 12/01/19 19 Active amLODIPine (NORVASC) 5 mg tablet Take 1 tablet (5 mg total) by mouth daily 1 12/01/19 19 Active metFORMIN (GLUCOPHAGE) 500 mg tablet Take 1 tablet (500 mg total) by mouth 2 (two) times a day with meals 10 03/10/20 19 Active omeprazole (PriLOSEC) 40 mg capsule Take 1 capsule (40 mg total) by mouth daily 02/20/[address] (CYMBALTA) 60 mg capsule Take 1 capsule (60 mg total) by mouth daily Active Euthyrox 125 mcg tablet Take 1 tablet (125 mcg total) by mouth daily 03/10/20 20 Active meclizine (ANTIVERT) 25 mg tablet Take 1 tablet (25 mg total) by mouth 3 (three) times a day as needed 12/23/19 21 Active multivitamin capsule Take 1 capsule by mouth daily Active levothyroxine (SYNTHROID) 112 mcg tablet 1 tablet DAILY (route: oral) 12/27/19 22 Active multivitamin-m inerals-lutein (Multivitamin 50 Plus) tablet 1 tablet DAILY (route: oral) 12/27/19 22 Active acetaminophen ER (TYLENOL) 650 mg 8 hr tablet 650 mg NEEDED (route: oral) 12/28/19 22 Active aspirin 81 mg enteric coated tablet 1 tablet DAILY (route: oral) 12/27/19 22 Active colestipoL (COLESTID) 1 gram tablet Take 1 tablet (1 g total) by mouth 2 (two) times a day Active Klayesta powder APPLY TO THE AFFECTED AREA(S) UNDER BREASTS BY TOPICAL ROUTE 2 TIMES PER DAY 03/29/20 24 Active traZODone (DESYREL) 100 mg tablet Take 1 tablet (100 mg total) by mouth nightly 04/17/20 24 Active HYDROcodone-ac etaminophen (NORCO) 5-325 mg per tabletIndicati ons:Pain Take 1 tablet by mouth every 6 (six) hours as needed for pain (breakthrough pain) 30 tablet 05/28/20 24 Active warfarin (COUMADIN) 4 mg tablet TAKE 4 MG TUES, THURS, SAT AND SUN TAKE 6 MG MON, WED AND FRI OR DIRECTED BY PHYSICIAN 90 tablet 1 12/07/19 25 Active sotaloL (BETAPACE) 80 mg tablet TAKE 1 TABLET BY MOUTH 2 TIMES A DAY. 180 tablet 2 01/15/20 25 Active sotaloL (BETAPACE) 80 mg tablet TAKE 1 TABLET BY MOUTH 2 TIMES A DAY. 180 tablet 2 04/15/20 24 025 Discontinued Active Problems Problem Noted Date Diagnosed Date Osteoporosis 09/07/2022 Low back pain 08/30/2022 Streptococcal sore throat 06/06/2022 Irritable bowel syndrome with diarrhea Epistaxis 02/11/2022 Aftercare following left knee joint replacement surgery 12/23/2021 Abnormal urinalysis 12/17/2021 Urinary tract infectious disease 09/30/2021 Right upper quadrant pain 09/26/2021 watermelon inspector (current) use of anticoagulants 2021 Type 2 diabetes mellitus wit hout complication, without long-term current use of insulin 08/21/2021 senior living (current) use of oral hypoglycemic gayle gs 08/21/2021 Cerebrovascular disease 08/11/2021 Stress fracture of left tibia 08/11/2021 Paroxysmal atrial fibrillation 11/03/2020 s/p revision left total knee arthroplasty on [...] Encounters Date Type Department Care Team Description 01/03/2025 Anticoagulation Visit [facility] [address] [place] [address] Lia Apple, RYLEY 11/29/2024 Anticoagulation Visit [facility] [address] [place] [address] Lia Apple RN 11/05/2024 Anticoagulation Visit [facility] [address] [place] [id number] Mariposa Mitchell RN 10/25/2024 Anticoagulation Visit [facility] [address] [place] [address] Darryl Garcia, RYLEY 10/22/2024 Anticoagulation Visit [facility] [address] [place] [address] Lia Apple RN 10/21/2024 Telephone [facility] Cardiology [address] [place] [address] Jhonatan Gunter MD from Last 3 Months Immunizations Immunization Administration [...] Left x 2 HYSTERECTOMY 1985 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 cataracts removed COLONOSCOPY 2019 ESOPHAGOGASTRODUODENOSCOPY with esophageal dilitation (has had it done x 2) CARDIAC CATHETERIZATION 12/30/2016 Medical History Medical History Date Comments Hypertension Hypercholesteremia Osteoarthritis Asthma GERD (gastroesophageal reflux disease) Hiatal hernia Heart attack (HCC) 2016 History of hepatitis B 1979' TIA (transient ischemic attack) x 2 2014 [...] on file Legal Sex Female 5:29 AM [employer] Gender Identity Not on file Sexual Orientation [...] 1:30 PM CDT Height 154.9 cm (5' 1) 02/08/2024 1:30 PM CDT Body Mass Index 34.58 02/08/2024 1:30 PM CDT Plan of Treatment Health Maintenance Due Date Last Done Comments Albumin Creatinine Ratio, Urine 1948 Depression Screening 1948 Hepatitis C Screening 1948 Osteoporosis Screening-Bone Density Scan 1948 Dilated Eye Exam 1948 Foot Exam 1948 Hepatitis B Screening 1966 Zoster Vaccine (1 of 2) 1998 Well Visit 65+ 2013 Hemoglobin A1C 06/15/2022 12/14/2021, 0308/2019, 12/25/2016 Fall Risk Assessment 12/26/2022 12/26/2021 Covid-19 Vaccine (2023-2 5 season) 2024 11/30/2021, 06/19/2021, 10/25/2020, Additional history exists Lipid Panel 02/07/2025 02/08/2024, 01/20, 02/15/2022, Additional history exists Influenza Vaccine (Season Ended) 2025 05/13/2021, 04/27/2017, 05/20/2016 eGFR 11/04/2025 11/04/2024, 0501/2022, 12/14/2021 DTaP/Tdap/Td Vaccine (2 - Td or Tdap) 06/28/2031 06/28/2021 Pneumococcal vaccine 65+ Completed 018, 06/09/2016, 05/13/2015 Medical Devices Implanted Type Area Farm Helper Device Identifier Shelf Expiration Date Model / Serial / Lot Knee Components Left: Knee Screws,Wires Bilater al: Hand [employer] Orthoblast Ii Allograft Putty Vial Graft 10cc Bone Demineralized - [id number] - [id number] Implanted:Qty: 1 on 12/23/2021 by Mason Vela MD at [facility] Left: Knee [employer] [id number] 03/17/2022 / [id number] / [id number] [employer] 18mm Femur Tibia Left 6-9 Cd Surface Articular Vivacit-E [id number] - [id number] Implanted:Qty: 1 on 12/23/2021 by Mason Vela MD at [facility] Left: Knee [employer] [id number] 07/09/2025 [id number] / / [id number] Procedures Procedure Name Priority Date/Time Associated Diagnosis Comments PROTIME-INR Routine 01/02/2025 1:08 PM CDT Paroxysmal atrial fibrillation (HCC) PROTIME-INR Routine 11/28/2024 1:36 PM CDT Paroxysmal atrial fibrillation (HCC) PROTIME-INR Routine 11/04/2024 2:15 PM CDT Paroxysmal atrial fibrillation (HCC) CBC WITH AUTO DIFFERENTIAL Routine 11/04/2024 2:15 PM CDT Paroxysmal atrial fibrillation (HCC) BASIC METABOLIC PANEL Routine 11/04/2024 2:15 PM CDT Paroxysmal atrial fibrillation (HCC) PROTIME-INR Routine 10/24/2024 1:27 PM [employer] Paroxysmal atrial fibrillation (HCC) PROTIME-INR Routine 10/21/2024 1:39 PM [employer]ER Paroxysmal atrial fibrillation (HCC) POCT LIPID PANEL Routine 02/08/2024 1:32 PM CDT Lipid screening HEMOGLOBIN A1C Routine 12/14/2021 2:28 PM CDT Presence of left artificial knee joint Preop testing Diabetes mellitus of other type without complication, unspecified whether termite control representative insulin use (HCC) from Last 3 Months or Most Recently Relevant to Health Maintenance Results * (ABNORMAL) Protime-INR (01/02/2025 1:08 PM CDT) INR 1.4(H) [facility] Comment: Reference Range 0.9-1.1 Moderate-intensity Warfarin Therapy 2.0-3.0 Higher-intensity Warfarin Therapy 3.0-4.0 PT 14.6(H) 9.0 - 11.5 sec [facility] Comment: For additional information, please refer to http://education.[employer]/faq/DZO028 (This link is being provided for informational/ educational purposes only.) Blood 01/02/2025 1:08 PM CDT 01/02/2025 1:09 PM CDT us Jhonatan Gunter MD LAB BLOOD ORDERABLES Fin al Result [facility] [address] [place] [address] * (ABNORMAL) Protime-INR (11/28/2024 1:36 PM CDT) INR 2.0(H) [facility] Comment: Reference Range 0.9-1.1 Moderate-intensity Warfarin Therapy 2.0-3.0 Higher-intensity Warfarin Therapy 3.0-4.0 PT 20.7(H) 9.0 - 11.5 sec [facility] Comment: For additional information, please refer to http://education.[employer]/faq/QPD617 (This link is being provided for informational/ educational purposes only.) Blood 11/28/2024 1:36 PM CDT 11/28/2024 1:36 PM CDT us Jhonatan Gunter MD LAB BLOOD ORDERABLES Fin al Result [facility] [address] [place] [address] * (ABNORMAL) CBC with auto differential (11/04/2024 2:15 PM CDT) WBC 8.7 3.8 - 10.8 Thousand/u L [facility] RBC, POC 4.00 3.80 - 5.10 Million/uL [facility] Hgb 11.4(L) 11.7 - 15.5 g/dL [facility] Hct 36.3 35.0 - 45.0 % [facility] MCV 90.8 80.0 - 100.0 fL [facility] MCH 28.5 27.0 - 33.0 pg [facility] MCHC 31.4(L) 32.0 - 36.0 g/dL [facility] Comment: For adults, a slight decrease in the calculated MCHC value (in the range of 30 to 32 g/dL) is most likely not clinically significant; however, it should be interpreted with caution in correlation with other red cell parameters and the patient's clinical condition. Rdw 14.5 11.0 - 15.0 % [facility] Platelets 356 140 - 400 Thousand/u L [facility] MPV 10.5 7.5 - 12.5 fL [facility] Neutrophils, abs 4,898 1,500 - 7,800 cells/uL [facility] Lymphocytes, abs 2,662 850 - 3,900 cells/uL [facility] Monocyte abs 861 200 - 950 cells/uL [facility] Eosinophils, abs 226 15 - 500 cells/uL [facility] Basophils, abs 52 0 - 200 cells/uL [facility] Neutrophils 56.3 % [facility] Lymphocyte pct 30.6 % [facility] Monocytes 9.9 % [facility] Eosinophils 2.6 % [facility] Basophils 0.6 % [facility] Blood 11/04/2024 2:15 PM CDT 11/04/2024 2:16 PM CDT us Enrico Deras MD LAB BLOOD ORDERABLES Final Resul t Performing Organization Address City/[facility]/ZIP Co de Phone Number [facility] [address] [place] [address] * (ABNORMAL) Protime-INR (11/04/2024 2:15 PM CDT) INR 2.5(H) [facility] Comment: Reference Range 0.9-1.1 Moderate-intensity Warfarin Therapy 2.0-3.0 Higher-intensity Warfarin Therapy 3.0-4.0 PT 24.9(H) 9.0 - 11.5 sec [facility] Comment: For additional information, please refer to http://education.[employer]/faq/LLX054 (This link is being provided for informational/ educational purposes only.) Blood 11/04/2024 2:15 PM CDT 11/04/2024 2:16 PM CDT us Enrico Deras MD LAB BLOOD ORDERABLES Final Resul t [facility] [address] [place] [address] * (ABNORMAL) Basic metabolic panel (11/04/2024 2:15 PM CDT) Glucose 113(H) 65 - 99 mg/dL [facility] Comment: Fasting reference interval For someone without known diabetes, a glucose value between 100 and 125 mg/dL is consistent with prediabetes and should be confirmed with a follow-up test. BUN 12 7 - 25 mg/dL [facility] Creatinine 0.67 0.60 - 1.00 mg/dL [facility] eGFR 91 > OR = 60 mL/min/1.7 3m2 [facility] BUN/creat ratio SEE NOTE: 6 - 22 (calc) [facility] Comment: Not Reported: BUN and Creatinine are within reference range. Sodium 138 135 - 146 mmol/L [facility] Potassium, pl 3.8 3.5 - 5.3 mmol/L [facility] Chloride 102 98 - 110 mmol/L [facility] CO2 28 20 - 32 mmol/L [facility] Calcium 9.0 8.6 - 10.4 mg/dL [facility] Blood 11/04/2024 2:15 PM CDT 11/04/2024 2:16 PM CDT us Enrico Deras MD LAB BLOOD ORDERABLES Final Resul t [facility] [address] [place] [address] * (ABNORMAL) Protime-INR (10/24/2024 1:27 PM [employer]) INR 1.9(H) [facility] Comment: Reference Range 0.9-1.1 Moderate-intensity Warfarin Therapy 2.0-3.0 Higher-intensity Warfarin Therapy 3.0-4.0 PT 19.7(H) 9.0 - 11.5 sec [facility] Comment: For additional information, please refer to http://education.[employer]/faq/YDO976 (This link is being provided for informational/ educational purposes only.) Blood 10/24/2024 1:27 PM [employer] 10/24/2024 1:28 PM [employer] Jhonatan Gunter MD LAB BLOOD ORDERABLES Fin al Result Performing Organization Address [facility] Co de Phone Number [facility] [address] [place] [address] * (ABNORMAL) Protime-INR (10/21/2024 1:39 PM [employer]ER) INR 6.0(H) [facility] Comment: Verified by repeat analysis. Reference Range 0.9-1.1 Moderate-intensity Warfarin Therapy 2.0-3.0 Higher-intensity Warfarin Therapy 3.0-4.0 PT 56.6(H) 9.0 - 11.5 sec [facility] Comment: For additional information, please refer to http://education.[employer]/faq/NTR084 (This link is being provided for informational/ educational purposes only.) Blood 10/21/2024 1:39 PM [employer] F[employer]ER 10/21/2024 1:39 PM [employer] Jhonatan Gunter MD LAB BLOOD ORDERABLES Fin al Result Performing Organization Address [facility] Co de Phone Number [facility] [address] [place] [address] * POCT lipid panel (02/08/2024 1:32 PM CDT) Capillary blood 02/08/2024 1 :32 PM CDT Jhonatan Gunter MD POINT OF CARE TEST ORDER YVETTE Final Result * (ABNORMAL) Hemoglobin A1c (12/14/2021 2:28 PM CDT) Hgb A1C 6.1(H) 4.0 - 5.6 % [facility] WALKER Estimated Average Glucose 128 mg/dL [facility] Comment: The ADA recommends reporting an estimated Average Glucose (eAG) with all Hemoglobin A1c results using the equation derived from a study of 507 normal and diabetic adults. Minority populations were underrepresented and children were not included. (Diabetes Care 31:4393-2643, 2008). The eAG is not equivalent to a fasting glucose. Blood 12/14/2021 2:28 PM CDT 12/14/2021 2:39 PM CDT Narrative GABRIEL WALKER - 12/14/2021 3:02 PM CDT If patient is diabetic us Mason Vela MD LAB BLOOD ORDERABLES F inal Result [facility] [address] [facility] Department [place] [address] from Last 3 Months or Most Recently Relevant to Health Maintenance Insurance [employer] CHOICE MEDICARE O [employer] MEDICARE HMO A[employer] MEDICARE GOLD Advance Directives For more information, please contact: [phone] * Full Code (Latest Code Status on File) Date Activated Date Inactivated Comments 12/23/2021 1:11 PM 12/26/2021 6:22 PM Care Teams Substance Addiction Coordinator Relationship Specialty Start Date End Date Zhanna Vincent PA PCP - General Physician Glass Washer 10/16/19 Jhonatan Gunter MD [address] [place] [address] Consulting Physician Cardiology 12/02/21 Alona Ahmadi PA [address] [place] [address] Physician Glass Washer Orthopedic Surgery 12/24/21
--- OUTSIDE RECORDS SUMMARY | 2025-01-20 11:26 | XMS_ITS | Referral Summary ---
Author Organization [facility] [address] [facility] Address [address] [place] [address] Care Team Providers Care Upholsterer Apprentice Name Role Phone NatZhanna acosta Genevieve KRAFT Primary Care Pr ovider Jhonatan Gunter MD Unavailable [phone] Alona Ahmadi Unavailable [phone] Encounters Date Type Department Care Team Description 01/03/2025 Anticoagulation Visit [facility] Group Cardiology [address] [facility] [address] [place] [address] Lia Apple, RN 11/29/2024 Anticoagulation Visit [facility] Medical [facility] Cardiology [address] [facility] [address] [place] [address] Lia Apple, RN 11/05/2024 Anticoagulation Visit [facility] [address] [place] [address] [address] [place] [address] Mariposa Mitchell, RN 10/25/2024 Anticoagulation Visit [facility] Medical Group Cardiology [address] [facility] [address] [place] [address] Darryl Garcia RN 10/22/2024 Anticoagulation Visit [facility] [address] [facility] [address] [place] [address] Lia Apple, RN 10/21/2024 Telephone [facility]iology [address] [facility] [address] [place] [address] Jhonatan Gunter MD from Last 3 Months Allergies Active Allergy [...] disease 09/30/2021 Right upper quadrant pain 09/26/2021 tank terminal gauger (current) use of anticoagulants 2021 Type 2 diabetes mellitus wit hout complication, without long-term current use of insulin 08/21/2021 tank terminal gauger (current) use of oral hypoglycemic gayle gs [...] on file Legal Sex Female 5:29 AM TRAVEL COORDINATOR Gender Identity Not on file Sexual Orientation [...] on file Medical Devices Implanted Type Area Tin Pot Operator Device Identifier Shelf Expiration Date Model / Serial / Lot Knee Components Left: Knee Screws,Wires Bilater al: [employer] Orthoblast Ii Allograft Putty Vial Graft 10cc Bone Demineralized - [id number] - [id number] Implanted:Qty: 1 on 12/23/2021 by Mason Vela MD at [facility] Left: Knee [employer] [id number] 03/17/2022 / [id number] / [id number] [employer] 18mm Femur Tibia Left 6-9 Cd Surface Articular Vivacit-E [id number] - [id number] Implanted:Qty: 1 on 12/23/2021 by Mason Vela MD at [facility] Left: Knee [employer] [id number] 07/09/2025 [id number] / / [id number] Procedures Procedure Name Priority Date/Time Associated Diagnosis [...] fibrillation (HCC) PROTIME-INR Routine 10/24/2024 1:27 PM TRAVEL COORDINATOR Paroxysmal atrial fibrillation (HCC) PROTIME-INR Routine 10/21/2024 1:39 PM TRAVEL COORDINATOR Paroxysmal atrial fibrillation (HCC) POCT LIPID PANEL Routine 02/08/2024 1:32 PM CDT Lipid screening HEMOGLOBIN A1C Routine 12/14/2021 2:28 PM CDT Presence of left artificial knee joint Preop testing Diabetes mellitus of other type without complication, unspecified whether chcf insulin use (HCC) from Last 3 Months or Most Recently Relevant to Health Maintenance Results * (ABNORMAL) Protime-INR (01/02/2025 1:08 PM CDT) INR 1.4(H) [facility] Comment: Reference Range 0.9-1.1 Moderate-intensity Warfarin Therapy 2.0-3.0 Higher-intensity Warfarin Therapy 3.0-4.0 PT 14.6(H) 9.0 - 11.5 sec [employer]Rosalie Harry Comment: For additional information, please refer to http://girnarsoft.Aunalytics/faq/VUF943 (This link is being provided for informational/ educational purposes only.) Blood 01/02/2025 1:08 PM CDT 01/02/2025 1:09 PM CDT Jhonatan Gunter MD LAB BLOOD ORDERABLES [facility] al Result [employer] [facility] [address] [place] [address] * (ABNORMAL) Protime-INR (11/28/2024 1:36 PM CDT) INR 2.0(H) [facility] [employer] [facility] Comment: Reference Range 0.9-1.1 Moderate-intensity Warfarin Therapy 2.0-3.0 Higher-intensity Warfarin Therapy 3.0-4.0 PT 20.7(H) 9.0 - 11.5 sec [employer]Rosalie Harry Comment: For additional information, please refer to http://girnarsoft.Aunalytics/faq/OXY999 (This link is being provided for informational/ educational purposes only.) Blood 11/28/2024 1:36 PM CDT 11/28/2024 1:36 PM CDT us Jhonatan Gunter MD LAB BLOOD ORDERABLES Fin al Result [facility] [address] [place] [address] * (ABNORMAL) CBC with auto differential (11/04/2024 [...] LAB BLOOD ORDERABLES Final Resul t [facility] [address] [address] * (ABNORMAL) Protime-INR (11/04/2024 2:15 PM CDT) INR 2.5(H) [facility] Comment: Reference Range 0.9-1.1 Moderate-intensity Warfarin Therapy 2.0-3.0 Higher-intensity Warfarin Therapy 3.0-4.0 PT 24.9(H) 9.0 - 11.5 sec [employer] Comment: For additional information, please refer to http://education.Aunalytics/faq/LUB340 (This link is being provided for informational/ educational purposes only.) Blood 11/04/2024 2:15 PM CDT 11/04/2024 2:16 PM CDT us Enrico Deras MD LAB BLOOD ORDERABLES Final Resul t [facility] [address] [place] [address] * (ABNORMAL) Basic metabolic panel (11/04/2024 2:15 [...] ORDERABLES Final Resul t Performing Organization Address City/[facility]/ZIP Co de Phone Number [facility] [address] [place] [address] * (ABNORMAL) Protime-INR (10/24/2024 1:27 PM TRAVEL COORDINATOR) INR 1.9(H) [facility] Comment: Reference Range 0.9-1.1 Moderate-intensity Warfarin Therapy 2.0-3.0 Higher-intensity Warfarin Therapy 3.0-4.0 PT 19.7(H) 9.0 - 11.5 sec [facility] Comment: For additional information, please refer to http://education.Aunalytics/faq/ABE389 (This link is being provided for informational/ educational purposes only.) Blood 10/24/2024 1:27 PM TRAVEL COORDINATOR 10/24/2024 1:28 PM TRAVEL COORDINATOR us Jhonatan Gunter MD LAB BLOOD ORDERABLES Fin al Result [facility] [address] [place] [address] * (ABNORMAL) Protime-INR (10/21/2024 1:39 PM TRAVEL COORDINATOR) Pathologist [facility] INR 6.0(H) [facility] Comment: Verified by repeat analysis. Reference Range 0.9-1.1 Moderate-intensity Warfarin Therapy 2.0-3.0 Higher-intensity Warfarin Therapy 3.0-4.0 PT 56.6(H) 9.0 - 11.5 sec [employer]Rosalie Harry Comment: For additional information, please refer to http://education.Aunalytics/faq/WKY618 (This link is being provided for informational/ educational purposes only.) Blood 10/21/2024 1:39 PM TRAVEL COORDINATOR 10/21/2024 1:39 PM TRAVEL COORDINATOR Jhonatan Gunter MD LAB BLOOD ORDERABLES Fin al [facility] [address] [place] [address] * POCT lipid panel (02/08/2024 1:32 PM CDT) Capillary blood 02/08/2024 1 :32 PM CDT Jhonatan Gunter MD POINT OF CARE TEST ORDER YVETTE Final Result * (ABNORMAL) Hemoglobin A1c (12/14/2021 2:28 PM CDT) Pathologist [facility] Hgb A1C 6.1(H) 4.0 - 5.6 % GABRIEL WALKER Estimated Average Glucose 128 mg/dL GABRIEL WALKER Comment: The ADA recommends reporting an estimated Average Glucose (eAG) with all Hemoglobin A1c results using the equation derived from a study of 507 normal and diabetic adults. Minority populations were underrepresented and children were not included. (Diabetes Care 31:4278-9037, 2008). The eAG is not equivalent to a fasting glucose. Blood 12/14/2021 2:28 PM CDT 12/14/2021 2:39 PM CDT Narrative GABRIEL - 12/14/2021 3:02 PM CDT If patient is diabetic us Mason Vela MD LAB BLOOD ORDERABLES F inal Result GABRIEL [address] [facility] [place] [address] from Last 3 Months or Most Recently Relevant to Health Maintenance Insurance HUMANA CHOICE MEDICARE O HUMANA MEDICARE HMO AET MEDICARE [facility] Advance Directives For more information, please contact: [phone] * Full Code (Latest Code Status on File) Date Activated Date Inactivated Comments 12/23/2021 1:11 PM 12/26/2021 6:22 PM Care Teams Upholsterer Apprentice Relationship Specialty Start Date End Date Zhanna Vincent PA PCP - General Physician Weigher Operator 10/16/19 Jhonatan Gunter MD [address] [facility] [address] [place] [address] Consulting Physician Cardiology 12/02/21 Alona Ahmadi PA [address] [facility] [address] [place] [address] Physician Weigher Operator Orthopedic Surgery 12/24/21
--- OUTSIDE RECORDS SUMMARY | 2025-01-20 11:26 | XMS_ITS | Encounter Summary ---
Author Organization [facility] Care Team Providers Care Fur Stylist Name Role Phone No, Physician Primary Care Provider [phone] No, Physician Primary Care Provider [phone] Zhanna Vincent Primary Care Pr ovider Jhonatan Gunter MD Unavailable [phone] Alona Ahmadi Unavailable [phone] Encounter Details Date Type Department Care Team (Latest Contact Info) Description 10/22/2018 Orders Only [facility] Provider, MD Priscilla [address] [place] [id number] Social History Tobacco Use Types Packs/Day Years Used Date Smoking Tobacco: Never Assessed Comments Unknown Sex and Gender Information Value Date Recorded Sex Assigned at Not on file Legal Sex Female 5:29 AM CONTINUOUS WAVE OPERATOR Gender Identity Not on file Sexual Orientation Not on file documented as of this encounter Plan of Treatment Not on file documented as of this encounter Procedures Procedure Name Priority Date/Time Associated Diagnosis Comments PROCEDURE - RESULT 10/22/2018 12 :00 AM CONTINUOUS WAVE OPERATOR documented in this encounter Results * PROCEDURE - RESULT (10/22/2018 12:00 AM CONTINUOUS WAVE OPERATOR) Narrative 10/22/2018 12:00 AM CONTINUOUS WAVE OPERATOR Ordered by an unspecified provider. us Historical Provider Final Res ult documented in this encounter Visit Diagnoses Not on filedocumented in this encounter Care Teams Fur Stylist Relationship Specialty Start Date End Date No, Physician PCP - General 05/01/18 04/17/19 No, Physician PCP - General 04/18/19 10/15/19 Zhanna Vincent PA PCP - General Physician Machine Stemmer 10/16/19 Jhonatan Gunter MD [address] [address] Consulting Physician Cardiology 12/02/21 Alona Ahmadi PA [address] [id number] Physician Machine Stemmer Orthopedic Surgery 12/24/21 documented as of this encounter
== END 2025-01-20 10:51 | disposition home or self-care (01) ==
PROVIDERS: PCP Internal Medicine; Visit Provider Physician Assistant
DX: H90.3 Sensorineural hearing loss, bilateral (principal)
CPT/HCPCS: 92557; 92567